=== PATIENT | female | born 1945 | race Caucasian/White ===

== ENCOUNTER → 2016-10-15 | Outpatient (CLI) | payer OTHER ==
[~2016-10-15] MED LIST: ACET-749 PO; ACP20 PO; ADVIN25/60 INH; ALBU1AER9 INH; AMB5 PO; BIOF500T PO; CALC500C70 PO; CHOL100010 PO; CHOL1TAB46 PO; CITRUCEL PO; CLR/5 PO; CLR5 PO; CLTP PO; ESTER-C PO; FAMO20TA11 PO; FAMO40TA6 PO; FLNIN NAE; GLUC10007 PO; GLUCOSAMINE PO; IMD/2 PO; LORA-741 PO; MOME100A INH; MULT-506 PO; MULT-663 PO; PINDOLOL PO; RABE20TA5 PO; VERA180C3 PO; VERA180T15 PO; VITA400C15 PO; VITA400C3 PO; VSK5 PO; [UNRECOGNIZED DRUG - CODE] PO; acidophilus PO
[2016-10-15 18:01] LABS: BLOOD UREA NITROGEN 14 mg/dl (7-18); BUN/CREATININE RATIO 17.8 (10-20); CALCIUM 8.6 mg/dl (8.5-10.1); CARBON DIOXIDE 28 mmol/L (21-32); CHLORIDE 105 mmol/L (98-107); CREATININE 0.77 mg/dl (0.60-1.20); GLUCOSE 113 mg/dl (70-99); POTASSIUM 4.1 mmol/L (3.5-5.1); SODIUM 141 mmol/L (136-145)
[2016-10-15 18:08] LABS: BASO % 0.6 %; BASO ABS # 0.05 K/uL (0-0.2); COMPLETE YES; EOS % 3.4 %; HEMATOCRIT 43.5 % (37-47); IG% 0.1 %; LYMPH % 31.3 %; MEAN CELL VOLUME 94.8 fL (80-100); MEAN CORPUSCULAR HEMOGLOBIN 32.7 pg (25-34); MEAN CORPUSCULAR HGB CONC 34.5 g/dl (32-36); MEAN PLATELET VOLUME 11.5 fL (7.4-10.4); MONO % 12.1 %; NEUT % 52.5 %; PLATELET COUNT 232 K/uL (130-400); RED BLOOD COUNT 4.59 M/uL (4.2-5.4); WHITE BLOOD COUNT 7.99 K/uL (4.8-10.8)
== END | disposition home or self-care (01) ==
LOC: C.LABMFLN 13:39
PROVIDERS: ATTEND Physical Medicine & Rehabilitation Sports Medicine
DX: M75.121 Complete rotator cuff tear or rupture of right shoulder, not specified as traumatic (principal)

== ENCOUNTER → 2016-10-23 | Outpatient (CLI) | payer OTHER | END | disposition home or self-care (01) | LOC: C.PAPS 08:06 | PROVIDERS: ATTEND Obstetrics & Gynecology | DX: Z91.89 Other specified personal risk factors, not elsewhere classified (principal) ==

== ENCOUNTER → 2016-10-29 | Day surgery (SDC) | payer OTHER ==
[2016-10-23 10:31] VITALS: Ht 158.1 cm; Wt 95.9 kg
[~2016-10-29] VITALS: Ht 158.1 cm; Wt 95.9 kg
[~2016-10-29] MED LIST changes: -ACET-749 PO; -ACP20 PO; +ATROPINE SULFATE 0.1 MG/ML 5ML SYR IV PRN; +BUPIVACAINE 0.25% 2.5MG/ML PF 10 ML VIAL ONE; +CEFAZOLIN 2000 MG/60 ML D5W IV SCH; -CHOL100010 PO; -CITRUCEL PO; -CLR5 PO; -CLTP PO; +DEXAMETHASONE SOD INJ 4 MG/ML VIAL ONE; -ESTER-C PO; +EpHEDrine SULFATE 50MG/5ML SYR ONE; +EpHEDrine SULFATE INJ 50 MG/ML AMP IV PRN; +EpHEDrine SULFATE INJ 50 MG/ML AMP ONE; +EpINEphrine INJ 1MG/ML AMP 1 MG/ML AMP ONE; -FAMO20TA11 PO; +FENTANYL CITRATE INJ 50 MCG/1 ML 2 ML VIAL IV PRN; +FENTANYL CITRATE INJ 50 MCG/1 ML 2 ML VIAL ONE; -GLUCOSAMINE PO; +GLYCOPYRROLATE INJ 0.2 MG/ML VIAL ONE; +HYDROmorphone INJ 1 MG/ML SYR IV PRN; +LACTATED RINGER'S 1000ML 1,000 ML IV SCH; +LIDOCAINE HCL 2% 2 ML VIAL (20MG/ML) ONE; +METOCLOPRAMIDE HCL INJ 5 MG/ML 2 ML VIAL IV PRN; +MIDAZOLAM HCL 1 MG/ML 2ML VIAL ONE; -MOME100A INH; -MULT-506 PO; +NEOSTIGMINE METHYLSULFATE 5 MG/5 ML SYR ONE; +ONDANSETRON INJ 2 MG/ML 2 ML VIAL IV PRN; +ONDANSETRON INJ 2 MG/ML 2 ML VIAL ONE; +PHENYLEPHRINE HCL INJ 10 MG/ML VIAL ONE; -PINDOLOL PO; +PROPOFOL IV EMULSION 10 MG/ML 20 ML VIAL IV ONE; +ROCURONIUM BROMIDE 10 MG/ML 5 ML VIAL ONE; +ROPIVACAINE 0.5% 5 MG/ML 30 ML VIAL ONE; +SODIUM CHLORIDE 0.9% 1000ML 1,000 ML IV SCH; +SUCCINYLCHOLINE 100MG/5ML SYR IV ONE; +SUCCINYLCHOLINE CHLORIDE 20 MG/ML 10 ML VIAL IV ONE; -VERA180T15 PO; -VITA400C15 PO; -acidophilus PO
--- NOTE | 2016-10-29 08:29 | History & Physical Bridge Note ---
H&P Re-Evaluation Bridge Note: I have examined the patient, reviewed the History & Physical and in the interval since the performance of the History & Physical I have noted the following changes of clinical significance: No changes noted
--- NOTE | 2016-10-29 08:31 | Discharge Instructions ---
Discharge Instructions Visit Reason for Visit: Right Shoulder Large Rotator Cuff Tear Discharge Discharge Diagnosis / Problem: same Discharge Goals Goal(s): Decrease discomfort, Improve function, Increase independence Medications Stopped Medications Name(s): na Restart Stopped Medication(s): use scripts as directed Activity Recommendations Activity Limitations: as noted below Lifting Limitations: until after follow-up appointment Exercise/Sports Limitations: until after follow-up appointment May Resume Sexual Activity: when tolerated Shower/Bathe: keep incision dry Driving or Machine Use: Anesthesia . Post Anesthesia Instructions: If you have had General Anesthesia or IV Sedation: * Do not drive today. * Resume driving when surgeon permits. * Do not make important decisions or sign legal documents today. * Call surgeon for: 1. Temperature elevations greater than 101 degrees F. 2. Uncontrollable pain. 3. Excessive bleeding. 4. Persistent nausea and vomiting. 5. Medication intolerance (nausea, vomiting or rash). * For nausea and vomiting use only clear liquids such as: tea, soda, bouillon until nausea subsides, then gradually increase diet as tolerated. * If you have any concerns or questions, call your surgeon's office. If physician is unavailable and it is an emergency, call 911 or go to the nearest emergency room. . Instructions / Follow-Up Instructions / Follow-Up The following are instructions to follow after "Shoulder Surgery" including, Acromioplasty, Rotator Cuff Repair and Instability Surgery ACTIVITY RECOMMENDATIONS: * Minimize activity after surgery. * No excessive walking, jogging, sports or laboring. * Return to activity is individualized depending on the patient and type of surgery. * Driving is not permitted until at least your first post operative visit. Please ask your doctor when it is safe to resume driving. * Expect increased discomfort with increased activity. Continue to ice the shoulder as needed. SCHOOL/WORK RECOMMENDATIONS: * You may return to sedentary work or school when you are feeling more comfortable. This is usually 3-7 days after surgery. MEDICATIONS: * You will have a prescription for pain medication and an anti-inflammatory medication after surgery. * Use the pain medication for severe pain and the anti-inflammatory for less severe pain. Once the pain medication has run out, try to use the anti-inflammatory medication. If this is not effective, contact the office for assistance. * The pain medication may cause nausea, constipation and drowsiness. You should see how they affect you before driving or similar activity. * The anti-inflammatory medication may cause stomach upset and bleeding. If this occurs let your doctor know immediately . * Take a stool softener like Colace or a laxative like Senokot to prevent constipation. DIET: * Resume previous diet. SPECIAL CARE: ICE: You have the option of an ice cooler, gel packs or ice bags. * If you have an ice cooler, refer to the instructions for that device. The ice cooler may be used continuously. * If you do not have an ice cooler, you will need to use ice bags or gel packs. Do not apply ice directly to the skin. Use a thin dressing or jam shirt between the skin and ice bag. Apply ice for 20-30 minutes and repeat every 2-4 hours. This is especially important for the first 7-10 days after surgery. Once the pain improves, use ice as needed. ELEVATION: * You may be more comfortable sleeping in an upright position. Use the sling to elevate your arm. DRESSING: * Your dressing will be changed at your first therapy appointment approximately 4-5 days after surgery. Band-aids, tape strips or gauze may be applied. You may then change your dressing daily. * Reapply dressing followed by the EBIce cooling pad (if chosen) and then the sling. * Always wash your hands prior to touching the incision area. * Once the stitches are removed, you may leave the wound open to air or cover with gauze. * Expect some bloody drainage for the first few days after surgery. * Leave the tape strips, if present, in place for 5-7 days. * Band-aids and gauze may be changed daily. * There may be a gauze pad in your armpit area. This can be changed daily or replaced by a dry washcloth. SLING/BRACE: * You will need to use a sling or brace after surgery. The length of time the sling is used is dependent upon the type of surgery performed. * Arthroscopic Acromioplasty requires use of the sling for 2-4 weeks for comfort. * Labral procedures and Rotator Cuff Repairs require use of the sling for a longer period of time. Please check with your doctor prior to discontinuing the sling. BATHING: * You may shower or sponge-bathe immediately after surgery. The post operative shoulder dressing is mostly water-tight. You may shower right over this dressing, but be reasonably careful not to get the gauze or incision wet. * Once the dressing has been changed on the fourth or fifth day after surgery, you may shower and get the incision wet. * Wash with regular soap and water. * Do not bathe (submerge the incision), soak, swim or use a hot tub until the incision is completely healed over with normal skin and the doctor has given the OK to proceed. * There is no need to apply any ointments, powders or salves to your incision. * Do not apply alcohol or hydrogen peroxide directly to the incision. * Diluted peroxide (50:50 mixture with sterile saline) may be used to clean dried blood from around the incision area. THERAPY: * You will begin therapy four or five days after surgery. * Organized therapy with the therapist is important for the first 2-4 months after surgery depending on the type of procedure. During that time you will attend therapy 1-3 times per week. * You will also need to do daily exercises for range of motion and strength as instructed. * Patients who have a Capsular Shift Procedure will need to abide by temporary range of motion limitations. * Patients having Rotator Cuff Surgery are not allowed to actively lift their arms until 4-6 weeks after surgery. * Please check with your doctor regarding appropriate motion restrictions. FOLLOW UP VISIT: * If not already scheduled, please call the office at to schedule a follow-up appointment for 10 days after surgery and monthly thereafter. Diet Recommendations Recommended Home Diet: resume previous diet Procedures Procedures Performed: see op note Pending Studies Studies pending at discharge: no Medical Emergencies . Who to Call and When: Medical Emergencies: If at any time you feel your situation is an emergency, please call 911 immediately. . Non-Emergent Contact Non-Emergency issues call your: Specialist Call Non-Emergent contact if: temperature is above 101.5, wound has increased drainage, wound has increased redness . . "Provider Documentation" section prepared by Simba Ramos.
--- NOTE | 2016-10-29 11:32 | [facility] Post Operative Brief Note ---
Immediate Operative Summary Operative Date Oct 29, 2016. 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
--- NOTE | 2016-10-29 12:03 | OPERATIVE REPORT ---
DATE OF OPERATION: 10/29/2016 PREOPERATIVE DIAGNOSIS: Right shoulder large rotator cuff tear. POSTOPERATIVE DIAGNOSIS: Right shoulder same. PROCEDURE: Right shoulder arthroscopy with repair of large rotator cuff tear. SURGEON: Dr. Ramos. FABRIC INSPECTOR: Dr. Santamaria. SECOND DRAWING SUPERVISOR: Tarun Brand PA-C. HISTORY OF PRESENT ILLNESS: This 71-year-old white female presented to the office with complaints of right shoulder pain, weakness, and loss of motion. She had tried conservative care measures without success. X-ray and MRI were obtained. She elected to proceed with surgical intervention after being educated about potential risks and outcomes. DESCRIPTION OF PROCEDURE: The patient was administered a regional block and then taken to the operating room where she was given sedation. She was prepped and draped in the usual sterile fashion. Please see Dr. Ramos's operative report for specifics of the procedure. I was present for the entire case from initial patient positioning through final wound closure. Assistance was provided in patient positioning, arthroscopy, hardware placement, and final wound closure. The patient was taken to the recovery room in satisfactory condition. I attest to the content of the Intraoperative Record and any orders documented therein. Any exceptio ns are noted below.
[2016-10-29 12:36] VITALS: TEMP 36.3
--- NOTE | 2016-10-29 12:55 | Anesthesia Progress Nt - [facility] ---
Anesthesia Post Op Note Date & Time Oct 29, 2016 at 12:53 Vital Signs Pain Intensity: 3 Vital Signs Past 12 Hours Date Time Temp Pulse Resp B/P Pulse Ox O2 Delivery O2 Flow Rate FiO2 10/29/16 12:27 73 16 96 10/29/16 12:27 73 16 137/80 96 10/29/16 12:24 36.4 10/29/16 12:24 137/76 10/29/16 12:22 72 18 95 10/29/16 12:22 73 18 10/29/16 12:19 125/76 10/29/16 12:17 71 22 10/29/16 12:17 70 22 94 10/29/16 12:14 139/68 10/29/16 12:12 74 17 10/29/16 12:12 74 17 94 10/29/16 12:09 113/66 10/29/16 12:07 74 11 10/29/16 12:07 74 11 95 10/29/16 12:04 130/76 10/29/16 12:02 76 19 10/29/16 12:02 76 19 131/79 96 10/29/16 12:00 /90 10/29/16 11:57 75 21 96 10/29/16 11:57 75 21 10/29/16 11:54 128/101 10/29/16 11:52 75 22 10/29/16 11:52 74 22 100 10/29/16 11:49 117/58 10/29/16 11:47 80 15 98 10/29/16 11:47 80 15 10/29/16 11:46 36.1 77 14 112/81 98 Diffusion Mask 8 10/29/16 10:36 76 10/29/16 10:36 76 25 96 10/29/16 10:33 139/91 10/29/16 10:31 74 10/29/16 10:31 74 24 96 10/29/16 10:28 140/82 10/29/16 10:26 78 10/29/16 10:26 81 24 96 10/29/16 10:24 135/85 10/29/16 10:21 70 15 96 10/29/16 10:21 70 10/29/16 10:18 116/86 10/29/16 10:16 68 10/29/16 10:16 68 14 96 10/29/16 10:13 119/82 10/29/16 10:11 69 15 96 10/29/16 10:11 70 10/29/16 10:08 121/91 10/29/16 10:06 73 10/29/16 10:06 72 16 96 10/29/16 10:03 130/89 10/29/16 10:01 72 14 95 10/29/16 10:01 73 10/29/16 10:00 73 10/29/16 10:00 72 12 97 10/29/16 09:58 130/86 10/29/16 09:55 75 14 97 10/29/16 09:55 75 10/29/16 09:53 138/94 10/29/16 09:50 76 18 97 10/29/16 09:50 77 10/29/16 09:49 140/98 10/29/16 08:34 36.7 75 18 130/88 96 Room Air Notes Mental Status: alert / awake / arousable, participated in evaluation Pt Amnestic to Procedure: Yes Nausea / Vomiting: adequately controlled Pain: adequately controlled Airway Patency, RR, SpO2: stable & adequate BP & HR: stable & adequate Hydration State: stable & adequate Anesthetic Complications: no major complications apparent No s/s of reactions to the local anesthetic from the block. Patient awake, alert and conversant. VSS. No complications other than mild swelling where ETT compressed lip. Teeth undamaged.
[2016-10-29 13:02] VITALS: BP 120/75; PULSE 68; O2SAT 96
--- NOTE | 2016-10-29 13:56 | OPERATIVE REPORT ---
DATE OF OPERATION: 10/29/2016 SURGEON: Simba Ramos MD SHELL PLATER: Conor Greenfield MD SECOND SHELL PLATER: Tarun Brand PA-C. PREOPERATIVE DIAGNOSIS: Large retracted rotator cuff tear, right upper extremity. POSTOPERATIVE DIAGNOSIS: Same. OPERATION PERFORMED: 1. Exam under anesthesia. 2. Diagnostic arthroscopy. 3. Arthroscopic large rotator cuff repair using arthroscopic technique. PERIOPERATIVE SITUATION: Medically cleared female with intractable shoulder pain with physical exam, x-ray and MRI scan consistent with the above diagnosis. Options were discussed with her. She wanted to give it a try for soft tissue repair. She has understood that this may not be completely successful based on tissue quality and mobility. OPERATION IN DETAIL: The patient appropriately identified, site verified, consent verified. Antibiotics confirmed as being given. The upper extremity was examined, revealing no instability. She was then sterilely prepped and draped in usual routine fashion with the patient in the beach chair position. Posterior portal made and the joint entered. An anterior portal made and the joint entered. Immediately encountered was the large retracted rotator cuff tear. There was a superior labral tear that was debrided. The biceps was already ruptured. The articular surfaces were relatively healthy. The ends of the rotator cuff tear were then debrided. The subacromial space was then entered by coming just out slightly and slipping on top of the tear. The area was debrided with the thermal device and the shaver. The humeral head tuberosity was then debrided with a curette and cleaned up. The Tina cannula was then placed and the tissue grasper noted that the tissue mobility was actually reasonable. Four sutures were then placed and the loop sutures in the cuff from anterior to posterior and then using shuttling technique, the 2 posterior sutures were then placed underneath the cannula and a 4.75 anchor placed anteriorly. This brought the tear back within 2-3 mm of the anatomic insertion on the footprint. The additional anchor was then placed after replacing the cannula through the cannula, posterior to the first anchor and this brought the tissue in the same position. There was no undue tension on the tissue. The arm could be moved with no retraction. There was good tension on the sutures. There was no slack in the system. It should be mentioned that the repair was accomplished with the arm at the side. The procedure was then terminated. All instruments and fluid removed. The portals closed with 4-0 nylon, dressed appropriately with Xeroform, ABD pads and Ioban dressing. The arm was then placed in a sling with a belly band. Estimated blood loss was trace. CRYSTALLOID: 1100 mL. Overall prognosis for the shoulder remains guarded based on the potential retear probability or failure to heal based on tear size and tissue chronicity. I attest to the content of the Intraoperative Record and any orders documented therein. Any exceptions are noted below. MTDD
== END | disposition home or self-care (01) ==
LOC: X.SURG 08:19
PROVIDERS: ATTEND Physical Medicine & Rehabilitation Sports Medicine
DX: M75.121 Complete rotator cuff tear or rupture of right shoulder, not specified as traumatic (principal); M66.88 Spontaneous rupture of other tendons, other sites; I10 Essential (primary) hypertension; E03.9 Hypothyroidism, unspecified; E78.5 Hyperlipidemia, unspecified; E55.9 Vitamin D deficiency, unspecified; Z87.891 Personal history of nicotine dependence; M66.821 Spontaneous rupture of other tendons, right upper arm

== ENCOUNTER → 2016-12-09 | Outpatient (CLI) | payer OTHER ==
[~2016-12-09] MED LIST changes: -ATROPINE SULFATE 0.1 MG/ML 5ML SYR IV PRN; -BUPIVACAINE 0.25% 2.5MG/ML PF 10 ML VIAL ONE; -CEFAZOLIN 2000 MG/60 ML D5W IV SCH; -DEXAMETHASONE SOD INJ 4 MG/ML VIAL ONE; -EpHEDrine SULFATE 50MG/5ML SYR ONE; -EpHEDrine SULFATE INJ 50 MG/ML AMP IV PRN; -EpHEDrine SULFATE INJ 50 MG/ML AMP ONE; -EpINEphrine INJ 1MG/ML AMP 1 MG/ML AMP ONE; -FENTANYL CITRATE INJ 50 MCG/1 ML 2 ML VIAL IV PRN; -FENTANYL CITRATE INJ 50 MCG/1 ML 2 ML VIAL ONE; -GLYCOPYRROLATE INJ 0.2 MG/ML VIAL ONE; -HYDROmorphone INJ 1 MG/ML SYR IV PRN; -LACTATED RINGER'S 1000ML 1,000 ML IV SCH; -LIDOCAINE HCL 2% 2 ML VIAL (20MG/ML) ONE; -METOCLOPRAMIDE HCL INJ 5 MG/ML 2 ML VIAL IV PRN; -MIDAZOLAM HCL 1 MG/ML 2ML VIAL ONE; -NEOSTIGMINE METHYLSULFATE 5 MG/5 ML SYR ONE; -ONDANSETRON INJ 2 MG/ML 2 ML VIAL IV PRN; -ONDANSETRON INJ 2 MG/ML 2 ML VIAL ONE; -PHENYLEPHRINE HCL INJ 10 MG/ML VIAL ONE; -PROPOFOL IV EMULSION 10 MG/ML 20 ML VIAL IV ONE; -ROCURONIUM BROMIDE 10 MG/ML 5 ML VIAL ONE; -ROPIVACAINE 0.5% 5 MG/ML 30 ML VIAL ONE; -SODIUM CHLORIDE 0.9% 1000ML 1,000 ML IV SCH; -SUCCINYLCHOLINE 100MG/5ML SYR IV ONE; -SUCCINYLCHOLINE CHLORIDE 20 MG/ML 10 ML VIAL IV ONE
== END | disposition home or self-care (01) ==
LOC: C.RDSM 10:15
PROVIDERS: ATTEND Physical Medicine & Rehabilitation Sports Medicine
DX: M75.121 Complete rotator cuff tear or rupture of right shoulder, not specified as traumatic (principal)

== ENCOUNTER → 2016-12-16 | Outpatient (CLI) | payer OTHER ==
--- NOTE | 2016-12-16 10:53 | DIAGNOSTIC IMAGING REPORT ---
THYROID ULTRASOUND HISTORY: Lump in neck. COMPARISON: None. FINDINGS: Within the right lateral neck at the patient's abnormality there is a 10 x 8 x 5 mm slightly hyperechoic area within the subcutaneous fat. This is nearly identical to the adjacent subcutaneous fat. Therefore, this favors a small lipoma. No fluid collections identified. IMPRESSION: A 10 x 8 x 5 mm slightly hyperechoic lesion within the subcutaneous fat of the right lateral neck. This favors a lipoma. Electronically signed by: Cholo Urena M.D. 12/16/2016 10:51 AM Dictated Date/Time: 12/16/2016 10:48 AM
== END | disposition home or self-care (01) ==
LOC: C.ULTR 10:07
PROVIDERS: ATTEND Internal Medicine
DX: R22.1 Localized swelling, mass and lump, neck (principal)

== ENCOUNTER → 2017-01-20 | Outpatient (CLI) | payer OTHER ==
--- NOTE | 2017-01-20 10:03 | DIAGNOSTIC IMAGING REPORT ---
LEFT FIFTH FINGER 3 VIEWS HISTORY: LEFT ANKLE AND 5TH FINGER PAIN COMPARISON: None. FINDINGS: There is no fracture or dislocation. Soft tissues are unremarkable. No radiopaque foreign bodies. Bone mineralization is intact. Mild cartilage space narrowing at the MCP, PIP, and DIP joint of the fifth finger. No erosions identified. 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 No fractures. Electronically signed by: Cholo Urena M.D. 01/20/2017 10:01 AM Dictated Date/Time: 01/20/2017 10:00 AM
--- NOTE | 2017-01-20 10:04 | DIAGNOSTIC IMAGING REPORT ---
LEFT ANKLE 3 VIEWS HISTORY: LEFT ANKLE AND 5TH FINGER PAIN COMPARISON: None. FINDINGS: There is no fracture or dislocation. Small plantar heel spur. No significant soft tissue swelling. Cartilage spaces are maintained for age. No radiopaque foreign bodies. IMPRESSION: 1. No fracture or dislocation within the left ankle. 2. Small plantar heel spur. Electronically signed by: Cholo Urena M.D. 01/20/2017 10:03 AM Dictated Date/Time: 01/20/2017 10:02 AM
== END | disposition home or self-care (01) ==
LOC: C.RDSM 12:12
PROVIDERS: ATTEND Physician Assistant
DX: M25.572 Pain in left ankle and joints of left foot (principal); M79.645 Pain in left finger(s)

== ENCOUNTER → 2017-02-06 | Outpatient (CLI) | payer OTHER ==
[2017-02-06 14:35] LABS: ALT/SGPT 28 U/L (12-78); AST/SGOT 12 U/L (15-37); BLOOD UREA NITROGEN 14 mg/dl (7-18); BUN/CREATININE RATIO 16.3 (10-20); CALCIUM 8.9 mg/dl (8.5-10.1); CARBON DIOXIDE 29 mmol/L (21-32); CHLORIDE 107 mmol/L (98-107); CREATININE 0.85 mg/dl (0.60-1.20); GLUCOSE 107 mg/dl (70-99); POTASSIUM 4.2 mmol/L (3.5-5.1); SODIUM 141 mmol/L (136-145)
[2017-02-06 14:46] LABS: CHOLESTEROL 207 mg/dl (0-200); CHOLESTEROL/HDL RATIO 4.7; HDL CHOLESTEROL 44 mg/dl; LDL CHOLESTEROL CALCULATED 130 mg/dl; TRIGLYCERIDES 167 mg/dl (0-150); VERY LOW DENSITY LIPOPROT CALC 33 mg/dl
== END | disposition home or self-care (01) ==
LOC: C.LABMFLN 07:55
PROVIDERS: ATTEND Internal Medicine
DX: E55.9 Vitamin D deficiency, unspecified (principal); E78.5 Hyperlipidemia, unspecified; E03.9 Hypothyroidism, unspecified; M85.80 Other specified disorders of bone density and structure, unspecified site

== ENCOUNTER → 2017-05-26 | Outpatient (CLI) | payer OTHER ==
--- NOTE | 2017-05-27 14:36 | MAMMOGRAPHY REPORT ---
BILATERAL DIGITAL SCREENING MAMMOGRAM TOMOSYNTHESIS WITH CAD: 05/26/2017 CLINICAL HISTORY: Routine screening. TECHNIQUE: Breast tomosynthesis in addition to standard 2D mammography was performed. Current study was also evaluated with a Computer Aided Detection (CAD) system. COMPARISON: Comparison is made to exams dated: 07/01/2016 mammogram, 05/22/2016 mammogram, 11/01/2015 m ammogram, 05/19/2015 mammogram, 05/18/2014 mammogram, and 05/17/2013 mammogram - [facility] er. BREAST COMPOSITION: The tissue of both breasts is heterogeneously dense, which may obscure small mas ses. FINDINGS: There are multiple bilateral circumscribed masses scattered in both breasts. Scattered morris ign-appearing coarse calcifications. Stable metallic biopsy markers in each breast. No suspicious s piculated or irregular mass, architectural distortion or cluster of suspicious microcalcifications is seen. IMPRESSION: ACR BI-RADS CATEGORY 1: NEGATIVE There is no mammographic evidence of malignancy. A 1 year screening mammogram is recommended. The pa tient will receive written notification of the results. Approximately 10% of breast cancers are not detected with mammography. A negative mammographic report should not delay biopsy if a clinically suggestive mass is present. Jolanta Baer M.D. ay/:05/26/2017 15:39:16 Concert Singer: Ry ROCKWELL(Steffanie)(M), [facility] letter sent: Normal 1/2 BI-RADS Code: ACR BI-RADS Category 1: Negative
== END | disposition home or self-care (01) ==
LOC: C.MAMM 10:18
PROVIDERS: ATTEND Obstetrics & Gynecology
DX: Z12.31 Encounter for screening mammogram for malignant neoplasm of breast (principal)

== ENCOUNTER → 2017-06-09 | Outpatient (CLI) | payer OTHER | END | disposition home or self-care (01) | LOC: C.RDSM 13:58 | PROVIDERS: ATTEND Physical Medicine & Rehabilitation Sports Medicine | DX: M17.0 Bilateral primary osteoarthritis of knee (principal) ==

== ENCOUNTER → 2017-06-12 | Outpatient (CLI) | payer OTHER ==
[2017-06-12 13:18] LABS: BASO % 0.8 %; BASO ABS # 0.06 K/uL (0-0.2); COMPLETE YES; EOS % 3.9 %; HEMATOCRIT 44.7 % (37-47); IG% 0.3 %; LYMPH % 34.7 %; LYMPH ABS # 2.52 K/uL (1.2-3.4); MEAN CELL VOLUME 96.5 fL (80-100); MEAN CORPUSCULAR HEMOGLOBIN 33.5 pg (25-34); MEAN CORPUSCULAR HGB CONC 34.7 g/dl (32-36); MEAN PLATELET VOLUME 11.1 fL (7.4-10.4); MONO % 15.7 %; NEUT % 44.6 %; PLATELET COUNT 243 K/uL (130-400); RED BLOOD COUNT 4.63 M/uL (4.2-5.4); WHITE BLOOD COUNT 7.26 K/uL (4.8-10.8)
[2017-06-12 14:00] LABS: ALT/SGPT 27 U/L (12-78); AST/SGOT 16 U/L (15-37); BLOOD UREA NITROGEN 14 mg/dl (7-18); BUN/CREATININE RATIO 17.7 (10-20); CALCIUM 8.6 mg/dl (8.5-10.1); CARBON DIOXIDE 26 mmol/L (21-32); CHLORIDE 107 mmol/L (98-107); CHOLESTEROL 207 mg/dl (0-200); CREATININE 0.81 mg/dl (0.60-1.20); GLUCOSE 106 mg/dl (70-99); POTASSIUM 4.1 mmol/L (3.5-5.1); SODIUM 140 mmol/L (136-145)
[2017-06-12 14:10] LABS: ALB/GLOB RATIO 1.1 (0.9-2); ALKALINE PHOSPHATASE 55 U/L (45-117); HDL CHOLESTEROL 41 mg/dl; LDL CHOLESTEROL CALCULATED 134 mg/dl; TRIGLYCERIDES 158 mg/dl (0-150); VERY LOW DENSITY LIPOPROT CALC 32 mg/dl
== END | disposition home or self-care (01) ==
LOC: C.LABMFLN 07:52
PROVIDERS: ATTEND Internal Medicine
DX: K21.9 Gastro-esophageal reflux disease without esophagitis (principal); E78.5 Hyperlipidemia, unspecified; E03.9 Hypothyroidism, unspecified; E55.9 Vitamin D deficiency, unspecified; K76.0 Fatty (change of) liver, not elsewhere classified

== ENCOUNTER → 2017-10-16 | Outpatient (CLI) | payer OTHER ==
[2017-10-16 13:02] LABS: HEMATOCRIT 46.7 % (37-47); HEMOGLOBIN 15.6 g/dL (12.0-16.0); MEAN CELL VOLUME 98.5 fL (80-100); MEAN CORPUSCULAR HEMOGLOBIN 32.9 pg (25-34); MEAN CORPUSCULAR HGB CONC 33.4 g/dl (32-36); MEAN PLATELET VOLUME 11.1 fL (7.4-10.4); PLATELET COUNT 232 K/uL (130-400); RED CELL DISTRIBUTION WIDTH CV 13.5 % (11.5-14.5); RED CELL DISTRIBUTION WIDTH SD 48.4 fL (36.4-46.3); WHITE BLOOD COUNT 8.26 K/uL (4.8-10.8)
[2017-10-16 13:47] LABS: BLOOD UREA NITROGEN 13 mg/dl (7-18); CALCIUM 8.5 mg/dl (8.5-10.1); CARBON DIOXIDE 29 mmol/L (21-32); CREATININE 0.81 mg/dl (0.60-1.20); GLUCOSE 116 mg/dl (70-99); SODIUM 138 mmol/L (136-145)
[2017-10-16 13:58] LABS: CHOLESTEROL 203 mg/dl (0-200); LDL CHOLESTEROL CALCULATED 123 mg/dl
== END | disposition home or self-care (01) ==
LOC: C.LABMFLN 08:25
PROVIDERS: ATTEND Internal Medicine
DX: J45.909 Unspecified asthma, uncomplicated (principal); E78.5 Hyperlipidemia, unspecified; E03.9 Hypothyroidism, unspecified

== ENCOUNTER 2017-12-18 17:34 | Emergency (ER) | payer OTHER ==
[~2017-12-18] VITALS: Ht 157.5 cm; Wt 97.3 kg
[2017-12-18 17:40] VITALS: TEMP 36.8; Ht 157.5 cm; Wt 97.3 kg
[2017-12-18 18:33] LABS: BASO % 0.5 %; BASO ABS # 0.04 K/uL (0-0.2); EOS % 4.5 %; EOS ABS # 0.39 K/uL (0-0.5); HEMOGLOBIN 15.7 g/dL (12.0-16.0); IG# 0.02 K/uL (0.00-0.02); LYMPH % 39.5 %; LYMPH ABS # 3.42 K/uL (1.2-3.4); MEAN CELL VOLUME 94.9 fL (80-100); MEAN CORPUSCULAR HEMOGLOBIN 33.1 pg (25-34); MEAN CORPUSCULAR HGB CONC 34.9 g/dl (32-36); MEAN PLATELET VOLUME 10.3 fL (7.4-10.4); MONO % 14.3 %; MONO ABS # 1.24 K/uL (0.11-0.59); NEUT ABS # 3.54 K/uL (1.4-6.5); PLATELET COUNT 237 K/uL (130-400); RED CELL DISTRIBUTION WIDTH CV 13.4 % (11.5-14.5); RED CELL DISTRIBUTION WIDTH SD 46.6 fL (36.4-46.3); WHITE BLOOD COUNT 8.65 K/uL (4.8-10.8)
[2017-12-18 18:50] LABS: ALBUMIN 3.8 gm/dl (3.4-5.0); ALT/SGPT 32 U/L (12-78); AST/SGOT 17 U/L (15-37); BLOOD UREA NITROGEN 11 mg/dl (7-18); CALCIUM 8.7 mg/dl (8.5-10.1); CARBON DIOXIDE 26 mmol/L (21-32); CREATININE 0.78 mg/dl (0.60-1.20); GLUCOSE 97 mg/dl (70-99); LIPASE 83 U/L (73-393); POTASSIUM 3.5 mmol/L (3.5-5.1); SODIUM 137 mmol/L (136-145)
[2017-12-18 18:55] LABS: ALKALINE PHOSPHATASE 53 U/L (45-117); TOTAL PROTEIN 7.4 gm/dl (6.4-8.2)
--- NOTE | 2017-12-18 18:55 | DIAGNOSTIC IMAGING REPORT ---
ABDOMEN AND PELVIS CT WITHOUT CONTRAST CT DOSE: 1176.68 mGy.cm HISTORY: Acute left lower quadrant abdominal pain llq pain, r/o diverticulitis/ perforation TECHNIQUE: Multiaxial CT images of the abdomen and pelvis were performed without contrast. A dose lowering technique was utilized adhering to the principles of ALARA. COMPARISON STUDY: CT abdomen and pelvis 08/13/2016. FINDINGS: The lung bases are generally clear. Mild bibasilar subsegmental atelectasis. There is no pneumatosis or pneumoperitoneum identified. Coronary arterial disease. No pericardial effusion. Hepatic steatosis. Lobulated low attenuating 4.0 cm lesion of the right hepatic lobe redemonstrated compatible with cyst. No intrahepatic biliary ductal dilation identified. Prior cholecystectomy with likely physiologic mild dilation of the common bile duct. The spleen, pancreas and right adrenal gland are unremarkable. Punctate calcification of the medial limb left adrenal gland suggests focus of remote hemorrhage or infection. Kidneys, and ureters are unremarkable. The urinary bladder is decompressed. Pessary device is noted within the vagina. Prior hysterectomy. No adnexal mass lesions identified. No aortic aneurysm or bulky adenopathy. Small duodenal diverticulum. There is no bowel obstruction or focal bowel wall thickening. No ascites or inflammatory changes seen within the abdomen or pelvis. Extensive sigmoid diverticulosis without CT evidence of acute diverticulitis. Surgically absent appendix. Tiny fat filled periumbilical hernia. Heterogeneous breast parenchyma scattered breast calcifications. Soft tissues are otherwise unremarkable. Bones appear intact without suspicious lytic or blastic bony lesions. Multilevel facet arthrosis of the lower lumbar spine. IMPRESSION: 1. No acute intra-abdominal or intrapelvic abnormality identified. No bowel obstruction or focal bowel wall thickening. 2. Extensive sigmoid diverticulosis without CT evidence of acute diverticulitis. 3. Prior cholecystectomy, hysterectomy and appendectomy. 4. Hepatic steatosis. Electronically signed by: Rashad Muir M.D. 12/18/2017 6:54 PM Dictated Date/Time: 12/18/2017 6:46 PM
[2017-12-18 19:40] VITALS: BP 137/78; PULSE 70; O2SAT 96
--- NOTE | 2017-12-18 19:53 | EMERGENCY ROOM VISIT NOTE ---
History Report prepared by Job: Linda Lowery Under the Supervision of: Dr. Caesar Ventura D.O. First contact with patient: 17:48 Chief Complaint: DIARRHEA Stated Complaint: FREQUENT STOOLING, CRAMPING PAIN Nursing Triage Summary: pt has hx of divertic. has had abd discomfort and loose stools since friday. saw pcp today and was sent here. History of Present Illness The patient is a 72 year old female who presents to the Emergency Room with complaints of persistent LLQ abdominal pain starting 5-6 days ago. The patient was sent to the ED by her PCP over concerns of a perforation. The patient has a history of diverticulosis. She currently rates her discomfort as a 5/10 in severity. She reports diarrhea. She has been having 8-10 bowel movements a day. She denies any fever or nausea. She denies any recent antibiotic use. Source of History: patient Onset: 5-6 days ago Position: abdomen (LLQ) Symptom Intensity: 5/10 Quality: other (pain) Timing: other (persistent) Associated Symptoms: + diarrhea, No fevers, No nausea Review of Systems See HPI for pertinent positives & negatives. A total of 10 systems reviewed and were otherwise negative. Past Medical & Surgical Medical Problems: (1) Diverticulosis Surgical Problems: (1) S/P cholecystectomy (2) S/P hysterectomy Family History Cancer Diabetes mellitus Gallbladder disease Heart disease Hypertension Social History Smoking Status: Former Smoker Marital Status: Occupation Status: retired Current/Historical Medications Scheduled Bioflavonoid Products (Lo-C), 500 MG PO DAILY AT LUNCH Calcium/Vitamin D ([place] 500 Plus D), 1 TAB PO BID Cholecalciferol (Vitamin D3), 1 TAB PO QPM Desloratadine (Clarinex), 5 MG PO QAM Famotidine (Pepcid), 40 MG PO HS Fluticasone Propionate (Flonase Nasal [place] *), 1 SPRAY MITCH QAM Glucosamine Sulfate (Glucosamine), 1,000 MG PO QPM Loperamide Hcl (Imodium), 2 MG PO HS Multiple Minerals W/ Vitamins (Citracal Plus), 2 TAB PO HS Pindolol (Visken), 5 MG PO BID Rabeprazole Sodium (Aciphex), 20 MG PO QAM Verapamil Hcl (Verapamil Hcl Sr), 1 CAP PO HS Vitamin E (Vitamin E 400 Iu), 400 INTER.UNIT PO BID Zolpidem Tartrate (Ambien *), 5 MG PO HS PRN [Femring], 0.1 MG PO DAILY Scheduled PRN Albuterol (Proair Hfa), 1-2 PUFF INH PRN PRN for Shortness of Breath Fluticasone Prop/Salmeterol (Advair Diskus 250/50 60 Dose), 1 PUFF INH BID PRN for Shortness of Breath Lorazepam (Ativan), 0.5 MG PO BID PRN for Anxiety Allergies Coded Allergies: Ampicillin (Unverified Allergy, Intermediate, RASH, 12/18/17) Diclofenac (Verified Allergy, Intermediate, Burning up, 12/18/17) Heparin (Verified Allergy, Intermediate, RASH, 12/18/17) Isopropyl Alcohol (Verified Allergy, Intermediate, Burning up, 12/18/17) Levofloxacin (Unverified Allergy, Intermediate, MUSCLE PAIN, 12/18/17) Macrolides (Verified Allergy, Intermediate, SWELLING, 12/18/17) Moxifloxacin (Unverified Allergy, Intermediate, MUSCLE PAIN, 12/18/17) Pork (Verified Allergy, Intermediate, RASH, 12/18/17) Propylene Glycol (Verified Allergy, Intermediate, Burning up, 12/18/17) Adhesives (Verified Allergy, Mild, WELTS, 12/18/17) Cephalosporins (Verified Allergy, Mild, RASH DIGESTIVE SYSTEM , 12/18/17) Penicillins (Verified Allergy, Mild, RASH, 12/18/17) Sulfa Drugs (Verified Allergy, Mild, RASH, 12/18/17) Celecoxib (Verified Allergy, Unknown, 12/18/17) Erythromycin (Verified Allergy, Unknown, UNKNOWN, 12/18/17) Tramadol (Verified Allergy, Unknown, "wheezing, shortness of breath", ) Procaine (Verified Adverse Reaction, Intermediate, RACING HEART BEAT, ) Rofecoxib (Verified Adverse Reaction, Intermediate, INCREASED BP SWELLING , 12/18/17) Cortisone (Verified Adverse Reaction, Mild, HEADCAHE, 12/18/17) Lidocaine (Unverified Adverse Reaction, Unknown, RASH, 12/18/17) CARBOCAINE IS OKAY TO USE- PER PATIENT 07/15/16 Physical Exam Vital Signs Date Time Temp Pulse Resp B/P (MAP) Pulse Ox O2 Delivery O2 Flow Rate FiO2 12/18/17 19:40 70 18 137/78 96 Room Air 12/18/17 17:40 36.8 72 20 144/81 97 Room Air Physical Exam CONSTITUTIONAL/VITAL SIGNS: Reviewed / noted above. GENERAL: Non-toxic in appearance. INTEGUMENTARY: Warm, dry, and [place]. HEAD: Normocephalic. EYES: without scleral icterus or trauma. ENT/OROPHARYNX: clear and moist. LYMPHADENOPATHY/NECK: Is supple without lymphadenopathy or meningismus. RESPIRATORY: Lungs clear and equal. CARDIOVASCULAR: Regular rate and rhythm. GI/ABDOMEN: Soft and nontender. No organomegaly or pulsatile mass. No rebound or guarding. Normal bowel sounds. EXTREMITIES: Warm and well perfused. BACK: No CVA tenderness. NEUROLOGICAL: Intact without focal deficits. PSYCHIATRIC: normal affect. MUSCULOSKELETAL: Normally developed with good muscle tone. Medical Decision & Procedures ER Provider Diagnostic Interpretation: Radiology results as stated below per my review and radiologist interpretation: ABDOMEN AND PELVIS CT WITHOUT CONTRAST CT DOSE: 1176.68 mGy.cm HISTORY: Acute left lower quadrant abdominal pain llq pain, r/o diverticulitis/ perforation TECHNIQUE: Multiaxial CT images of the abdomen and pelvis were performed without contrast. A dose lowering technique was utilized adhering to the principles of ALARA. COMPARISON STUDY: CT abdomen and pelvis 08/13/2016. FINDINGS: The lung bases are generally clear. Mild bibasilar subsegmental atelectasis. There is no pneumatosis or pneumoperitoneum identified. Coronary arterial disease. No pericardial effusion. Hepatic steatosis. Lobulated low attenuating 4.0 cm lesion of the right hepatic lobe redemonstrated compatible with cyst. No intrahepatic biliary ductal dilation identified. Prior cholecystectomy with likely physiologic mild dilation of the common bile duct. The spleen, pancreas and right adrenal gland are unremarkable. Punctate calcification of the medial limb left adrenal gland suggests focus of remote hemorrhage or infection. Kidneys, and ureters are unremarkable. The urinary bladder is decompressed. Pessary device is noted within the vagina. Prior hysterectomy. No adnexal mass lesions identified. No aortic aneurysm or bulky adenopathy. Small duodenal diverticulum. There is no bowel obstruction or focal bowel wall thickening. No ascites or inflammatory changes seen within the abdomen or pelvis. Extensive sigmoid diverticulosis without CT evidence of acute diverticulitis. Surgically absent appendix. Tiny fat filled periumbilical hernia. Heterogeneous breast parenchyma scattered breast calcifications. Soft tissues are otherwise unremarkable. Bones appear intact without suspicious lytic or blastic bony lesions. Multilevel facet arthrosis of the lower lumbar spine. IMPRESSION: 1. No acute intra-abdominal or intrapelvic abnormality identified. No bowel obstruction or focal bowel wall thickening. 2. Extensive sigmoid diverticulosis without CT evidence of acute diverticulitis. 3. Prior cholecystectomy, hysterectomy and appendectomy. 4. Hepatic steatosis. Electronically signed by: Rashad Muir M.D. 12/18/2017 6:54 PM Dictated Date/Time: 12/18/2017 6:46 PM Laboratory Results 12/18/17 18:25 Red Blood Count 4.74, Mean Corpuscular Volume 94.9, Mean Corpuscular Hemoglobin 33.1, Mean Corpuscular Hemoglobin Concent 34.9, Mean Platelet Volume 10.3, Neutrophils (%) (Auto) 41.0, Lymphocytes (%) (Auto) 39.5, Monocytes (%) (Auto) 14.3, Eosinophils (%) (Auto) 4.5, Basophils (%) (Auto) 0.5, Neutrophils # (Auto ) 3.54, Lymphocytes # (Auto) 3.42, Monocytes # (Auto) 1.24, Eosinophils # (Auto ) 0.39, Basophils # (Auto) 0.04 12/18/17 18:25 Test 12/18/17 18:20 12/18/17 18:25 Urine Color DK YELLOW Urine Appearance CLEAR (CLEAR) Urine pH 5.0 (4.5-7.5) Urine Specific [place] 1.022 (1.000-1.030) Urine Protein NEG (NEG) Urine Glucose (UA) NEG (NEG) Urine Ketones NEG (NEG) Urine Occult Blood NEG (NEG) Urine Nitrite POS (NEG) Urine Bilirubin NEG (NEG) Urine Urobilinogen NEG (NEG) Urine Leukocyte Esterase NEG (NEG) Urine WBC (Auto) 1-5 /hpf (0-5) Urine RBC (Auto) 5-10 /hpf (0-4) Urine Hyaline Casts (Auto) 1-5 /lpf (0-5) Urine Epithelial Cells (Auto) 10-20 /lpf (0-5) Urine Bacteria (Auto) 4+ (NEG) White Blood Count 8.65 K/uL (4.8-10.8) Red Blood Count 4.74 M/uL (4.2-5.4) Hemoglobin 15.7 g/dL (12.0-16.0) Hematocrit 45.0 % (37-47) Mean Corpuscular Volume 94.9 fL (80-100) Mean Corpuscular Hemoglobin 33.1 pg (25-34) Mean Corpuscular Hemoglobin Concent 34.9 g/dl (32-36) Platelet Count 237 K/uL (130-400) Mean Platelet Volume 10.3 fL (7.4-10.4) Neutrophils (%) (Auto) 41.0 % Lymphocytes (%) (Auto) 39.5 % Monocytes (%) (Auto) 14.3 % Eosinophils (%) (Auto) 4.5 % Basophils (%) (Auto) 0.5 % Neutrophils # (Auto) 3.54 K/uL (1.4-6.5) Lymphocytes # (Auto) 3.42 K/uL (1.2-3.4) Monocytes # (Auto) 1.24 K/uL (0.11-0.59) Eosinophils # (Auto) 0.39 K/uL (0-0.5) Basophils # (Auto) 0.04 K/uL (0-0.2) RDW Standard Deviation 46.6 fL (36.4-46.3) RDW Coefficient of Variation 13.4 % (11.5-14.5) Immature Granulocyte % (Auto) 0.2 % Immature Granulocyte # (Auto) 0.02 K/uL (0.00-0.02) Anion Gap 7.0 mmol/L (3-11) Est Creatinine Clear Calc Drug Dose 73.1 ml/min Estimated GFR () 89.3 Estimated GFR (Non- 77.0 BUN/Creatinine Ratio 14.5 (10-20) Calcium Level 8.7 mg/dl (8.5-10.1) Total Bilirubin 0.7 mg/dl (0.2-1) Aspartate Amino Transf (AST/SGOT) 17 U/L (15-37) Alanine Aminotransferase (ALT/SGPT) 32 U/L (12-78) Alkaline Phosphatase 53 U/L (45-117) Troponin I < 0.015 ng/ml (0-0.045) Total Protein 7.4 gm/dl (6.4-8.2) Albumin 3.8 gm/dl (3.4-5.0) Globulin 3.6 gm/dl (2.5-4.0) Albumin/Globulin Ratio 1.1 (0.9-2) Lipase 83 U/L (73-393) Laboratory results as stated above per my review. ECG Per My Interpretation Indication: abdominal pain Rate (beats per minute): 76 Rhythm: normal sinus Findings: no ectopy, other (no ST elevation) ED Course 1938: Previous medical records were reviewed. The patient was evaluated in room B3B. A complete history and physical examination was performed. 1944: The patient was discharged home. Medical Decision Differential considered: pancreatitis, hepatitis, or acute cholecystitis, AAA, UTI, pyelonephritis, kidney stones, appendicitis, diverticulitis, shingles, bowel obstruction mesenteric ischemia, intussusception,hernia, testicular torsion. This is a 72-year-old female who presents to the ED with a chief complaint of frequent stools as well as some left lower quadrant abdominal pain. The patient was seen by the PCP and was sent here for evaluation of her symptoms. They was concerned about perforation, per the patient. The patient reports recurrent episodes of cramping abdominal pain as well as frequent soft stools. This is been occurring today. The patient denies any diarrhea, fevers, back pains, chest pains or shortness of breath. Her physical exam did not reveal any tenderness, when I saw her just prior to disposition. The patient was seen in conjunction with the resident. An EKG shows a normal sinus rhythm. CT scan of the abdomen pelvis did not show acute process. CBC and complete metabolic panel were normal and a troponin was negative. Urine was positive for nitrite and is suggestive of UTI. The patient states that she does not have any urinary tract infection symptoms and will await a culture. She did not want treatment now. The patient was advised to follow-up with her PCP for recheck and possibly see a GI specialist if symptoms persist. She will return for worsening. Medication Reconcilliation Current Medication List: was personally reviewed by me Blood Pressure Screening Patient's blood pressure: Elevated blood pressure Blood pressure disposition: Elevated BP felt to be situational Impression Primary Impression: LLQ abdominal pain Additional Impression: UTI (urinary tract infection) Scribe Attestation The scribe's documentation has been prepared under my direction and personally reviewed by me in its entirety. I confirm that the note above accurately reflects all work, treatment, procedures, and medical decision making performed by me. Departure Information Dispostion Home / Self-Care Referrals Lester Baldwin M.D. (PCP) Forms HOME CARE DOCUMENTATION FORM, IMPORTANT VISIT INFORMATION, WORK / SCHOOL INSTRUCTIONS Patient Instructions My [facility] Additional Instructions You were seen in the ED due to abdominal pain. You CT scan was normal. You do have evidence of a UTI. However, at this time you would prefer not to take an antibiotic. We have discussed waiting for the culture before treating. Please follow up with your PCP in 3-5 days. If your symptoms worsen or you have other concerns, please come back to the ED> Problem Qualifiers
--- NOTE | 2017-12-18 21:02 | EMERGENCY ROOM VISIT NOTE ---
History First contact with patient: 17:48 Chief Complaint: DIARRHEA Stated Complaint: FREQUENT STOOLING, CRAMPING PAIN Nursing Triage Summary: pt has hx of divertic. has had abd discomfort and loose stools since friday. saw pcp today and was sent here. History of Present Illness The patient is a 72 year old female who presents to the Emergency Room with complaints of LLQ pain that began 6 days ago. She was seen by her PCP and send here due to concerns of perforation from Diverticulitis. She does have diarrhea. She reports 8-10 Bowel movements. Denies melena, hematochezia. She denies recent antibiotics. Denies urinary symptoms. Denies h/o of kidney stones. Denies fevers, chills, nausea, vomiting. Review of Systems See above for pertinent positives & negatives. A total of 10 systems reviewed and were otherwise negative. Past Medical/Surgical History Medical Problems: (1) Diverticulosis Surgical Problems: (1) S/P cholecystectomy (2) S/P hysterectomy Family History Cancer Diabetes mellitus Gallbladder disease Heart disease Hypertension Social History Smoking Status: Former Smoker Marital Status: Occupation Status: retired Current/Historical Medications Scheduled Bioflavonoid Products (Lo-C), 500 MG PO DAILY AT LUNCH Calcium/Vitamin D ([place] 500 Plus D), 1 TAB PO BID Cholecalciferol (Vitamin D3), 1 TAB PO QPM Desloratadine (Clarinex), 5 MG PO QAM Famotidine (Pepcid), 40 MG PO HS Fluticasone Propionate (Flonase Nasal [place] *), 1 SPRAY MITCH QAM Glucosamine Sulfate (Glucosamine), 1,000 MG PO QPM Loperamide Hcl (Imodium), 2 MG PO HS Multiple Minerals W/ Vitamins (Citracal Plus), 2 TAB PO HS Pindolol (Visken), 5 MG PO BID Rabeprazole Sodium (Aciphex), 20 MG PO QAM Verapamil Hcl (Verapamil Hcl Sr), 1 CAP PO HS Vitamin E (Vitamin E 400 Iu), 400 INTER.UNIT PO BID Zolpidem Tartrate (Ambien *), 5 MG PO HS PRN [Femring], 0.1 MG PO DAILY Scheduled PRN Albuterol (Proair Hfa), 1-2 PUFF INH PRN PRN for Shortness of Breath Fluticasone Prop/Salmeterol (Advair Diskus 250/50 60 Dose), 1 PUFF INH BID PRN for Shortness of Breath Lorazepam (Ativan), 0.5 MG PO BID PRN for Anxiety Physical Exam Vital Signs Date Time Temp Pulse Resp B/P (MAP) Pulse Ox O2 Delivery O2 Flow Rate FiO2 12/18/17 19:40 70 18 137/78 96 Room Air 12/18/17 17:40 36.8 72 20 144/81 97 Room Air Physical Exam GENERAL: Patient is awake alert in no acute distress EYES: The conjunctivae are clear. The pupils are round and reactive. EARS, NOSE, MOUTH AND THROAT: Mucous membranes are moist NECK: The neck is nontender and supple. RESPIRATORY: Normal respiratory effort, no wheezing, rales/ronchi CARDIOVASCULAR: Regular rate and rhythm, no murmurs, normal s1s2 GASTROINTESTINAL: The abdomen is soft. Bowel sounds are present in all quadrants. LLQ tenderness, No rebound/guarding or rigidity PELVIS: The Pelvis is stable. No tenderness to palpation is noted. BACK: No CVA tenderness MUSCULOSKELETAL/EXTREMITIES: There is no evidence of gross deformity full range of motion is noted in the hips and shoulders SKIN: There is no obvious evidence of any rash. NEUROLOGIC: Patient is awake alert and oriented x3 Medical Decision & Procedures Laboratory Results 12/18/17 18:25 Red Blood Count 4.74, Mean Corpuscular Volume 94.9, Mean Corpuscular Hemoglobin 33.1, Mean Corpuscular Hemoglobin Concent 34.9, Mean Platelet Volume 10.3, Neutrophils (%) (Auto) 41.0, Lymphocytes (%) (Auto) 39.5, Monocytes (%) (Auto) 14.3, Eosinophils (%) (Auto) 4.5, Basophils (%) (Auto) 0.5, Neutrophils # (Auto ) 3.54, Lymphocytes # (Auto) 3.42, Monocytes # (Auto) 1.24, Eosinophils # (Auto ) 0.39, Basophils # (Auto) 0.04 12/18/17 18:25 Test 12/18/17 17:35 12/18/17 18:20 12/18/17 18:25 Lab Scanned Report Laboratory Report/Additional Urine Color DK YELLOW Urine Appearance CLEAR (CLEAR) Urine pH 5.0 (4.5-7.5) Urine Specific [place] 1.022 (1.000-1.030) Urine Protein NEG (NEG) Urine Glucose (UA) NEG (NEG) Urine Ketones NEG (NEG) Urine Occult Blood NEG (NEG) Urine Nitrite POS (NEG) Urine Bilirubin NEG (NEG) Urine Urobilinogen NEG (NEG) Urine Leukocyte Esterase NEG (NEG) Urine WBC (Auto) 1-5 /hpf (0-5) Urine RBC (Auto) 5-10 /hpf (0-4) Urine Hyaline Casts (Auto) 1-5 /lpf (0-5) Urine Epithelial Cells (Auto) 10-20 /lpf (0-5) Urine Bacteria (Auto) 4+ (NEG) White Blood Count 8.65 K/uL (4.8-10.8) Red Blood Count 4.74 M/uL (4.2-5.4) Hemoglobin 15.7 g/dL (12.0-16.0) Hematocrit 45.0 % (37-47) Mean Corpuscular Volume 94.9 fL (80-100) Mean Corpuscular Hemoglobin 33.1 pg (25-34) Mean Corpuscular Hemoglobin Concent 34.9 g/dl (32-36) Platelet Count 237 K/uL (130-400) Mean Platelet Volume 10.3 fL (7.4-10.4) Neutrophils (%) (Auto) 41.0 % Lymphocytes (%) (Auto) 39.5 % Monocytes (%) (Auto) 14.3 % Eosinophils (%) (Auto) 4.5 % Basophils (%) (Auto) 0.5 % Neutrophils # (Auto) 3.54 K/uL (1.4-6.5) Lymphocytes # (Auto) 3.42 K/uL (1.2-3.4) Monocytes # (Auto) 1.24 K/uL (0.11-0.59) Eosinophils # (Auto) 0.39 K/uL (0-0.5) Basophils # (Auto) 0.04 K/uL (0-0.2) RDW Standard Deviation 46.6 fL (36.4-46.3) RDW Coefficient of Variation 13.4 % (11.5-14.5) Immature Granulocyte % (Auto) 0.2 % Immature Granulocyte # (Auto) 0.02 K/uL (0.00-0.02) Anion Gap 7.0 mmol/L (3-11) Est Creatinine Clear Calc Drug Dose 73.1 ml/min Estimated GFR () 89.3 Estimated GFR (Non- 77.0 BUN/Creatinine Ratio 14.5 (10-20) Calcium Level 8.7 mg/dl (8.5-10.1) Total Bilirubin 0.7 mg/dl (0.2-1) Aspartate Amino Transf (AST/SGOT) 17 U/L (15-37) Alanine Aminotransferase (ALT/SGPT) 32 U/L (12-78) Alkaline Phosphatase 53 U/L (45-117) Troponin I < 0.015 ng/ml (0-0.045) Total Protein 7.4 gm/dl (6.4-8.2) Albumin 3.8 gm/dl (3.4-5.0) Globulin 3.6 gm/dl (2.5-4.0) Albumin/Globulin Ratio 1.1 (0.9-2) Lipase 83 U/L (73-393) Date/Time Source Procedure Growth Status 12/18/17 18:20 Urine , Clean Catch Urine Culture - Final Escherichia Coli Complete Medical Decision This is a 72-year-old female who presents to the ED with LLQ pain. DDx: UTI, Diverticulitis, Kidney stones, Appendicitis, SBO, cholecystitis etc. Per patient , there was concern by PCP about perforation. The patient has frequent stools since the pain started. CBC and CMP were normal. Troponin was negative. U/A shows signs of a UTI. Urine culture is pending. CT abd/pelvis did not show any acute pathologies. The patient declines treatment due to h/o of multiple allergies. She wants to wait for the culture results. She denies any symptoms. Risks of not treating were discussed. She will follow up with her PCP for a recheck or return if there are worsening of symptoms. Impression Primary Impression: LLQ abdominal pain Additional Impression: UTI (urinary tract infection) Departure Information Dispostion Home / Self-Care Referrals Lester Baldwin M.D. (PCP) Forms WORK / SCHOOL INSTRUCTIONS, HOME CARE DOCUMENTATION FORM, IMPORTANT VISIT INFORMATION Patient Instructions My [facility] Additional Instructions You were seen in the ED due to abdominal pain. You CT scan was normal. You do have evidence of a UTI. However, at this time you would prefer not to take an antibiotic. We have discussed waiting for the culture before treating. Please follow up with your PCP in 3-5 days. If your symptoms worsen or you have other concerns, please come back to the ED> Problem Qualifiers
== END 2017-12-18 20:06 | disposition home or self-care (01) ==
LOC: C.EDB 17:35
DX: N39.0 Urinary tract infection, site not specified (principal); Z90.49 Acquired absence of other specified parts of digestive tract; Z90.710 Acquired absence of both cervix and uterus; Z80.9 Family history of malignant neoplasm, unspecified; Z83.3 Family history of diabetes mellitus; Z82.49 Family history of ischemic heart disease and other diseases of the circulatory system; Z87.891 Personal history of nicotine dependence; Z79.899 Other long term (current) drug therapy; Z88.1 Allergy status to other antibiotic agents; Z88.8 Allergy status to other drugs, medicaments and biological substances; Z88.0 Allergy status to penicillin; Z88.2 Allergy status to sulfonamides; Z91.018 Allergy to other foods

== ENCOUNTER → 2018-02-05 | Outpatient (CLI) | payer OTHER | END | disposition home or self-care (01) | LOC: C.LABMFLN 14:05 | PROVIDERS: ATTEND Internal Medicine | DX: M10.9 Gout, unspecified (principal) ==

== ENCOUNTER → 2018-02-18 | Outpatient (CLI) | payer OTHER ==
[2018-02-18 13:18] LABS: ALT/SGPT 28 U/L (12-78); AST/SGOT 19 U/L (15-37); BLOOD UREA NITROGEN 14 mg/dl (7-18); CALCIUM 8.2 mg/dl (8.5-10.1); CARBON DIOXIDE 26 mmol/L (21-32); CREATININE 0.77 mg/dl (0.60-1.20); GLUCOSE 109 mg/dl (70-99); SODIUM 141 mmol/L (136-145)
[2018-02-18 13:29] LABS: CHOLESTEROL 202 mg/dl (0-200); LDL CHOLESTEROL CALCULATED 133 mg/dl
== END | disposition home or self-care (01) ==
LOC: C.LABMFLN 07:46
PROVIDERS: ATTEND Internal Medicine
DX: E78.5 Hyperlipidemia, unspecified (principal); I10 Essential (primary) hypertension; E03.9 Hypothyroidism, unspecified; E55.9 Vitamin D deficiency, unspecified

== ENCOUNTER → 2018-05-28 | Outpatient (CLI) | payer OTHER ==
--- NOTE | 2018-05-28 15:41 | MAMMOGRAPHY REPORT ---
BILATERAL DIGITAL SCREENING MAMMOGRAM TOMOSYNTHESIS WITH CAD: 05/28/2018 CLINICAL HISTORY: Routine screening. Patient has no complaints. TECHNIQUE: The study was acquired using full field digital technology and interpreted from soft copy. Breast tomosynthesis in addition to standard 2D mammography was performed. Current study was also ev aluated with a Computer Aided Detection (CAD) system. COMPARISON: Comparison is made to exams dated: 07/01/2016 mammogram, 05/22/2016 mammogram, 11/01/2015 m ammogram, 05/19/2015 mammogram, 07/01/2016 ultrasound, and 05/26/2017 mammogram - [facility] enter. BREAST COMPOSITION: The tissue of both breasts is heterogeneously dense, which may obscure small mass es. FINDINGS: No suspicious masses, calcifications, or areas of architectural distortion are noted in either breast . There has been no significant interval change compared to prior exams. Multiple small circumscribe d benign-appearing masses are again noted bilaterally. Scattered bilateral benign-appearing calcific ations are not significantly changed. Biopsy clips are again noted bilaterally. A linear scar marke r overlies the left lateral breast. IMPRESSION: ACR BI-RADS CATEGORY 2: BENIGN There is no mammographic evidence of malignancy. A 1 year screening mammogram is recommended.( 019) The patient will receive written notification of the results. Some breast cancers are not detected with mammography. A negative mammographic report should not mahamed y biopsy if a clinically suggestive mass is present. Becky Pitts M.D. /:05/28/2018 14:42:42 Contract Mail Carrier: RT Maddie(Steffanie)(Britt), [facility] letter sent: Normal 1/2 BI-RADS Code: ACR BI-RADS Category 2: Benign
== END | disposition home or self-care (01) ==
LOC: C.MAMM 09:48
PROVIDERS: ATTEND Obstetrics & Gynecology
DX: Z12.31 Encounter for screening mammogram for malignant neoplasm of breast (principal)

== ENCOUNTER → 2018-06-08 | Outpatient (CLI) | payer OTHER | END | disposition home or self-care (01) | LOC: C.RDSM 11:49 | PROVIDERS: ATTEND Physical Medicine & Rehabilitation Sports Medicine | DX: Z96.651 Presence of right artificial knee joint (principal); Z88.1 Allergy status to other antibiotic agents; Z88.2 Allergy status to sulfonamides; Z88.4 Allergy status to anesthetic agent; Z88.5 Allergy status to narcotic agent; Z88.6 Allergy status to analgesic agent; Z88.8 Allergy status to other drugs, medicaments and biological substances; Z91.018 Allergy to other foods ==

== ENCOUNTER 2022-10-11 10:35 | Inpatient (IN) ==
[2022-10-11] MEDS ORDERED: SODIUM CHLORIDE 0.9% 1000ML 1,000 ML IV STA ×2 (10:53)
[2022-10-11] MEDS ORDERED: cefTRIAXone SODIUM 2,000 MG/70 ML BAG IV ONE (11:45)
[2022-10-11 13:03] LABS: Basophils # (auto) 0.04 K/uL (0-0.2); Basophils % (auto) 0.4 %; Eosinophils # (auto) 0.08 K/uL (0-0.50); Eosinophils % (auto) 0.8 %; Hematocrit (blood only) 42.8 % (34.1-44.9); Hemoglobin 14.7 g/dl (12.0-16.0); Immature Granulocytes # (auto) 0.03 K/uL (0.00-0.02); Immature Granulocytes % (auto) 0.3 %; Lymphocytes # (auto) 2.08 K/uL (1.2-3.4); Lymphocytes % (auto) 20.7 %; Mean Corpuscular Hemoglobin 32.7 pg (25.0-34.0); Mean Corpuscular Hgb Conc 34.3 g/dL (32.0-36.0); Mean Corpuscular Volume 95.3 fL (80.0-100.0); Mean Platelet Volume 10.9 fL (9.4-12.3); Monocytes % (auto) 16.9 %; Neutrophils # (auto) 6.14 K/uL (1.4-6.5); Neutrophils % (auto) 60.9 %; Platelet Count 207 K/uL (130-400); RDW Standard Deviation 45.6 fL (36.4-46.3); Red Blood Count 4.49 M/uL (3.93-5.22); White Blood Count 10.07 K/ul (4.8-10.8)
[2022-10-11 13:14] LABS: Alanine Aminotransferase 18 U/L (7-52); Albumin Level 3.5 gm/dl (3.4-5.0); Alkaline Phosphatase 70 U/L (34-104); Anion Gap 9 (3-11); Aspartate Aminotransferase 16 U/L (13-39); BUN Creatinine Ratio 18.2 (10-20); Bilirubin,Total 0.5 mg/dl (0.2-1.0); Blood Urea Nitrogen 16 mg/dl (6-23); C Reactive Protein 28.04 mg/dl (0-0.5); Calcium 8.9 mg/dl (8.5-10.1); Carbon Dioxide 24 mmol/L (21-32); Chloride 102 mmol/L (98-107); Est GFR (African American) 74.5 ml/min; Est GFR (Non-African American) 64.3 ml/min; Globulin 3.5 gm/dl (2.5-4.0); Glucose 148 mg/dl (70-99(Fasting)); Potassium 3.4 mmol/L (3.5-5.1); Sodium 135 mmol/L (136-145)
--- NOTE | 2022-10-11 13:18 | History & Physical Report ---
Date of Service October 11, 2022 Assessment & Plan (1) Bacteremia: Plan: 77yo female presenting with 5 days of fever, chills, rigors and body aches. Found to have UTI as well as gram negative bacteremia. Urine culture from 10/10/22 with >100,000 CFU of gram negative bacilli. Blood cultures 1/2 from 10/10/22 with Gram negative bacilli. Biofire POSITIVE for enterobacterales as well as E.coli. Repeat cultures have been sent from the ER. Patient is presently afebrile, HD stable, non-toxic in appearance. Of note, she does have joint prosthesis in right knee and right shoulder. No pain or swelling of these areas. -Admit to medical -Follow repeat cultures sent from ER -Continue Ceftriaxone 2gm IV daily - treatment 7-14 days pending clinical response -Gentle IVF - LR at 80mL/hr x 2 liters (2) Acute UTI: Plan: Patient with some left flank pain. CT of the abdomen performed 10/10/22 without stone or evidence of pyelonephritis -Ceftriaxone as above -Tylenol and Ibuprofen as needed for pain or fever -Zofran as needed for nausea (3) Hypertension: Plan: Blood pressure well controlled. -Continue Verapamil 180mg po daily -Continue Pindolol 5mg po BID. Patient is to bring this medication from home -Monitor (4) Asthma: Plan: Patient denies cough. She did have some mild SOB -Continue Albuterol as needed -Continue Advair and Flonase (5) Esophageal reflux: Plan: Chronic. Well controlled with medication -Continue Famotidine 40mg po qHS (6) Hyperlipidemia: Plan: Diet controlled Routine followup with PCP F/E/N - Gentle IVF with LR at 80mL/hr x 2 liters, K=3.4, repletion with 40mEq PO, Heart healthy diet as tolerated Ppx - Low risk for DVT Code -Full Dispo - Admit to medical History of Present Illness Chief Complaint: body pain, fever, bacteremia Primary Care Provider: Lester Baldwin MD Graciela Jenkins is a pleasant 77yo female with history of HTN, HLP, GERD, fibromyalgia. Patient began having fevers on 10/06/22 as high as 102.9. Also with rigors, body aches, headache and eye pain. She has been taking Tylenol 650mg q 6 hours with some improvement in symptoms. She was seen in the ER yesterday and was given Ceftriaxone and ultimately sent home with Cefdinir. Her urine and blood cultures from yesterday are POSITIVE for gram negative rods, E. coli. Patient continues to feel poorly. She has ongoing body aches and fever today. She denies chest pain, palpitations, syncope. No complaint of dysuria or increased urinary frequency or urgency. She did develop some left sided flank pain today prior to arrival. She has had pyelonephritis in the past associated with severe back pain and hematuria - feels similar to this pain, although not as intense as prior episodes. In the ER she is afebrile, HD stable, NAD. Resting comfortably. ER Course: Ceftriaxone 2gm at 12:48 NSS x 1L Allergies Allergy/AdvReac Type Severity Reaction Status Date / Time capsaicin Allergy Intermediate Burning up Verified 09/23/22 10:45 diclofenac Allergy Intermediate Burning up Verified 09/23/22 10:45 Diclopak Allergy Intermediate Burning up Verified 12/18/17 17:41 heparin Allergy Intermediate RASH Verified 09/23/22 10:45 isopropyl alcohol Allergy Intermediate Burning up Verified 09/23/22 10:45 levofloxacin Allergy Intermediate MUSCLE PAIN Verified 09/23/22 10:45 Macrolide Antibiotics Allergy Intermediate SWELLING Verified 09/23/22 10:45 moxifloxacin Allergy Intermediate MUSCLE PAIN Verified 09/23/22 10:45 propylene glycol Allergy Intermediate Burning up Verified 09/23/22 10:45 adhesive Allergy Mild WELTS Verified 09/23/22 10:45 Cephalosporins Allergy Mild RASH Verified 09/23/22 10:45 DIGESTIVE SYSTEM metoprolol Allergy Mild Verified 09/23/22 10:45 Sulfa (Sulfonamide Allergy Mild RASH Verified 09/23/22 10:45 Antibiotics) celecoxib Allergy Unknown Verified 09/23/22 10:45 erythromycin base Allergy Unknown UNKNOWN Verified 09/23/22 10:45 tramadol Allergy Unknown "wheezing, Verified 09/23/22 10:45 shortness of breath" procaine AdvReac Intermediate RACING Verified 09/23/22 10:45 HEART BEAT rofecoxib AdvReac Intermediate INCREASED Verified 09/23/22 10:45 BP SWELLING cortisone AdvReac Mild HEADCAHE Verified 09/23/22 10:45 lidocaine AdvReac Unknown RASH Verified 09/23/22 10:45 Pork Allergy Intermediate RASH Uncoded 09/23/22 10:45 Home Medications Medication Instructions Recorded Confirmed Type cholecalciferol (vitamin D3) 125 5,000 unit PO DAILY 02/25/19 09/23/22 History mcg (5,000 unit) capsule loperamide 2 mg tablet 2 mg PO HS #90 tabs 02/25/19 09/23/22 History glucosamine sulfate 2KCl 1,000 mg 1,000 mg PO BID 04/01/19 09/23/22 History tablet (Glucosamine Relief) multivitamin (Daily Multi-Vitamin 1 tab PO DAILY 04/01/19 09/23/22 History tablet) vitamin E 200 unit capsule 400 units PO BID 04/01/19 09/23/22 History calcium carbonate 600 mg calcium 1,200 mg PO DAILY 05/04/19 09/23/22 History (1,500 mg) tablet (Calcium) ascorbate calcium-bioflavonoid 1 tab PO DAILY 08/10/19 09/23/22 History 1,000 mg-200 mg tablet (Lo-C with Bioflavonoids) fluticasone propionate 50 2 sprays intranasal QAM #48 grams 12/02/19 09/23/22 Rx mcg/actuation nasal spray,suspension melatonin 5 mg capsule 10 mg PO QPM 04/26/21 09/23/22 History verapamil 180 mg 24 hr 180 mg PO QPM #90 caps 09/11/21 09/23/22 Rx capsule,extended release fluticasone 250 mcg-salmeterol 50 1 inh inhalation BID #3 Inhalers 09/12/21 09/23/22 Rx mcg/dose blistr powdr for inhalation (Advair Diskus) rabeprazole 20 mg tablet,delayed 20 mg PO QAM #90 tabs 12/12/21 09/23/22 Rx release famotidine 40 mg tablet 40 mg PO HS #90 tabs 01/09/22 09/23/22 Rx pindolol 5 mg tablet 5 mg PO BID 2 weeks #28 tabs 07/02/22 09/23/22 Rx desloratadine 5 mg tablet 5 mg PO DAILY 90 days #90 tabs 07/09/22 09/23/22 Rx (Clarinex) estradiol acetate 0.1 mg/24 hr 1 vag ring vaginal Q3MO #1 ea 08/28/22 09/23/22 Rx vaginal ring clindamycin HCl 300 mg capsule 600 mg PO UD PRN dental procedures 09/03/22 09/23/22 Rx #30 caps albuterol sulfate 90 mcg/actuation 2 puff inhalation Q6H PRN sob 09/19/22 09/23/22 Rx aerosol inhaler #25.5 grams amoxicillin 875 mg-potassium 1 tab PO BID #14 tabs 09/23/22 09/23/22 Rx clavulanate 125 mg tablet ciprofloxacin HCl 0.3 % eye See Rx Instructions ophthalmic 09/23/22 History ointment (eye) .COMPLEX PRN prednisone 20 mg tablet 40 mg PO DAILY #10 tabs 09/23/22 09/23/22 Rx cefdinir 300 mg capsule 300 mg PO BID 10 days #20 caps 10/10/22 Rx Past Med/Surg History Medical History Asthma Diverticular disease Encounter for removal of sutures Esophageal reflux Fatty liver Fibromyalgia Hepatic cyst Hiatal hernia History of diverticulitis of colon History of Helicobacter pylori infection History of migraine History of stomach ulcers Hyperlipidemia Hypertension Idiopathic polyneuropathy Irritable bowel syndrome Osteoarthritis Osteopenia Tachycardia Vitamin D deficiency Surgical History History of appendectomy History of cardiac cath History of cholecystectomy History of colonoscopy History of cystoscopy History of D&C History of esophagogastroduodenoscopy (EGD) History of lumpectomy History of right knee joint replacement History of tonsillectomy and adenoidectomy History of tooth extraction HX: benign breast biopsy Status post complete hysterectomy Family History Father Pancreatic cancer Colorectal cancer Diabetes Gastric ulcer Grandmother (Maternal) Family history of diabetes mellitus Aunt Leukemia Mother Hypertension Osteoarthritis Stroke Mitral valve disorder History of nephrolithiasis Daughter Asthma Emphysema of lung Polycystic ovarian syndrome Son Myocardial infarction Hypertension Diabetes Arthritis Obesity Sister Arthritis Dyslipidemia Hypertension Brother Gastric ulcer Dyslipidemia Hypertension Denies family history of Ovarian cancer Prostate cancer Breast cancer Social History Smoking Status: Never smoker Second Hand Exposure: No; Hx Alcohol Use: Yes Hx Substance Use: No Preferred Language: Croatian Communication Ability: Effective Visual Impairment: No Limitations Hearing Ability: Normal 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 Beliefs That Will Affect Care: None marital status: Current Living Situation: Spouse current occupational status: retired Feels Safe at Home: Yes Physical Activity Frequency: 3-4 Times per Week Seatbelt Use: always Assistive Devices: Glasses Review of Systems Review of Systems: All systems reviewed & are unremarkable except as noted in HPI & below Physical Exam Physical Exam: General: patient resting comfortably, NAD, non-toxic in appearance, AA&O x 4 Skin: warm, dry, intact, no rashes or lesions HEENT: NC/AT, PERRL, EOMI, anicteric sclera, conjunctiva without injection, external ear normal to inspection and nontender, nares patent, moist mucus membranes, dentition intact, no oropharyngeal lesions, neck supple, trachea midline, no LAD, no thyromegaly, no JVD Heart: +S1/S2, regular, no m/r/g Lungs: equal air entry bilaterally, no rales/rhonchi/wheezes Abd: +BS, soft, NT/ND, no masses/organomegaly/ascites, left flank pain Ext: warm, 2+ pulses in UE/LE bilaterally, no clubbing/cyanosis or edema Neuro: nonfocal, patient AA&O x 4, speech intact, no facial droop, moving all extremities on command with equal strength 5/5 Results & Data Results & Data ([facility]) Vital Signs (Past 12 Hours) Vital Signs Temp Pulse Resp BP Pulse Ox O2 Del Method 10/11/22 10:45 36.4 C L 82 16 102/61 97 Room Air Laboratory Results Laboratory Results WBC 10.07 K/ul (4.8-10.8) 10/11/22 12:34 RBC 4.49 M/uL (3.93-5.22) 10/11/22 12:34 Hgb 14.7 g/dl (12.0-16.0) 10/11/22 12:34 Hct 42.8 % (34.1-44.9) 10/11/22 12:34 MCV 95.3 fL (80.0-100.0) 10/11/22 12:34 MCH 32.7 pg (25.0-34.0) 10/11/22 12:34 MCHC 34.3 g/dL (32.0-36.0) 10/11/22 12:34 RDW Std Deviation 45.6 fL (36.4-46.3) 10/11/22 12:34 RDW Coeff of Mendez 13.0 % (11.5-14.5) 10/11/22 12:34 Plt Count 207 K/uL (130-400) 10/11/22 12:34 MPV 10.9 fL (9.4-12.3) 10/11/22 12:34 Immature Gran % (Auto) 0.3 % 10/11/22 12:34 Neut % (Auto) 60.9 % 10/11/22 12:34 Lymph % (Auto) 20.7 % 10/11/22 12:34 [place] % (Auto) 16.9 % 10/11/22 12:34 Eos % (Auto) 0.8 % 10/11/22 12:34 Baso % (Auto) 0.4 % 10/11/22 12:34 Neut # (Auto) 6.14 K/uL (1.4-6.5) 10/11/22 12:34 Lymph # (Auto) 2.08 K/uL (1.2-3.4) 10/11/22 12:34 [place] # (Auto) 1.70 K/uL (0.24-0.82) H 10/11/22 12:34 Eos # (Auto) 0.08 K/uL (0-0.50) 10/11/22 12:34 Baso # (Auto) 0.04 K/uL (0-0.2) 10/11/22 12:34 Immature Gran # (Auto) 0.03 K/uL (0.00-0.02) H 10/11/22 12:34 PG Care Time/CCT Total # of Minutes Spent Total Time Spent with Patient: Total time spent is greater than 50% in coordination of care (as documented) at patient's floor/unit and/or counseling patient: Coding Level of Care Code 24291 Initial Inpt Care Lvl 2 Diagnoses Bacteremia R78.81 Acute UTI N39.0 Hypertension I10 Asthma J45.909 Esophageal reflux K21.9 Hyperlipidemia E78.5
[2022-10-11 13:24] LABS: Troponin I High Sensitivity 9.9 pg/ml (0-14)
--- NOTE | 2022-10-11 13:44 | Emergency Department Note ---
Impression & Plan Gram-negative bacteremia, Acute UTI (urinary tract infection) ED Provider Note INFORMANT: Patient and ED PROVIDER(S): Alvin Mukherjee MD CHIEF COMPLAINT: Infection PLAN: Disposition: Admitted Condition: Good Outpatient prescription management: none Referral: None MEDICAL DECISION MAKING: Patient presented because of positive blood cultures. She was treated for UTI yesterday with Rocephin and cefdinir. Discussed with ED pharmacist. Recommended additional IV Rocephin given the PCR results on the blood culture. This was ordered. Patient had taken Tylenol prior to arrival. IV fluids were ordered. Imaging was reviewed from yesterday. No obstruction or obvious abnorm ality noted in the left kidney. [facility] Patient was evaluated in the ER admitted for further management. Triage Nursing notes reviewed and agree them. Vital Signs: reviewed and remarkable for no significant abnormalities Differential diagnosis: Bacteremia, viral syndrome, pneumonia, influenza, meningitis, urinary tract infection, sepsis, as well as other pathologies. Diagnostics interpreted by me: ECG: none Cardiac Monitoring: Cardiac monitoring ordered by me: The patient was placed on continuous cardiac monitoring and observed. It revealed a normal sinus rhythm at 81 beats per minute without ectopy or evidence of dysrhythmia. Imaging studies: Deferred HPI: The patient is a 77year old female who presents to the Emergency Room due to positive blood cultures. Patient was in the ER yesterday. She was worked up for acute UTI and treated with Rocephin. Her blood cultures returned positive today and she was called back. PCR testing on the blood cultures revealed the presence of an E. coli. Patient noted she did feel somewhat better yesterday but then fevers and chills returned. She did take Tylenol today. The patient also notes the following associated symptoms, pain in the right shoulder, neck, and back. Mostly left flank back pain. Occasional frontal headaches as well. Current pain is rated as 8/10. Pt denies LOC, diaphoresis, visual changes, chest pain, breathing difficulties, nausea, vomiting, abdominal pain, melena, hematochezia, numbness, weakness, lymphadenopathy, rash, or other complaints. ROS: See above HPI for pertinent positives & negatives. A total of 10 systems reviewed and were otherwise negative. PAST MEDICAL HISTORY:See Below , UTI PAST SURGICAL HISTORY:See Below, right total knee replacement FAMILY HISTORY:See Below SOCIAL HISTORY:See Below, HOME MEDICATIONS:See Below ALLERGIES:See Below VITALS:See Below PHYSICAL EXAMINATION: GENERAL: Awake, alert, nontoxic-appearing, in no distress HENT: Normocephalic, atraumatic. Oropharynx unremarkable. EYES: Normal conjunctiva. Sclera non-icteric. NECK: Inspection normal. Non-tender. Supple. No nuchal rigidity. FROM. No masses. RESPIRATORY: Clear to auscultation. No wheezes. No rales. Normal respiratory effort. CARDIAC: Normal rate. Normal rhythm. No murmurs. No rubs. Extremities warm and well perfused. Pulses equal. No JVD. GI: Soft, non-distended. No tenderness to palpation. No rebound or guarding. No masses. RECTAL: Deferred. MUSCULOSKELETAL: Atraumatic. Chest examination reveals no tenderness. The back is symmetrical on inspection without obvious abnormality. There is left CVA tenderness to palpation. No joint edema. LOWER EXTREMITIES: Calves are equal size bilaterally and non-tender. No edema. No discoloration. NEURO: Normal sensorium. No sensory or motor deficits noted. SKIN: No rash or jaundice noted. Alvin Mukherjee MD Past Med/Surg History Medical History Asthma Diverticular disease Encounter for removal of sutures Esophageal reflux Fatty liver Fibromyalgia Hepatic cyst Hiatal hernia History of diverticulitis of colon History of Helicobacter pylori infection History of migraine History of stomach ulcers Hyperlipidemia Hypertension Idiopathic polyneuropathy Irritable bowel syndrome Osteoarthritis Osteopenia Tachycardia Vitamin D deficiency Surgical History History of appendectomy History of cardiac cath History of cholecystectomy History of colonoscopy History of cystoscopy History of D&C History of esophagogastroduodenoscopy (EGD) History of lumpectomy History of right knee joint replacement History of tonsillectomy and adenoidectomy History of tooth extraction HX: benign breast biopsy Status post complete hysterectomy Family History Father Pancreatic cancer Colorectal cancer Diabetes Gastric ulcer Grandmother (Maternal) Family history of diabetes mellitus Aunt Leukemia Mother Hypertension Osteoarthritis Stroke Mitral valve disorder History of nephrolithiasis Daughter Asthma Emphysema of lung Polycystic ovarian syndrome Son Myocardial infarction Hypertension Diabetes Arthritis Obesity Sister Arthritis Dyslipidemia Hypertension Brother Gastric ulcer Dyslipidemia Hypertension Denies family history of Ovarian cancer Prostate cancer Breast cancer Social History Smoking Status: Never smoker Second Hand Exposure: No; Hx Alcohol Use: Yes Hx Substance Use: No Preferred Language: Qatari Communication Ability: Effective Visual Impairment: No Limitations Hearing Ability: Normal Ice Scraper Required: No Beliefs That Will Affect Care: None marital status: Current Living Situation: Spouse current occupational status: retired Feels Safe at Home: Yes Physical Activity Frequency: 3-4 Times per Week Seatbelt Use: always Assistive Devices: Glasses Allergies Allergies Allergy/AdvReac Type Severity Reaction Status Date / Time capsaicin Allergy Intermediate Burning up Verified 09/23/22 10:45 diclofenac Allergy Intermediate Burning up Verified 09/23/22 10:45 Diclopak Allergy Intermediate Burning up Verified 12/18/17 17:41 heparin Allergy Intermediate RASH Verified 09/23/22 10:45 isopropyl alcohol Allergy Intermediate Burning up Verified 09/23/22 10:45 levofloxacin Allergy Intermediate MUSCLE PAIN Verified 09/23/22 10:45 Macrolide Antibiotics Allergy Intermediate SWELLING Verified 09/23/22 10:45 moxifloxacin Allergy Intermediate MUSCLE PAIN Verified 09/23/22 10:45 propylene glycol Allergy Intermediate Burning up Verified 09/23/22 10:45 adhesive Allergy Mild WELTS Verified 09/23/22 10:45 Cephalosporins Allergy Mild RASH Verified 09/23/22 10:45 DIGESTIVE SYSTEM metoprolol Allergy Mild Verified 09/23/22 10:45 Sulfa (Sulfonamide Allergy Mild RASH Verified 09/23/22 10:45 Antibiotics) celecoxib Allergy Unknown Verified 09/23/22 10:45 erythromycin base Allergy Unknown UNKNOWN Verified 09/23/22 10:45 tramadol Allergy Unknown "wheezing, Verified 09/23/22 10:45 shortness of breath" procaine AdvReac Intermediate RACING Verified 09/23/22 10:45 HEART BEAT rofecoxib AdvReac Intermediate INCREASED Verified 09/23/22 10:45 BP SWELLING cortisone AdvReac Mild HEADCAHE Verified 09/23/22 10:45 lidocaine AdvReac Unknown RASH Verified 09/23/22 10:45 Pork Allergy Intermediate RASH Uncoded 09/23/22 10:45 Home Meds Home Medications Medication Instructions Recorded Confirmed cholecalciferol (vitamin D3) 125 5,000 unit PO DAILY 02/25/19 09/23/22 mcg (5,000 unit) capsule loperamide 2 mg tablet 2 mg PO HS #90 tabs 02/25/19 09/23/22 glucosamine sulfate 2KCl 1,000 mg 1,000 mg PO BID 04/01/19 09/23/22 tablet (Glucosamine Relief) multivitamin (Daily Multi-Vitamin 1 tab PO DAILY 04/01/19 09/23/22 tablet) vitamin E 200 unit capsule 400 units PO BID 04/01/19 09/23/22 calcium carbonate 600 mg calcium 1,200 mg PO DAILY 05/04/19 09/23/22 (1,500 mg) tablet (Calcium) ascorbate calcium-bioflavonoid 1 tab PO DAILY 08/10/19 09/23/22 1,000 mg-200 mg tablet (Lo-C with Bioflavonoids) melatonin 5 mg capsule 10 mg PO QPM 04/26/21 09/23/22 ciprofloxacin HCl 0.3 % eye See Rx Instructions ophthalmic 09/23/22 ointment (eye) .COMPLEX PRN Previous Rx's Medication Instructions Recorded fluticasone propionate 50 2 sprays intranasal QAM #48 grams 12/02/19 mcg/actuation nasal spray,suspension verapamil 180 mg 24 hr 180 mg PO QPM #90 caps 09/11/21 capsule,extended release fluticasone 250 mcg-salmeterol 50 1 inh inhalation BID #3 Inhalers 09/12/21 mcg/dose blistr powdr for inhalation (Advair Diskus) rabeprazole 20 mg tablet,delayed 20 mg PO QAM #90 tabs 12/12/21 release famotidine 40 mg tablet 40 mg PO HS #90 tabs 01/09/22 pindolol 5 mg tablet 5 mg PO BID 2 weeks #28 tabs 07/02/22 desloratadine 5 mg tablet 5 mg PO DAILY 90 days #90 tabs 07/09/22 (Clarinex) estradiol acetate 0.1 mg/24 hr 1 vag ring vaginal Q3MO #1 ea 08/28/22 vaginal ring clindamycin HCl 300 mg capsule 600 mg PO UD PRN dental procedures 09/03/22 #30 caps albuterol sulfate 90 mcg/actuation 2 puff inhalation Q6H PRN sob 09/19/22 aerosol inhaler #25.5 grams amoxicillin 875 mg-potassium 1 tab PO BID #14 tabs 09/23/22 clavulanate 125 mg tablet prednisone 20 mg tablet 40 mg PO DAILY #10 tabs 09/23/22 cefdinir 300 mg capsule 300 mg PO BID 10 days #20 caps 10/10/22 Results & Data (ED) Vital Signs Vital Signs - 24 hr 10/11/22 10:45 10/11/22 11:35 10/11/22 12:23 Temperature 36.4 C L Temperature Source Temporal Artery Scan Pulse Rate 82 80 Pulse Rate [Apical] 80 Pulse Rate from SpO2 Sensor Pulse Rhythm [Apical] Regular Pulse Strength [Apical] Normal Respiratory Rate 16 20 19 Respiratory Effort / Characteristics Non-Labored Respiratory Depth Normal Respiratory Pattern Regular Blood Pressure 102/61 Blood Pressure [Right Arm] 109/63 Blood Pressure Mean 74 Blood Pressure Mean [Right Arm] 78 Blood Pressure Position Sitting Pulse Oximetry 97 98 Oxygen Delivery Method Room Air Room Air Sepsis Recent Fever Within 48 Hours Yes Sepsis New/Unexplained Change in Mental Status No Sepsis Action Taken by Nursing No Action Required 10/11/22 12:30 10/11/22 12:57 10/11/22 12:57 Temperature Temperature Source Pulse Rate 81 81 Pulse Rate [Apical] Pulse Rate from SpO2 Sensor 84 Pulse Rhythm [Apical] Pulse Strength [Apical] Respiratory Rate 20 15 Respiratory Effort / Characteristics Respiratory Depth Respiratory Pattern Blood Pressure 100/63 Blood Pressure [Right Arm] Blood Pressure Mean 75 Blood Pressure Mean [Right Arm] Blood Pressure Position Pulse Oximetry 96 Oxygen Delivery Method Sepsis Recent Fever Within 48 Hours Sepsis New/Unexplained Change in Mental Status Sepsis Action Taken by Nursing 10/11/22 13:00 10/11/22 13:01 10/11/22 13:01 Temperature Temperature Source Pulse Rate 80 81 Pulse Rate [Apical] Pulse Rate from SpO2 Sensor 80 81 Pulse Rhythm [Apical] Pulse Strength [Apical] Respiratory Rate 17 19 Respiratory Effort / Characteristics Respiratory Depth Respiratory Pattern Blood Pressure 109/63 Blood Pressure [Right Arm] Blood Pressure Mean 78 Blood Pressure Mean [Right Arm] Blood Pressure Position Pulse Oximetry 98 98 Oxygen Delivery Method Sepsis Recent Fever Within 48 Hours Sepsis New/Unexplained Change in Mental Status Sepsis Action Taken by Nursing Laboratory Data Result diagrams: 10/11/22 12:34 10/11/22 12:34 Lab Results 10/11/22 10/11/2222 Range/Units 12:34 12:34 12:34 WBC 10.07 (4.8-10.8) K/ul RBC 4.49 (3.93-5.22) M/uL Hgb 14.7 (12.0-16.0) g/dl Hct 42.8 (34.1-44.9) % MCV 95.3 (80.0-100.0) fL MCH 32.7 (25.0-34.0) pg MCHC 34.3 (32.0-36.0) g/dL RDW Std Deviation 45.6 (36.4-46.3) fL RDW Coeff of Mendez 13.0 (11.5-14.5) % Plt Count 207 (130-400) K/uL MPV 10.9 (9.4-12.3) fL Immature Gran % (Auto) 0.3 % Neut % (Auto) 60.9 % Lymph % (Auto) 20.7 % [place] % (Auto) 16.9 % Eos % (Auto) 0.8 % Baso % (Auto) 0.4 % Neut # (Auto) 6.14 (1.4-6.5) K/uL Lymph # (Auto) 2.08 (1.2-3.4) K/uL [place] # (Auto) 1.70 H (0.24-0.82) K/uL Eos # (Auto) 0.08 (0-0.50) K/uL Baso # (Auto) 0.04 (0-0.2) K/uL Immature Gran # (Auto) 0.03 H (0.00-0.02) K/uL Sodium 135 L (136-145) mmol/L Potassium 3.4 L (3.5-5.1) mmol/L Chloride 102 (98-107) mmol/L Carbon Dioxide 24 (21-32) mmol/L Anion Gap 9 (3-11) BUN 16 (6-23) mg/dl Creatinine 0.88 (0.6-1.2) mg/dl Est Cr Clr Drug Dosing Not Reportable Est GFR ( Amer) 74.5 ml/min Est GFR (Non-Af Amer) 64.3 ml/min BUN/Creatinine Ratio 18.2 (10-20) Glucose 148 H (70-99(Fasting)) mg/dl Lactate 1.1 (0.4-2.0) mmol/L Calcium 8.9 (8.5-10.1) mg/dl Total Bilirubin 0.5 D (0.2-1.0) mg/dl AST 16 (13-39) U/L ALT 18 (7-52) U/L Alkaline Phosphatase 70 (34-104) U/L Troponin I High Sens 9.9 (0-14) pg/ml C-Reactive Protein 28.04 H (0-0.5) mg/dl Total Protein 7.0 (6.0-8.3) gm/dl Albumin 3.5 (3.4-5.0) gm/dl Globulin 3.5 (2.5-4.0) gm/dl Albumin/Globulin Ratio 1.0 (0.9-2) SARS-CoV-2, RNA, NAAT (NEGATIVE) 10/11/22 Range/Units 12:56 WBC (4.8-10.8) K/ul RBC (3.93-5.22) M/uL Hgb (12.0-16.0) g/dl Hct (34.1-44.9) % MCV (80.0-100.0) fL MCH (25.0-34.0) pg MCHC (32.0-36.0) g/dL RDW Std Deviation (36.4-46.3) fL RDW Coeff of Mendez (11.5-14.5) % Plt Count (130-400) K/uL MPV (9.4-12.3) fL Immature Gran % (Auto) % Neut % (Auto) % Lymph % (Auto) % [place] % (Auto) % Eos % (Auto) % Baso % (Auto) % Neut # (Auto) (1.4-6.5) K/uL Lymph # (Auto) (1.2-3.4) K/uL [place] # (Auto) (0.24-0.82) K/uL Eos # (Auto) (0-0.50) K/uL Baso # (Auto) (0-0.2) K/uL Immature Gran # (Auto) (0.00-0.02) K/uL Sodium (136-145) mmol/L Potassium (3.5-5.1) mmol/L Chloride (98-107) mmol/L Carbon Dioxide (21-32) mmol/L Anion Gap (3-11) BUN (6-23) mg/dl Creatinine (0.6-1.2) mg/dl Est Cr Clr Drug Dosing Est GFR ( Amer) ml/min Est GFR (Non-Af Amer) ml/min BUN/Creatinine Ratio (10-20) Glucose (70-99(Fasting)) mg/dl Lactate (0.4-2.0) mmol/L Calcium (8.5-10.1) mg/dl Total Bilirubin (0.2-1.0) mg/dl AST (13-39) U/L ALT (7-52) U/L Alkaline Phosphatase (34-104) U/L Troponin I High Sens (0-14) pg/ml C-Reactive Protein (0-0.5) mg/dl Total Protein (6.0-8.3) gm/dl Albumin (3.4-5.0) gm/dl Globulin (2.5-4.0) gm/dl Albumin/Globulin Ratio (0.9-2) SARS-CoV-2, RNA, NAAT NEGATIVE (NEGATIVE) Administered Medications Discontinued Medications Sodium Chloride (Nss 1000ml) 1,000 mls @ 999 mls/hr IV .Q1H1M STA Stop: 10/11/22 11:53 Last Admin: 10/11/22 12:49 Dose: 999 mls/hr Documented By: RDD Ceftriaxone Sodium (Rocephin) 2,000 mg in 70 mls @ 140 mls/hr IV NOW ONE Stop: 10/11/22 12:14 Last Admin: 10/11/22 12:48 Dose: 140 mls/hr Documented By: RDD Discharge Plan Visit Data Chief Complaint: Infection Stated Complaint: INFECTION ED Provider: Alvin Mukherjee Discharge Problem: Gram-negative bacteremia, Acute UTI (urinary tract infection) Forms Stand Alone Forms: [facility] [employer] [id number] Prescriptions Prescriptions: No Action verapamil 180 mg capsule,ext rel. pellets 24 hr 180 mg PO QPM Qty: 90 3RF fluticasone propion-salmeterol [Advair Diskus] 250-50 mcg/dose blister with device 1 inh inhalation BID Qty: 3 2RF rabeprazole 20 mg tablet,delayed release (DR/EC) 20 mg PO QAM Qty: 90 3RF famotidine 40 mg tablet 40 mg PO HS Qty: 90 3RF pindolol 5 mg tablet 5 mg PO BID 14 Days Qty: 28 0RF desloratadine [Clarinex] 5 mg tablet 5 mg PO DAILY 90 Days Qty: 90 1RF clindamycin HCl 300 mg capsule 600 mg PO UD PRN (Reason: dental procedures) Qty: 30 6RF albuterol sulfate 90 mcg/actuation HFA aerosol inhaler 2 puff inhalation Q6H PRN (Reason: sob) Qty: 25.5 3RF estradiol acetate 0.1 mg/24 hr ring 1 vag ring vaginal Q3MO Qty: 1 3RF cholecalciferol (vitamin D3) 5,000 unit capsule 5,000 unit PO DAILY loperamide 2 mg tablet 2 mg PO HS Qty: 90 glucosamine sulfate 2KCl [Glucosamine Relief] 1,000 mg tablet 1,000 mg PO BID vitamin E 200 unit capsule 400 units PO BID multivitamin [Daily Multi-Vitamin] tablet 1 tab PO DAILY Lo-C with Bioflavonoids 1,000-200 mg tablet 1 tab PO DAILY fluticasone propionate 50 mcg/actuation spray,suspension 2 sprays intranasal QAM Qty: 48 3RF melatonin 5 mg capsule 10 mg PO QPM ciprofloxacin HCl 0.3 % ointment See Rx Instructions ophthalmic (eye) .COMPLEX PRN Rx Instructions: into the eye(s) apply 1/2 inch ribbon into affected eye(s) 2 times daily for 5 days PRN; prednisone 20 mg tablet 40 mg PO DAILY Qty: 10 0RF amoxicillin-pot clavulanate 875-125 mg tablet 1 tab PO BID Qty: 14 0RF calcium carbonate [Calcium 600] 600 mg calcium (1,500 mg) Tablet 1,200 mg PO DAILY cefdinir 300 mg capsule 300 mg PO BID 10 Days Qty: 20 0RF Referrals Referrals: Lester Baldwin MD [Primary Care Provider] -
[2022-10-11] MEDS ORDERED: ONDANSETRON INJ 2 MG/ML 2 ML VIAL IV PRN (17:01)
[2022-10-11] MEDS ORDERED: MELATONIN 3 MG TAB PO PRN (17:01)
[2022-10-11] MEDS ORDERED: POTASSIUM CHLORIDE CRTAB 20 MEQ TABCR PO STA (17:01)
[2022-10-11] MEDS ORDERED: ALBUTEROL HFA 8 GM INHALER INH PRN (17:01)
[2022-10-11] MEDS ORDERED: IBUPROFEN 600 MG TAB PO PRN (17:01)
[2022-10-11] MEDS: LACTATED RINGER'S 1,000 ML IV SCH (17:34)
[2022-10-11] MEDS: LOPERAMIDE HCL 2 MG CAP PO SCH (20:06)
[2022-10-11] MEDS: FAMOTIDINE 40 MG TABLET PO SCH (20:06)
[2022-10-11] MEDS: VERAPAMIL HCL 180 MG TABCR PO SCH (20:06)
[2022-10-11] MEDS: MELATONIN 3 MG TAB PO PRN (22:44)
[2022-10-11] MEDS: ACETAMINOPHEN 325 MG TAB PO PRN (22:46)
[2022-10-12] MEDS: LACTATED RINGER'S 1,000 ML IV SCH (05:06)
[2022-10-12 07:17] LABS: Hematocrit (blood only) 38.5 % (34.1-44.9); Hemoglobin 13.2 g/dl (12.0-16.0); Mean Corpuscular Hemoglobin 32.7 pg (25.0-34.0); Mean Corpuscular Hgb Conc 34.3 g/dL (32.0-36.0); Mean Corpuscular Volume 95.3 fL (80.0-100.0); Mean Platelet Volume 10.6 fL (9.4-12.3); Platelet Count 192 K/uL (130-400); RDW Coefficient of Variation 13.2 % (11.5-14.5); RDW Standard Deviation 46.7 fL (36.4-46.3); Red Blood Count 4.04 M/uL (3.93-5.22); White Blood Count 7.54 K/ul (4.8-10.8)
[2022-10-12 07:44] LABS: BUN Creatinine Ratio 16.2 (10-20); Calcium 8.1 mg/dl (8.5-10.1); Creatinine Clr Calc Pharmacy 78.9 ml/min; Est GFR (African American) 99.2 ml/min; Est GFR (Non-African American) 85.6 ml/min; Potassium 3.7 mmol/L (3.5-5.1)
[2022-10-12] MEDS: ACETAMINOPHEN 325 MG TAB PO PRN (08:02)
[2022-10-12] MEDS: FLUTICASONE/VILANTEROL 200/25MCG 14 PUFFS/INHALER INH SCH (09:11)
[2022-10-12] MEDS: cefTRIAXone SODIUM 2,000 MG in DEXTROSE 5% 50 ML IV SCH (09:13)
[2022-10-12] MEDS: FLUTICASONE PROPIONATE NA SPR 16 GM BTL SCH (09:14)
[2022-10-12] MEDS: DESLORATADINE PO SCH (13:02)
[2022-10-12] MEDS ORDERED: PANTOprazole 40 MG TAB PO ONE (14:09)
--- NOTE | 2022-10-12 15:42 | Hospitalist Progress Note ---
Date of Service October 12, 2022 Assessment & Plan (1) Bacteremia: Plan: Gram-negative rods isolated on 1229. Follow-up blood cultures obtained on 1230 are negative to date. Continue intravenous Rocephin, day 2. E. coli isolated from urine cultures. (2) Acute UTI: Plan: E. coli isolated. Currently on intravenous Rocephin, day 2. CT of the abdomen performed 10/10/22 without stone or evidence of pyelonephritis (3) Hypertension: Plan: Blood pressure well controlled. Continue verapamil and pindolol -Monitor (4) Asthma: Plan: Patient denies cough. Currently stable. Continue Albuterol as needed. Continue Advair and Flonase (5) Esophageal reflux: Plan: Chronic. Well controlled with medication. Continue Famotidine 40mg po qHS (6) Hyperlipidemia: Plan: Diet controlled. Plan Anticipate discharge to home tomorrow, October 13, on an oral antibiotic Admission and Anticipated Discharge Date Admission Date: October 11, 2022 Subjective Alert and oriented. No acute distress. Oral intake is adequate. IV fluids discontinued. She does complain of a headache and Toradol intravenously has been ordered. She remains on intravenous Rocephin, day 2. Mild hypokalemia has been corrected. E. coli isolated from the urine. Blood cultures positive on 1229 and repeated on 1230 and are negative to date. Hopefully home tomorrow on an oral antibiotic Review of Systems Review of Systems: Constitutional-no fever or chills ENT-no blurred vision, no double vision, no epistaxis, no sore throat Respiratory-no cough, no wheezing, no shortness of breath Cardiac-no palpitations, no chest pain, no syncope GI-no nausea, vomiting, diarrhea, melena, hematochezia -no urinary retention, no urinary incontinence, no dysuria, no hematuria Musculoskeletal-no joint pain, no muscle tenderness Skin-no bruising, no rashes, no pruritus Neuro-no isolated weakness, no paresthesia, no weakness Psych-no depression, no anxiety Physical Exam Physical Exam: General-alert and oriented x3, no fevers, no chills HEENT-head atraumatic and normocephalic, pupils equal and reactive to light, extraocular muscles intact Neck-no lymphadenopathy or thyromegaly, trachea midline Chest-clear to auscultation percussion. No rales wheezing or rhonchi Cardiac-regular rate and rhythm, normal S1 and S2 Abdomen-normal bowel sounds, nontender, no hepatosplenomegaly Extremities-no cyanosis, clubbing, or edema Neuro-cranial nerves II through XII intact, motor and sensory function within normal limits, strength symmetrical, no focal deficits Psych-normal affect, normal mood Results & Data Results & Data ([facility]) Vital Signs (Past 12 Hours) Vital Signs Temp Pulse Resp BP Pulse Ox O2 Del Method 10/12/22 14:55 36.7 C 83 18 129/83 96 Room Air 10/12/22 07:50 Room Air 10/12/22 07:17 36.7 C 85 18 143/79 H 97 Room Air Laboratory Results 10/12/22 06:57 10/12/22 06:57 PG Care Time/CCT Total # of Minutes Spent Total Time Spent with Patient: Total time spent is greater than 50% in coordination of care (as documented) at patient's floor/unit and/or counseling patient: Coding Level of Care Code 21024 Subseq Hosp Care Lvl 3 Diagnoses Bacteremia R78.81 Acute UTI N39.0 Hypertension I10 Asthma J45.909 Esophageal reflux K21.9 Hyperlipidemia E78.5
[2022-10-12] MEDS: KETOROLAC TROMETHAMINE 15 MG/ML VIAL IV PRN (17:05)
[2022-10-12] MEDS: FAMOTIDINE 40 MG TABLET PO SCH (19:49)
[2022-10-12] MEDS: VERAPAMIL HCL 180 MG TABCR PO SCH (19:49)
[2022-10-12] MEDS: LOPERAMIDE HCL 2 MG CAP PO SCH (19:49)
[2022-10-12] MEDS ORDERED: PANTOprazole 40 MG TAB PO SCH (21:00)
[2022-10-12] MEDS: MELATONIN 3 MG TAB PO PRN (22:30)
[2022-10-13] MEDS: KETOROLAC TROMETHAMINE 15 MG/ML VIAL IV PRN (02:27)
[2022-10-13 07:04] LABS: Hematocrit (blood only) 38.7 % (34.1-44.9); Hemoglobin 13.6 g/dl (12.0-16.0); Mean Corpuscular Hgb Conc 35.1 g/dL (32.0-36.0); Mean Corpuscular Volume 93.9 fL (80.0-100.0); Mean Platelet Volume 10.6 fL (9.4-12.3); Platelet Count 222 K/uL (130-400); RDW Coefficient of Variation 13.1 % (11.5-14.5); RDW Standard Deviation 45.1 fL (36.4-46.3); Red Blood Count 4.12 M/uL (3.93-5.22); White Blood Count 6.13 K/ul (4.8-10.8)
[2022-10-13 07:35] LABS: BUN Creatinine Ratio 18.5 (10-20); Calcium 8.2 mg/dl (8.5-10.1); Creatinine Clr Calc Pharmacy 66.3 ml/min; Est GFR (African American) 82.3 ml/min; Potassium 4.1 mmol/L (3.5-5.1)
[2022-10-13 07:49] LABS: ALC (manual) 2.27 K/uL (1.2-3.4); ANC (manual) 2.94 K/uL (1.4-6.5); Basophils # (manual) 0.06 K/uL (0-0.2); Basophils % (manual) 1 %; Eosinophils # (manual) 0.18 K/uL (0-0.50); Eosinophils % (manual) 3 %; Lymphocytes # (manual) 2.08 K/uL (1.2-3.4); Lymphocytes % (manual) 34 %; Monocytes # (manual) 0.74 K/uL (0.24-0.82); Monocytes % (manual) 12 %; Neutrophils # (manual) 2.94 K/uL (1.4-6.5); Neutrophils % (manual) 48 %; Plasma Cells # (manual) 0.18 K/uL (0-0); Plasma Cells % (manual) 3 %
[2022-10-13] MEDS: FLUTICASONE/VILANTEROL 200/25MCG 14 PUFFS/INHALER INH SCH (08:54)
[2022-10-13] MEDS: FLUTICASONE PROPIONATE NA SPR 16 GM BTL SCH (08:56)
[2022-10-13] MEDS: DESLORATADINE PO SCH (08:56)
[2022-10-13] MEDS: cefTRIAXone SODIUM 2,000 MG in DEXTROSE 5% 50 ML IV SCH (09:00)
[2022-10-13] MEDS ORDERED: PANTOprazole 40 MG TAB PO SCH (09:00)
--- NOTE | 2022-10-13 10:53 | Discharge Summary ---
Date of Service October 13, 2022 Admission HPI Per Admitting Provider Graciela Jenkins is a pleasant 77yo female with history of HTN, HLP, GERD, fibromyalgia. Patient began having fevers on 10/06/22 as high as 102.9. Also with rigors, body aches, headache and eye pain. She has been taking Tylenol 650mg q 6 hours with some improvement in symptoms. She was seen in the ER yesterday and was given Ceftriaxone and ultimately sent home with Cefdinir. Her urine and blood cultures from yesterday are POSITIVE for gram negative rods, E. coli. Patient continues to feel poorly. She has ongoing body aches and fever today. She denies chest pain, palpitations, syncope. No complaint of dysuria or increased urinary frequency or urgency. She did develop some left sided flank pain today prior to arrival. She has had pyelonephritis in the past associated with severe back pain and hematuria - feels similar to this pain, although not as intense as prior episodes. In the ER she is afebrile, HD stable, NAD. Resting comfortably. ER Course: Ceftriaxone 2gm at 12:48 NSS x 1L Principal Diagnosis E. coli UTI, E. coli bacteremia, hypokalemia Discharge Exam General-alert and oriented x3, no fevers, no chills HEENT-head atraumatic and normocephalic, pupils equal and reactive to light, extraocular muscles intact Neck-no lymphadenopathy or thyromegaly, trachea midline Chest-clear to auscultation percussion. No rales wheezing or rhonchi Cardiac-regular rate and rhythm, normal S1 and S2 Abdomen-normal bowel sounds, nontender, no hepatosplenomegaly Extremities-no cyanosis, clubbing, or edema Neuro-cranial nerves II through XII intact, motor and sensory function within normal limits, strength symmetrical, no focal deficits Psych-normal affect, normal mood Discharge Data Allergies Allergy/AdvReac Type Severity Reaction Status Date / Time capsaicin Allergy Intermediate Burning up Verified 09/23/22 10:45 diclofenac Allergy Intermediate Burning up Verified 10/12/22 00:27 Diclopak Allergy Intermediate Burning up Verified 12/18/17 17:41 heparin Allergy Intermediate RASH Verified 09/23/22 10:45 isopropyl alcohol Allergy Intermediate Burning up Verified 09/23/22 10:45 levofloxacin Allergy Intermediate MUSCLE PAIN Verified 09/23/22 10:45 Macrolide Antibiotics Allergy Intermediate SWELLING Verified 09/23/22 10:45 moxifloxacin Allergy Intermediate MUSCLE PAIN Verified 09/23/22 10:45 propylene glycol Allergy Intermediate Burning up Verified 09/23/22 10:45 adhesive Allergy Mild WELTS Verified 09/23/22 10:45 Cephalosporins Allergy Mild RASH Verified 09/23/22 10:45 DIGESTIVE SYSTEM metoprolol Allergy Mild Unknown Verified 10/12/22 00:27 Sulfa (Sulfonamide Allergy Mild RASH Verified 09/23/22 10:45 Antibiotics) celecoxib Allergy Unknown Unknown Verified 10/12/22 00:27 erythromycin base Allergy Unknown UNKNOWN Verified 09/23/22 10:45 pork derived (porcine) Allergy Unknown Rash Verified 10/12/22 00:27 tramadol Allergy Unknown "wheezing, Verified 09/23/22 10:45 shortness of breath" procaine AdvReac Intermediate RACING Verified 09/23/22 10:45 HEART BEAT rofecoxib AdvReac Intermediate INCREASED Verified 09/23/22 10:45 BP SWELLING cortisone AdvReac Mild HEADCAHE Verified 09/23/22 10:45 lidocaine AdvReac Unknown RASH Verified 09/23/22 10:45 Consultations 10/11/22 12:20 ED Decision to Admit Stat Hospital Course (1) Bacteremia: Gram-negative rods isolated on 10/10. Follow-up blood cultures obtained on 1229 are negative . Treated while hospitalized with intravenous Rocephin, day 3. E. coli isolated from urine cultures. Will discharge on oral cefdinir for 10 more days (2) Acute UTI: E. coli isolated. Treated with intravenous Rocephin, day 3. Home on oral cefdinir. CT of the abdomen performed 10/10/22 without stone or evidence of pyelonephritis (3) Hypertension: Blood pressure well controlled. Continue verapamil and pindolol. (4) Asthma: Patient denies cough. Currently stable. Continue Albuterol as needed. Continue Advair and Flonase (5) Esophageal reflux: Chronic. Well controlled with medication. Continue Famotidine 40mg po qHS (6) Hyperlipidemia: Diet controlled. Plan discharge to home today, October 13, on an cefdinir Total Time Total Time Spent Total Time Spent (In Minutes): 35 minutes Discharge Plan Discharge Items Patient Disposition: Home - Self-Care Reason For Visit: BACTEREMIA Discharge Diagnosis: E. coli UTI, E. coli bacteremia, hypokalemia Activity: Resume your previous activity Non-emergency contact: Primary Care Provider Call non-emergency contact if: you have any medication questions Follow-up/Referrals: Lester Baldwin MD [Primary Care Provider] - Diet: Heart Healthy Addtl Attending Provider Instructions: Take cefdinir as directed until gone Pending Studies at Discharge: No Stand-Alone Forms: My [facility] [employer], Smoking Cessation Medications and DC Order Prescriptions: Continued verapamil 180 mg capsule,ext rel. pellets 24 hr 180 mg PO QPM Qty: 90 3RF fluticasone propion-salmeterol [Advair Diskus] 250-50 mcg/dose blister with device 1 inh inhalation BID Qty: 3 2RF rabeprazole 20 mg tablet,delayed release (DR/EC) 20 mg PO QAM Qty: 90 3RF famotidine 40 mg tablet 40 mg PO HS Qty: 90 3RF pindolol 5 mg tablet 5 mg PO BID 14 Days Qty: 28 0RF desloratadine [Clarinex] 5 mg tablet 5 mg PO DAILY 90 Days Qty: 90 1RF clindamycin HCl 300 mg capsule 600 mg PO UD PRN (Reason: dental procedures) Qty: 30 6RF albuterol sulfate 90 mcg/actuation HFA aerosol inhaler 2 puff inhalation Q6H PRN (Reason: sob) Qty: 25.5 3RF estradiol acetate 0.1 mg/24 hr ring 1 vag ring vaginal Q3MO Qty: 1 3RF cholecalciferol (vitamin D3) 5,000 unit capsule 5,000 unit PO DAILY loperamide 2 mg tablet 2 mg PO HS Qty: 90 glucosamine sulfate 2KCl [Glucosamine Relief] 1,000 mg tablet 1,000 mg PO BID vitamin E 200 unit capsule 400 units PO BID multivitamin [Daily Multi-Vitamin] tablet 1 tab PO DAILY Lo-C with Bioflavonoids 1,000-200 mg tablet 1 tab PO DAILY fluticasone propionate 50 mcg/actuation spray,suspension 2 sprays intranasal QAM Qty: 48 3RF melatonin 5 mg capsule 10 mg PO QPM ciprofloxacin HCl 0.3 % ointment See Rx Instructions ophthalmic (eye) .COMPLEX PRN (Reason: as directed) Rx Instructions: into the eye(s) apply 1/2 inch ribbon into affected eye(s) 2 times daily for 5 days PRN; prednisone 20 mg tablet 40 mg PO DAILY Qty: 10 0RF calcium carbonate [Calcium 600] 600 mg calcium (1,500 mg) Tablet 1,200 mg PO DAILY cefdinir 300 mg capsule 300 mg PO BID 10 Days Qty: 20 0RF Discharge Orders: Discharge Order (Routine); Ordered 10/13/22 Ordered By: Raad Vallecillo Admission Data Admit Date/Time: 10/11/22 12:25 Attending Provider: Raad Vallecillo Admit Provider: Corrina Anthony Primary Care Provider: Lester Baldwin Other Providers: Corrina Anthony Coding Level of Care Code D/C DAY MANAGEMENT >30 MINS Diagnoses Bacteremia R78.81 Acute UTI N39.0 Hypertension I10 Asthma J45.909 Esophageal reflux K21.9 Hyperlipidemia E78.5
== END 2022-10-13 13:47 | disposition home or self-care (01) | DRG 690 ==
LOC: ED 10:35 → 3W 12:25 → SUATTDRO 12:25 → 3W 16:30

== ENCOUNTER 2022-12-12 11:18 | Inpatient (IN) ==
[2022-12-12] MEDS ORDERED: ONDANSETRON INJ 2 MG/ML 2 ML VIAL IV STA (11:41)
[2022-12-12] MEDS ORDERED: dexAMETHasone**PF** 10 MG/ML VIAL IV ONE (11:41)
[2022-12-12] MEDS ORDERED: ACETAMINOPHEN 1,000 MG/100 ML VIAL IV STA (11:41)
[2022-12-12] MEDS ORDERED: MoRPHine SULFATE 10 MG/ML CARP/VIAL IV STA (11:41)
--- NOTE | 2022-12-12 11:46 | Emergency Department Note ---
Impression & Plan Lower back pain, Sciatica, Pain of right leg, Failure of outpatient treatment ED Provider Note NAME: JACY JOSEPH AGE: 77 SEX: F : 1945 ARRIVES VIA: Ambulance INFORMANT: [Patient][] ED PROVIDER(S): [Trevor Lopez MD] CHIEF COMPLAINT: Back pain HISTORY OF PRESENT ILLNESS: The patient is a 77-year-old female presents with right lower back pain radiating down her right leg. She was in the ED just about 2 weeks ago for the same pain. The patient did follow-up with her doctors office after the ED visit. She was placed on a prednisone taper and Flexeril. She just finished the prednisone a few days ago and ever since, the pain has escalated. The pain has been worse every day. Today, she could not get out of bed, she could not walk. She was brought by ambulance. Her states that he cannot handle her in this condition. She describes the pain as a 10/10 worse with any movement of the right leg or really any movement of her back or torso. There has been no recent fall. She has a history of urinary incontinence but this has not changed. No groin numbness appreciated. She had no fever, chills, cough or congestion. Of note, the patient had an MRI of her back just over a month ago, this did not show any acute surgical process or significant disc herniation. PMHx/PSHx: See Below SOCIAL HISTORY: See Below. PHYSICAL EXAM: GENERAL: Patient is in no acute distress. HEENT: No acute trauma, normocephalic atraumatic, mucous membranes moist, no nasal congestion. NECK: No stridor, no adenopathy, no meningismus, trachea is midline. LUNGS: Clear to auscultation bilaterally, no wheeze, no rhonchi, breath sounds equal. HEART: Without murmurs gallops or rubs, regular rate and rhythm. ABDOMEN: Soft, nontender, bowel sounds positive, no peritonitis. EXTREMITIES: No cyanosis or edema, full range of motion of all the joints without pain or difficulty, no signs for acute trauma. NEUROLOGIC: Oriented x 3. The patient has equal great toe strength bilaterally. Plantar strength seems intact bilaterally. She has a 1/4 Achilles reflex bilaterally. There is a 2/4 right patellar reflex. SKIN: No rash, no jaundice, no diaphoresis. DIFFERENTIAL DIAGNOSIS: Lumbar disc herniation, sciatica, lumbar strain, muscle spasm, nerve impingement, hematoma, failed outpatient management, among others. EMERGENCY DEPARTMENT COURSE/PROCEDURES: Prior/Outside records reviewed: Recent ED visit, outpatient provider note, EMS records. MEDICAL DECISION MAKING: There is no leukocytosis or concerning anemia. There is a normal platelet count. Sed rate is not elevated making ongoing infection less likely. There was no renal failure or significant electrolyte abnormality. C-reactive protein was very mildly elevated at 0.06. Urinalysis showed contamination, 4+ bacteria was seen. COVID test returned negative. On exam, the patient had significant pain in lower back and in her right leg with any movement. Strength with great toe dorsiflexion and with plantarflexion seemed intact bilaterally. There were reflexes intact in the right lower extremity. The patient has not fallen or suffered trauma. There was no fever. Patient received IV Tylenol, IV Decadron, IV morphine and IV Zofran. She is more comfortable as long as she is still. The patient's pain is too severe for discharge. She cannot function at home. Her was not able to care for her today. I did speak with the case management team, the on-call hospitalist has been consulted. At this point, the patient has failed outpatient treatment. She may benefit from a pain management consult while here in the hospital. She did have an MRI recently that did not show anything acutely surgical, repeat MRI imaging may be required during her hospital stay. DISPOSITION: The patient's presentation and findings warrant a hospital stay. Past Med/Surg History Medical History Asthma uses prn INH 2-3 x monthly on avg Diverticular disease Encounter for removal of sutures Esophageal reflux Fatty liver Fibromyalgia Hepatic cyst being monitored Hiatal hernia History of diverticulitis of colon History of Helicobacter pylori infection History of migraine History of stomach ulcers Hyperlipidemia Hypertension Idiopathic polyneuropathy Irritable bowel syndrome Osteoarthritis Osteopenia Tachycardia Vitamin D deficiency Surgical History History of appendectomy History of cardiac cath 2003 - [facility] - abn stress test - no stents/angioplasty - follows w/ Dr. Mcneill History of cholecystectomy History of colonoscopy History of cystoscopy History of D&C History of esophagogastroduodenoscopy (EGD) History of lumpectomy History of right knee joint replacement History of tonsillectomy and adenoidectomy History of tooth extraction HX: benign breast biopsy 2012, right fibroadenoma Status post complete hysterectomy Family History Father Pancreatic cancer Colorectal cancer Diabetes Gastric ulcer Grandmother (Maternal) Family history of diabetes mellitus Aunt Leukemia Mother Hypertension Osteoarthritis Stroke Mitral valve disorder History of nephrolithiasis Daughter Asthma Emphysema of lung Polycystic ovarian syndrome Son Myocardial infarction Hypertension Diabetes Arthritis Obesity Sister Arthritis Dyslipidemia Hypertension Brother Gastric ulcer Dyslipidemia Hypertension Denies family history of Ovarian cancer Prostate cancer Breast cancer Social History Smoking Status: Former smoker Tobacco Type: Cigarettes Second Hand Exposure: No; Do You Dip or Chew Tobacco: No; Tobacco Cessation Education Requested by Patient: No Hx Alcohol Use: No Hx Substance Use: No Preferred Language: Venezuelan Communication Ability: Effective Visual Impairment: No Limitations Hearing Ability: Normal Community Program Assistant Required: No Beliefs That Will Affect Care: None marital status: Current Living Situation: Spouse current occupational status: retired Other Information That Helps Us Care for You: No Feels Safe at Home: Yes Safety Concerns: Feels Safe At This Time Physical Activity Frequency: 3-4 Times per Week Seatbelt Use: always Assistive Devices: Cane and Walker Allergies Allergies Allergy/AdvReac Type Severity Reaction Status Date / Time capsaicin Allergy Intermediate Burning up Verified 11/27/22 14:15 diclofenac Allergy Intermediate Burning up Verified 11/27/22 14:15 Diclopak Allergy Intermediate Burning up Verified 12/18/17 17:41 heparin Allergy Intermediate RASH Verified 11/27/22 14:15 isopropyl alcohol Allergy Intermediate Burning up Verified 11/27/22 14:15 levofloxacin Allergy Intermediate MUSCLE PAIN Verified 11/27/22 14:15 Macrolide Antibiotics Allergy Intermediate SWELLING Verified 11/27/22 14:15 moxifloxacin Allergy Intermediate MUSCLE PAIN Verified 11/27/22 14:15 propylene glycol Allergy Intermediate Burning up Verified 11/27/22 14:15 adhesive Allergy Mild WELTS Verified 11/27/22 14:15 Cephalosporins Allergy Mild RASH Verified 11/27/22 14:15 DIGESTIVE SYSTEM metoprolol Allergy Mild Unknown Verified 11/27/22 14:15 Sulfa (Sulfonamide Allergy Mild RASH Verified 11/27/22 14:15 Antibiotics) celecoxib Allergy Unknown Unknown Verified 11/27/22 14:15 erythromycin base Allergy Unknown UNKNOWN Verified 11/27/22 14:15 pork derived (porcine) Allergy Unknown Rash Verified 11/27/22 14:15 tramadol Allergy Unknown "wheezing, Verified 11/27/22 14:15 shortness of breath" procaine AdvReac Intermediate RACING Verified 11/27/22 14:15 HEART BEAT rofecoxib AdvReac Intermediate INCREASED Verified 11/27/22 14:15 BP SWELLING cortisone AdvReac Mild HEADCAHE Verified 11/27/22 14:15 lidocaine AdvReac Unknown RASH Verified 11/27/22 14:15 Home Meds Home Medications Medication Instructions Recorded Confirmed cholecalciferol (vitamin D3) 125 5,000 unit PO DAILY 02/25/19 12/12/22 mcg (5,000 unit) capsule loperamide 2 mg tablet 2 mg PO HS #90 tabs 02/25/19 12/12/22 glucosamine sulfate 2KCl 1,000 mg 1,000 mg PO BID 04/01/19 12/12/22 tablet (Glucosamine Relief) multivitamin (Daily Multi-Vitamin 1 tab PO DAILY 04/01/19 12/12/22 tablet) vitamin E 200 unit capsule 400 units PO BID 04/01/19 12/12/22 calcium carbonate 600 mg calcium 1,200 mg PO DAILY 05/04/19 12/12/22 (1,500 mg) tablet (Calcium) ascorbate calcium-bioflavonoid 1 tab PO DAILY 08/10/19 12/12/22 1,000 mg-200 mg tablet (Lo-C with Bioflavonoids) melatonin 5 mg capsule 10 mg PO QPM 04/26/21 12/12/22 rabeprazole 20 mg tablet,delayed 20 mg PO QAM 10/22/22 12/12/22 release methylcellulose (laxative) 500 mg 500 mg PO DAILY 12/12/22 12/12/22 tablet (Citrucel) vibegron 75 mg tablet (Gemtesa) 75 mg PO DAILY 12/12/22 12/12/22 Previous Rx's Medication Instructions Recorded fluticasone propionate 50 2 sprays intranasal QAM #48 grams 12/02/19 mcg/actuation nasal spray,suspension fluticasone 250 mcg-salmeterol 50 1 inh inhalation BID #3 Inhalers 09/12/21 mcg/dose blistr powdr for inhalation (Advair Diskus) famotidine 40 mg tablet 40 mg PO HS #90 tabs 01/09/22 desloratadine 5 mg tablet 5 mg PO DAILY 90 days #90 tabs 07/09/22 (Clarinex) estradiol acetate 0.1 mg/24 hr 1 vag ring vaginal Q3MO #1 ea 08/28/22 vaginal ring clindamycin HCl 300 mg capsule 600 mg PO UD PRN dental procedures 09/03/22 #30 caps albuterol sulfate 90 mcg/actuation 2 puff inhalation Q6H PRN sob 09/19/22 aerosol inhaler #25.5 grams verapamil 180 mg 24 hr 180 mg PO QPM #90 caps 10/15/22 capsule,extended release cyclobenzaprine 10 mg tablet 10 mg PO TID PRN muscle spasm #30 11/27/22 tabs pindolol 5 mg tablet 5 mg PO BID #180 tabs 12/11/22 Results & Data (ED) Vital Signs Vital Signs - 24 hr 12/12/22 11:42 12/12/22 11:42 Temperature 37.1 C 37.1 C Temperature Source Oral Oral Pulse Rate 76 Pulse Rate [Finger] 76 Respiratory Rate 18 18 Blood Pressure 128/68 Blood Pressure [Right Arm] 128/68 Blood Pressure Mean 88 Blood Pressure Mean [Right Arm] 88 Pulse Oximetry 98 98 Sepsis Recent Fever Within 48 Hours No Sepsis New/Unexplained Change in Mental Status No Sepsis Action Taken by Nursing No Action Required Home Medications Current Medication List: was personally reviewed by me Laboratory Data Attestation: I reviewed the patient's lab results. 12/12/22 12:19 12/12/22 12:19 Lab Results 12/12/22 12/12/22 12/12/22 Range/Units 12:19 12:19 12:19 WBC 10.45 (4.8-10.8) K/ul RBC 4.50 (4.20-5.40) M/uL Hgb 14.9 (12.0-16.0) g/dl Hct 44.0 (37.0-47.0) % MCV 97.8 (80.0-100.0) fL MCH 33.1 (25.0-34.0) pg MCHC 33.9 (32.0-36.0) g/dL RDW Std Deviation 50.7 H (36.4-46.3) fL RDW Coeff of Mendez 14.0 (11.5-14.5) % Plt Count 219 (130-400) K/uL MPV 10.6 (9.4-12.4) fL ESR 20 (0-30) mm/hr Sodium 135 L (136-145) mmol/L Potassium 3.9 (3.5-5.1) mmol/L Chloride 100 (98-107) mmol/L Carbon Dioxide 30 (21-32) mmol/L Anion Gap 5 (3-11) BUN 19 (6-23) mg/dl Creatinine 0.68 (0.6-1.2) mg/dl Est Cr Clr Drug Dosing 75.4 ml/min Est GFR ( Amer) 99.2 ml/min Est GFR (Non-Af Amer) 85.6 ml/min BUN/Creatinine Ratio 27.9 H (10-20) Glucose 142 H (70-99(Fasting)) mg/dl Calcium 9.0 (8.5-10.1) mg/dl C-Reactive Protein 0.60 H (0-0.5) mg/dl SARS-CoV-2, RNA, NAAT (NEGATIVE) 12/12/22 Range/Units 12:19 WBC (4.8-10.8) K/ul RBC (4.20-5.40) M/uL Hgb (12.0-16.0) g/dl Hct (37.0-47.0) % MCV (80.0-100.0) fL MCH (25.0-34.0) pg MCHC (32.0-36.0) g/dL RDW Std Deviation (36.4-46.3) fL RDW Coeff of Mendez (11.5-14.5) % Plt Count (130-400) K/uL MPV (9.4-12.4) fL ESR (0-30) mm/hr Sodium (136-145) mmol/L Potassium (3.5-5.1) mmol/L Chloride (98-107) mmol/L Carbon Dioxide (21-32) mmol/L Anion Gap (3-11) BUN (6-23) mg/dl Creatinine (0.6-1.2) mg/dl Est Cr Clr Drug Dosing ml/min Est GFR ( Amer) ml/min Est GFR (Non-Af Amer) ml/min BUN/Creatinine Ratio (10-20) Glucose (70-99(Fasting)) mg/dl Calcium (8.5-10.1) mg/dl C-Reactive Protein (0-0.5) mg/dl SARS-CoV-2, RNA, NAAT NEGATIVE (NEGATIVE) Administered Medications Morphine Sulfate (Morphine Sulfate 4 Mg/Ml 1 Ml Carp\\Vial) 4 mg IV Q4H PRN PRN Reason: Severe Pain (7,8,9,10) on NRS Stop: 12/26/22 16:27 Last Admin: 12/12/22 18:00 Dose: 4 mg Documented By: PAULM Discontinued Medications Dexamethasone Sodium Phosphate (DexamethasonePf 10 Mg/Ml Vial) 10 mg IV NOW ONE Stop: 12/12/22 11:42 Last Admin: 12/12/22 12:08 Dose: 10 mg Documented By: ENRIKE Acetaminophen (Ofirmev) 1,000 mg in 100 mls @ 400 mls/hr IV NOW STA Stop: 12/12/22 11:55 Last Infusion: 12/12/22 12:49 Dose: 0 mls/hr Documented By: Admin: 12/12/22 12:07 Dose: 400 mls/hr Documented By: ENRIKE Morphine Sulfate (Morphine Sulfate 10 Mg/Ml Carp/Vial) 6 mg IV NOW STA Stop: 12/12/22 11:42 Last Admin: 12/12/22 12:08 Dose: Not Given Documented By: ENRIKE Morphine Sulfate (Morphine Sulfate 4 Mg/Ml 1 Ml Carp\\Vial) Confirm Administered Dose 4 mg .ROUTE .STK-MED ONE Stop: 12/12/22 11:53 Last Admin: 12/12/22 12:07 Dose: 4 mg Documented By: ENRIKE Morphine Sulfate (Morphine Sulfate 2 Mg/Ml Carp) Confirm Administered Dose 2 mg .ROUTE .STK-MED ONE Stop: 12/12/22 11:53 Last Admin: 12/12/22 12:08 Dose: 2 mg Documented By: NERIKE Ondansetron HCl (Ondansetron Inj 2 Mg/Ml 2 Ml Vial) 4 mg IV NOW STA Stop: 12/12/22 11:42 Last Admin: 03/02/23 12:07 Dose: 4 mg Documented By: KT Imaging Data Radiologist's Impression: Lumbar Spine MRI 12/12/22 13:32 MR LUMBAR SPINE WO CON CLINICAL HISTORY: 77 years-old Female with radicular low back pain, worsened ambulation/weakness. Chronic low back pain with radicular symptoms. COMPARISON: MR lumbar spine 11/08/2022, CT abdomen and pelvis 10/10/2022. TECHNIQUE: Multiplanar, multisequence MRI of the lumbar spine was performed without intravenous contrast. FINDINGS: Conus medullaris terminates at the L1-L2 level. 5 cm water attenuating focus within the right hepatic lobe redemonstrated suggestive of a probable cyst. Cholecystectomy. Moderately distended urinary bladder. No acute fracture, subluxation or endplate erosion identified. Study is mildly motion degraded. 4 mm anterolisthesis L5 on S1 is unchanged. T12-L1: Mild spondylitic spurring with ligamentum flavum thickening and mild facet arthrosis. No central canal or neural foraminal narrowing. Unchanged. L1-L2: Mild intervertebral disc space narrowing and spondylitic spurring with small circumferential annular disc bulge. Ligamentum flavum thickening with mild facet arthrosis. No central canal or neural foraminal narrowing. Unchanged. L2-L3: Ligamentum flavum thickening with mild to moderate facet arthrosis. No central canal or neural foraminal narrowing. Unchanged. L3-L4: Mild intervertebral disc space narrowing with spondylitic spurring. Small posterior annular disc bulge, eccentric to the left. Ligamentum flavum thickening with moderate facet arthrosis and bilateral facet effusions. Mild central canal stenosis, AP dimension of the thecal sac measuring 9 mm. Mild narrowing of the left greater than right lateral recesses. Mild narrowing of the inferior left neural foramen. Findings are unchanged from the prior study. L4-L5: 3 mm anterolisthesis is unchanged. Mild intervertebral disc space narrowing with spondylitic spurring, small circumferential annular disc bulge, eccentric to the left. Ligamentum flavum thickening with moderate facet arthrosis and bilateral facet effusions. Mild central canal stenosis with AP dimension of the thecal sac measuring 9 mm, unchanged. Mild narrowing of the left greater than right lateral recesses. Unchanged mild bilateral foraminal stenosis. L5-S1: Mild to moderate intervertebral disc space narrowing. Unchanged grade 1 anterolisthesis. Spondylitic spurring with small circumferential annular disc bulge with posterior disc space uncovering. Posterior annular fissure with a new large central/right paracentral disc extrusion measuring approximately 1.7 x 0.7 x 2.0 cm extending superiorly (image 25 series 7 and image 5 series 3). This abuts and displaces the adjacent L5 nerve root. Posterior annular disc bulge abuts the left greater than right S1 nerve roots. Severe narrowing of the right lateral recess. Mild central canal stenosis with AP dimension of the thecal sac measuring 9 mm. Mild to moderate left with mild right neural foraminal narrowing. IMPRESSION: 1. Interval development of a large L5-S1 disc extrusion abutting the adjacent right L5 nerve root. This results in mild central canal and severe right lateral recess narrowing. 2. Additional degenerative changes as above are stable from the 11/08/2022 exam. 3. No acute fracture. ACT 112: Negative or not required by law. The above report was generated using voice recognition software. It may contain grammatical, syntax or spelling errors. Dictated: 12/12/2022 3:35 PM Transcribed: 12/12/2022 3:54 PM Susanna [id number] [facility] Electronically signed by: Bob Miur M.D. 12/12/2022 4:01 PM Discharge Plan Visit Data Chief Complaint: Back Injury/Pain ED Provider: Trevor Lopez Discharge Problem: Lower back pain, Sciatica, Pain of right leg, Failure of outpatient treatment Patient Disposition: Admitted As Inpatient Condition: Fair Discharge Instructions Interventions: ED Discharge Assessment Last Done: 12/12/22 16:16
[2022-12-12] MEDS ORDERED: MoRPHine SULFATE 2 MG/ML CARP ONE (11:52)
[2022-12-12] MEDS ORDERED: MoRPHine SULFATE 4 MG/ML 1 ML CARP\\VIAL ONE (11:52)
[2022-12-12 12:34] LABS: Hemoglobin 14.9 g/dl (12.0-16.0); Mean Corpuscular Hemoglobin 33.1 pg (25.0-34.0); Mean Corpuscular Hgb Conc 33.9 g/dL (32.0-36.0); Mean Corpuscular Volume 97.8 fL (80.0-100.0); Mean Platelet Volume 10.6 fL (9.4-12.4); Platelet Count 219 K/uL (130-400); RDW Standard Deviation 50.7 fL (36.4-46.3); White Blood Count 10.45 K/ul (4.8-10.8)
[2022-12-12 12:57] LABS: BUN Creatinine Ratio 27.9 (10-20); C Reactive Protein 0.6 mg/dl (0-0.5); Creatinine Clr Calc Pharmacy 75.4 ml/min; Est GFR (African American) 99.2 ml/min; Est GFR (Non-African American) 85.6 ml/min; Potassium 3.9 mmol/L (3.5-5.1)
--- NOTE | 2022-12-12 13:36 | History & Physical Report ---
Date of Service December 12, 2022 Assessment & Plan (1) Lumbar back pain with radiculopathy affecting right lower extremity: Plan: Back pain, radiculopathy Worsened after pred stopped, of note pt getting out of recliner and had a pop and suddenly worsened pain and inability to ambulate - Distral strength limited by pain. Ankle dorsi/plantar flexion intact bilat 5/5. Hip flexion unable to assess. Some tingling/numbness in R toes compared to L but sensation to soft touch is grossly intact Given increase in severity of pain, popping onset, and suboptimal exam repeat lumbar MRI pending If MRI is normal, continue multimodal pain control with lidocaine, steroids, lidocaine patch, Valium, scaled morphine Pain management consulted for epidural injection evaluation If MRI with acute change/concerns, will consult Dr. Longo Asthma Well-controlled on Advair, continue No recent exacerbations, no wheezing on admission GERD Can bring it in continue home PPI. Patient with multiple antibiotic allergies and sensitivity Diet: Regular, n.p.o. at midnight pending pain management eval Disposition: Medical surgical DVT prophylaxis: SCDs, pharmacal prophylaxis deferred pending epidural injection evaluate Code: Full code (2) Weakness: (3) Hypothyroidism: (4) Fibromyalgia: (5) Asthma: History of Present Illness Primary Care Provider: Lester Baldwin MD Graciela is a 77-year-old female with a past medical history of radicular low back pain, cervical radiculopathy, IBS, hypothyroidism, hepatic cyst, fatty liver disease, GERD, hypertension who presents with worsened radicular back and leg pain and inability to ambulate after finishing a prednisone course from her PCP. Did have an MRI without significant stenosis in October Patient was seen for low back pain with radicular symptoms and radiating pain down her leg, had been treated with a prednisone burst which was completed. She gradually had worsening pain and which built up to day of admission when she could no longer ambulate or move from bed. Strength testing is limited by severe pain. Given significantly worsened pain, inability to ambulate, and suboptimal exam due to pain repeat MRI is pending. If no indication for surgical intervention, can have follow-up with pain management? Injection Back pain shooting down R leg Followed up with PCP ~10 days ago, tracie melendrez prednisone taper she finished 3 days ago. That day she was gettign out of a recliner and felt a pop and had suddenly worsened pain and inability to ambulate Pain immediately returned today and is significantly worse now than it was previosly. Feels 'sore' laying still, but 'as soon as I make any movement' pain shoots down her R buttock, thigh, past the knee, and into the ankle. Thinks she feels weak and unsturdy, is hard for her to tell with the severe pain. Hx R knee replacement in the past. L knee gets euflexxa injection. Doing OK, no increase in that pain R toes are tingling and feel numb. No saddle anesthesia. She reports she just started a new medication, gemtasa, for urinary urgency. That has helped her urgency to void, has some incontinence with depends at night. She has not had any difficulty initiation voids. Denies diarrhea/constipation HTN. Has intermittent palpitations resolved with pindolol, denies afib/flutter Hx asthma. Has not needed proair in several weeks. No wheezing on admit Medical History: Reviewed Medications: Reviewed Surgical History: Reviewed Allergies: Reviewed Social History: No tobacco/etoh Code Status: Full Code Allergies Allergy/AdvReac Type Severity Reaction Status Date / Time capsaicin Allergy Intermediate Burning up Verified 11/27/22 14:15 diclofenac Allergy Intermediate Burning up Verified 11/27/22 14:15 Diclopak Allergy Intermediate Burning up Verified 12/18/17 17:41 heparin Allergy Intermediate RASH Verified 11/27/22 14:15 isopropyl alcohol Allergy Intermediate Burning up Verified 11/27/22 14:15 levofloxacin Allergy Intermediate MUSCLE PAIN Verified 11/27/22 14:15 Macrolide Antibiotics Allergy Intermediate SWELLING Verified 11/27/22 14:15 moxifloxacin Allergy Intermediate MUSCLE PAIN Verified 11/27/22 14:15 propylene glycol Allergy Intermediate Burning up Verified 11/27/22 14:15 adhesive Allergy Mild WELTS Verified 11/27/22 14:15 Cephalosporins Allergy Mild RASH Verified 11/27/22 14:15 DIGESTIVE SYSTEM metoprolol Allergy Mild Unknown Verified 11/27/22 14:15 Sulfa (Sulfonamide Allergy Mild RASH Verified 11/27/22 14:15 Antibiotics) celecoxib Allergy Unknown Unknown Verified 11/27/22 14:15 erythromycin base Allergy Unknown UNKNOWN Verified 11/27/22 14:15 pork derived (porcine) Allergy Unknown Rash Verified 11/27/22 14:15 tramadol Allergy Unknown "wheezing, Verified 11/27/22 14:15 shortness of breath" procaine AdvReac Intermediate RACING Verified 11/27/22 14:15 HEART BEAT rofecoxib AdvReac Intermediate INCREASED Verified 11/27/22 14:15 BP SWELLING cortisone AdvReac Mild HEADCAHE Verified 11/27/22 14:15 lidocaine AdvReac Unknown RASH Verified 11/27/22 14:15 Home Medications Medication Instructions Recorded Confirmed Type cholecalciferol (vitamin D3) 125 5,000 unit PO DAILY 02/25/19 12/12/22 History mcg (5,000 unit) capsule loperamide 2 mg tablet 2 mg PO HS #90 tabs 02/25/19 12/12/22 History glucosamine sulfate 2KCl 1,000 mg 1,000 mg PO BID 04/01/19 12/12/22 History tablet (Glucosamine Relief) multivitamin (Daily Multi-Vitamin 1 tab PO DAILY 04/01/19 12/12/22 History tablet) vitamin E 200 unit capsule 400 units PO BID 04/01/19 12/12/22 History calcium carbonate 600 mg calcium 1,200 mg PO DAILY 05/04/19 12/12/22 History (1,500 mg) tablet (Calcium) ascorbate calcium-bioflavonoid 1 tab PO DAILY 08/10/19 12/12/22 History 1,000 mg-200 mg tablet (Lo-C with Bioflavonoids) fluticasone propionate 50 2 sprays intranasal QAM #48 grams 12/02/19 12/12/22 Rx mcg/actuation nasal spray,suspension melatonin 5 mg capsule 10 mg PO QPM 04/26/21 12/12/22 History fluticasone 250 mcg-salmeterol 50 1 inh inhalation BID #3 Inhalers 09/12/21 12/12/22 Rx mcg/dose blistr powdr for inhalation (Advair Diskus) famotidine 40 mg tablet 40 mg PO HS #90 tabs 01/09/22 12/12/22 Rx desloratadine 5 mg tablet 5 mg PO DAILY 90 days #90 tabs 07/09/22 12/12/22 Rx (Clarinex) estradiol acetate 0.1 mg/24 hr 1 vag ring vaginal Q3MO #1 ea 08/28/22 12/12/22 Rx vaginal ring clindamycin HCl 300 mg capsule 600 mg PO UD PRN dental procedures 09/03/22 12/12/22 Rx #30 caps albuterol sulfate 90 mcg/actuation 2 puff inhalation Q6H PRN sob 09/19/22 12/12/22 Rx aerosol inhaler #25.5 grams verapamil 180 mg 24 hr 180 mg PO QPM #90 caps 10/15/22 12/12/22 Rx capsule,extended release rabeprazole 20 mg tablet,delayed 20 mg PO QAM 10/22/22 12/12/22 History release diazepam 2 mg tablet (Valium) 2 mg PO BID PRN muscle spasm #7 11/25/22 12/12/22 Rx tabs cyclobenzaprine 10 mg tablet 10 mg PO TID PRN muscle spasm #30 11/27/22 12/12/22 Rx tabs prednisone 20 mg tablet 20 mg PO DAILY #30 tabs 11/27/22 12/12/22 Rx pindolol 5 mg tablet 5 mg PO BID #180 tabs 12/11/22 12/12/22 Rx Past Med/Surg History Medical History (Updated 12/12/22 @ 13:56 by Maldonado Izaguirre MD) Asthma uses prn INH 2-3 x monthly on avg Diverticular disease Encounter for removal of sutures Esophageal reflux Fatty liver Fibromyalgia Hepatic cyst being monitored Hiatal hernia History of diverticulitis of colon History of Helicobacter pylori infection History of migraine History of stomach ulcers Hyperlipidemia Hypertension Idiopathic polyneuropathy Irritable bowel syndrome Osteoarthritis Osteopenia Tachycardia Vitamin D deficiency Surgical History History of appendectomy History of cardiac cath 2003 - [facility] - abn stress test - no stents/angioplasty - follows w/ Dr. Mcneill History of cholecystectomy History of colonoscopy History of cystoscopy History of D&C History of esophagogastroduodenoscopy (EGD) History of lumpectomy History of right knee joint replacement History of tonsillectomy and adenoidectomy History of tooth extraction HX: benign breast biopsy 2012, right fibroadenoma Status post complete hysterectomy Family History Father Pancreatic cancer Colorectal cancer Diabetes Gastric ulcer Grandmother (Maternal) Family history of diabetes mellitus Aunt Leukemia Mother Hypertension Osteoarthritis Stroke Mitral valve disorder History of nephrolithiasis Daughter Asthma Emphysema of lung Polycystic ovarian syndrome Son Myocardial infarction Hypertension Diabetes Arthritis Obesity Sister Arthritis Dyslipidemia Hypertension Brother Gastric ulcer Dyslipidemia Hypertension Denies family history of Ovarian cancer Prostate cancer Breast cancer Social History Smoking Status: Never smoker Tobacco Type: Cigarettes Second Hand Exposure: No; Hx Alcohol Use: Yes Alcohol type: wine Hx Substance Use: No Preferred Language: Ivorian Communication Ability: Effective Visual Impairment: No Limitations Hearing Ability: Normal 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 NAD. Cooperative. HEENT: Atraumatic, normocephalic. Vision/hearing intact Pulm: CTAB A&P. -wheezes, -rales, -rhonchi. Symmetrical chest rise. No increased work of breathing. No respiratory distress. Cardiac: RRR, -mrg. Radial pulses intact and symmetrical. Abdominal: Nontender, nondistended, soft. BS present. Extremities: Right lower extremity with qualitative numbness/tingling in all toes, ankle dorsiflexion/plantarflexion 5/5 bilaterally. Right hip flexion and knee flexion/extension unable to be assessed due to pain. Patient reports she does feel weaker and unsteady in addition to having pain. No lower extremity pitting edema. No saddle anesthesia Results & Data Results & Data ([facility]) Vital Signs (Past 12 Hours) Vital Signs Temp Pulse Pulse Resp BP BP Pulse Ox 12/12/22 11:42 37.1 C 76 18 128/68 98 12/12/22 11:42 37.1 C 76 18 128/68 98 PG Care Time/CCT Total # of Minutes Spent Total Time Spent with Patient: Total time spent is greater than 50% in coordination of care (as documented) at patient's floor/unit and/or counseling patient: Coding Level of Care Code 23565 INT INP/OBS CARE 2/55MIN Diagnoses Lumbar back pain with radiculopathy affecting right lower extremity M54.16 Weakness R53.1 Hypothyroidism E03.9 Fibromyalgia M79.7 Asthma J45.909
[2022-12-12 14:54] LABS: Appearance Urine Cloudy (Clear); Bacteria Urine Automated 4+ (Negative); Bilirubin Urine Negative (Negative); Blood Urine Negative (Negative); Cast Urine Automated 0 /lpf (0-5); Color Urine Yellow; Epithelial Cell Urine Auto >30 /lpf (0-5); Glucose Urine UA Negative (Negative); Ketones Urine Negative (Negative); Leukocyte Esterase Urine Trace (Negative); Nitrite Urine Positive (Negative); Protein Urine Negative (Negative); Specific Gravity Urine 1.011 (1.000-1.030); Urobilinogen Urine Negative (Negative); pH Urine 6.5 (4.5-7.5)
--- NOTE | 2022-12-12 16:04 | Magnetic Resonance Report ---
MR LUMBAR SPINE WO CON CLINICAL HISTORY: 77 years-old Female with radicular low back pain, worsened ambulation/weakness. Ch ronic low back pain with radicular symptoms. COMPARISON: MR lumbar spine 11/08/2022, CT abdomen and pelvis 10/10/2022. TECHNIQUE: Multiplanar, multisequence MRI of the lumbar spine was performed without intravenous contr ast. FINDINGS: Conus medullaris terminates at the L1-L2 level. 5 cm water attenuating focus within the right hepatic lobe redemonstrated suggestive of a probable cyst. Cholecystectomy. Moderately distended urinary zion dder. No acute fracture, subluxation or endplate erosion identified. Study is mildly motion degraded. 4 mm anterolisthesis L5 on S1 is unchanged. T12-L1: Mild spondylitic spurring with ligamentum flavum thickening and mild facet arthrosis. No dominick tral canal or neural foraminal narrowing. Unchanged. L1-L2: Mild intervertebral disc space narrowing and spondylitic spurring with small circumferential annular disc bulge. Ligamentum flavum thickening with mild facet arthrosis. No central canal or neura l foraminal narrowing. Unchanged. L2-L3: Ligamentum flavum thickening with mild to moderate facet arthrosis. No central canal or neura l foraminal narrowing. Unchanged. L3-L4: Mild intervertebral disc space narrowing with spondylitic spurring. Small posterior annular d isc bulge, eccentric to the left. Ligamentum flavum thickening with moderate facet arthrosis and bila teral facet effusions. Mild central canal stenosis, AP dimension of the thecal sac measuring 9 mm. Mi ld narrowing of the left greater than right lateral recesses. Mild narrowing of the inferior left gladys ral foramen. Findings are unchanged from the prior study. L4-L5: 3 mm anterolisthesis is unchanged. Mild intervertebral disc space narrowing with spondylitic spurring, small circumferential annular disc bulge, eccentric to the left. Ligamentum flavum thickeni ng with moderate facet arthrosis and bilateral facet effusions. Mild central canal stenosis with AP d imension of the thecal sac measuring 9 mm, unchanged. Mild narrowing of the left greater than right l ateral recesses. Unchanged mild bilateral foraminal stenosis. L5-S1: Mild to moderate intervertebral disc space narrowing. Unchanged grade 1 anterolisthesis. Spon dylitic spurring with small circumferential annular disc bulge with posterior disc space uncovering. Posterior annular fissure with a new large central/right paracentral disc extrusion measuring approxi mately 1.7 x 0.7 x 2.0 cm extending superiorly (image 25 series 7 and image 5 series 3). This abuts a nd displaces the adjacent L5 nerve root. Posterior annular disc bulge abuts the left greater than rig ht S1 nerve roots. Severe narrowing of the right lateral recess. Mild central canal stenosis with AP dimension of the thecal sac measuring 9 mm. Mild to moderate left with mild right neural foraminal na rrowing. IMPRESSION: 1. Interval development of a large L5-S1 disc extrusion abutting the adjacent right L5 nerve root. Th is results in mild central canal and severe right lateral recess narrowing. 2. Additional degenerative changes as above are stable from the 11/08/2022 exam. 3. No acute fracture. ACT 112: Negative or not required by law. The above report was generated using voice recognition software. It may contain grammatical, syntax o r spelling errors. Dictated: 12/12/2022 3:35 PM Transcribed: 12/12/2022 3:54 PM Susanna [id number] [facility] Electronically signed by: Bob Muir M.D. 12/12/2022 4:01 PM
[2022-12-12] MEDS ORDERED: ALBUTEROL HFA 8 GM INHALER INH PRN (16:28)
[2022-12-12] MEDS ORDERED: ACETAMINOPHEN 325 MG TAB PO PRN (16:28)
[2022-12-12] MEDS ORDERED: MoRPHine SULFATE 2 MG/ML CARP IV PRN (16:28)
[2022-12-12] MEDS ORDERED: diazePAM 2 MG TABLET PO PRN (16:28)
[2022-12-12] MEDS: MoRPHine SULFATE 4 MG/ML 1 ML CARP\\VIAL IV PRN (18:00)
[2022-12-12] MEDS ORDERED: HYDROmorphone INJ 0.5 MG/0.5 ML SYR IV PRN (20:29)
[2022-12-12] MEDS ORDERED: HYDROmorphone INJ 0.5 MG/0.5 ML SYR ONE (20:59)
[2022-12-12] MEDS: VERAPAMIL HCL 180 MG TABCR PO SCH (21:00)
[2022-12-12] MEDS: FAMOTIDINE 40 MG TABLET PO SCH (21:01)
[2022-12-12] MEDS: PINDOLOL PO SCH (22:20)
[2022-12-12] MEDS: MELATONIN 3 MG TAB PO SCH (22:20)
[2022-12-12] MEDS: ACETAMINOPHEN 1,000 MG/100 ML VIAL IV PRN (22:22)
[2022-12-13] MEDS: PANTOprazole 40 MG TAB PO SCH (08:41)
[2022-12-13] MEDS: PINDOLOL PO SCH ×2 (08:42→20:43)
[2022-12-13] MEDS: FLUTICASONE/VILANTEROL 200/25MCG 14 PUFFS/INHALER INH SCH (08:42)
--- NOTE | 2022-12-13 11:23 | Orthopedic Consultation ---
Date of Consultation December 13, 2022 Assessment & Plan (1) Lumbar disc herniation with radiculopathy: At this time a lengthy discussion today with the patient regarding her updated MRI clinical presentation and possible treatment plan. She does have evidence of moderate facet hypertrophy at L3-L4 evidence of marked facet operatively with underlying instability and spondylolisthesis L4-L5. L5-S1 demonstrates evidence of a massive disc herniation on the right with cephalad migration. There is significant encroachment of the traversing nerve roots. She has left-sided neuroforaminal disease at the L5-S1 level. I have reviewed in detail with the patient her MRI and possible treatment plan. In light of her severe radiculopathy and progressive motor deficit at minimum a lumbar laminotomy partial discectomy L5-S1 would be reasonable. A more definitive surgery would require a complete decompression and fusion at L4-L5 L5-S1. At this time we will reassess her throughout the weekend to see how she progresses we will make further determination regarding treatment plan soon. History of Present Illness Reason for Consultation: Back and right leg pain Attending Physician: Reagan Mar MD History of Present Illness This a very pleasant 77-year-old female who presents with marked decline in status over the past few days. She is struggling with severe right leg pain rating into the buttock posterior lateral thigh to the foot. She is noticing progressive foot drop on the right. Prior to this she did have issues with back pain and has been managing this with injections and steroids. Her current symptoms are markedly worse. She does not note any radicular complaints down the left lower extremity. She does have a history of a pelvic fracture years ago with some nerve damage affecting the left lower extremity. Allergies Allergy/AdvReac Type Severity Reaction Status Date / Time capsaicin Allergy Intermediate Burning up Verified 11/27/22 14:15 diclofenac Allergy Intermediate Burning up Verified 11/27/22 14:15 Diclopak Allergy Intermediate Burning up Verified 12/18/17 17:41 heparin Allergy Intermediate RASH Verified 11/27/22 14:15 isopropyl alcohol Allergy Intermediate Burning up Verified 11/27/22 14:15 levofloxacin Allergy Intermediate MUSCLE PAIN Verified 11/27/22 14:15 Macrolide Antibiotics Allergy Intermediate SWELLING Verified 11/27/22 14:15 moxifloxacin Allergy Intermediate MUSCLE PAIN Verified 11/27/22 14:15 propylene glycol Allergy Intermediate Burning up Verified 11/27/22 14:15 adhesive Allergy Mild WELTS Verified 11/27/22 14:15 Cephalosporins Allergy Mild RASH Verified 11/27/22 14:15 DIGESTIVE SYSTEM metoprolol Allergy Mild Unknown Verified 11/27/22 14:15 Sulfa (Sulfonamide Allergy Mild RASH Verified 11/27/22 14:15 Antibiotics) celecoxib Allergy Unknown Unknown Verified 11/27/22 14:15 erythromycin base Allergy Unknown UNKNOWN Verified 11/27/22 14:15 pork derived (porcine) Allergy Unknown Rash Verified 11/27/22 14:15 tramadol Allergy Unknown "wheezing, Verified 11/27/22 14:15 shortness of breath" procaine AdvReac Intermediate RACING Verified 11/27/22 14:15 HEART BEAT rofecoxib AdvReac Intermediate INCREASED Verified 11/27/22 14:15 BP SWELLING cortisone AdvReac Mild HEADCAHE Verified 11/27/22 14:15 lidocaine AdvReac Unknown RASH Verified 11/27/22 14:15 Home Medications Medication Instructions Recorded Confirmed Type cholecalciferol (vitamin D3) 125 5,000 unit PO DAILY 02/25/19 12/12/22 History mcg (5,000 unit) capsule loperamide 2 mg tablet 2 mg PO HS #90 tabs 02/25/19 12/12/22 History glucosamine sulfate 2KCl 1,000 mg 1,000 mg PO BID 04/01/19 12/12/22 History tablet (Glucosamine Relief) multivitamin (Daily Multi-Vitamin 1 tab PO DAILY 04/01/19 12/12/22 History tablet) vitamin E 200 unit capsule 400 units PO BID 04/01/19 12/12/22 History calcium carbonate 600 mg calcium 1,200 mg PO DAILY 05/04/19 12/12/22 History (1,500 mg) tablet (Calcium) ascorbate calcium-bioflavonoid 1 tab PO DAILY 08/10/19 12/12/22 History 1,000 mg-200 mg tablet (Lo-C with Bioflavonoids) fluticasone propionate 50 2 sprays intranasal QAM #48 grams 12/02/19 12/12/22 Rx mcg/actuation nasal spray,suspension melatonin 5 mg capsule 10 mg PO QPM 04/26/21 12/12/22 History fluticasone 250 mcg-salmeterol 50 1 inh inhalation BID #3 Inhalers 09/12/21 12/12/22 Rx mcg/dose blistr powdr for inhalation (Advair Diskus) famotidine 40 mg tablet 40 mg PO HS #90 tabs 01/09/22 12/12/22 Rx desloratadine 5 mg tablet 5 mg PO DAILY 90 days #90 tabs 07/09/22 12/12/22 Rx (Clarinex) estradiol acetate 0.1 mg/24 hr 1 vag ring vaginal Q3MO #1 ea 08/28/22 12/12/22 Rx vaginal ring clindamycin HCl 300 mg capsule 600 mg PO UD PRN dental procedures 09/03/22 12/12/22 Rx #30 caps albuterol sulfate 90 mcg/actuation 2 puff inhalation Q6H PRN sob 09/19/22 12/12/22 Rx aerosol inhaler #25.5 grams verapamil 180 mg 24 hr 180 mg PO QPM #90 caps 10/15/22 12/12/22 Rx capsule,extended release rabeprazole 20 mg tablet,delayed 20 mg PO QAM 10/22/22 12/12/22 History release cyclobenzaprine 10 mg tablet 10 mg PO TID PRN muscle spasm #30 11/27/22 12/12/22 Rx tabs pindolol 5 mg tablet 5 mg PO BID #180 tabs 12/11/22 12/12/22 Rx methylcellulose (laxative) 500 mg 500 mg PO DAILY 12/12/22 12/12/22 History tablet (Citrucel) vibegron 75 mg tablet (Gemtesa) 75 mg PO DAILY 12/12/22 12/12/22 History Patient History Medical History Asthma uses prn INH 2-3 x monthly on avg Diverticular disease Encounter for removal of sutures Esophageal reflux Fatty liver Fibromyalgia Hepatic cyst being monitored Hiatal hernia History of diverticulitis of colon History of Helicobacter pylori infection History of migraine History of stomach ulcers Hyperlipidemia Hypertension Idiopathic polyneuropathy Irritable bowel syndrome Osteoarthritis Osteopenia Tachycardia Vitamin D deficiency Surgical History History of appendectomy History of cardiac cath 2004 - [facility] - abn stress test - no stents/angioplasty - follows w/ Dr. Mcneill History of cholecystectomy History of colonoscopy History of cystoscopy History of D&C History of esophagogastroduodenoscopy (EGD) History of lumpectomy History of right knee joint replacement History of tonsillectomy and adenoidectomy History of tooth extraction HX: benign breast biopsy 2012, right fibroadenoma Status post complete hysterectomy Family History Father Pancreatic cancer Colorectal cancer Diabetes Gastric ulcer Grandmother (Maternal) Family history of diabetes mellitus Aunt Leukemia Mother Hypertension Osteoarthritis Stroke Mitral valve disorder History of nephrolithiasis Daughter Asthma Emphysema of lung Polycystic ovarian syndrome Son Myocardial infarction Hypertension Diabetes Arthritis Obesity Sister Arthritis Dyslipidemia Hypertension Brother Gastric ulcer Dyslipidemia Hypertension Denies family history of Ovarian cancer Prostate cancer Breast cancer Social History Smoking Status: Former smoker Tobacco Type: Cigarettes Second Hand Exposure: No; Do You Dip or Chew Tobacco: No; Tobacco Cessation Education Requested by Patient: No Hx Alcohol Use: No Hx Substance Use: No Preferred Language: Ghanaian Communication Ability: Effective Visual Impairment: No Limitations Hearing Ability: Normal Peace Officer Required: No Beliefs That Will Affect Care: None marital status: Current Living Situation: Spouse current occupational status: retired Other Information That Helps Us Care for You: No Feels Safe at Home: Yes Safety Concerns: Feels Safe At This Time Physical Activity Frequency: 3-4 Times per Week Seatbelt Use: always Assistive Devices: Cane and Walker Physical Exam Physical Exam: Patient is in bed lying supine. This is a comfortable position for her. She has evidence of a 4/5 right dorsiflexion extensor houses longus compared to 5 5 on the left. Plantarflexion appears to be symmetric. Sensation is intact to cold and light touch bilateral extremity. She has markedly positive tension signs with straight leg raising on the right negative on the left. Results & Data ([facility]) Vital Signs (Past 12 Hours) Vital Signs Temp Pulse Resp BP Pulse Ox O2 Del Method 12/13/22 08:38 36.6 C 87 18 126/68 94 Room Air
--- NOTE | 2022-12-13 14:33 | Pain Management Consultation ---
Date of Consultation December 13, 2022 Assessment & Plan (1) Lumbar disc herniation with radiculopathy: Plan 1. We discussed MRI findings at length with the patient. Patient had discussio n with Dr. Longo who is considering surgical intervention. Due to the large size of lumbar disc herniation we discussed the potential pros versus cons of pursuing lumbar SMITA. Will defer lumbar SMITA at this time. 2. We discussed further IV Decadron as she defers any further oral steroids. Will defer to Dr. Longo at this time. 3. We did discuss initiating gabapentin but she defers due to concerns over side effects and the potential for upcoming surgical procedure 4. Will sign off on patient at this time, please contact us for pain service reevaluation as needed History of Present Illness Reason for Consultation: Low back and right lower extremity radicular pain Requesting Physician: Maldonado Izaguirre MD Attending Physician: Reagan Mar MD History of Present Illness Mrs. Jenkins is a 77-year-old white female who was admitted due to intractable low back and right lower extremity radicular pattern pain traveling to the great toe with paresthesia. Patient indicates that she has been experiencing difficulty with axial low back pain over the past 10 months after she reportedly fell off of a chair. She then developed an acute change in the severity of her pain a few weeks ago without known injury. She was treated outpatient by her PCP due to the increased pain with a course of steroids which initially seemed provide some benefit but then the pain increased towards the end of the steroid taper. She was reportedly getting out of recliner and felt a "pop" with sudden worsening of pain and inability to ambulate. Up-to-date lumbar MRI was completed upon this admission which revealed a large disc herniation at L5-S1 level. She described the pain as aching, burning with shooting characteristics and paresthesias probably affecting the great toe. Pain travels in an L5 distribution predominantly. She denies any left lower extremity radicular pat tern pain. She reports her pain is minimal at a 2/10 while lying supine. Her pain can escalate to a 10/10 with any movement and out of bed activities. She reports a sense of weakness with ambulation due to the discomfort. She denies bowel incontinence or change in her history of bladder incontinence. She denies any saddle anesthesia. Patient was evaluated with Dr. Longo who is considering surgical intervention of the lumbar disc herniation. She reports prior history of gabapentin use for left ulnar neuropathy with some side effects. She typically finds oral opiates to cause side effects in the past. She finds IV Tylenol to be most effective at controlling her pain without side effects at this time. Plan of care discussed with Dr. Tafoya. Pain Assessment Full Body Front + Back: 1. Right lower extremity radicular pain to great toe with parasthesia 2. Right low back pain extending into gluteal region/lateral hip Pain scale - at its best (0-10): 2 Pain scale - at its worst (0-10): 8 Allergies Allergy/AdvReac Type Severity Reaction Status Date / Time capsaicin Allergy Intermediate Burning up Verified 11/27/22 14:15 diclofenac Allergy Intermediate Burning up Verified 11/27/22 14:15 Diclopak Allergy Intermediate Burning up Verified 12/18/17 17:41 heparin Allergy Intermediate RASH Verified 11/27/22 14:15 isopropyl alcohol Allergy Intermediate Burning up Verified 11/27/22 14:15 levofloxacin Allergy Intermediate MUSCLE PAIN Verified 11/27/22 14:15 Macrolide Antibiotics Allergy Intermediate SWELLING Verified 11/27/22 14:15 moxifloxacin Allergy Intermediate MUSCLE PAIN Verified 11/27/22 14:15 propylene glycol Allergy Intermediate Burning up Verified 11/27/22 14:15 adhesive Allergy Mild WELTS Verified 11/27/22 14:15 Cephalosporins Allergy Mild RASH Verified 11/27/22 14:15 DIGESTIVE SYSTEM metoprolol Allergy Mild Unknown Verified 11/27/22 14:15 Sulfa (Sulfonamide Allergy Mild RASH Verified 11/27/22 14:15 Antibiotics) celecoxib Allergy Unknown Unknown Verified 11/27/22 14:15 erythromycin base Allergy Unknown UNKNOWN Verified 11/27/22 14:15 pork derived (porcine) Allergy Unknown Rash Verified 11/27/22 14:15 tramadol Allergy Unknown "wheezing, Verified 11/27/22 14:15 shortness of breath" procaine AdvReac Intermediate RACING Verified 11/27/22 14:15 HEART BEAT rofecoxib AdvReac Intermediate INCREASED Verified 11/27/22 14:15 BP SWELLING cortisone AdvReac Mild HEADCAHE Verified 11/27/22 14:15 lidocaine AdvReac Unknown RASH Verified 11/27/22 14:15 Home Medications Medication Instructions Recorded Confirmed Type cholecalciferol (vitamin D3) 125 5,000 unit PO DAILY 02/25/19 12/12/22 History mcg (5,000 unit) capsule loperamide 2 mg tablet 2 mg PO HS #90 tabs 02/25/19 12/12/22 History glucosamine sulfate 2KCl 1,000 mg 1,000 mg PO BID 04/01/19 12/12/22 History tablet (Glucosamine Relief) multivitamin (Daily Multi-Vitamin 1 tab PO DAILY 04/01/19 12/12/22 History tablet) vitamin E 200 unit capsule 400 units PO BID 04/01/19 12/12/22 History calcium carbonate 600 mg calcium 1,200 mg PO DAILY 05/04/19 12/12/22 History (1,500 mg) tablet (Calcium) ascorbate calcium-bioflavonoid 1 tab PO DAILY 08/10/19 12/12/22 History 1,000 mg-200 mg tablet (Lo-C with Bioflavonoids) fluticasone propionate 50 2 sprays intranasal QAM #48 grams 12/02/19 12/12/22 Rx mcg/actuation nasal spray,suspension melatonin 5 mg capsule 10 mg PO QPM 04/26/21 12/12/22 History fluticasone 250 mcg-salmeterol 50 1 inh inhalation BID #3 Inhalers 09/12/21 12/12/22 Rx mcg/dose blistr powdr for inhalation (Advair Diskus) famotidine 40 mg tablet 40 mg PO HS #90 tabs 01/09/22 12/12/22 Rx desloratadine 5 mg tablet 5 mg PO DAILY 90 days #90 tabs 07/09/22 12/12/22 Rx (Clarinex) estradiol acetate 0.1 mg/24 hr 1 vag ring vaginal Q3MO #1 ea 08/28/22 12/12/22 Rx vaginal ring clindamycin HCl 300 mg capsule 600 mg PO UD PRN dental procedures 09/03/22 12/12/22 Rx #30 caps albuterol sulfate 90 mcg/actuation 2 puff inhalation Q6H PRN sob 09/19/22 12/12/22 Rx aerosol inhaler #25.5 grams verapamil 180 mg 24 hr 180 mg PO QPM #90 caps 10/15/22 12/12/22 Rx capsule,extended release rabeprazole 20 mg tablet,delayed 20 mg PO QAM 10/22/22 12/12/22 History release cyclobenzaprine 10 mg tablet 10 mg PO TID PRN muscle spasm #30 11/27/22 12/12/22 Rx tabs pindolol 5 mg tablet 5 mg PO BID #180 tabs 12/11/22 12/12/22 Rx methylcellulose (laxative) 500 mg 500 mg PO DAILY 12/12/22 12/12/22 History tablet (Citrucel) vibegron 75 mg tablet (Gemtesa) 75 mg PO DAILY 12/12/22 12/12/22 History Pain History Pain Intensity Pain scale - at its best (0-10): 2 Pain scale - at its worst (0-10): 8 Patient History Medical History Asthma uses prn INH 2-3 x monthly on avg Diverticular disease Encounter for removal of sutures Esophageal reflux Fatty liver Fibromyalgia Hepatic cyst being monitored Hiatal hernia History of diverticulitis of colon History of Helicobacter pylori infection History of migraine History of stomach ulcers Hyperlipidemia Hypertension Idiopathic polyneuropathy Irritable bowel syndrome Osteoarthritis Osteopenia Tachycardia Vitamin D deficiency Surgical History History of appendectomy History of cardiac cath [facility] - abn stress test - no stents/angioplasty - follows w/ Dr. Mcneill History of cholecystectomy History of colonoscopy History of cystoscopy History of D&C History of esophagogastroduodenoscopy (EGD) History of lumpectomy History of right knee joint replacement History of tonsillectomy and adenoidectomy History of tooth extraction HX: benign breast biopsy 2013, right fibroadenoma Status post complete hysterectomy Family History Father Pancreatic cancer Colorectal cancer Diabetes Gastric ulcer Grandmother (Maternal) Family history of diabetes mellitus Aunt Leukemia Mother Hypertension Osteoarthritis Stroke Mitral valve disorder History of nephrolithiasis Daughter Asthma Emphysema of lung Polycystic ovarian syndrome Son Myocardial infarction Hypertension Diabetes Arthritis Obesity Sister Arthritis Dyslipidemia Hypertension Brother Gastric ulcer Dyslipidemia Hypertension Denies family history of Ovarian cancer Prostate cancer Breast cancer Social History Smoking Status: Former smoker Tobacco Type: Cigarettes Second Hand Exposure: No; Do You Dip or Chew Tobacco: No; Tobacco Cessation Education Requested by Patient: No Hx Alcohol Use: No Hx Substance Use: No Preferred Language: Bhutanese Communication Ability: Effective Visual Impairment: No Limitations Hearing Ability: Normal Stenotypist Required: No Beliefs That Will Affect Care: None marital status: Current Living Situation: Spouse current occupational status: retired Other Information That Helps Us Care for You: No Feels Safe at Home: Yes Safety Concerns: Feels Safe At This Time Physical Activity Frequency: 3-4 Times per Week Seatbelt Use: always Assistive Devices: Cane and Walker Physical Exam Physical Exam: General: Patient sitting quietly in exam room in no acute distress. Speech and thought process appropriate. Mood and affect appropriate. Cognition intact. Patient obese and physically deconditioned. Patient accompanied by her . Head: Normocephalic and atraumatic. ENT: No evidence of nasal or oral mucosal lesions. Mucous membranes are moist. Eyes: Pupils equal round reactive to light. Neck: Supple without adenopathy and full range of motion. Abdomen: Soft and nondistended. No organomegaly. Bowel sounds active. Back/spine: Patient generally tender over the right lumbosacral region extending into the gluteal area. Limited range of motion in all planes. Complete loss of lumbar lordosis. Lower extremities: SLR reproduces some lumbosacral, gluteal and hip region pain. Patient reports increased paresthesia traveling to the great toe. Strength testing 4/5 on the right with EHL, dorsi and plantarflexion. Patient resistant to resisted hip flexion and extension due to increased pain. Sensation was slightly diminished over the right great toe and distal dorsal foot. Sensation intact on left without deficit. Babinski downgoing bilaterally. Neurologic: Cranial nerves grossly intact. Ambulatory function not witnessed. Results ([facility]) Diagnostic Review MRI Findings: [place], [place] [phone] Magnetic Resonance Report Patient:JACY JENKINS Admit Date:12/12/22 MR#:[id number] Address[address] Acct ID:[id number] Address2: Date:1945 [facility] Zip:[place] [address] Age:77 Location:ED Sex:F Room/Bed: Att Phy: Diagnosis:BACK GARCIA Liilya Phy:Lester Baldwin MD Service Date:12/12/22 [facility] Phy: Interpreting Phy:[facility] Ph[facility]: Ordering Phy:Maldonado Izaguirre MD cc: ~ MR LUMBAR SPINE WO CON CLINICAL HISTORY: 77 years-old Female with radicular low back pain, worsened ambulation/weakness. Chronic low back pain with radicular symptoms. COMPARISON: MR lumbar spine 11/08/2022, CT abdomen and pelvis 10/10/2022. TECHNIQUE: Multiplanar, multisequence MRI of the lumbar spine was performed without intravenous contrast. FINDINGS: Conus medullaris terminates at the L1-L2 level. 5 cm water attenuating focus within the right hepatic lobe redemonstrated suggestive of a probable cyst. Cholecystectomy. Moderately distended urinary bladder. No acute fracture, subluxation or endplate erosion identified. Study is mildly motion degraded. 4 mm anterolisthesis L5 on S1 is unchanged. T12-L1: Mild spondylitic spurring with ligamentum flavum thickening and mild facet arthrosis. No central canal or neural foraminal narrowing. Unchanged. L1-L2: Mild intervertebral disc space narrowing and spondylitic spurring with small circumferential annular disc bulge. Ligamentum flavum thickening with mild facet arthrosis. No central canal or neural foraminal narrowing. Unchanged. L2-L3: Ligamentum flavum thickening with mild to moderate facet arthrosis. No central canal or neural foraminal narrowing. Unchanged. L3-L4: Mild intervertebral disc space narrowing with spondylitic spurring. Small posterior annular disc bulge, eccentric to the left. Ligamentum flavum thickening with moderate facet arthrosis and bilateral facet effusions. Mild central canal stenosis, AP dimension of the thecal sac measuring 9 mm. Mild narrowing of the left greater than right lateral recesses. Mild narrowing of the inferior left neural foramen. Findings are unchanged from the prior study. L4-L5: 3 mm anterolisthesis is unchanged. Mild intervertebral disc space narrowing with spondylitic spurring, small circumferential annular disc bulge, eccentric to the left. Ligamentum flavum thickening with moderate facet arthrosis and bilateral facet effusions. Mild central canal stenosis with AP dimension of the thecal sac measuring 9 mm, unchanged. Mild narrowing of the left greater than right lateral recesses. Unchanged mild bilateral foraminal stenosis. L5-S1: Mild to moderate intervertebral disc space narrowing. Unchanged grade 1 anterolisthesis. Spondylitic spurring with small circumferential annular disc bulge with posterior disc space uncovering. Posterior annular fissure with a new large central/right paracentral disc extrusion measuring approximately 1.7 x 0.7 x 2.0 cm extending superiorly (image 25 series 7 and image 5 series 3). This abuts and displaces the adjacent L5 nerve root. Posterior annular disc bulge abuts the left greater than right S1 nerve roots. Severe narrowing of the right lateral recess. Mild central canal stenosis with AP dimension of the thecal sac measuring 9 mm. Mild to moderate left with mild right neural foraminal narrowing. IMPRESSION: 1. Interval development of a large L5-S1 disc extrusion abutting the adjacent right L5 nerve root. This results in mild central canal and severe right lateral recess narrowing. 2. Additional degenerative changes as above are stable from the 11/08/2022 exam. 3. No acute fracture. ACT 112: Negative or not required by law. The above report was generated using voice recognition software. It may contain grammatical, syntax or spelling errors. Dictated: 12/12/2022 3:35 PM Transcribed: 12/12/2022 3:54 PM Susanna [id number] [facility] Electronically signed by: Bob Muir M.D. 12/12/2022 4:01 PM Dictated:12/12/22 1535 Transcribed: 12/12/22 1554 Previous Records Review Previous Records: personally reviewed by me
--- NOTE | 2022-12-13 17:41 | Hospitalist Progress Note ---
Date of Service December 13, 2022 Assessment & Plan (1) Lumbar back pain with radiculopathy affecting right lower extremity: Plan: Back pain, radiculopathy Worsened after pred stopped, of note pt getting out of recliner and had a pop and suddenly worsened pain and inability to ambulate - Distral strength limited by pain. Ankle dorsi/plantar flexion intact bilat 5/5. Hip flexion unable to assess. Some tingling/numbness in R toes compared to L but sensation to soft touch is grossly intact Given increase in severity of pain, popping onset, and suboptimal exam repeat lumbar MRI pending If MRI is normal, continue multimodal pain control with lidocaine, steroids, lidocaine patch, Valium, scaled morphine Pain management consulted for epidural injection evaluation Follow MRI results and consult spine surgery as needed Asthma Well-controlled on Advair, continue No recent exacerbations, no wheezing on admission GERD Can bring it in continue home PPI. Patient with multiple antibiotic allergies and sensitivity Diet: Regular, n.p.o. at midnight pending pain management eval Disposition: Medical surgical DVT prophylaxis: SCDs, pharmacal prophylaxis deferred pending epidural injection evaluate Code: Full code (2) Weakness: (3) Hypothyroidism: (4) Fibromyalgia: (5) Asthma: Admission and Anticipated Discharge Date Admission Date: December 12, 2022 Subjective Patient seen and examined Patient reports that she has intermittent diarrhea which is only slightly improved Back pain has shown slight improvement Physical Exam Physical Exam: Head and ENT no thyroid enlargement trachea midline Cardiovascular S1-S2 are normal no S3 Lungs bilateral air entry fair no wheezing Abdomen soft nondistended positive bowel sounds no rebound tenderness Extremity shows trace edema Neurologically no focal deficits intermittent paresthesias Skin shows no rash no cyanosis Results & Data Results & Data ([facility]) Vital Signs (Past 12 Hours) Vital Signs Temp Pulse Pulse Resp BP Pulse Ox O2 Del Method 12/13/22 14:24 36.6 C 79 16 146/85 H 95 Room Air 12/13/22 08:38 36.6 C 87 18 126/68 94 Room Air PG Care Time/CCT Total # of Minutes Spent Total Time Spent with Patient: Total time spent is greater than 50% in coordination of care (as documented) at patient's floor/unit and/or counseling patient: Coding Level of Care Code 02756 SUB INP/OBS CARE 2/35MIN Diagnoses Lumbar back pain with radiculopathy affecting right lower extremity M54.16 Weakness R53.1 Hypothyroidism E03.9 Fibromyalgia M79.7 Asthma J45.909
[2022-12-13] MEDS: ACETAMINOPHEN 1,000 MG/100 ML VIAL IV PRN (19:43)
[2022-12-13] MEDS: VERAPAMIL HCL 180 MG TABCR PO SCH (20:43)
[2022-12-13] MEDS: FAMOTIDINE 40 MG TABLET PO SCH (20:43)
[2022-12-13] MEDS ORDERED: LOPERAMIDE HCL 2 MG CAP PO PRN (21:00)
[2022-12-13] MEDS: MELATONIN 3 MG TAB PO SCH (23:01)
[2022-12-14 06:37] LABS: Hematocrit (blood only) 42.1 % (37.0-47.0); Hemoglobin 14.1 g/dl (12.0-16.0); Mean Corpuscular Hemoglobin 32.7 pg (25.0-34.0); Mean Corpuscular Hgb Conc 33.5 g/dL (32.0-36.0); Mean Corpuscular Volume 97.7 fL (80.0-100.0); Mean Platelet Volume 10.5 fL (9.4-12.4); Platelet Count 217 K/uL (130-400); RDW Coefficient of Variation 14.1 % (11.5-14.5); RDW Standard Deviation 51.3 fL (36.4-46.3); Red Blood Count 4.31 M/uL (4.20-5.40)
--- NOTE | 2022-12-14 08:16 | Orthopedic Progress Note ---
Date of Service December 14, 2022 Assessment & Plan (1) Lumbar disc herniation with radiculopathy: Plan: At this time we will initiate physical therapy assess her progress. She continues to have severe radiculopathy limiting her ability to ambulate we may consider surgical invention. Admission and Anticipated Discharge Date Admission Date: December 12, 2022 Subjective Patient is relatively comfortable at rest. She struggles with radiculopathy when she stands and ambulates. Physical Exam 2 Physical Exam: Patient is supine in bed. He is comfortable at this time. As result strength testing. Results & Data ([facility]) Vital Signs (Past 12 Hours) Vital Signs Temp Pulse Resp BP Pulse Ox O2 Del Method 12/14/22 07:34 36.4 C L 70 16 159/84 H 96 Room Air 12/13/22 21:36 36.6 C 78 18 122/71 94 Room Air
[2022-12-14] MEDS: PINDOLOL PO SCH ×2 (08:41→20:57)
[2022-12-14] MEDS: PANTOprazole 40 MG TAB PO SCH (08:42)
[2022-12-14] MEDS: FLUTICASONE/VILANTEROL 200/25MCG 14 PUFFS/INHALER INH SCH (08:42)
[2022-12-14 09:52] LABS: BUN Creatinine Ratio 27.8 (10-20); Calcium 8.9 mg/dl (8.5-10.1); Creatinine Clr Calc Pharmacy 74.9 ml/min; Est GFR (African American) 94.9 ml/min; Est GFR (Non-African American) 81.9 ml/min; Potassium 4.5 mmol/L (3.5-5.1)
[2022-12-14] MEDS: LOPERAMIDE HCL 2 MG CAP PO SCH ×2 (10:42→20:57)
[2022-12-14] MEDS: MoRPHine SULFATE 4 MG/ML 1 ML CARP\\VIAL IV PRN (12:07)
[2022-12-14] MEDS: ACETAMINOPHEN 1,000 MG/100 ML VIAL IV PRN (12:08)
[2022-12-14] MEDS: LORATADINE 10 MG TAB PO SCH (16:50)
--- NOTE | 2022-12-14 19:46 | Hospitalist Progress Note ---
Date of Service December 14, 2022 Assessment & Plan (1) Lumbar back pain with radiculopathy affecting right lower extremity: Plan: Back pain, radiculopathy Worsened after pred stopped, of note pt getting out of recliner and had a pop and suddenly worsened pain and inability to ambulate - Distral strength limited by pain. Ankle dorsi/plantar flexion intact bilat 5/5. Hip flexion unable to assess. Some tingling/numbness in R toes compared to L but sensation to soft touch is grossly intact Given increase in severity of pain, popping onset, and suboptimal exam repeat lumbar MRI pending If MRI is normal, continue multimodal pain control with lidocaine, steroids, lidocaine patch, Valium, scaled morphine Pain management consulted for epidural injection evaluation Follow MRI results and consult spine surgery as needed /-Dr. Longo's consult appreciated White count 14 but no obvious source of infection noted Patient continues to have radiculopathy symptoms Denies any dysuria symptoms, UA possible contamination Will discuss with spinal surgery to decide on further course during hospitalization Asthma Well-controlled on Advair, continue No recent exacerbations, no wheezing on admission GERD Can bring it in continue home PPI. Patient with multiple antibiotic allergies and sensitivity Diet: Regular, n.p.o. at midnight pending pain management eval Disposition: Medical surgical DVT prophylaxis: SCDs, pharmacal prophylaxis deferred pending epidural injection evaluate Code: Full code (2) Weakness: (3) Hypothyroidism: (4) Fibromyalgia: (5) Asthma: Admission and Anticipated Discharge Date Admission Date: December 12, 2022 Subjective Patient seen and examined Has intermittent radiculopathy and paresthesias Otherwise no urinary difficulty reported no dysuria reported Physical Exam Physical Exam: Head and ENT no thyroid enlargement trachea midline Cardiovascular S1-S2 are normal no S3 Lungs bilateral air entry fair no wheezing Abdomen soft nondistended positive bowel sounds no rebound tenderness Extremity shows trace edema Neurologically no focal deficits intermittent paresthesias Skin shows no rash no cyanosis Results & Data Results & Data ([facility]) Vital Signs (Past 12 Hours) Vital Signs Temp Pulse Resp BP Pulse Ox O2 Del Method 12/14/22 14:28 36.8 C 81 16 130/71 94 Room Air 12/14/22 08:42 Room Air PG Care Time/CCT Total # of Minutes Spent Total Time Spent with Patient: Total time spent is greater than 50% in coordination of care (as documented) at patient's floor/unit and/or counseling patient: Coding Level of Care Code 51149 SUB INP/OBS CARE 235MIN Diagnoses Lumbar back pain with radiculopathy affecting right lower extremity M54.16 Weakness R53.1 Hypothyroidism E03.9 Fibromyalgia M79.7 Asthma J45.909
[2022-12-14] MEDS: VERAPAMIL HCL 180 MG TABCR PO SCH (20:57)
[2022-12-14] MEDS: MELATONIN 3 MG TAB PO SCH (20:57)
[2022-12-14] MEDS: FAMOTIDINE 40 MG TABLET PO SCH (20:58)
[2022-12-15 06:59] LABS: Hematocrit (blood only) 43.1 % (37.0-47.0); Hemoglobin 14.3 g/dl (12.0-16.0); Mean Corpuscular Hemoglobin 32.6 pg (25.0-34.0); Mean Corpuscular Hgb Conc 33.2 g/dL (32.0-36.0); Mean Corpuscular Volume 98.4 fL (80.0-100.0); Mean Platelet Volume 10.8 fL (9.4-12.4); Platelet Count 197 K/uL (130-400); RDW Coefficient of Variation 14.4 % (11.5-14.5); RDW Standard Deviation 52.4 fL (36.4-46.3); Red Blood Count 4.38 M/uL (4.20-5.40)
[2022-12-15 07:17] LABS: BUN Creatinine Ratio 24.6 (10-20); Creatinine Clr Calc Pharmacy 78.2 ml/min; Est GFR (African American) 98.7 ml/min; Est GFR (Non-African American) 85.2 ml/min; Potassium 4.2 mmol/L (3.5-5.1)
[2022-12-15] MEDS: FLUTICASONE/VILANTEROL 200/25MCG 14 PUFFS/INHALER INH SCH (08:42)
[2022-12-15] MEDS: PANTOprazole 40 MG TAB PO SCH (08:43)
[2022-12-15] MEDS: LORATADINE 10 MG TAB PO SCH (08:43)
[2022-12-15] MEDS: PINDOLOL PO SCH ×2 (08:44→20:18)
--- NOTE | 2022-12-15 10:08 | Orthopedic Progress Note ---
Date of Service December 15, 2022 Assessment & Plan (1) Lumbar disc herniation with radiculopathy: Plan: At this time we have attempted a course of physical therapy she is on continue pain medicine but still markedly limited secondary to pain. We have discussed possible surgical invention. I would recommend a lumbar laminotomy L5-S1 on the right to remove the herniated free fragment. She understands agrees with this plan. Risk benefits pros cons alternatives were in detail. Make her n.p.o. after midnight and plan for surgery tomorrow. Admission and Anticipated Discharge Date Admission Date: December 14, 2022 Subjective Patient continues to have significant right leg pain markedly exacerbated with standing or walking. Physical Exam Physical Exam: On exam she is up with her walker. She has not displaced any weight on the right lower extremity. She leans heavily on the walker to avoid weightbearing. She is in obvious distress. Results & Data ([facility]) Vital Signs (Past 12 Hours) Vital Signs Temp Pulse Resp BP Pulse Ox O2 Del Method 12/15/22 07:19 36.5 C 70 16 142/84 H 96 Room Air
[2022-12-15] MEDS: LOPERAMIDE HCL 2 MG CAP PO SCH ×2 (10:09→20:19)
[2022-12-15] MEDS: MoRPHine SULFATE 4 MG/ML 1 ML CARP\\VIAL IV PRN ×2 (11:14→23:15)
--- NOTE | 2022-12-15 17:49 | Hospitalist Progress Note ---
Date of Service December 15, 2022 Assessment & Plan (1) Lumbar back pain with radiculopathy affecting right lower extremity: Plan: Back pain, radiculopathy Worsened after pred stopped, of note pt getting out of recliner and had a pop and suddenly worsened pain and inability to ambulate - Distral strength limited by pain. Ankle dorsi/plantar flexion intact bilat 5/5. Hip flexion unable to assess. Some tingling/numbness in R toes compared to L but sensation to soft touch is grossly intact Given increase in severity of pain, popping onset, and suboptimal exam repeat lumbar MRI pending If MRI is normal, continue multimodal pain control with lidocaine, steroids, lidocaine patch, Valium, scaled morphine Pain management consulted for epidural injection evaluation Follow MRI results and consult spine surgery as needed 12/14-Dr. Longo's consult appreciated White count 14 but no obvious source of infection noted Patient continues to have radiculopathy symptoms Denies any dysuria symptoms, UA possible contamination Will discuss with spinal surgery to decide on further course during hospitalization 12/15-patient continues to have significant radiculopathy Discussed with spine surgery Dr. Longo and plan to perform laminectomy noted Patient's white count is improved to 10 today No evidence of any acute infection noted Hopefully patient can be DC'd in 24 to 48 hours after laminectomy performed and symptoms controlled Asthma Well-controlled on Advair, continue No recent exacerbations, no wheezing on admission GERD Can bring it in continue home PPI. Patient with multiple antibiotic allergies and sensitivity Diet: Regular, n.p.o. at midnight pending pain management eval Disposition: Medical surgical DVT prophylaxis: SCDs, pharmacal prophylaxis deferred pending epidural injection evaluate Code: Full code (2) Weakness: (3) Hypothyroidism: (4) Fibromyalgia: (5) Asthma: Admission and Anticipated Discharge Date Admission Date: December 14, 2022 Subjective Patient seen and examined Patient reports right leg pain consistent with radiculopathy interfering with movement No dysuria reported no chest pain or shortness of breath Physical Exam Physical Exam: Head and ENT no thyroid enlargement trachea midline Cardiovascular S1-S2 are normal no S3 Lungs bilateral air entry fair no wheezing Abdomen soft nondistended positive bowel sounds no rebound tenderness Extremity shows trace edema Neurologically no focal deficits intermittent paresthesias Skin shows no rash no cyanosis Results & Data Results & Data ([facility]) Vital Signs (Past 12 Hours) Vital Signs Temp Pulse Resp BP BP Pulse Ox O2 Del Method 12/15/22 15:19 36.6 C 77 16 141/85 H 97 Room Air 12/15/22 07:19 36.5 C 70 16 142/84 H 96 Room Air Laboratory Results Short CBC 12/15/22 Range/Units 06:24 WBC 10.70 (4.8-10.8) K/ul Hgb 14.3 (12.0-16.0) g/dl Hct 43.1 (37.0-47.0) % Plt Count 197 (130-400) K/uL BMP 12/15/22 06:24 Sodium 137 Potassium 4.2 Chloride 103 Carbon Dioxide 29 BUN 17 Creatinine 0.69 Glucose 153 H Calcium 9.0 PG Care Time/CCT Total # of Minutes Spent Total Time Spent with Patient: Total time spent is greater than 50% in coordination of care (as documented) at patient's floor/unit and/or counseling patient: Coding Level of Care Code 85229 SUB INP/OBS CARE 2/35MIN Diagnoses Lumbar back pain with radiculopathy affecting right lower extremity M54.16 Weakness R53.1 Hypothyroidism E03.9 Fibromyalgia M79.7 Asthma J45.909
[2022-12-15] MEDS: MELATONIN 3 MG TAB PO SCH (20:19)
[2022-12-15] MEDS: FAMOTIDINE 40 MG TABLET PO SCH (20:19)
[2022-12-15] MEDS: VERAPAMIL HCL 180 MG TABCR PO SCH (20:19)
[2022-12-16 06:53] LABS: Hematocrit (blood only) 42.2 % (37.0-47.0); Hemoglobin 14.2 g/dl (12.0-16.0); Mean Corpuscular Hemoglobin 33.2 pg (25.0-34.0); Mean Corpuscular Hgb Conc 33.6 g/dL (32.0-36.0); Mean Corpuscular Volume 98.6 fL (80.0-100.0); Mean Platelet Volume 10.1 fL (9.4-12.4); Platelet Count 194 K/uL (130-400); RDW Coefficient of Variation 14.1 % (11.5-14.5); RDW Standard Deviation 51.2 fL (36.4-46.3); Red Blood Count 4.28 M/uL (4.20-5.40); White Blood Count 9.95 K/ul (4.8-10.8)
[2022-12-16 07:07] LABS: BUN Creatinine Ratio 27.1 (10-20); Calcium 9.2 mg/dl (8.5-10.1); Creatinine Clr Calc Pharmacy 77.1 ml/min; Est GFR (African American) 98.2 ml/min; Est GFR (Non-African American) 84.8 ml/min; Potassium 3.8 mmol/L (3.5-5.1)
--- NOTE | 2022-12-16 07:47 | History & Physical Bridge Note ---
Date of Service December 16, 2022 History & Physical Bridge Note I have examined the patient, reviewed the History & Physical and in the interval since the performance of the History & Physical I have noted the following changes of clinical significance: no changes noted Continued right leg pain with limitations ambulating. Subsequently for proceeding with L5-S1 laminectomy on the right
[2022-12-16] MEDS: FLUTICASONE/VILANTEROL 200/25MCG 14 PUFFS/INHALER INH SCH (07:56)
[2022-12-16] MEDS: LORATADINE 10 MG TAB PO SCH (07:56)
[2022-12-16] MEDS: PINDOLOL PO SCH ×2 (07:56→21:53)
[2022-12-16] MEDS: PANTOprazole 40 MG TAB PO SCH (07:56)
[2022-12-16] MEDS ORDERED: fentaNYL citrate 100 MCG/2 ML VIAL ONE (08:13)
[2022-12-16] MEDS ORDERED: MIDAZOLAM HCL 1 MG/ML 2ML VIAL ONE (08:13)
--- NOTE | 2022-12-16 08:20 | Anesthesiology Consultation ---
Date of Service December 16, 2022 Assessment & Plan (1) Encounter for pre-operative examination: Chart Review Chart Review: Acceptable Risk for Surgery and Patient NOT seen in Pre Admission Testing Consults Requested none Additional Notes Klebsiella in urine culture on 12/12, surgeon aware, patient denying fevers/chil ls/burning with urination. History Surgery Operation Date: 12/16/22 09:40 Proposed Procedures p Right L5 Laminectomy - Sandeep Longo DO Height/Weight Height: 5 ft 2 in Weight: 100.6 kg Allergies Allergy/AdvReac Type Severity Reaction Status Date / Time capsaicin Allergy Intermediate Burning up Verified 11/27/22 14:15 diclofenac Allergy Intermediate Burning up Verified 11/27/22 14:15 Diclopak Allergy Intermediate Burning up Verified 12/18/17 17:41 heparin Allergy Intermediate RASH Verified 11/27/22 14:15 isopropyl alcohol Allergy Intermediate Burning up Verified 11/27/22 14:15 levofloxacin Allergy Intermediate MUSCLE PAIN Verified 11/27/22 14:15 Macrolide Antibiotics Allergy Intermediate SWELLING Verified 11/27/22 14:15 moxifloxacin Allergy Intermediate MUSCLE PAIN Verified 11/27/22 14:15 propylene glycol Allergy Intermediate Burning up Verified 11/27/22 14:15 adhesive Allergy Mild WELTS Verified 11/27/22 14:15 Cephalosporins Allergy Mild RASH Verified 11/27/22 14:15 DIGESTIVE SYSTEM metoprolol Allergy Mild Unknown Verified 11/27/22 14:15 Sulfa (Sulfonamide Allergy Mild RASH Verified 11/27/22 14:15 Antibiotics) celecoxib Allergy Unknown Unknown Verified 11/27/22 14:15 erythromycin base Allergy Unknown UNKNOWN Verified 11/27/22 14:15 pork derived (porcine) Allergy Unknown Rash Verified 11/27/22 14:15 tramadol Allergy Unknown "wheezing, Verified 11/27/22 14:15 shortness of breath" procaine AdvReac Intermediate RACING Verified 11/27/22 14:15 HEART BEAT rofecoxib AdvReac Intermediate INCREASED Verified 11/27/22 14:15 BP SWELLING cortisone AdvReac Mild HEADCAHE Verified 11/27/22 14:15 lidocaine AdvReac Unknown RASH Verified 11/27/22 14:15 Medications Home Medications Medication Instructions Recorded Confirmed Last Taken cholecalciferol (vitamin D3) 125 5,000 unit PO DAILY 02/25/19 12/12/22 12/11/22 17:30 mcg (5,000 unit) capsule loperamide 2 mg tablet 2 mg PO HS #90 tabs 02/25/19 12/12/22 12/11/22 21:00 glucosamine sulfate 2KCl 1,000 mg 1,000 mg PO BID 04/01/19 12/12/22 12/12/22 07:00 tablet (Glucosamine Relief) multivitamin (Daily Multi-Vitamin 1 tab PO DAILY 04/01/19 12/12/22 12/11/22 17:30 tablet) vitamin E 200 unit capsule 400 units PO BID 04/01/19 12/12/22 12/12/22 07:00 calcium carbonate 600 mg calcium 1,200 mg PO DAILY 05/04/19 12/12/22 12/11/22 17:30 (1,500 mg) tablet (Calcium) ascorbate calcium-bioflavonoid 1 tab PO DAILY 08/10/19 12/12/22 12/11/22 17:30 1,000 mg-200 mg tablet (Lo-C with Bioflavonoids) fluticasone propionate 50 2 sprays intranasal QAM #48 grams 12/02/19 12/12/22 12/12/22 07:00 mcg/actuation nasal spray,suspension melatonin 5 mg capsule 10 mg PO QPM 04/26/21 12/12/22 12/11/22 22:00 fluticasone 250 mcg-salmeterol 50 1 inh inhalation BID #3 Inhalers 09/12/21 12/12/22 Unknown mcg/dose blistr powdr for inhalation (Advair Diskus) famotidine 40 mg tablet 40 mg PO HS #90 tabs 01/09/22 12/12/22 12/11/22 20:00 desloratadine 5 mg tablet 5 mg PO DAILY 90 days #90 tabs 07/09/22 12/12/22 12/12/22 07:00 (Clarinex) estradiol acetate 0.1 mg/24 hr 1 vag ring vaginal Q3MO #1 ea 08/28/22 12/12/22 Unknown vaginal ring clindamycin HCl 300 mg capsule 600 mg PO UD PRN dental procedures 09/03/22 12/12/22 Unknown #30 caps albuterol sulfate 90 mcg/actuation 2 puff inhalation Q6H PRN sob 09/19/22 12/12/22 Unknown aerosol inhaler #25.5 grams verapamil 180 mg 24 hr 180 mg PO QPM #90 caps 10/15/22 12/12/22 12/11/22 21:00 capsule,extended release rabeprazole 20 mg tablet,delayed 20 mg PO QAM 10/22/22 12/12/22 12/12/22 07:00 release cyclobenzaprine 10 mg tablet 10 mg PO TID PRN muscle spasm #30 11/27/22 12/12/22 12/12/22 07:00 tabs pindolol 5 mg tablet 5 mg PO BID #180 tabs 12/11/22 12/12/22 12/12/22 07:00 methylcellulose (laxative) 500 mg 500 mg PO DAILY 12/12/22 12/12/22 12/11/22 20:00 tablet (Citrucel) vibegron 75 mg tablet (Gemtesa) 75 mg PO DAILY 12/12/22 12/12/22 12/12/22 07:00 Active Medications Generic Name Dose Route Start Last Admin Trade Name Freq PRN Reason Stop Dose Admin Famotidine 40 mg 12/12/22 21:00 12/15/22 20:19 Famotidine 40 Mg Tablet PO 01/11/23 20:59 40 mg HS BRIGIDO Administration Fluticasone/Vilanterol 1 puffs 12/13/22 09:00 12/16/22 07:56 Fluticasone/Vilanterol 200/25mcg 14 Puffs/Inhaler INH 01/12/23 08:59 Not Given DAILY BRIGIDO Hydromorphone HCl 0.5 mg 12/12/22 20:29 12/13/22 19:42 Hydromorphone Inj 0.5 Mg/0.5 Ml Syr IV 12/26/22 20:28 0.5 mg Q6H PRN Administration Pain breakthrough Loperamide HCl 2 mg 12/14/22 10:00 12/15/22 10:09 Loperamide Hcl 2 Mg Cap PO 01/13/23 09:59 Not Given Q24H BRIGIDO Loperamide HCl 2 mg 12/14/22 21:00 12/15/22 20:19 Loperamide Hcl 2 Mg Cap PO 01/13/23 20:59 Not Given HS BRIGIDO Loratadine 10 mg 12/14/22 15:00 12/16/22 07:56 Loratadine 10 Mg Tab PO 01/13/23 14:59 Not Given DAILY BRIGIDO Melatonin 9 mg 12/12/22 21:00 12/15/22 20:19 Melatonin 3 Mg Tab PO 01/11/23 20:59 9 mg QPM BRIGIDO Administration Morphine Sulfate 4 mg 12/12/22 16:28 12/15/22 23:15 Morphine Sulfate 4 Mg/Ml 1 Ml Carp\\Vial IV 12/26/22 16:27 4 mg Q4H PRN Administration Severe Pain (7,8,9,10) on NRS Pantoprazole Sodium 40 mg 12/13/22 09:00 12/16/22 07:56 Pantoprazole 40 Mg Tab PO 01/12/23 08:59 Not Given QAM BRIGIDO Pindolol 1 each 12/12/22 22:00 12/16/22 07:56 Pindolol PO 01/11/23 21:59 Not Given BID BRIGIDO Verapamil HCl 180 mg 12/12/22 21:00 12/15/22 20:19 Verapamil Hcl 180 Mg Tabcr PO 01/11/23 20:59 180 mg QPM BRIGIDO Administration NPO Date Last Intake of Fluids: 12/15/22 Time Last Intake of Fluids: 23:00 Last Intake of Fluids Comment: water Date Last Intake of Solids: 12/15/22 Time Last Intake of Solids: 18:30 Last Intake of Solids Comment: dinner tray- refused hs snack Past Medical History Medical History Asthma uses prn INH 2-3 x monthly on avg Diverticular disease Encounter for removal of sutures Esophageal reflux Fatty liver Fibromyalgia Hepatic cyst being monitored Hiatal hernia History of diverticulitis of colon History of Helicobacter pylori infection History of migraine History of stomach ulcers Hyperlipidemia Hypertension Idiopathic polyneuropathy Irritable bowel syndrome Osteoarthritis Osteopenia Tachycardia Vitamin D deficiency Past Family History Family History Father Pancreatic cancer Colorectal cancer Diabetes Gastric ulcer Grandmother (Maternal) Family history of diabetes mellitus Aunt Leukemia Mother Hypertension Osteoarthritis Stroke Mitral valve disorder History of nephrolithiasis Daughter Asthma Emphysema of lung Polycystic ovarian syndrome Son Myocardial infarction Hypertension Diabetes Arthritis Obesity Sister Arthritis Dyslipidemia Hypertension Brother Gastric ulcer Dyslipidemia Hypertension Denies family history of Ovarian cancer Prostate cancer Breast cancer Past Surgical History Surgical History History of appendectomy History of cardiac cath 2004 - [facility] - abn stress test - no stents/angioplasty - follows w/ Dr. Mcneill History of cholecystectomy History of colonoscopy History of cystoscopy History of D&C History of esophagogastroduodenoscopy (EGD) History of lumpectomy History of right knee joint replacement History of tonsillectomy and adenoidectomy History of tooth extraction HX: benign breast biopsy 2012, right fibroadenoma Status post complete hysterectomy Social History Smoking Status: Former smoker Do You Dip or Chew Tobacco: No Hx Alcohol Use: No Alcohol type: wine alcohol intake frequency: holidays/special occasions only Hx Substance Use: No substance use type: does not use Physical Exam Vital Signs Last Vital Signs Temp 98.2 F 12/16/22 07:58 Pulse 76 12/16/22 07:58 Resp 18 12/16/22 07:58 BP 146/82 H 12/16/22 07:58 Pulse Ox 98 12/16/22 07:58 O2 Del Method Room Air 12/16/22 07:58 Testing Laboratory Results 12/16/22 06:32 12/16/22 06:32 Urine Color Yellow 12/12/22 14:09 Urine Appearance Cloudy (Clear) A 12/12/22 14:09 Urine pH 6.5 (4.5-7.5) 12/12/22 14:09 Ur Specific [place] 1.011 (1.000-1.030) 12/12/22 14:09 Urine Protein Negative (Negative) 12/12/22 14:09 Urine Glucose (UA) Negative (Negative) 12/12/22 14:09 Urine Ketones Negative (Negative) 12/12/22 14:09 Urine Nitrite Positive (Negative) A 12/12/22 14:09 Ur Leukocyte Esterase Trace (Negative) H 12/12/22 14:09 Urine WBC (Auto) 1-5 /hpf (0-5) 12/12/22 14:09 Urine RBC (Auto) 10-30 /hpf (0-4) H 12/12/22 14:09 U Hyaline Cast (Auto) 0 /lpf (0-5) 12/12/22 14:09 U Epithel Cells (Auto) >30 /lpf (0-5) H 12/12/22 14:09 Urine Bacteria (Auto) 4+ (Negative) H 12/12/22 14:09 12/12/22 14:09 Urine Culture - Final Urine,Clean Catch Klebsiella pneumoniae Electrocardiogram Date: 02/01/20 Findings: + NSR @
[2022-12-16] MEDS ORDERED: ATROPINE SULFATE 0.1 MG/ML 10ML SYR IV PRN (08:21)
[2022-12-16] MEDS ORDERED: ONDANSETRON INJ 2 MG/ML 2 ML VIAL IV PRN ×2 (08:21→10:35)
[2022-12-16] MEDS ORDERED: ePHEDrine sulfate 50 MG/ML AMP IV PRN (08:21)
[2022-12-16] MEDS ORDERED: CLINDAMYCIN 900 MG/D5W 50 ML BAG IV ONE (08:27)
[2022-12-16] MEDS ORDERED: LIDOCAINE/EPINEPHRINE 1% 20 ML VIAL ONE (08:50)
[2022-12-16] MEDS ORDERED: BUPIVACAINE/EPINEPHRINE 0.25% 1:200,000 30 ML VIAL ONE (08:50)
[2022-12-16] MEDS ORDERED: PHENYLEPHRINE 100MCG/ML 5ML SYR ONE (08:59)
[2022-12-16] MEDS ORDERED: GLYCOPYRROLATE 0.2 MG/ML VIAL ONE (09:00)
[2022-12-16] MEDS ORDERED: ROCURONIUM BROMIDE 10 MG/ML 5 ML VIAL IV ONE (09:00)
[2022-12-16] MEDS ORDERED: ONDANSETRON INJ 2 MG/ML 2 ML VIAL ONE (09:00)
[2022-12-16] MEDS ORDERED: NEOSTIGMINE METHYLSULFATE 1 MG/ML 10ML VIAL ONE (09:00)
[2022-12-16] MEDS ORDERED: PROPOFOL IV EMULSION 10 MG/ML 20 ML VIAL IV ONE (09:00)
[2022-12-16] MEDS: LOPERAMIDE HCL 2 MG CAP PO SCH (09:20)
--- NOTE | 2022-12-16 09:35 | Operative Report ---
Post Operative Report Pre & Post Diagnosis Operation Date: 12/16/22 09:40 Pre-Op Diagnosis: Lumbar disc herniation with radiculopathy Morbid obesity Post-Op Diagnosis: Same I identified the patient and participated in the time-out.: Yes Procedure Operation Date: 12/16/22 09:40 Actual Procedures L5-S1 laminotomy on the right with excision of herniated free fragment Surgeon Sandeep Longo, DO Javascript Web Developer None Estimated Blood Loss 10 Findings See Below The patient is 5 foot 2 weighing over 100 kg with BMI in excess of 40. Patient's body habitus did contribute to significant technical difficulty requi ring her deepest retractors and longer instruments in order to perform her procedure. This had at least 50% increased operative time. Specimens None Indications This is a fit 77-year-old female who presents above-mentioned diagnosis after failing course of nonoperative care she is here for surgical invention. Description of Procedure Patient was met with identified informed consent obtained. Patient was then taken to the operative suite underwent ablation placed in a prone position on the Floyd table atop the Johnny frame. All bony prominences well-padded eyes inspected to ensure no external pressure placed upon the. This point the lumbar spine was prepped and draped in normal sterile fashion. The assistance of fluoroscopy notified L5-S1 disc space and midline incision was created overlying this region. Sharp dissection with the assistance of Bovie cautery was performed down to and exposing the interlaminar space at L5-S1 on the right. Self-retaining retractors placed. Then performed a small laminotomy excising the lateral portion of ligamentum flavum and medial facet to expose a severely compressed traversing S1 nerve root. Is able to mobilize it medially and address several massive fragments of free disc material that is migrated cephalad. After complete decompression and removal of fragments. The area was copiously irrigated closed with subcutaneous Vicryl and 4 Monocryl for final skin closure. Steri-Strip sterile dressings placed. Patient waken taken to PACU in stable condition. I attest to the content of the Intraoperative Record and any orders documented therein. Any exceptions are noted below.
[2022-12-16] MEDS: fentaNYL citrate 100 MCG/2 ML VIAL IV PRN ×2 (09:57→10:05)
[2022-12-16] MEDS ORDERED: PROMETHAZINE HCL 12.5 MG in SODIUM CHLORIDE 0.9% 50 ML IV PRN (10:35)
[2022-12-16] MEDS ORDERED: ACETAMINOPHEN 1,000 MG/100 ML VIAL IV PRN (10:35)
[2022-12-16] MEDS ORDERED: LORazepam 0.5 MG TAB PO PRN (10:35)
[2022-12-16] MEDS ORDERED: bisacodyL 10 MG SUPP PR PRN (10:35)
[2022-12-16] MEDS ORDERED: ONDANSETRON 4 MG OD TAB PO PRN (10:35)
[2022-12-16] MEDS ORDERED: DO NOT ADMINISTER FLU VACCINE PRN (10:35)
[2022-12-16] MEDS ORDERED: MAGNESIUM HYDROXIDE SUSP 30 ML UDC PO PRN (10:35)
[2022-12-16] MEDS ORDERED: SOD PHOSPHATE/SOD BIPHOSPHATE ENEMA 132 ML BTL PR PRN (10:35)
[2022-12-16] MEDS ORDERED: ALUMINUM/MAGNESIUM SUSP 30 ML UDC PO PRN (10:35)
[2022-12-16] MEDS ORDERED: oxyCODONE HCL IR 5 MG TAB (IMMEDIATE RELEASE) PO PRN (10:35)
[2022-12-16] MEDS ORDERED: diphenhydrAMINE Capsule 25 MG CAP PO PRN (10:35)
[2022-12-16] MEDS ORDERED: hydrOXYzine HCl 25 MG TAB PO PRN (10:35)
[2022-12-16] MEDS ORDERED: FAMOTIDINE 20 MG TAB PO PRN (10:35)
[2022-12-16] MEDS ORDERED: LORazepam 2 MG/1 ML VIAL IV PRN (10:35)
[2022-12-16] MEDS ORDERED: NALOXONE HCL 0.4 MG/1 ML VIAL/CARP IV PRN (10:35)
[2022-12-16] MEDS ORDERED: METOCLOPRAMIDE HCL INJ 5 MG/ML 2 ML VIAL IV PRN (10:35)
[2022-12-16] MEDS ORDERED: DO NOT ADMINISTER PNEUMOCOCCAL VACCINE PRN (10:35)
--- NOTE | 2022-12-16 10:37 | Anesthesiology Progress Note ---
Date of Service December 16, 2022 Anesthesia Post Procedure Vital Signs Vital Signs: Temp Pulse Pulse Resp BP BP Pulse Ox 12/16/22 10:00 70 12 119/64 99 12/16/22 10:22 98.8 F 68 12 131/64 96 12/16/22 10:10 83 12 141/70 H 94 12/16/22 09:50 72 16 126/59 L 99 12/16/22 09:42 97.9 F 74 13 139/85 98 12/16/22 07:58 98.2 F 76 18 146/82 H 98 12/15/22 21:50 12/15/22 21:20 98.1 F 84 16 136/79 95 12/15/22 15:19 97.9 F 77 16 141/85 H 97 O2 Del Method O2 Flow Rate 12/16/22 10:00 Oxymask 9 12/16/22 10:22 Room Air 12/16/22 10:10 Room Air 12/16/22 09:50 Oxymask 9 12/16/22 09:42 Oxymask 9 12/16/22 07:58 Room Air 12/15/22 21:50 Room Air 12/15/22 21:20 Room Air 12/15/22 15:19 Room Air Pain Intensity Right Leg: Pain Intensity: 3 Transfer of Care Handoff Completed per policy Notes Mental Status: alert / awake / arousable and participated in evaluation Patient Amnestic to Procedure: Yes Nausea / Vomiting: adequately controlled Pain: adequately controlled Airway Patency, RR, SpO2: stable & adequate BP & HR: stable & adequate Hydration State: stable & adequate Anesthetic Complications: no major complications apparent and Pt Satisfied with anesthetic care
--- NOTE | 2022-12-16 10:38 | Fluoroscopy Report ---
FL spine 1V any level CLINICAL HISTORY: L5 LAMINECTOMY COMPARISON STUDY: MR lumbar spine 12/12/2022 FLUOROSCOPY TIME: 4.4 seconds. FLUOROSCOPY IMAGES: 1 EXPOSURE DOSE: 4.14 mGy FINDINGS: Orthopedic hardware is noted posterior to the L5 vertebral body. Radiopaque sponges noted o verlying the inferior sacrum. No acute fracture identified. Note that the images were submitted follo wing completion of the surgery. IMPRESSION: Fluoroscopic assistance as above. ACT 112: Negative or not required by law. Electronically signed by: Bob Muir M.D. 12/16/2022 10:37 AM
[2022-12-16] MEDS: LACTATED RINGER'S 1,000 ML IV SCH ×2 (10:49→19:51)
[2022-12-16] MEDS: HYDROmorphone INJ 0.5 MG/0.5 ML SYR IV PRN ×3 (10:56→19:51)
--- NOTE | 2022-12-16 15:33 | Hospitalist Progress Note ---
Date of Service December 16, 2022 Assessment & Plan (1) Lumbar back pain with radiculopathy affecting right lower extremity: Plan: She underwent L5-S1 laminectomy earlier today per Dr. Longo. Postoperatively she is stable. Continue pain control measures. (2) Weakness: Plan: Involving right lower extremity due to lumbar radiculopathy. Expect rapid improvement after surgical intervention today. (3) Hypothyroidism: Plan: Stable. Continue thyroid replacement (4) Fibromyalgia: Plan: Stable. Continue current medical management (5) Asthma: Plan: Stable. Continue nebulizer treatments as needed Plan Anticipate eventual discharge to home when cleared by orthopedic surgery Admission and Anticipated Discharge Date Admission Date: December 14, 2022 Subjective Alert and oriented. No distress. is at the bedside. She underwent L5- S1 laminectomy earlier today. Currently she is medically stable Review of Systems Review of Systems: Constitutional-no fever or chills ENT-no blurred vision, no double vision, no epistaxis, no sore throat Respiratory-no cough, no wheezing, no shortness of breath Cardiac-no palpitations, no chest pain, no syncope GI-no nausea, vomiting, diarrhea, melena, hematochezia -no urinary retention, no urinary incontinence, no dysuria, no hematuria Musculoskeletal-mild low back discomfort at surgical site as expected Skin-no bruising, no rashes, no pruritus Neuro-no isolated weakness, no paresthesia, no weakness Psych-no depression, no anxiety Physical Exam Physical Exam: General-alert and oriented x3, no fevers, no chills HEENT-head atraumatic and normocephalic, pupils equal and reactive to light, extraocular muscles intact Neck-no lymphadenopathy or thyromegaly, trachea midline Chest-clear to auscultation percussion. No rales wheezing or rhonchi Cardiac-regular rate and rhythm, normal S1 and S2 Abdomen-normal bowel sounds, nontender, no hepatosplenomegaly Extremities-no cyanosis, clubbing, or edema Neuro-cranial nerves II through XII intact, motor and sensory function within normal limits, strength symmetrical , no focal deficits Psych-normal affect, normal mood Results & Data Results & Data ([facility]) Vital Signs (Past 12 Hours) Vital Signs Temp Pulse Pulse Resp BP Pulse Ox O2 Del Method 12/16/22 13:30 36.6 C 88 15 134/86 96 Room Air 12/16/22 12:30 36.7 C 83 16 116/66 96 Room Air 12/16/22 11:33 36.7 C 76 15 128/76 94 Room Air 12/16/22 11:04 36.2 C L 71 14 117/59 L 97 Room Air 12/16/22 10:30 36.7 C 84 16 121/76 96 Room Air 12/16/22 10:00 70 12 119/64 99 Oxymask 12/16/22 10:22 37.1 C 68 12 131/64 96 Room Air 12/16/22 10:10 83 12 141/70 H 94 Room Air 12/16/22 09:50 72 16 126/59 L 99 Oxymask 12/16/22 09:42 36.6 C 74 13 139/85 98 Oxymask 12/16/22 07:58 36.8 C 76 18 146/82 H 98 Room Air O2 Flow Rate 12/16/22 13:30 12/16/22 12:30 12/16/22 11:33 12/16/22 11:04 12/16/22 10:30 12/16/22 10:00 9 12/16/22 10:22 12/16/22 10:10 12/16/22 09:50 9 12/16/22 09:42 9 12/16/22 07:58 Laboratory Results 12/16/22 06:32 12/16/22 06:32 PG Care Time/CCT Total # of Minutes Spent Total Time Spent with Patient: Total time spent is greater than 50% in coordination of care (as documented) at patient's floor/unit and/or counseling patient: Coding Level of Care Code 76713 SUB INP/OBS CARE 3/50MIN Diagnoses Lumbar back pain with radiculopathy affecting right lower extremity M54.16 Weakness R53.1 Hypothyroidism E03.9 Fibromyalgia M79.7 Asthma J45.909
[2022-12-16] MEDS ORDERED: DOCUSATE SODIUM/SENNA 50/8.6MG TAB PO SCH (21:00)
[2022-12-16] MEDS: MELATONIN 3 MG TAB PO SCH (21:52)
[2022-12-16] MEDS: VERAPAMIL HCL 180 MG TABCR PO SCH (21:52)
[2022-12-16] MEDS: FAMOTIDINE 40 MG TABLET PO SCH (21:52)
[2022-12-17] MEDS: ACETAMINOPHEN 500 MG TAB PO PRN ×2 (02:05→15:17)
[2022-12-17] MEDS: POLYETHYLENE (MIRALAX) 17 GM PACK PO SCH ×2 (05:11→12:32)
[2022-12-17] MEDS: FLUTICASONE/VILANTEROL 200/25MCG 14 PUFFS/INHALER INH SCH (08:14)
[2022-12-17] MEDS: LORATADINE 10 MG TAB PO SCH (08:15)
[2022-12-17] MEDS: PANTOprazole 40 MG TAB PO SCH (08:17)
[2022-12-17] MEDS: PINDOLOL PO SCH (08:18)
--- NOTE | 2022-12-17 10:58 | Orthopedic Progress Note ---
Date of Service December 17, 2022 Assessment & Plan (1) Lumbar disc herniation with radiculopathy: Plan: At this time overnight encouraged her to continue to ambulate as tolerated. From orthopedic standpoint she is safe to return home and follow-up in our office in the next few weeks. Admission and Anticipated Discharge Date Admission Date: December 14, 2022 Subjective Right leg pain markedly improved. Still some residual numbness. She has been tolerating ambulation. Physical Exam Physical Exam: This time she is good strength testing appears comfortable. Results & Data ([facility]) Vital Signs (Past 12 Hours) Vital Signs Temp Pulse Resp BP BP Pulse Ox O2 Del Method 12/17/22 07:14 36.9 C 94 H 17 122/71 95 Room Air 12/17/22 02:22 37.4 C 96 H 20 105/70 95 Room Air
[2022-12-17 11:48] VITALS: PULSE 80; TEMP 98.2; O2SAT 94
--- NOTE | 2022-12-17 12:14 | Discharge Summary ---
Date of Service December 17, 2022 Admission HPI Per Admitting Provider Graciela is a 77-year-old female with a past medical history of radicular low back pain, cervical radiculopathy, IBS, hypothyroidism, hepatic cyst, fatty liver disease, GERD, hypertension who presents with worsened radicular back and leg pain and inability to ambulate after finishing a prednisone course from her PCP. Did have an MRI without significant stenosis in October Patient was seen for low back pain with radicular symptoms and radiating pain down her leg, had been treated with a prednisone burst which was completed. She gradually had worsening pain and which built up to day of admission when she could no longer ambulate or move from bed. Strength testing is limited by severe pain. Given significantly worsened pain, inability to ambulate, and suboptimal exam due to pain repeat MRI is pending. If no indication for surgical intervention, can have follow-up with pain management? Injection Back pain shooting down R leg Followed up with PCP ~10 days ago, tracie melendrez prednisone taper she finished 3 days ag o. That day she was gettign out of a recliner and felt a pop and had suddenly worsened pain and inability to ambulate Pain immediately returned today and is significantly worse now than it was previosly. Feels 'sore' laying still, but 'as soon as I make any movement' pain shoots down her R buttock, thigh, past the knee, and into the ankle. Thinks she feels weak and unsturdy, is hard for her to tell with the severe pain. Hx R knee replacement in the past. L knee gets euflexxa injection. Doing OK, no increase in that pain R toes are tingling and feel numb. No saddle anesthesia. She reports she just started a new medication, gemtasa, for urinary urgency. That has helped her urgency to void, has some incontinence with depends at night. She has not had any difficulty initiation voids. Denies d iarrhea/constipation HTN. Has intermittent palpitations resolved with pindolol, denies afib/flutter Hx asthma. Has not needed proair in several weeks. No wheezing on admit Medical History: Reviewed Medications: Reviewed Surgical History: Reviewed Allergies: Reviewed Social History: No tobacco/etoh Code Status: Full Code Principal Diagnosis Lumbar herniated disc at L5-S1, lumbar radiculopathy Discharge Exam General-alert and oriented x3, no fevers, no chills HEENT-head atraumatic and normocephalic, pupils equal and reactive to light, extraocular muscles intact Neck-no lymphadenopathy or thyromegaly, trachea midline Chest-clear to auscultation percussion. No rales wheezing or rhonchi Cardiac-regular rate and rhythm, normal S1 and S2 Abdomen-normal bowel sounds, nontender, no hepatosplenomegaly Extremities-no cyanosis, clubbing, or edema Skinlumbar surgical site is unremarkable Neuro-cranial nerves II through XII intact, motor and sensory function within normal limits, strength symmetrical , no focal deficits Psych-normal affect, normal mood Discharge Data Allergies Allergy/AdvReac Type Severity Reaction Status Date / Time capsaicin Allergy Intermediate Burning up Verified 11/27/22 14:15 diclofenac Allergy Intermediate Burning up Verified 11/27/22 14:15 Diclopak Allergy Intermediate Burning up Verified 12/18/17 17:41 heparin Allergy Intermediate RASH Verified 11/27/22 14:15 isopropyl alcohol Allergy Intermediate Burning up Verified 11/27/22 14:15 levofloxacin Allergy Intermediate MUSCLE PAIN Verified 11/27/22 14:15 Macrolide Antibiotics Allergy Intermediate SWELLING Verified 11/27/22 14:15 moxifloxacin Allergy Intermediate MUSCLE PAIN Verified 11/27/22 14:15 propylene glycol Allergy Intermediate Burning up Verified 11/27/22 14:15 adhesive Allergy Mild WELTS Verified 11/27/22 14:15 Cephalosporins Allergy Mild RASH Verified 11/27/22 14:15 DIGESTIVE SYSTEM metoprolol Allergy Mild Unknown Verified 11/27/22 14:15 Sulfa (Sulfonamide Allergy Mild RASH Verified 11/27/22 14:15 Antibiotics) celecoxib Allergy Unknown Unknown Verified 11/27/22 14:15 erythromycin base Allergy Unknown UNKNOWN Verified 11/27/22 14:15 pork derived (porcine) Allergy Unknown Rash Verified 11/27/22 14:15 tramadol Allergy Unknown "wheezing, Verified 11/27/22 14:15 shortness of breath" procaine AdvReac Intermediate RACING Verified 11/27/22 14:15 HEART BEAT rofecoxib AdvReac Intermediate INCREASED Verified 11/27/22 14:15 BP SWELLING cortisone AdvReac Mild HEADCAHE Verified 11/27/22 14:15 lidocaine AdvReac Unknown RASH Verified 11/27/22 14:15 Consultations 12/12/22 13:23 ED Decision to Admit Stat 12/12/22 13:39 Consult Pain Management Routine 12/12/22 17:32 Consult Orthopedic Surgery Routine Procedures Performed Operation Date: 12/16/22 09:40 Actual Procedures p Right L5-S1 Laminectomy(Right) - Sandeep Longo, Ordered Studies 12/12/22 13:32 MRI Lumbar Spine [MR lumbar spine wo con] Urgent 12/16/22 13:00 FL spine 1V any level Routine Hospital Course (1) Lumbar back pain with radiculopathy affecting right lower extremity: She underwent L5-S1 laminectomy on December [address] Longo. Unremarkable postoperative course. She is ambulating with use of a walker. Vital signs are stable. Continue pain control measures. (2) Weakness: Involving right lower extremity due to lumbar radiculopathy. Much improved after surgery. She is now ambulating with use of a walker. We will continue home physical therapy at discharge. (3) Hypothyroidism: Stable. Continue thyroid replacement (4) Fibromyalgia: Stable. Continue current medical management (5) Asthma: Stable. Continue nebulizer treatments as needed Plan Home today, December 17, with home health services. She will follow-up with Dr. Longo in 2 weeks Total Time Total Time Spent Total Time Spent (In Minutes): 40 minutes Discharge Plan Discharge Items Patient Disposition: Home - Home Health Services Reason For Visit: BACK PAIN, RADICULOPATHY Discharge Diagnosis: Lumbar radiculopathy, herniated lumbar disc at L5-S1 Condition on Discharge: Good Activity: As commented below Activity Comment: Use a walker as directed to ambulate Non-emergency contact: Primary Care Provider and Surgeon Call non-emergency contact if: you have any medication questions and your symptoms worsen Follow-up/Referrals: ProLester MD [Primary Care Provider] - Diet: Heart Healthy Addtl Attending Provider Instructions: ACTIVITY RECOMMENDATIONS: SELF CARE INSTRUCTIONS AFTER A LAMINECTOMY 1. No prolonged sitting (less than 30 minutes for the first 3 weeks after surgery). 2. No bending, lifting more than 5 pounds, or twisting (roll like a log when turning in bed). 3. You may shower 3 days after surgery if no drainage from wound. Thoroughly dry wound. Do not soak in the tub. 4. Please walk as much as you can for exercise. Gradually increase the distance that you walk as your endurance increases. 5. You may drive in 7-10 days if you are comfortable and no longer requiring pain medications. SPECIAL CARE INSTRUCTIONS: VERY IMPORTANT TO READ AND REVIEW A. Your surgical incision has been closed with a cosmetic suture under the skin that will dissolve in about 6 weeks. In 14 days, you can use a pair of clean scissors and cut the suture that is left outside of the skin at the ends of your incision. B. Complications are uncommon, but please contact us if you have any signs or symptoms of: 1. wound infection (fever higher than 102.5 degrees F, redness, separation of wound, drainage, or increasing pain from the incision) 2. blood clots in legs (pain, swelling, redness and warmth in legs) 3. urinary tract infection (fever higher than 102.5 degrees, burning upon urination or increased frequency of urination) 4. nerve problems (inability to walk on your toes or heels, numbness, loss of bowel or bladder control) 5. any other symptoms that concern you. C. Please call the office at if you have any concerns or questions about your operation or recovery. MANAGING PAIN AFTER SPINAL SURGERY 1. Narcotic medication is intended for short-term use and will be provided for surgical pain. Surgical pain usually lasts for a period of 4-6 weeks. Narcotic medication includes Percocet, Vicodin, Darvocet, Tylenol #3 or Lortab. 2. Longer-term pain is more appropriately treated with non-narcotic medication such as Tylenol ES. 3. Muscle spasm is not appropriately treated with narcotics. Muscle relaxers such as Soma, Flexeril or Skelaxin can be used along with Tylenol ES. 4. Remember that we all live with some "aches and pains". This is not unusual or uncommon after an injury or as we get older. 5. We will provide appropriate medication within the normal guidelines of their prescribed use. We will also be very cautious and aware of potential abuse and extended duration of patients' medication needs. 6. Please allow 2-3 days to process refills. Prescriptions will not be mailed but must be picked up at the office. FOLLOW UP VISIT: Keep your scheduled follow-up appointment. Any questions, please call the office at . Pending Studies at Discharge: No Stand-Alone Forms: My [facility] [employer], Smoking Cessation Medications and DC Order Prescriptions: New oxycodone 5 mg Tablet 5 - 10 mg PO Q4H PRN (Reason: pain) Qty: 20 0RF Continued fluticasone propion-salmeterol [Advair Diskus] 250-50 mcg/dose blister with device 1 inh inhalation BID Qty: 3 2RF Rx Instructions: patient only takes prn now famotidine 40 mg tablet 40 mg PO HS Qty: 90 3RF desloratadine [Clarinex] 5 mg tablet 5 mg PO DAILY 90 Days Qty: 90 1RF clindamycin HCl 300 mg capsule 600 mg PO UD PRN (Reason: dental procedures) Qty: 30 6RF albuterol sulfate 90 mcg/actuation HFA aerosol inhaler 2 puff inhalation Q6H PRN (Reason: sob) Qty: 25.5 3RF verapamil 180 mg capsule,ext rel. pellets 24 hr 180 mg PO QPM Qty: 90 3RF pindolol 5 mg tablet 5 mg PO BID Qty: 180 1RF cyclobenzaprine 10 mg tablet 10 mg PO TID PRN (Reason: muscle spasm) Qty: 30 0RF estradiol acetate 0.1 mg/24 hr ring 1 vag ring vaginal Q3MO Qty: 1 3RF rabeprazole 20 mg tablet,delayed release (DR/EC) 20 mg PO QAM cholecalciferol (vitamin D3) 5,000 unit capsule 5,000 unit PO DAILY loperamide 2 mg tablet 2 mg PO HS Qty: 90 glucosamine sulfate 2KCl [Glucosamine Relief] 1,000 mg tablet 1,000 mg PO BID vitamin E 200 unit capsule 400 units PO BID multivitamin [Daily Multi-Vitamin] tablet 1 tab PO DAILY Lo-C with Bioflavonoids 1,000-200 mg tablet 1 tab PO DAILY fluticasone propionate 50 mcg/actuation spray,suspension 2 sprays intranasal QAM Qty: 48 3RF melatonin 5 mg capsule 10 mg PO QPM calcium carbonate [Calcium 600] 600 mg calcium (1,500 mg) Tablet 1,200 mg PO DAILY Citrucel 500 mg Tablet 500 mg PO DAILY Gemtesa 75 mg Tablet 75 mg PO DAILY Discharge Orders: Discharge Order (Routine); Ordered 12/17/22 Ordered By: Raad Vallecillo Admission Data Admit Date/Time: 12/14/22 19:56 Attending Provider: Raad Vallecillo Admit Provider: Malodnado Izaguirre Primary Care Provider: Lestre Baldwin Other Providers: Maldonado Izaguirre ; German Henderson ; Isis Briggs ; Dani Tafoya ; Remedios Gonzalez ; Rafael Zarco ; Sandeep Longo Coding Level of Care Code 41479 INP/OBS DISCH >30 MIN Diagnoses Lumbar back pain with radiculopathy affecting right lower extremity M54.16 Weakness R53.1 Hypothyroidism E03.9 Fibromyalgia M79.7 Asthma J45.909
[2022-12-17 13:21] VITALS: BP 122/71
== END 2022-12-17 15:39 | disposition home or self-care (01) | DRG 516 ==
LOC: 3N 11:18 → ED 11:18 → SUATTDRO 13:39 → 3N 16:16 → SUATTDRO 12-14 19:56

== ENCOUNTER 2022-12-23 06:20 | Inpatient (IN) ==
[2022-12-23] MEDS ORDERED: HYDROmorphone INJ 0.5 MG/0.5 ML SYR IV PRN ×4 (06:49→11:11)
--- NOTE | 2022-12-23 06:57 | Emergency Department Note ---
Impression & Plan Low back pain ED Provider Note INFORMANT: Patient and ED PROVIDER(S): Caesar Ventura DO CHIEF COMPLAINT: Low back pain PLAN: Disposition: Admission Outpatient prescription management: none Discussion with: Breonna Sommer from Dr. Longo service as well as the hospitalist. MEDICAL DECISION MAKING: This is a 77-year-old female who presents to the ED with a chief complaint of low back pain. The patient reports that she has been having low back pain for some time. She had a L5-S1 laminotomy and disc removal on 04/[address] Longo. She is taking oxycodone about 3 times a day. She was also taking Flexeril and recently prednisone starting on Friday. The patient states that her pain is worsened over the past few days. She is unable to get out of bed this morning, according to the . The patient was transported here by EMS for further evaluation. The patient's vital signs are normal with exception of some mild hypertension. This is likely pain related. She is afebrile. Exam reveals significant difficulty with movement due to pain. She otherwise has normal sensation and motor function in the lower extremities. Her incision site does not appear to be infected. Abdomen is soft and nontender. Lungs are clear. No significant distress when not moving. The patient's white blood cell count is 12.56. This is likely elevated due to recent prednisone use. Sodium is 130 and glucose is 187. No other concerning electrolyte abnormality or anemia. The patient was given some IV Dilaudid for her pain. She will be seen by the hospitalist for further inpatient evaluation and care. I did speak with Breonna Sommer from Dr. Longo service as well. They recommend pain management as well as possible placement for rehab or nursing care Triage Nursing notes reviewed. Vital Signs: reviewed Prior /Outside records reviewed: Surgical note from Dr. Longo 12/16/2022 Differential diagnosis: Acute on chronic pain, postsurgical pain, postsurgical complication, no evidence of infection, neurological injury or other acute problem Diagnostics, as interpreted by me: 12 lead ECG: none Cardiac Monitoring ordered: Sinus rhythm in the 80s to 90s Medical decision rules: none Imaging studies: none Procedures: none. Critical care: none. HPI: See MDM above. PAST MEDICAL HISTORY: See Below PAST SURGICAL HISTORY: See Below SOCIAL HISTORY: See Below HOME MEDICATIONS: See Below ALLERGIES: See Below VITALS: See Below PHYSICAL EXAMINATION: See MDM for positive findings otherwise unremarkable. CONSTITUTIONAL/VITAL SIGNS: Reviewed GENERAL:done as appropriate INTEGUMENTARY: done as appropriate HEAD: done as appropriate EYES: done as appropriate RESPIRATORY: done as appropriate CARDIOVASCULAR:done as appropriate GI/ABDOMEN:done as appropriate EXTREMITIES: done as appropriate NEUROLOGICAL: done as appropriate PSYCHIATRIC:done as appropriate MUSCULOSKELETAL:done as appropriate TRIAGE NURSING DOCUMENTATION REVIEWED. Past Med/Surg History Medical History Asthma uses prn INH 2-3 x monthly on avg Diverticular disease Encounter for removal of sutures Esophageal reflux Fatty liver Fibromyalgia Hepatic cyst being monitored Hiatal hernia History of diverticulitis of colon History of Helicobacter pylori infection History of migraine History of stomach ulcers Hyperlipidemia Hypertension Hypothyroidism Idiopathic polyneuropathy Irritable bowel syndrome Osteoarthritis Osteopenia Tachycardia Vitamin D deficiency Surgical History History of appendectomy History of cardiac cath 2003 - [facility] - abn stress test - no stents/angioplasty - follows w/ Dr. Mcneill History of cholecystectomy History of colonoscopy History of cystoscopy History of D&C History of esophagogastroduodenoscopy (EGD) History of lumpectomy History of right knee joint replacement History of tonsillectomy and adenoidectomy History of tooth extraction HX: benign breast biopsy 2012, right fibroadenoma Status post complete hysterectomy Family History Father Pancreatic cancer Colorectal cancer Diabetes Gastric ulcer Grandmother (Maternal) Family history of diabetes mellitus Aunt Leukemia Mother Hypertension Osteoarthritis Stroke Mitral valve disorder History of nephrolithiasis Daughter Asthma Emphysema of lung Polycystic ovarian syndrome Son Myocardial infarction Hypertension Diabetes Arthritis Obesity Sister Arthritis Dyslipidemia Hypertension Brother Gastric ulcer Dyslipidemia Hypertension Denies family history of Ovarian cancer Prostate cancer Breast cancer Social History Smoking Status: Never smoker Tobacco Type: Cigarettes Second Hand Exposure: No; Hx Alcohol Use: No Hx Substance Use: No Preferred Language: Estonian Communication Ability: Effective Visual Impairment: No Limitations Hearing Ability: Normal Machine Tech Required: No Beliefs That Will Affect Care: None marital status: Current Living Situation: Spouse current occupational status: retired Feels Safe at Home: Yes Physical Activity Frequency: 3-4 Times per Week Seatbelt Use: always Assistive Devices: Cane and Walker Allergies Allergies Allergy/AdvReac Type Severity Reaction Status Date / Time capsaicin Allergy Intermediate Burning up Verified 11/27/22 14:15 diclofenac Allergy Intermediate Burning up Verified 11/27/22 14:15 Diclopak Allergy Intermediate Burning up Verified 12/18/17 17:41 heparin Allergy Intermediate RASH Verified 11/27/22 14:15 isopropyl alcohol Allergy Intermediate Burning up Verified 11/27/22 14:15 levofloxacin Allergy Intermediate MUSCLE PAIN Verified 11/27/22 14:15 Macrolide Antibiotics Allergy Intermediate SWELLING Verified 11/27/22 14:15 moxifloxacin Allergy Intermediate MUSCLE PAIN Verified 11/27/22 14:15 propylene glycol Allergy Intermediate Burning up Verified 11/27/22 14:15 adhesive Allergy Mild WELTS Verified 11/27/22 14:15 Cephalosporins Allergy Mild RASH Verified 11/27/22 14:15 DIGESTIVE SYSTEM metoprolol Allergy Mild Unknown Verified 11/27/22 14:15 Sulfa (Sulfonamide Allergy Mild RASH Verified 11/27/22 14:15 Antibiotics) celecoxib Allergy Unknown Unknown Verified 11/27/22 14:15 erythromycin base Allergy Unknown UNKNOWN Verified 11/27/22 14:15 pork derived (porcine) Allergy Unknown Rash Verified 11/27/22 14:15 tramadol Allergy Unknown "wheezing, Verified 11/27/22 14:15 shortness of breath" procaine AdvReac Intermediate RACING Verified 11/27/22 14:15 HEART BEAT rofecoxib AdvReac Intermediate INCREASED Verified 11/27/22 14:15 BP SWELLING cortisone AdvReac Mild HEADCAHE Verified 11/27/22 14:15 lidocaine AdvReac Unknown RASH Verified 11/27/22 14:15 Home Meds Home Medications Medication Instructions Recorded Confirmed cholecalciferol (vitamin D3) 125 5,000 unit PO DAILY 02/25/19 12/12/22 mcg (5,000 unit) capsule loperamide 2 mg tablet 2 mg PO HS #90 tabs 02/25/19 12/12/22 glucosamine sulfate 2KCl 1,000 mg 1,000 mg PO BID 04/01/19 12/12/22 tablet (Glucosamine Relief) multivitamin (Daily Multi-Vitamin 1 tab PO DAILY 04/01/19 12/12/22 tablet) vitamin E 200 unit capsule 400 units PO BID 04/01/19 12/12/22 calcium carbonate 600 mg calcium 1,200 mg PO DAILY 05/04/19 12/12/22 (1,500 mg) tablet (Calcium) ascorbate calcium-bioflavonoid 1 tab PO DAILY 08/10/19 12/12/22 1,000 mg-200 mg tablet (Lo-C with Bioflavonoids) melatonin 5 mg capsule 10 mg PO QPM 04/26/21 12/12/22 rabeprazole 20 mg tablet,delayed 20 mg PO QAM 10/22/22 12/12/22 release methylcellulose (laxative) 500 mg 500 mg PO DAILY 12/12/22 12/12/22 tablet (Citrucel) vibegron 75 mg tablet (Gemtesa) 75 mg PO DAILY 12/12/22 12/12/22 Previous Rx's Medication Instructions Recorded fluticasone propionate 50 2 sprays intranasal QAM #48 grams 12/02/19 mcg/actuation nasal spray,suspension fluticasone 250 mcg-salmeterol 50 1 inh inhalation BID #3 Inhalers 09/12/21 mcg/dose blistr powdr for inhalation (Advair Diskus) famotidine 40 mg tablet 40 mg PO HS #90 tabs 01/09/22 desloratadine 5 mg tablet 5 mg PO DAILY 90 days #90 tabs 07/09/22 (Clarinex) estradiol acetate 0.1 mg/24 hr 1 vag ring vaginal Q3MO #1 ea 08/28/22 vaginal ring clindamycin HCl 300 mg capsule 600 mg PO UD PRN dental procedures 09/03/22 #30 caps albuterol sulfate 90 mcg/actuation 2 puff inhalation Q6H PRN sob 09/19/22 aerosol inhaler #25.5 grams verapamil 180 mg 24 hr 180 mg PO QPM #90 caps 10/15/22 capsule,extended release cyclobenzaprine 10 mg tablet 10 mg PO TID PRN muscle spasm #30 11/27/22 tabs pindolol 5 mg tablet 5 mg PO BID #180 tabs 12/11/22 oxycodone 5 mg tablet 5 - 10 mg PO Q4H PRN pain #20 tabs 12/17/22 Results & Data (ED) Vital Signs Vital Signs - 24 hr 12/23/22 06:26 12/23/22 06:54 12/23/22 07:37 Temperature 37.4 C Temperature Source Oral Pulse Rate 96 H 93 H 94 H Pulse Rate from SpO2 Sensor 93 H Respiratory Rate 18 23 Respiratory Effort / Characteristics Non-Labored Respiratory Depth Normal Blood Pressure 144/103 H 154/95 H Blood Pressure Mean 116 114 Pulse Oximetry 94 96 Oxygen Delivery Method Room Air Sepsis Recent Fever Within 48 Hours No Sepsis New/Unexplained Change in Mental Status N/A Sepsis Action Taken by Nursing No Action Required Laboratory Data 12/23/22 06:37 12/23/22 06:37 Lab Results 12/23/22 12/23/22 Range/Units 06:37 06:37 WBC 12.56 H (4.8-10.8) K/ul RBC 4.41 (4.20-5.40) M/uL Hgb 14.4 (12.0-16.0) g/dl Hct 42.1 (37.0-47.0) % MCV 95.5 (80.0-100.0) fL MCH 32.7 (25.0-34.0) pg MCHC 34.2 (32.0-36.0) g/dL RDW Std Deviation 47.9 H (36.4-46.3) fL RDW Coeff of Mendez 13.5 (11.5-14.5) % Plt Count 322 (130-400) K/uL MPV 10.3 (9.4-12.4) fL Immature Gran % (Auto) 0.9 % Neut % (Auto) 67.6 % Lymph % (Auto) 16.6 % Hancock % (Auto) 13.1 % Eos % (Auto) 1.4 % Baso % (Auto) 0.4 % Neut # (Auto) 8.50 H (1.40-6.50) K/uL Lymph # (Auto) 2.08 (1.2-3.4) K/uL Hancock # (Auto) 1.64 H (0.11-0.59) K/uL Eos # (Auto) 0.18 (0-0.50) K/uL Baso # (Auto) 0.05 (0-0.2) K/uL Immature Gran # (Auto) 0.11 (0.01-0.20) K/uL Sodium 130 L (136-145) mmol/L Potassium 4.2 (3.5-5.1) mmol/L Chloride 93 L (98-107) mmol/L Carbon Dioxide 28 (21-32) mmol/L Anion Gap 9 (3-11) BUN 19 (6-23) mg/dl Creatinine 0.78 (0.6-1.2) mg/dl Est Cr Clr Drug Dosing 69.5 ml/min Est GFR ( Amer) 86.2 ml/min Est GFR (Non-Af Amer) 74.4 ml/min BUN/Creatinine Ratio 24.4 H (10-20) Glucose 187 H (70-99(Fasting)) mg/dl Calcium 9.1 (8.5-10.1) mg/dl Administered Medications Hydromorphone HCl (Hydromorphone Inj 0.5 Mg/0.5 Ml Syr) 0.5 mg IV Q15M PRN PRN Reason: Pain Stop: 01/06/23 06:48 Last Admin: 12/23/22 07:32 Dose: 0.5 mg Documented By: MT Discharge Plan Visit Data Chief Complaint: Back Injury/Pain Stated Complaint: s/p BACK SURGERY NOW SEVERE BACK PAIN ED Provider: Caesar Ventura Discharge Problem: Low back pain Patient Disposition: Being Evaluated by Hospitalist Forms Stand Alone Forms: [facility] Prescriptions Prescriptions: No Action fluticasone propion-salmeterol [Advair Diskus] 250-50 mcg/dose blister with device 1 inh inhalation BID Qty: 3 2RF Rx Instructions: patient only takes prn now famotidine 40 mg tablet 40 mg PO HS Qty: 90 3RF desloratadine [Clarinex] 5 mg tablet 5 mg PO DAILY 90 Days Qty: 90 1RF clindamycin HCl 300 mg capsule 600 mg PO UD PRN (Reason: dental procedures) Qty: 30 6RF albuterol sulfate 90 mcg/actuation HFA aerosol inhaler 2 puff inhalation Q6H PRN (Reason: sob) Qty: 25.5 3RF verapamil 180 mg capsule,ext rel. pellets 24 hr 180 mg PO QPM Qty: 90 3RF pindolol 5 mg tablet 5 mg PO BID Qty: 180 1RF cyclobenzaprine 10 mg tablet 10 mg PO TID PRN (Reason: muscle spasm) Qty: 30 0RF estradiol acetate 0.1 mg/24 hr ring 1 vag ring vaginal Q3MO Qty: 1 3RF rabeprazole 20 mg tablet,delayed release (DR/EC) 20 mg PO QAM cholecalciferol (vitamin D3) 5,000 unit capsule 5,000 unit PO DAILY loperamide 2 mg tablet 2 mg PO HS Qty: 90 glucosamine sulfate 2KCl [Glucosamine Relief] 1,000 mg tablet 1,000 mg PO BID vitamin E 200 unit capsule 400 units PO BID multivitamin [Daily Multi-Vitamin] tablet 1 tab PO DAILY Lo-C with Bioflavonoids 1,000-200 mg tablet 1 tab PO DAILY fluticasone propionate 50 mcg/actuation spray,suspension 2 sprays intranasal QAM Qty: 48 3RF melatonin 5 mg capsule 10 mg PO QPM calcium carbonate [Calcium 600] 600 mg calcium (1,500 mg) Tablet 1,200 mg PO DAILY Citrucel 500 mg Tablet 500 mg PO DAILY Gemtesa 75 mg Tablet 75 mg PO DAILY oxycodone 5 mg Tablet 5 - 10 mg PO Q4H PRN (Reason: pain) Qty: 20 0RF Referrals Referrals: Pro,Lester Elizabeth MD [Primary Care Provider] -
[2022-12-23 07:11] LABS: Basophils # (auto) 0.05 K/uL (0-0.2); Basophils % (auto) 0.4 %; Eosinophils # (auto) 0.18 K/uL (0-0.50); Eosinophils % (auto) 1.4 %; Hematocrit (blood only) 42.1 % (37.0-47.0); Hemoglobin 14.4 g/dl (12.0-16.0); Immature Granulocytes # (auto) 0.11 K/uL (0.01-0.20); Immature Granulocytes % (auto) 0.9 %; Lymphocytes # (auto) 2.08 K/uL (1.2-3.4); Lymphocytes % (auto) 16.6 %; Mean Corpuscular Hemoglobin 32.7 pg (25.0-34.0); Mean Corpuscular Hgb Conc 34.2 g/dL (32.0-36.0); Mean Corpuscular Volume 95.5 fL (80.0-100.0); Mean Platelet Volume 10.3 fL (9.4-12.4); Monocytes # (auto) 1.64 K/uL (0.11-0.59); Monocytes % (auto) 13.1 %; Neutrophils % (auto) 67.6 %; Platelet Count 322 K/uL (130-400); RDW Coefficient of Variation 13.5 % (11.5-14.5); RDW Standard Deviation 47.9 fL (36.4-46.3); Red Blood Count 4.41 M/uL (4.20-5.40); White Blood Count 12.56 K/ul (4.8-10.8)
[2022-12-23 07:30] LABS: BUN Creatinine Ratio 24.4 (10-20); Calcium 9.1 mg/dl (8.5-10.1); Creatinine Clr Calc Pharmacy 69.5 ml/min; Est GFR (African American) 86.2 ml/min; Est GFR (Non-African American) 74.4 ml/min; Potassium 4.2 mmol/L (3.5-5.1)
[2022-12-23] MEDS ORDERED: ACETAMINOPHEN 325 MG TAB PO PRN (08:30)
[2022-12-23] MEDS ORDERED: ALBUTEROL HFA 8 GM INHALER INH PRN (09:15)
[2022-12-23] MEDS ORDERED: PANTOprazole 40 MG TAB PO STA (09:56)
--- NOTE | 2022-12-23 10:30 | History & Physical Report ---
Date of Service December 23, 2022 Assessment & Plan (1) Lumbar disc herniation with radiculopathy: Plan: Admit for pain management consult ortho spine will obtain repeat MRI Lumbar spine (2) Leukocytosis: Plan: no fever, will repeat cbc in AM. will obtain urine sample and will obtain ct abd pelvis due to rlq abd pain. will hold antibiotics for now. (3) Hypothyroidism: Plan: resume home meds (4) Hypertension: Plan: BP at goal resume home meds (5) Asymptomatic bacteriuria: Plan: Patient had a dirty UA with bacteria. This was the case in her previous hospital stay, tis was not treated. Patient had a UTI with e. coli bacteremia in September 2022, this was treated. Will give IVF and monitor WBC. History of Present Illness Chief Complaint: weakness Primary Care Provider: Lester Baldwin MD Graciela is a 77-year-old female with a past medical history of radicular low back pain, cervical radiculopathy, IBS, hypothyroidism, hepatic cyst, fatty liver disease, GERD, hypertension who presents with worsened radicular back and leg pain and inability to ambulate after finishing a prednisone course from her PCP. Patient was recnetly dischaged on 12/17 after having a sucessful laminectomy due to her low back pain with radicular symptoms. Patient reports that over the course of the past 3 days, she has beencome progressively weaker, and states having intermittent chills. R toes are tingling and feel numb. No saddle anesthesia. She reports she just started a new medication, gemtasa, for urinary urgency. That has helped her urgency to void, has some incontinence with depends at night. She has not had any difficulty initiation voids. Denies diarr hea/constipation Allergies Allergy/AdvReac Type Severity Reaction Status Date / Time capsaicin Allergy Intermediate Burning up Verified 11/27/22 14:15 diclofenac Allergy Intermediate Burning up Verified 11/27/22 14:15 Diclopak Allergy Intermediate Burning up Verified 12/18/17 17:41 heparin Allergy Intermediate RASH Verified 11/27/22 14:15 isopropyl alcohol Allergy Intermediate Burning up Verified 11/27/22 14:15 levofloxacin Allergy Intermediate MUSCLE PAIN Verified 11/27/22 14:15 Macrolide Antibiotics Allergy Intermediate SWELLING Verified 11/27/22 14:15 moxifloxacin Allergy Intermediate MUSCLE PAIN Verified 11/27/22 14:15 propylene glycol Allergy Intermediate Burning up Verified 11/27/22 14:15 adhesive Allergy Mild WELTS Verified 11/27/22 14:15 Cephalosporins Allergy Mild RASH Verified 11/27/22 14:15 DIGESTIVE SYSTEM metoprolol Allergy Mild Unknown Verified 11/27/22 14:15 Sulfa (Sulfonamide Allergy Mild RASH Verified 11/27/22 14:15 Antibiotics) celecoxib Allergy Unknown Unknown Verified 11/27/22 14:15 erythromycin base Allergy Unknown UNKNOWN Verified 11/27/22 14:15 pork derived (porcine) Allergy Unknown Rash Verified 11/27/22 14:15 tramadol Allergy Unknown "wheezing, Verified 11/27/22 14:15 shortness of breath" procaine AdvReac Intermediate RACING Verified 11/27/22 14:15 HEART BEAT rofecoxib AdvReac Intermediate INCREASED Verified 11/27/22 14:15 BP SWELLING cortisone AdvReac Mild HEADCAHE Verified 11/27/22 14:15 lidocaine AdvReac Unknown RASH Verified 11/27/22 14:15 Home Medications Medication Instructions Recorded Confirmed Type cholecalciferol (vitamin D3) 125 5,000 unit PO DAILY 02/25/19 12/12/22 History mcg (5,000 unit) capsule loperamide 2 mg tablet 2 mg PO HS #90 tabs 02/25/19 12/12/22 History glucosamine sulfate 2KCl 1,000 mg 1,000 mg PO BID 04/01/19 12/12/22 History tablet (Glucosamine Relief) multivitamin (Daily Multi-Vitamin 1 tab PO DAILY 04/01/19 12/12/22 History tablet) vitamin E 200 unit capsule 400 units PO BID 04/01/19 12/12/22 History calcium carbonate 600 mg calcium 1,200 mg PO DAILY 05/04/19 12/12/22 History (1,500 mg) tablet (Calcium) ascorbate calcium-bioflavonoid 1 tab PO DAILY 08/10/19 12/12/22 History 1,000 mg-200 mg tablet (Lo-C with Bioflavonoids) fluticasone propionate 50 2 sprays intranasal QAM #48 grams 12/02/19 12/12/22 Rx mcg/actuation nasal spray,suspension melatonin 5 mg capsule 10 mg PO QPM 04/26/21 12/12/22 History fluticasone 250 mcg-salmeterol 50 1 inh inhalation BID #3 Inhalers 09/12/21 12/12/22 Rx mcg/dose blistr powdr for inhalation (Advair Diskus) famotidine 40 mg tablet 40 mg PO HS #90 tabs 01/09/22 12/12/22 Rx desloratadine 5 mg tablet 5 mg PO DAILY 90 days #90 tabs 07/09/22 12/12/22 Rx (Clarinex) estradiol acetate 0.1 mg/24 hr 1 vag ring vaginal Q3MO #1 ea 08/28/22 12/12/22 Rx vaginal ring clindamycin HCl 300 mg capsule 600 mg PO UD PRN dental procedures 09/03/22 12/12/22 Rx #30 caps albuterol sulfate 90 mcg/actuation 2 puff inhalation Q6H PRN sob 09/19/22 12/12/22 Rx aerosol inhaler #25.5 grams verapamil 180 mg 24 hr 180 mg PO QPM #90 caps 10/15/22 12/12/22 Rx capsule,extended release rabeprazole 20 mg tablet,delayed 20 mg PO QAM 10/22/22 12/12/22 History release cyclobenzaprine 10 mg tablet 10 mg PO TID PRN muscle spasm #30 11/27/22 12/12/22 Rx tabs pindolol 5 mg tablet 5 mg PO BID #180 tabs 12/11/22 12/12/22 Rx methylcellulose (laxative) 500 mg 500 mg PO DAILY 12/12/22 12/12/22 History tablet (Citrucel) vibegron 75 mg tablet (Gemtesa) 75 mg PO DAILY 12/12/22 12/12/22 History oxycodone 5 mg tablet 5 - 10 mg PO Q4H PRN pain #20 tabs 12/17/22 Rx Past Med/Surg History Medical History (Updated 12/24/22 @ 15:32 by Danny Srivastava) Asthma uses prn INH 2-3 x monthly on avg Diverticular disease Encounter for removal of sutures Esophageal reflux Fatty liver Fibromyalgia Hepatic cyst being monitored Hiatal hernia History of diverticulitis of colon History of Helicobacter pylori infection History of migraine History of stomach ulcers Hyperlipidemia Hypertension Hypothyroidism Idiopathic polyneuropathy Irritable bowel syndrome Osteoarthritis Osteopenia Tachycardia Vitamin D deficiency Surgical History History of appendectomy History of cardiac cath 2004 - [facility] - abn stress test - no stents/angioplasty - follows w/ Dr. Mcneill History of cholecystectomy History of colonoscopy History of cystoscopy History of D&C History of esophagogastroduodenoscopy (EGD) History of lumpectomy History of right knee joint replacement History of tonsillectomy and adenoidectomy History of tooth extraction HX: benign breast biopsy 2012, right fibroadenoma Status post complete hysterectomy Family History Father Pancreatic cancer Colorectal cancer Diabetes Gastric ulcer Grandmother (Maternal) Family history of diabetes mellitus Aunt Leukemia Mother Hypertension Osteoarthritis Stroke Mitral valve disorder History of nephrolithiasis Daughter Asthma Emphysema of lung Polycystic ovarian syndrome Son Myocardial infarction Hypertension Diabetes Arthritis Obesity Sister Arthritis Dyslipidemia Hypertension Brother Gastric ulcer Dyslipidemia Hypertension Denies family history of Ovarian cancer Prostate cancer Breast cancer Social History Smoking Status: Former smoker Tobacco Type: Cigarettes Second Hand Exposure: No; Hx Alcohol Use: Yes Alcohol type: wine Hx Substance Use: No Preferred Language: Ukrainian Communication Ability: Effective Visual Impairment: No Limitations Hearing Ability: Normal Build And Release Manager Required: No Beliefs That Will Affect Care: None marital status: Current Living Situation: Spouse current occupational status: retired Feels Safe at Home: Yes Safety Concerns: Feels Safe At This Time Physical Activity Frequency: 3-4 Times per Week Seatbelt Use: always Assistive Devices: Walker Review of Systems Constitutional: + chills, + sweats and + fatigue; no fever Eyes: no blind spots Ear, Nose, Mouth, Throat: no ear pain Respiratory: no cough Cardiovascular: no chest pain Gastrointestinal: + abdominal pain Genitourinary: no dysuria, no difficulty urinating and no urinary hesitancy Musculoskeletal: + back pain Integumentary: no acne Neurologic: + gait abnormality Psychiatric: no behavioral changes Endocrine: + fatigue Hematologic / Lymphatic: no easy bleeding Allergy / Immunological: no GI upset with certain foods Physical Exam Physical Exam: General: A&Ox3. NAD. Cooperative. HEENT: Atraumatic, normocephalic. Vision/hearing intact Pulm: CTAB A&P. -wheezes, -rales, -rhonchi. Symmetrical chest rise. No increased work of breathing. No respiratory distress. Cardiac: RRR, -mrg. Radial pulses intact and symmetrical. Abdominal: Nontender, nondistended, soft. BS present. Extremities: Right lower extremity with qualitative numbness/tingling in all toes, ankle dorsiflexion/plantarflexion 5/5 bilaterally. Right hip flexion and knee flexion/extension unable to be assessed due to pain. Patient reports she does feel weaker and unsteady in addition to having pain. No lower extremity pitting edema. No saddle anesthesia Results & Data Results & Data ([facility]) Vital Signs (Past 12 Hours) Vital Signs Temp Pulse Resp BP Pulse Ox O2 Del Method 12/23/22 10:22 101 H 22 114/90 95 12/23/22 09:37 103 H 20 147/104 H 93 12/23/22 07:37 94 H 23 154/95 H 96 12/23/22 06:54 93 H 12/23/22 06:26 37.4 C 96 H 18 144/103 H 94 Room Air PG Care Time/CCT Total # of Minutes Spent Total Time Spent with Patient: Total time spent is greater than 50% in coordination of care (as documented) at patient's floor/unit and/or counseling patient: Coding Level of Care Code 97109 INT INP/OBS CARE 2MIN Diagnoses Lumbar disc herniation with radiculopathy M51.16 Leukocytosis D72.829 Hypothyroidism E03.9 Hypertension I10 Asymptomatic bacteriuria R82.71
[2022-12-23] MEDS: HYDROmorphone INJ 0.5 MG/0.5 ML SYR IV PRN ×2 (11:22→15:19)
[2022-12-23] MEDS: ACETAMINOPHEN 325 MG TAB PO SCH ×2 (13:32→20:02)
[2022-12-23] MEDS: ALLERGY Noted to ORDERED Medication SCH ×2 (14:47→14:48)
[2022-12-23] MEDS: ENOXAPARIN INJ 40 MG/0.4 ML SYR SQ SCH (15:11)
[2022-12-23] MEDS ORDERED: Nursing to Pharmacy Communication SCH (16:00)
[2022-12-23] MEDS ORDERED: GADOBUTROL 65ML VIAL IV ONE (17:29)
--- NOTE | 2022-12-23 17:58 | Magnetic Resonance Report ---
MRI OF THE LUMBAR SPINE WITH AND WITHOUT CONTRAST CLINICAL HISTORY: back pain/ >1 week of surgery COMPARISON STUDY: Lumbar spine MRI December 12, 2022. Lumbar spine fluoroscopic images December 16, 2022. TECHNIQUE: Utilizing a 1.5 Pinky magnet and dedicated coil, multiplanar, multiecho imaging of the claus mbar spine was performed before and after uneventful IV administration of 10 mL of Gadavist. FINDINGS: For purposes of numbering on this exam, the L5-S1 disc space is assigned to axial image 23 of 25. Thi s exam is moderately compromised by motion artifact. There are postoperative findings consistent with right L5-S1 laminotomy. A 1.6 cm fluid collection within the operative bed at the laminotomy site is likely postsurgical. There is a subcutaneous operative bed fluid collection with peripheral enhancem ent that measures 3.8 x 2 x 4 cm. This is expected in the early postoperative setting. In addition, t here is an apparent subdural fluid collection with compression of the nerve roots. This extends from the lower L2-S1 levels. This is also nonspecific in the early postoperative setting. Diffuse epidural enhancement within the mid to lower lumbar and upper sacral canal is present. There is no epidural f luid collection to suggest an epidural abscess. Increased T2 signal within the L5-S1 disc is probably postsurgical. The disc fragments shown on MRI of December 12, 2022 have been removed. The conus terminat es at the L1-L2 level. Severe multilevel facet arthrosis is present. No new disc herniations are pres ent. There is no MRI evidence for acute osteomyelitis. There is no significant prevertebral edema. IMPRESSION: 1. Status post right L5-S1 hemilaminotomy. 1.6 cm laminotomy site fluid collection is postsurgical. 4 x 3.8 x 2 cm subcutaneous operative bed fluid collection is also postsurgical and expected in the ea rly postoperative setting. 2. Diffuse epidural enhancement within the lower lumbar and upper sacral spine. This is nonspecific a lthough likely postsurgical. An infectious process with epidural phlegmon could appear similar. No ep idural fluid collection to suggest abscess. Short-term follow-up MRI with and without contrast is sug gested if persistent symptoms. 3. Suspected nonspecific subdural fluid collection extending from the lower L2-S1 levels with moderat e compression of the nerve roots. 4. Increased T2 signal within the L5-S1 disc which is likely postsurgical but can be assessed on foll ow-up MRI. 5. Exam moderately compromised by motion artifact. ACT 112: Negative or not required by law. Electronically signed by: Wilfred Ruby M.D. 12/23/2022 5:56 PM
[2022-12-23] MEDS: NSS + 20MEQ KCL 20 MEQ/1,000 ML BAG IV SCH (19:46)
--- NOTE | 2022-12-23 20:01 | CT Scan Report ---
ABDOMEN AND PELVIS CT WITHOUT CONTRAST CT DOSE: 1220.50 mGy.cm HISTORY: right lower quadrant abdominal pain TECHNIQUE: Multiaxial CT images of the abdomen and pelvis were performed without contrast. A dose lo wering technique was utilized adhering to the principles of ALARA. COMPARISON STUDY: Abdomen and pelvis CT 10/10/2022. Lumbar spine MRI 12/23/2022. FINDINGS: Bibasilar linear subsegmental atelectasis. The left lung base is clear. No pneumoperitoneum . No pneumatosis. Recent postoperative changes consistent with a prior L5-S1 right hemilaminectomy. G as and fluid at the postoperative site is better appreciated on the same day lumbar spine MRI. This f avors postoperative change. No acute fractures identified. Mitral annulus calcifications are noted. T iny fat-containing umbilical hernia. There is a small diverticulum at the second portion of the duode num. Cholecystectomy. Hepatic steatosis. There is a 5 cm lobular slightly complex right hepatic cyst. This is not significantly changed. The spleen, adrenal glands, and pancreas unremarkable. There is r esidual contrast within the urinary system from the recent lumbar spine MRI. No hydronephrosis. Ashlyn l caliber abdominal aorta. No retroperitoneal lymphadenopathy or hematoma. No pelvic lymphadenopathy or pelvic free fluid. There is a pessary device again noted within the upper vagina. Prior hysterecto my and appendectomy. The bladder is unremarkable. Suboptimal evaluation for bowel pathology due to th e lack of intravenous and oral contrast. However, there is no definite bowel wall thickening or obstr uction. Colonic diverticulosis. No evidence for acute diverticulitis. Moderate well-formed stool with in the colon. IMPRESSION: 1. No bowel wall thickening or obstruction. 2. Colonic diverticulosis. No evidence for acute diverticulitis. 3. Recent postoperative changes consistent with an L5 right hemilaminectomy. This is better appreciat ed on the same day lumbar spine MRI. 4. Stable 5 cm slightly complex right hepatic lobe cyst. 5. Hepatic steatosis. 6. Cholecystectomy, hysterectomy, and appendectomy. ACT 112: Negative or not required by law. Electronically signed by: Cholo Urena M.D. 12/23/2022 7:59 PM
[2022-12-23] MEDS: FAMOTIDINE 40 MG TABLET PO SCH (20:02)
[2022-12-23] MEDS: MELATONIN 3 MG TAB PO SCH (20:02)
[2022-12-23] MEDS: GLUCOSAMINE SULFATE 500 MG CAP PO SCH (20:02)
[2022-12-23] MEDS: VERAPAMIL HCL 180 MG TABCR PO SCH (20:03)
[2022-12-23] MEDS: CYCLOBENZAPRINE HCL 10 MG TAB PO PRN (20:04)
[2022-12-23] MEDS ORDERED: LOPERAMIDE HCL 2 MG CAP PO SCH (21:00)
[2022-12-23 21:29] LABS: Appearance Urine Clear (Clear); Bacteria Urine Automated 4+ (Negative); Bilirubin Urine Negative (Negative); Blood Urine Trace (Negative); Color Urine Yellow; Epithelial Cell Urine Auto 20-30 /lpf (0-5); Glucose Urine UA Trace (Negative); Ketones Urine Trace (Negative); Leukocyte Esterase Urine Negative (Negative); Nitrite Urine Positive (Negative); Protein Urine 1+ (Negative); RBC Urine Automated 0-4 /hpf (0-4); Specific Gravity Urine 1.033 (1.000-1.030); Urobilinogen Urine Negative (Negative)
[2022-12-24] MEDS: ENOXAPARIN INJ 40 MG/0.4 ML SYR SQ SCH ×3 (00:15→23:58)
[2022-12-24] MEDS: ACETAMINOPHEN 325 MG TAB PO SCH ×4 (00:41→17:44)
[2022-12-24] MEDS: CYCLOBENZAPRINE HCL 10 MG TAB PO PRN ×2 (03:10→12:31)
[2022-12-24] MEDS: CHOLECALCIFEROL 5,000 UNITS 125 MCG TAB PO SCH (08:13)
[2022-12-24] MEDS: FLUTICASONE/VILANTEROL 200/25MCG 14 PUFFS/INHALER INH SCH (08:13)
[2022-12-24] MEDS: PANTOprazole 40 MG TAB PO SCH (08:13)
[2022-12-24] MEDS: DOCUSATE SODIUM/SENNA 50/8.6MG TAB PO SCH (08:13)
[2022-12-24] MEDS: LORATADINE 10 MG TAB PO SCH (08:13)
[2022-12-24] MEDS: GLUCOSAMINE SULFATE 500 MG CAP PO SCH ×2 (08:13→20:13)
[2022-12-24] MEDS: FLUTICASONE PROPIONATE NA SPR 16 GM BTL SCH (08:14)
--- NOTE | 2022-12-24 08:38 | Orthopedic Consultation ---
Date of Consultation December 24, 2022 Assessment & Plan (1) Lower back pain: Assessment lumbosacral back pain status post lumbar laminectomy. Plan at this time we will initiate physical therapy and Occupational Therapy and plan for possible rehab placement. She does have pre-existing severe multilevel facet hypertrophy and stenosis that we are trying to observe and avoid extensive surgery. Hopefully she will improve with time and therapy. She has no gross neural compression or radicular complaints at this time. There is nothing urgent from a surgical standpoint. MRI does not demonstrate evidence of normal postoperative inflammatory change. History of Present Illness Reason for Consultation: Postoperative back pain Attending Physician: Danny Srivastava History of Present Illness This is a 77-year-old female status post lumbar laminotomy L5-S1 on the right. Unfortunately she struggled at home with worsening lumbosacral back pain difficulty with transfers and self-care and return to the emergency room and subsequently admitted. This morning she continues to describe pain at the lumbosacral junction with activity. Lying supine is comfortable. Sitting up is difficult. She states she is able to get to the bathroom with assistance. She denies any radicular component to her pain. She has some numbness to the right foot but again no pain. Allergies Allergy/AdvReac Type Severity Reaction Status Date / Time capsaicin Allergy Intermediate Burning up Verified 11/27/22 14:15 diclofenac Allergy Intermediate Burning up Verified 11/27/22 14:15 Diclopak Allergy Intermediate Burning up Verified 12/18/17 17:41 heparin Allergy Intermediate RASH Verified 11/27/22 14:15 isopropyl alcohol Allergy Intermediate Burning up Verified 11/27/22 14:15 levofloxacin Allergy Intermediate MUSCLE PAIN Verified 11/27/22 14:15 Macrolide Antibiotics Allergy Intermediate SWELLING Verified 11/27/22 14:15 moxifloxacin Allergy Intermediate MUSCLE PAIN Verified 11/27/22 14:15 propylene glycol Allergy Intermediate Burning up Verified 11/27/22 14:15 adhesive Allergy Mild WELTS Verified 11/27/22 14:15 Cephalosporins Allergy Mild RASH Verified 11/27/22 14:15 DIGESTIVE SYSTEM metoprolol Allergy Mild Unknown Verified 11/27/22 14:15 Sulfa (Sulfonamide Allergy Mild RASH Verified 11/27/22 14:15 Antibiotics) celecoxib Allergy Unknown Unknown Verified 11/27/22 14:15 erythromycin base Allergy Unknown UNKNOWN Verified 11/27/22 14:15 pork derived (porcine) Allergy Unknown Rash Verified 11/27/22 14:15 tramadol Allergy Unknown "wheezing, Verified 11/27/22 14:15 shortness of breath" procaine AdvReac Intermediate RACING Verified 11/27/22 14:15 HEART BEAT rofecoxib AdvReac Intermediate INCREASED Verified 11/27/22 14:15 BP SWELLING cortisone AdvReac Mild HEADCAHE Verified 11/27/22 14:15 lidocaine AdvReac Unknown RASH Verified 11/27/22 14:15 Home Medications Medication Instructions Recorded Confirmed Type cholecalciferol (vitamin D3) 125 5,000 unit PO DAILY 02/25/19 12/12/22 History mcg (5,000 unit) capsule loperamide 2 mg tablet 2 mg PO HS #90 tabs 02/25/19 12/12/22 History glucosamine sulfate 2KCl 1,000 mg 1,000 mg PO BID 04/01/19 12/12/22 History tablet (Glucosamine Relief) multivitamin (Daily Multi-Vitamin 1 tab PO DAILY 04/01/19 12/12/22 History tablet) vitamin E 200 unit capsule 400 units PO BID 04/01/19 12/12/22 History calcium carbonate 600 mg calcium 1,200 mg PO DAILY 05/04/19 12/12/22 History (1,500 mg) tablet (Calcium) ascorbate calcium-bioflavonoid 1 tab PO DAILY 08/10/19 12/12/22 History 1,000 mg-200 mg tablet (Lo-C with Bioflavonoids) fluticasone propionate 50 2 sprays intranasal QAM #48 grams 12/02/19 12/12/22 Rx mcg/actuation nasal spray,suspension melatonin 5 mg capsule 10 mg PO QPM 04/26/21 12/12/22 History fluticasone 250 mcg-salmeterol 50 1 inh inhalation BID #3 Inhalers 09/12/21 12/12/22 Rx mcg/dose blistr powdr for inhalation (Advair Diskus) famotidine 40 mg tablet 40 mg PO HS #90 tabs 01/09/22 12/12/22 Rx desloratadine 5 mg tablet 5 mg PO DAILY 90 days #90 tabs 07/09/22 12/12/22 Rx (Clarinex) estradiol acetate 0.1 mg/24 hr 1 vag ring vaginal Q3MO #1 ea 08/28/22 12/12/22 Rx vaginal ring clindamycin HCl 300 mg capsule 600 mg PO UD PRN dental procedures 09/03/22 12/12/22 Rx #30 caps albuterol sulfate 90 mcg/actuation 2 puff inhalation Q6H PRN sob 09/19/22 12/12/22 Rx aerosol inhaler #25.5 grams verapamil 180 mg 24 hr 180 mg PO QPM #90 caps 10/15/22 12/12/22 Rx capsule,extended release rabeprazole 20 mg tablet,delayed 20 mg PO QAM 10/22/22 12/12/22 History release cyclobenzaprine 10 mg tablet 10 mg PO TID PRN muscle spasm #30 11/27/22 12/12/22 Rx tabs pindolol 5 mg tablet 5 mg PO BID #180 tabs 12/11/22 12/12/22 Rx methylcellulose (laxative) 500 mg 500 mg PO DAILY 12/12/22 12/12/22 History tablet (Citrucel) vibegron 75 mg tablet (Gemtesa) 75 mg PO DAILY 12/12/22 12/12/22 History oxycodone 5 mg tablet 5 - 10 mg PO Q4H PRN pain #20 tabs 12/17/22 Rx Patient History Medical History Asthma uses prn INH 2-3 x monthly on avg Diverticular disease Encounter for removal of sutures Esophageal reflux Fatty liver Fibromyalgia Hepatic cyst being monitored Hiatal hernia History of diverticulitis of colon History of Helicobacter pylori infection History of migraine History of stomach ulcers Hyperlipidemia Hypertension Hypothyroidism Idiopathic polyneuropathy Irritable bowel syndrome Osteoarthritis Osteopenia Tachycardia Vitamin D deficiency Surgical History History of appendectomy History of cardiac cath 2003 - [facility] - abn stress test - no stents/angioplasty - follows w/ Dr. Mcneill History of cholecystectomy History of colonoscopy History of cystoscopy History of D&C History of esophagogastroduodenoscopy (EGD) History of lumpectomy History of right knee joint replacement History of tonsillectomy and adenoidectomy History of tooth extraction HX: benign breast biopsy 2012, right fibroadenoma Status post complete hysterectomy Family History Father Pancreatic cancer Colorectal cancer Diabetes Gastric ulcer Grandmother (Maternal) Family history of diabetes mellitus Aunt Leukemia Mother Hypertension Osteoarthritis Stroke Mitral valve disorder History of nephrolithiasis Daughter Asthma Emphysema of lung Polycystic ovarian syndrome Son Myocardial infarction Hypertension Diabetes Arthritis Obesity Sister Arthritis Dyslipidemia Hypertension Brother Gastric ulcer Dyslipidemia Hypertension Denies family history of Ovarian cancer Prostate cancer Breast cancer Social History Smoking Status: Former smoker Tobacco Type: Cigarettes Second Hand Exposure: No; Hx Alcohol Use: Yes Alcohol type: wine Hx Substance Use: No Preferred Language: Australian Communication Ability: Effective Visual Impairment: No Limitations Hearing Ability: Normal 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 She is excellent strength plantarflexion dorsiflexion quadriceps. Sensory symmetric and intact in lower extremities. She is markedly uncomfortable with logroll and inspection of her spine. The incision is healing properly. There is no erythema no drainage. Results & Data ([facility]) Vital Signs (Past 12 Hours) Vital Signs Temp Pulse Resp BP BP Pulse Ox O2 Del Method 12/24/22 07:37 36.7 C 98 H 18 117/69 97 Room Air 12/23/22 21:08 37.2 C 102 H 20 143/83 H 93 Room Air (1) Lower back pain Back pain laterality: right Chronicity: acute Sciatica laterality: sciatica of right side Sciatica presence: with sciatica Qualified Code(s): M54.41 - Lumbago with sciatica, right side
[2022-12-24 09:18] LABS: A calco-baum cmplx NotReported Not Detected (NotDetected); Bact fragilis Not Reported Not Detected (NotDetected); C auris Not Reported Not Detected (NotDetected); Calbicans Not Reported Not Detected (NotDetected); Candida glabrata Not Reported Not Detected (NotDetected); Candida krusei Not Reported Not Detected (NotDetected); Cneoformans/gatti Not Reported Not Detected (NotDetected); Cparapsilosis Not Reported Not Detected (NotDetected); Ctropicalis Not Reported Not Detected (NotDetected); E cloacae compx Not Reported Not Detected (NotDetected); Efaecalis Not Reported Not Detected (NotDetected); Efaecium Not Reported Not Detected (NotDetected); Enterobacterales Not Reported Not Detected (NotDetected); Escherichia coli Not Reported Not Detected (NotDetected); H influenzae Not Reported Not Detected (NotDetected); K aerogenes Not Reported Not Detected (NotDetected); Koxytoca Not Reported Not Detected (NotDetected); Kpneumoniae grp Not Reported Not Detected (NotDetected); Lmonocyt Not Reported Not Detected (NotDetected); N meningitidis Not Reported Not Detected (NotDetected); P aeruginosa Not Reported Not Detected (NotDetected); Proteus spp Not Reported Not Detected (NotDetected); Salmonella spp Not Reported Not Detected (NotDetected); Smarcescens Not Reported Not Detected (NotDetected); Staph lugdunensis Not Reported Not Detected (NotDetected); Staph spp. Not Reported DETECTED (NotDetected); Staphaureus Not Reported Not Detected (NotDetected); Staphepi Not Reported DETECTED (NotDetected); Staphylococcus spp. DETECTED (NotDetected); Stenmaltophilia Not Reported Not Detected (NotDetected); Strep agal(GrpB) Not Reported Not Detected (NotDetected); Strep pneum Not Reported Not Detected (NotDetected); Strep pyog (GrpA) Not Reported Not Detected (NotDetected); Strep spp Not Reported Not Detected (NotDetected); mecAC Resistant Gene DETECTED (NotDetected)
[2022-12-24 09:55] LABS: Staphylococcus epidermidis DETECTED (NotDetected)
[2022-12-24 10:05] LABS: Basophils # (auto) 0.06 K/uL (0-0.2); Basophils % (auto) 0.6 %; Eosinophils # (auto) 0.08 K/uL (0-0.50); Eosinophils % (auto) 0.8 %; Hematocrit (blood only) 39.5 % (37.0-47.0); Hemoglobin 13.6 g/dl (12.0-16.0); Immature Granulocytes # (auto) 0.09 K/uL (0.01-0.20); Immature Granulocytes % (auto) 0.9 %; Lymphocytes # (auto) 1.67 K/uL (1.2-3.4); Lymphocytes % (auto) 16.3 %; Mean Corpuscular Hemoglobin 32.2 pg (25.0-34.0); Mean Corpuscular Hgb Conc 34.4 g/dL (32.0-36.0); Mean Corpuscular Volume 93.4 fL (80.0-100.0); Mean Platelet Volume 9.6 fL (9.4-12.4); Monocytes # (auto) 1.34 K/uL (0.11-0.59); Monocytes % (auto) 13.1 %; Neutrophils # (auto) 6.99 K/uL (1.40-6.50); Neutrophils % (auto) 68.3 %; Platelet Count 260 K/uL (130-400); RDW Coefficient of Variation 13.5 % (11.5-14.5); RDW Standard Deviation 46.1 fL (36.4-46.3); Red Blood Count 4.23 M/uL (4.20-5.40); White Blood Count 10.23 K/ul (4.8-10.8)
[2022-12-24 10:21] LABS: Albumin Globulin Ratio 1.1 (0.9-2); Albumin Level 3.4 gm/dl (3.4-5.0); BUN Creatinine Ratio 20.6 (10-20); Bilirubin,Total 0.6 mg/dl (0.2-1.0); C Reactive Protein 21.44 mg/dl (0-0.5); Calcium 8.6 mg/dl (8.5-10.1); Creatinine Clr Calc Pharmacy 78.8 ml/min; Est GFR (African American) 99.2 ml/min; Est GFR (Non-African American) 85.6 ml/min; Globulin 3.2 gm/dl (2.5-4.0); Potassium 4.2 mmol/L (3.5-5.1); Total Protein 6.6 gm/dl (6.0-8.3)
[2022-12-24] MEDS ORDERED: VANCOMYCIN CONSULT ACTIVE PRN (10:35)
[2022-12-24] MEDS ORDERED: VANCOMYCIN HCL 2,000 MG in SODIUM CHLORIDE 0.9% 500 ML IV STA (10:38)
[2022-12-24] MEDS: NSS + 20MEQ KCL 20 MEQ/1,000 ML BAG IV SCH (10:54)
--- NOTE | 2022-12-24 11:46 | Pharmacy Report ---
Pharmacy PK ABX Note - Date of Service December 24, 2022 - Assessment and Plan Assessment 77 year old F receiving vancomycin for treatment of Staphylococcus epidermidis bacteremia presumably related to recent surgery (no other obvious source at this time). Patient is POD #8 s/p L5-S1 laminectomy. Patient reported intermittent chills while at home, afebrile during hospitalization so far, leukocytosis noted. Pertinent microbiologic data includes: blood cultures x 2 (12/23/22) growing gram-positive cocci clusters, BCID-2 suggests methicillin-resistant Staph epidermidis. Recommended treatment at this time would be vancomycin. BMI of 40. Renal function appears to be at/near baseline. Day # 1 of antimicrobial therapy. Plan Vancomycin * Loading dose: 2000 mg IV x 1 * Maintenance dose: 1250 mg IV every 18 hours * Regimen is predicted to achieve target AUC/HEAVEN of 400-600 mg/L.hr * Random level ordered for: 12/26/22 Pharmacy will continue to follow and will adjust dose/frequency as necessary. Thank you. Pharmacy has transitioned to AUC monitoring for vancomycin. AUC/HEAVEN is the preferred PK/PD target and is associated with decreased risk of nephrotoxicity compared to traditional trough targets.
[2022-12-24] MEDS: MELATONIN 3 MG TAB PO SCH (20:12)
[2022-12-24] MEDS: VERAPAMIL HCL 180 MG TABCR PO SCH (20:14)
[2022-12-24] MEDS: FAMOTIDINE 40 MG TABLET PO SCH (20:15)
[2022-12-24] MEDS ORDERED: hydrOXYzine HCl 10 MG TAB PO STA (20:15)
--- NOTE | 2022-12-24 22:35 | Hospitalist Progress Note ---
Date of Service December 24, 2022 Assessment & Plan (1) Bacteremia: Plan: 77 yo female with subjective fever, chills, from home S?P lumbar laminectomy. Now growing gram positive cultures in blood. Patient placed on vanco. awaiting further identification. reviewed blood work on 12/24 and imaging. (2) Lumbar disc herniation with radiculopathy: Plan: Admit for pain management consult ortho spine MRI of lumbar spine shows fluid collection. appreciate input from Ortho (3) Leukocytosis: Plan: WBC is lower but patient now having bacteremia, concern source may be from recent surgery. (4) Hypothyroidism: Plan: resume home meds (5) Hypertension: Plan: BP at goal resume home meds (6) Asymptomatic bacteriuria: Plan: Patient had a dirty UA with bacteria. This was the case in her previous hospital stay, tis was not treated. Patient had a UTI with e. coli bacteremia in September 2022, this was treated. Will give IVF and monitor WBC. Admission and Anticipated Discharge Date Admission Date: December 23, 2022 Subjective Patient reports feeling less warm today. She has no sweats or chills today. Review of Systems Review of Systems: All systems reviewed & are unremarkable except as noted in HPI & below Physical Exam Physical Exam: General: A&Ox3. NAD. Cooperative. HEENT: Atraumatic, normocephalic. Vision/hearing intact Pulm: CTAB A&P. -wheezes, -rales, -rhonchi. Symmetrical chest rise. No increased work of breathing. No respiratory distress. Cardiac: RRR, -mrg. Radial pulses intact and symmetrical. Abdominal: Nontender, nondistended, soft. BS present. Extremities: Right lower extremity with qualitative numbness/tingling in all toes, ankle dorsiflexion/plantarflexion 5/5 bilaterally. Right hip flexion and knee flexion/extension unable to be assessed due to pain. Patient reports she does feel weaker and unsteady in addition to having pain. No lower extremity pitting edema. No saddle anesthesia Results & Data Results & Data ([facility]) Vital Signs (Past 12 Hours) Vital Signs Temp Pulse Resp BP Pulse Ox O2 Del Method 12/24/22 20:49 36.7 C 93 H 18 131/73 93 Room Air 12/24/22 14:50 36.7 C 95 H 18 129/77 97 Room Air PG Care Time/CCT Total # of Minutes Spent Total Time Spent with Patient: Total time spent is greater than 50% in coordination of care (as documented) at patient's floor/unit and/or counseling patient: Coding Level of Care Code 28569 SUB INP/OBS CARE 3/50MIN Diagnoses Bacteremia R78.81 Lumbar disc herniation with radiculopathy M51.16 Leukocytosis D72.829 Hypothyroidism E03.9 Hypertension I10 Asymptomatic bacteriuria R82.71
[2022-12-25] MEDS: ENOXAPARIN INJ 40 MG/0.4 ML SYR SQ SCH ×3 (00:13→21:03)
[2022-12-25] MEDS: ACETAMINOPHEN 325 MG TAB PO SCH ×5 (00:25→21:07)
[2022-12-25] MEDS: VANCOMYCIN HCL 1,250 MG in SODIUM CHLORIDE 0.9% 250 ML IV SCH ×2 (00:28→18:13)
[2022-12-25] MEDS: CYCLOBENZAPRINE HCL 10 MG TAB PO PRN ×2 (02:57→18:13)
[2022-12-25 09:04] LABS: Hematocrit (blood only) 38.7 % (37.0-47.0); Hemoglobin 13.3 g/dl (12.0-16.0); Mean Corpuscular Hemoglobin 32.4 pg (25.0-34.0); Mean Corpuscular Hgb Conc 34.4 g/dL (32.0-36.0); Mean Corpuscular Volume 94.4 fL (80.0-100.0); Mean Platelet Volume 9.9 fL (9.4-12.4); Platelet Count 279 K/uL (130-400); RDW Coefficient of Variation 13.3 % (11.5-14.5); RDW Standard Deviation 46.4 fL (36.4-46.3); White Blood Count 10.95 K/ul (4.8-10.8)
[2022-12-25 09:22] LABS: BUN Creatinine Ratio 17.2 (10-20); C Reactive Protein 22.23 mg/dl (0-0.5); Calcium 8.6 mg/dl (8.5-10.1); Creatinine Clr Calc Pharmacy 92.4 ml/min; Est GFR (African American) 104.5 ml/min; Est GFR (Non-African American) 90.2 ml/min; Potassium 3.9 mmol/L (3.5-5.1)
[2022-12-25] MEDS: FLUTICASONE PROPIONATE NA SPR 16 GM BTL SCH (10:04)
[2022-12-25] MEDS: LORATADINE 10 MG TAB PO SCH (10:06)
[2022-12-25] MEDS: GLUCOSAMINE SULFATE 500 MG CAP PO SCH ×2 (10:06→21:05)
[2022-12-25] MEDS: HYDROmorphone INJ 0.5 MG/0.5 ML SYR IV PRN ×2 (10:06→14:46)
[2022-12-25] MEDS: CHOLECALCIFEROL 5,000 UNITS 125 MCG TAB PO SCH (10:06)
[2022-12-25] MEDS: PANTOprazole 40 MG TAB PO SCH (10:06)
[2022-12-25] MEDS: DOCUSATE SODIUM/SENNA 50/8.6MG TAB PO SCH (10:06)
[2022-12-25] MEDS: FLUTICASONE/VILANTEROL 200/25MCG 14 PUFFS/INHALER INH SCH (10:07)
--- NOTE | 2022-12-25 15:06 | CT Scan Report ---
CT OF THE LUMBAR SPINE CLINICAL HISTORY: Postoperative back pain. COMPARISON STUDY: Lumbar spine MRIs December 12, 2022 and December 23, 2022. TECHNIQUE: Helical axial images of the lumbar spine were obtained. Sagittal and coronal reconstruct ions were viewed. Automated exposure control was utilized for the study. A dose lowering technique was utilized adhering to the principles of ALARA. FINDINGS: For purposes of numbering on this exam, the L5-S1 disc space is assigned to axial image 240 of 287. No lumbar spine fracture is present. Postoperative findings consistent with right L5-S1 jennifer laminotomy are noted. Multiloculated subcutaneous operative bed fluid collection measuring 3.7 cm is again noted. This contains gas. A small amount of gas within the canal is postsurgical. The central c anal and neural foramen are suboptimally assessed given CT technique. There is mild paravertebral str anding at the L5-S1 level. Allowing for differences in technique, this is probably increased since MR I of December 23, 2022. No new fluid collections are present. No bony destruction is present. Otherwise, paravertebral soft tissues are unremarkable. IMPRESSION: 1. Status post right L5-S1 hemilaminotomy. Suboptimal evaluation of the central canal and neural fora men given CT technique. 3.7 cm multiloculated subcutaneous gas and fluid containing operative bed col lection is likely postsurgical. However, sterility cannot be assessed by CT. 2. Mild paravertebral stranding at the L5-S1 level. Although this could be postsurgical, this raises the possibility of discitis. No bony destruction to suggest osteomyelitis by CT. 3. No lumbar spine fractures. ACT 112: Negative or not required by law. Electronically signed by: Wilfred Ruby M.D. 12/25/2022 3:04 PM
[2022-12-25] MEDS: MELATONIN 3 MG TAB PO SCH (21:05)
[2022-12-25] MEDS: FAMOTIDINE 40 MG TABLET PO SCH (21:05)
[2022-12-25] MEDS: VERAPAMIL HCL 180 MG TABCR PO SCH (21:06)
--- NOTE | 2022-12-25 22:52 | Hospitalist Progress Note ---
Date of Service December 25, 2022 Assessment & Plan (1) Bacteremia: Plan: 77 yo female with subjective fever, chills, from home S/P lumbar laminectomy. Now growing gram positive cultures in blood. Patient placed on vanco. awaiting further identification. reviewed blood work on 12/25 and imaging. repeated blood culture on 12/25 (2) Lumbar disc herniation with radiculopathy: Plan: Postoperative laminectomy complication in the setting of subdural fluid collection on MRI Possible cord compression consult ortho spine MRI of lumbar spine shows fluid collection. appreciate input from Ortho (3) Leukocytosis: Plan: WBC is lower but patient now having bacteremia, concern source may be from recent surgery. (4) Hypothyroidism: Plan: resume home meds (5) Hypertension: Plan: BP at goal resume home meds (6) Asymptomatic bacteriuria: Plan: Patient had a dirty UA with bacteria. This was the case in her previous hospital stay, tis was not treated. Patient had a UTI with e. coli bacteremia in September 2022, this was treated. will monitor (7) BMI greater than 40: Plan: Obesity with BMI = 40 Patient s/p laminectomy and back pain has BMI = 40 Treatment: Weight, I&O Admission and Anticipated Discharge Date Admission Date: December 23, 2022 Subjective 77 yo female reports no new symptoms. Review of Systems Review of Systems: All systems reviewed & are unremarkable except as noted in HPI & below Physical Exam Physical Exam: General: A&Ox3. NAD. Cooperative. HEENT: Atraumatic, normocephalic. Vision/hearing intact Pulm: CTAB A&P. -wheezes, -rales, -rhonchi. Symmetrical chest rise. No increased work of breathing. No respiratory distress. Cardiac: RRR, -mrg. Radial pulses intact and symmetrical. Abdominal: Nontender, nondistended, soft. BS present. Extremities: Right lower extremity with qualitative numbness/tingling in all toes, ankle dorsiflexion/plantarflexion 5/5 bilaterally. Right hip flexion and knee flexion/extension unable to be assessed due to pain. Patient reports she does feel weaker and unsteady in addition to having pain. No lower extremity pitting edema. No saddle anesthesia Results & Data Results & Data Vital Signs (Past 12 Hours) Vital Signs Temp Pulse Resp BP Pulse Ox O2 Del Method 12/25/22 20:25 36.6 C 96 H 18 123/74 94 Room Air 12/25/22 15:22 36.8 C 88 20 118/70 94 Room Air PG Care Time/CCT Total # of Minutes Spent Total Time Spent with Patient: Total time spent is greater than 50% in coordination of care (as documented) at patient's floor/unit and/or counseling patient: Coding Level of Care Code 39438 SUB INP/OBS CARE 3/50MIN Diagnoses Bacteremia R78.81 Lumbar disc herniation with radiculopathy M51.16 Leukocytosis D72.829 Hypothyroidism E03.9 Hypertension I10 Asymptomatic bacteriuria R82.71 BMI greater than 40
[2022-12-26] MEDS: HYDROmorphone INJ 0.5 MG/0.5 ML SYR IV PRN ×3 (03:18→22:52)
[2022-12-26] MEDS: ACETAMINOPHEN 325 MG TAB PO SCH ×4 (05:12→22:54)
[2022-12-26] MEDS: PANTOprazole 40 MG TAB PO SCH (08:29)
[2022-12-26] MEDS: CHOLECALCIFEROL 5,000 UNITS 125 MCG TAB PO SCH (08:30)
[2022-12-26] MEDS: GLUCOSAMINE SULFATE 500 MG CAP PO SCH ×2 (08:31→20:23)
[2022-12-26] MEDS: DOCUSATE SODIUM/SENNA 50/8.6MG TAB PO SCH (08:31)
[2022-12-26] MEDS: LORATADINE 10 MG TAB PO SCH (08:31)
[2022-12-26] MEDS: FLUTICASONE PROPIONATE NA SPR 16 GM BTL SCH (08:32)
[2022-12-26] MEDS: FLUTICASONE/VILANTEROL 200/25MCG 14 PUFFS/INHALER INH SCH (08:33)
[2022-12-26 08:43] LABS: Hemoglobin 12.7 g/dl (12.0-16.0); Mean Corpuscular Hemoglobin 32.6 pg (25.0-34.0); Mean Corpuscular Hgb Conc 35.3 g/dL (32.0-36.0); Mean Corpuscular Volume 92.5 fL (80.0-100.0); Mean Platelet Volume 9.8 fL (9.4-12.4); Platelet Count 308 K/uL (130-400); RDW Coefficient of Variation 12.9 % (11.5-14.5); RDW Standard Deviation 43.6 fL (36.4-46.3); Red Blood Count 3.89 M/uL (4.20-5.40); White Blood Count 11.56 K/ul (4.8-10.8)
[2022-12-26 09:12] LABS: BUN Creatinine Ratio 19.2 (10-20); C Reactive Protein 23.87 mg/dl (0-0.5); Calcium 8.5 mg/dl (8.5-10.1); Creatinine Clr Calc Pharmacy 103.1 ml/min; Est GFR (African American) 108.3 ml/min; Est GFR (Non-African American) 93.5 ml/min; Potassium 3.1 mmol/L (3.5-5.1)
--- NOTE | 2022-12-26 09:36 | Hospitalist Progress Note ---
Date of Service December 26, 2022 Assessment & Plan (1) Bacteremia: Plan: acute bacteremia, high risk , staph species, at least 1 species is Staph epidermidis, with lumbar laminectomy, 12/16/22, with subjective fever, chills, from home also gives history that the patient received knee injection somewhere in the middle of November gram positive cultures in blood on vancomycin will transition to daptomycin for ease of home transition. urine culture with Klebsiella- initial was consider asymptomatic bacteremia we will add ertapenem to also cover the possibility of osteomyelitis/discitis as mentioned on CT scan from 12/25/2022 Additional blood cultures obtained on 12/26/2022 as the patient has not cleared blood cultures yet. Echocardiogram transthoracic will be ordered would likely may need to pursue transesophageal Anticipate infectious disease consultation on 12/27/2022 (2) Lumbar disc herniation with radiculopathy: Plan: Postoperative laminectomy complication in the setting of subdural fluid collection on MRI Possible cord compression CT scan performed on 12/25 feels the multiloculated subcutaneous gas fluid containing operative bed collection is likely postsurgical consult ortho spine no need for urgent surgical decompression Patient may transition to daptomycin and ertapenem to cover her staph and Klebsiella confirmed bacteria and also cover for osteomyelitis and suggestion of discitis is seen on CT scan from 315 (3) BMI greater than 40: Plan: chronic stable high risk Obesity with BMI = 40, BMI places patient at increased risk for postoperative challenges Patient s/p laminectomy and back pain has BMI = 40 Treatment: Weight, I&O Admission and Anticipated Discharge Date Admission Date: December 23, 2022 Subjective Patient was bit anxious this morning. She was seen in the company of her . She said Ativan did help her significantly. Patient had a rica postoperative course but she says she has been painful every day but generally slowly improving. She has no other signs or symptoms of infectious etiology and we discussed particularly the fact that she had a urinary tract infection or culture positive for urinary tract bacteria but she had lacked any clinical symptoms. She however did have a catheter for her recent surgery. Urinary tract infections organism is different than her bacteremia Results & Data Results & Data Vital Signs (Past 12 Hours) Vital Signs Temp Pulse Resp BP Pulse Ox O2 Del Method 12/26/22 07:56 98.1 F 91 H 18 158/83 H 94 Room Air Laboratory Results Reviewed CBC Reviewed PRP Reviewed inflammatory marker C-reactive protein elevated Reviewed vancomycin random level Diagnostic Findings CT scan lumbar spine from 12/25/2022 she has mild paravertebral stranding at the L5-S1 level although this could be postsurgical it raised the possibility of discitis no bony destruction to suggest osteomyelitis by CT scan PG Care Time/CCT Total # of Minutes Spent Total Time Spent with Patient: Total time spent is greater than 50% in coordination of care (as documented) at patient's floor/unit and/or counseling patient: Coding Level of Care Code 09276 SUB INP/OBS CARE 50MIN Diagnoses Bacteremia R78.81 Lumbar disc herniation with radiculopathy M51.16 BMI greater than 40
[2022-12-26] MEDS ORDERED: MAGNESIUM SULFATE / D5W 1 GM/100 ML BAG IV ONE (09:37)
[2022-12-26] MEDS: POTASSIUM CHLORIDE / WTR 10 MEQ/100 ML PLCT IV SCH ×3 (10:04→12:11)
[2022-12-26] MEDS: POTASSIUM CHLORIDE CRTAB 20 MEQ TABCR PO SCH ×2 (10:12→20:24)
--- NOTE | 2022-12-26 10:48 | Pharmacy Report ---
Pharmacy Vanc AUC Short Note - Date of Service December 26, 2022 - Assessment & Plan Assessment 77 year old F receiving vancomycin for treatment of Staphylococcus epidermidis bacteremia presumably related to recent surgery (no other obvious source at this time). Patient is POD #8 s/p L5-S1 laminectomy. Patient reported intermittent chills while at home, afebrile during hospitalization so far, leukocytosis noted. Pertinent microbiologic data includes: blood cultures x 2 (12/23/22) growing gram-positive cocci clusters, BCID-2 suggests methicillin-resistant Staph epidermidis. Recommended treatment at this time would be vancomycin. BMI of 40. Renal function appears to be at/near baseline. Day #3 of antimicrobial therapy. Plan Vancomycin * Load: Vancomycin 2,000 mg IV once on 12/24/22 at 1054 * Random level today: 8.0 * Maintenance: Increased to Vancomycin 1,250 mg IV q12h starting 12/26/22 at 1100. * AUC/HEAVEN is the preferred PK/PD target for vancomycin * AUC guided dosing is effective and associated with decreased risk of nephrotoxicity compared to traditional trough targets * Trough level of 10.4 mcg/mL is predicted to achieve target AUC/HEAVEN of 400-600 mg/L.hr and may be associated with a 6 % risk of nephrotoxicity * Random level ordered for: 12/27/22 with AM labs. Pharmacy will continue to follow and will adjust dose/frequency as necessary. Thank you.
[2022-12-26] MEDS ORDERED: VANCOMYCIN HCL 1,250 MG in SODIUM CHLORIDE 0.9% 250 ML IV SCH (11:00)
[2022-12-26] MEDS: ENOXAPARIN INJ 40 MG/0.4 ML SYR SQ SCH ×2 (11:37→22:54)
[2022-12-26] MEDS: LORazepam 0.5 MG TAB PO PRN (13:10)
[2022-12-26] MEDS ORDERED: DAPTOmycin 425 MG in SYRINGE 0 ML IV SCH (16:00)
[2022-12-26] MEDS ORDERED: ERTAPENEM SODIUM 1,000 MG in SYRINGE 0 ML IV SCH (17:00)
[2022-12-26] MEDS: CYCLOBENZAPRINE HCL 10 MG TAB PO PRN (19:17)
[2022-12-26] MEDS: MELATONIN 3 MG TAB PO SCH (20:23)
[2022-12-26] MEDS: FAMOTIDINE 40 MG TABLET PO SCH (20:23)
[2022-12-27] MEDS: HYDROmorphone INJ 0.5 MG/0.5 ML SYR IV PRN ×3 (02:59→23:11)
[2022-12-27] MEDS: ACETAMINOPHEN 325 MG TAB PO SCH ×3 (05:03→18:11)
[2022-12-27] MEDS: FLUTICASONE PROPIONATE NA SPR 16 GM BTL SCH (07:43)
[2022-12-27] MEDS: LORATADINE 10 MG TAB PO SCH (07:43)
[2022-12-27] MEDS: CHOLECALCIFEROL 5,000 UNITS 125 MCG TAB PO SCH (07:43)
[2022-12-27] MEDS: DOCUSATE SODIUM/SENNA 50/8.6MG TAB PO SCH (07:44)
[2022-12-27] MEDS: PANTOprazole 40 MG TAB PO SCH (07:44)
[2022-12-27] MEDS: POTASSIUM CHLORIDE CRTAB 20 MEQ TABCR PO SCH ×2 (07:45→20:06)
[2022-12-27] MEDS: FLUTICASONE/VILANTEROL 200/25MCG 14 PUFFS/INHALER INH SCH (07:45)
[2022-12-27] MEDS: GLUCOSAMINE SULFATE 500 MG CAP PO SCH ×2 (07:46→20:06)
[2022-12-27 09:23] LABS: Hematocrit (blood only) 37.5 % (37.0-47.0); Hemoglobin 12.7 g/dl (12.0-16.0); Mean Corpuscular Hemoglobin 32.1 pg (25.0-34.0); Mean Corpuscular Hgb Conc 33.9 g/dL (32.0-36.0); Mean Corpuscular Volume 94.7 fL (80.0-100.0); Mean Platelet Volume 9.7 fL (9.4-12.4); Platelet Count 357 K/uL (130-400); RDW Coefficient of Variation 13.2 % (11.5-14.5); RDW Standard Deviation 45.9 fL (36.4-46.3); Red Blood Count 3.96 M/uL (4.20-5.40); White Blood Count 13.55 K/ul (4.8-10.8)
[2022-12-27 09:43] LABS: BUN Creatinine Ratio 18.8 (10-20); Calcium 8.5 mg/dl (8.5-10.1); Creatinine Clr Calc Pharmacy 111.7 ml/min; Est GFR (African American) 111.2 ml/min; Magnesium 1.8 mg/dl (1.7-2.4); Potassium 3.3 mmol/L (3.5-5.1)
[2022-12-27] MEDS: ENOXAPARIN INJ 40 MG/0.4 ML SYR SQ SCH (10:31)
[2022-12-27] MEDS: CYCLOBENZAPRINE HCL 10 MG TAB PO PRN (10:34)
--- NOTE | 2022-12-27 13:53 | Orthopedic Progress Note ---
Date of Service December 27, 2022 Assessment & Plan (1) Lumbar disc herniation with radiculopathy: Plan: At this time she does appear comfortable. Source of the bacteremia is of concern however her lumbar symptoms and imaging do not point to this as the cause. I would encourage her to continue with at least room ambulation and physical therapy. Admission and Anticipated Discharge Date Admission Date: December 23, 2022 Subjective Patient states her pain is well controlled at rest. She was able to ambulate a little bit yesterday and tolerated sitting in a chair. She denies any leg pain. Physical Exam Physical Exam: On exam she has +5-5 plantarflexion dorsiflexion quadriceps. Sensory appears to be intact. Incision continues to appear to be healing appropriately there is no erythema no drainage. She is nontender to palpation of lumbar musculature. Results & Data Vital Signs (Past 12 Hours) Vital Signs Temp Pulse Resp BP Pulse Ox O2 Del Method 12/27/22 07:08 37.0 C 100 H 20 179/81 H 93 Room Air
[2022-12-27] MEDS: LORazepam 0.5 MG TAB PO PRN (13:59)
--- NOTE | 2022-12-27 14:29 | Infectious Disease Consult ---
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 Diffuse epidural enhancement within the lower lumbar and upper sacral spine, possible discitis #L5-S1 laminectomy 77yo female with history of HTN, HLP, GERD, fibromyalgia, R knee replacement, L knee intra-articular injections most recent in November 2022, admitted on [facility] for ongoing pain secondary to Lumbar disc herniation with radiculopathy s/p L5-S1 laminectomy on December 16. Admitted with progressing back pain. Infectious diseases consulted for Staph epi bacteremia. Patient was having subjective fevers at home and progressively worsening back pain and readmitted to [facility]. On admission on 12/23 she was afebrile, WBC 12.6, 12/23 Blood cultures drawn growing /4 MRSE, Blood cx 12/25, 12/26 positive (speciation P). patient was initiated on Vancomycin on 12/23. WBC increasing since admission. 12/23 MRI with following Read: 1. Status post right L5-S1 hemilaminotomy. 1.6 cm laminotomy site fluid collection is postsurgical. 4 x 3.8 x 2 cm subcutaneous operative bed fluid collection is also postsurgical and expected in the early postoperative setting. 2. Diffuse epidural enhancement within the lower lumbar and upper sacral spine. This is nonspecific although likely postsurgical. An infectious process with epidural phlegmon could appear similar. No epidural fluid collection to suggest abscess. Short-term follow-up MRI with and without contrast is suggested if persistent symptoms. 3. Suspected nonspecific subdural fluid collection extending from the lower L2- S1 levels with moderate compression of the nerve roots. CT lumbar spine 1. Status post right L5-S1 hemilaminotomy. Suboptimal evaluation of the central canal and neural foramen given CT technique. 3.7 cm multiloculated subcutaneous gas and fluid containing operative bed collection is likely postsurgical. However, sterility cannot be assessed by CT. 2. Mild paravertebral stranding at the L5-S1 level. Although this could be postsurgical, this raises the possibility of discitis Discussion: Patient with ongoing MRSE infection without clearance. MRSE typically associated with hardware, surgeries and injections. Her L knee/R knees without issue no pain or TTP. I am concerned for her surgical site as source. Her WBC is continuing to go up and cultures not cleared. Would start with 2DE to ensure valves not seeded. She is on Daptomycin, I would increase to 8mg/kg IBW for better bone penetration (2) Lumbar disc herniation with radiculopathy: Plan -Continue to repeat blood cultures q24-48 hours until clearance -Check 2DEcho -Surgery is following for recent surgery--> Given type of bacteria concern there is infection at site in setting of inc WBC and lack of clearance -Currently on Dapto 8mg/kg ABW qdaily, order am CPK, she is not on a statin--> Discussed with pharmacy -I would dc Ceftriaxone I contacted Primary team regarding my recommendations Please page OTW with questions. Dr. Montez to start service on Friday. Graciela Pabon MD Infectious Diseases Consultation Information Consultation was provided via telemedicine using two-way real-time interactive telecommunication between the patient and the telemedicine provider. For the duration of the visit, the provider was performing the assessment from a different facility than the patient. This includesuse of bluetooth stethoscope forauscultationperformed by the telepresenter that the telemedicine provider can hear if described in the physical exam. [employer] contact information: Please call [facility] . (Phone Number For Physician Use Only) After establishing a telemedicine visit, patient was: Patient was verified with two unique identifiers, Patient/authorized rep acknowledged consent and understanding and Gave permission to continue telehealth session Time Spent with Patient: Initial => 55 min History of Present Illness Reason for Consultation: MRSE bacteremia Attending Physician: Delta Guerrero MD History of Present Illness 77yo female with history of HTN, HLP, GERD, fibromyalgia, R knee replacement, L knee intra-articular injections most recent in November 2022, admitted on [facility] for ongoing pain secondary to Lumbar disc herniation with radiculopathy s/p L5-S1 laminectomy on December 16. Admitted with progressing back pain. Infectious diseases consulted for Staph epi bacteremia. Patient was having subjective fevers at home and progressively worsening back pain and readmitted to [facility]. On admission on 12/23 she was afebrile, WBC 12.6, 12/23 Blood cultures drawn growing 4/4 MRSE, Blood cx 12/25, 12/26 positive (speciation P). patient was initiated on Vancomycin on 12/23. WBC increasing since admission. 12/23 MRI with following Read: 1. Status post right L5-S1 hemilaminotomy. 1.6 cm laminotomy site fluid collection is postsurgical. 4 x 3.8 x 2 cm subcutaneous operative bed fluid collection is also postsurgical and expected in the early postoperative setting. 2. Diffuse epidural enhancement within the lower lumbar and upper sacral spine. This is nonspecific although likely postsurgical. An infectious process with epidural phlegmon could appear similar. No epidural fluid collection to suggest abscess. Short-term follow-up MRI with and without contrast is suggested if persistent symptoms. 3. Suspected nonspecific subdural fluid collection extending from the lower L2- S1 levels with moderate compression of the nerve roots. CT lumbar spine 1. Status post right L5-S1 hemilaminotomy. Suboptimal evaluation of the central canal and neural foramen given CT technique. 3.7 cm multiloculated subcutaneous gas and fluid containing operative bed collection is likely postsurgical. However, sterility cannot be assessed by CT. 2. Mild paravertebral stranding at the L5-S1 level. Although this could be postsurgical, this raises the possibility of discitis On my interview, she c/o painful back which has not improved. She c/o sweats. We reviewed all her hardware. Allergies Allergy/AdvReac Type Severity Reaction Status Date / Time capsaicin Allergy Intermediate Burning up Verified 11/27/22 14:15 diclofenac Allergy Intermediate Burning up Verified 11/27/22 14:15 Diclopak Allergy Intermediate Burning up Verified 12/18/17 17:41 heparin Allergy Intermediate RASH Verified 11/27/22 14:15 isopropyl alcohol Allergy Intermediate Burning up Verified 11/27/22 14:15 levofloxacin Allergy Intermediate MUSCLE PAIN Verified 11/27/22 14:15 Macrolide Antibiotics Allergy Intermediate SWELLING Verified 11/27/22 14:15 moxifloxacin Allergy Intermediate MUSCLE PAIN Verified 11/27/22 14:15 propylene glycol Allergy Intermediate Burning up Verified 11/27/22 14:15 adhesive Allergy Mild WELTS Verified 11/27/22 14:15 Cephalosporins Allergy Mild RASH Verified 11/27/22 14:15 DIGESTIVE SYSTEM metoprolol Allergy Mild Unknown Verified 11/27/22 14:15 Sulfa (Sulfonamide Allergy Mild RASH Verified 11/27/22 14:15 Antibiotics) celecoxib Allergy Unknown Unknown Verified 11/27/22 14:15 erythromycin base Allergy Unknown UNKNOWN Verified 11/27/22 14:15 pork derived (porcine) Allergy Unknown Rash Verified 11/27/22 14:15 tramadol Allergy Unknown "wheezing, Verified 11/27/22 14:15 shortness of breath" procaine AdvReac Intermediate RACING Verified 11/27/22 14:15 HEART BEAT rofecoxib AdvReac Intermediate INCREASED Verified 11/27/22 14:15 BP SWELLING cortisone AdvReac Mild HEADCAHE Verified 11/27/22 14:15 lidocaine AdvReac Unknown RASH Verified 11/27/22 14:15 Home Medications Medication Instructions Recorded Confirmed Type cholecalciferol (vitamin D3) 125 5,000 unit PO DAILY 02/25/19 12/12/22 History mcg (5,000 unit) capsule loperamide 2 mg tablet 2 mg PO HS #90 tabs 02/25/19 12/12/22 History glucosamine sulfate 2KCl 1,000 mg 1,000 mg PO BID 04/01/19 12/12/22 History tablet (Glucosamine Relief) multivitamin (Daily Multi-Vitamin 1 tab PO DAILY 04/01/19 12/12/22 History tablet) vitamin E 200 unit capsule 400 units PO BID 04/01/19 12/12/22 History calcium carbonate 600 mg calcium 1,200 mg PO DAILY 05/04/19 12/12/22 History (1,500 mg) tablet (Calcium) ascorbate calcium-bioflavonoid 1 tab PO DAILY 08/10/19 12/12/22 History 1,000 mg-200 mg tablet (Lo-C with Bioflavonoids) fluticasone propionate 50 2 sprays intranasal QAM #48 grams 12/02/19 12/12/22 Rx mcg/actuation nasal spray,suspension melatonin 5 mg capsule 10 mg PO QPM 04/26/21 12/12/22 History fluticasone 250 mcg-salmeterol 50 1 inh inhalation BID #3 Inhalers 09/12/21 12/12/22 Rx mcg/dose blistr powdr for inhalation (Advair Diskus) famotidine 40 mg tablet 40 mg PO HS #90 tabs 01/09/22 12/12/22 Rx desloratadine 5 mg tablet 5 mg PO DAILY 90 days #90 tabs 07/09/22 12/12/22 Rx (Clarinex) estradiol acetate 0.1 mg/24 hr 1 vag ring vaginal Q3MO #1 ea 08/28/22 12/12/22 Rx vaginal ring clindamycin HCl 300 mg capsule 600 mg PO UD PRN dental procedures 09/03/22 12/12/22 Rx #30 caps albuterol sulfate 90 mcg/actuation 2 puff inhalation Q6H PRN sob 09/19/22 12/12/22 Rx aerosol inhaler #25.5 grams verapamil 180 mg 24 hr 180 mg PO QPM #90 caps 10/15/22 12/12/22 Rx capsule,extended release rabeprazole 20 mg tablet,delayed 20 mg PO QAM 10/22/22 12/12/22 History release cyclobenzaprine 10 mg tablet 10 mg PO TID PRN muscle spasm #30 11/27/22 12/12/22 Rx tabs pindolol 5 mg tablet 5 mg PO BID #180 tabs 12/11/22 12/12/22 Rx methylcellulose (laxative) 500 mg 500 mg PO DAILY 12/12/22 12/12/22 History tablet (Citrucel) vibegron 75 mg tablet (Gemtesa) 75 mg PO DAILY 12/12/22 12/12/22 History oxycodone 5 mg tablet 5 - 10 mg PO Q4H PRN pain #20 tabs 12/17/22 Rx Patient History Medical History (Updated 12/26/22 @ 07:00 by Danny Srivastava) Asthma uses prn INH 2-3 x monthly on avg Diverticular disease Encounter for removal of sutures Esophageal reflux Fatty liver Fibromyalgia Hepatic cyst being monitored Hiatal hernia History of diverticulitis of colon History of Helicobacter pylori infection History of migraine History of stomach ulcers Hyperlipidemia Hypertension Hypothyroidism Idiopathic polyneuropathy Irritable bowel syndrome Osteoarthritis Osteopenia Tachycardia Vitamin D deficiency Surgical History History of appendectomy History of cardiac cath 2003 - [facility] - abn stress test - no stents/angioplasty - follows w/ Dr. Mcneill History of cholecystectomy History of colonoscopy History of cystoscopy History of D&C History of esophagogastroduodenoscopy (EGD) History of lumpectomy History of right knee joint replacement History of tonsillectomy and adenoidectomy History of tooth extraction HX: benign breast biopsy 2012, right fibroadenoma Status post complete hysterectomy Family History Father Pancreatic cancer Colorectal cancer Diabetes Gastric ulcer Grandmother (Maternal) Family history of diabetes mellitus Aunt Leukemia Mother Hypertension Osteoarthritis Stroke Mitral valve disorder History of nephrolithiasis Daughter Asthma Emphysema of lung Polycystic ovarian syndrome Son Myocardial infarction Hypertension Diabetes Arthritis Obesity Sister Arthritis Dyslipidemia Hypertension Brother Gastric ulcer Dyslipidemia Hypertension Denies family history of Ovarian cancer Prostate cancer Breast cancer Social History Smoking Status: Former smoker Tobacco Type: Cigarettes Second Hand Exposure: No; Hx Alcohol Use: Yes Alcohol type: wine Hx Substance Use: No Preferred Language: Mongolian Communication Ability: Effective Visual Impairment: No Limitations Hearing Ability: Normal Home Health Clinical Liaison Required: No Beliefs That Will Affect Care: None marital status: Current Living Situation: Spouse current occupational status: retired Feels Safe at Home: Yes Safety Concerns: Feels Safe At This Time Physical Activity Frequency: 3-4 Times per Week Seatbelt Use: always Assistive Devices: Walker Results & Data Vital Signs (Past 12 Hours) Vital Signs Temp Pulse Resp BP Pulse Ox O2 Del Method 12/27/22 07:08 37.0 C 100 H 20 179/81 H 93 Room Air Laboratory Results Laboratory Results - last 48 hr 12/26/22 12/26/22 12/26/22 08:20 08:20 08:20 WBC 11.56 H RBC 3.89 L Hgb 12.7 Hct 36.0 L MCV 92.5 MCH 32.6 MCHC 35.3 RDW Std Deviation 43.6 RDW Coeff of Mendez 12.9 Plt Count 308 MPV 9.8 Sodium 134 L Potassium 3.1 L D Chloride 100 Carbon Dioxide 26 Anion Gap 8 BUN 10 Creatinine 0.52 L Est Cr Clr Drug Dosing 103.1 Est GFR ( Amer) 108.3 Est GFR (Non-Af Amer) 93.5 BUN/Creatinine Ratio 19.2 Glucose 173 H Calcium 8.5 Magnesium C-Reactive Protein 23.87 H Random Vancomycin 8.0 L 12/27/22 12/27/22 08:48 08:48 WBC 13.55 H RBC 3.96 L Hgb 12.7 Hct 37.5 MCV 94.7 MCH 32.1 MCHC 33.9 RDW Std Deviation 45.9 RDW Coeff of Mendez 13.2 Plt Count 357 MPV 9.7 Sodium 134 L Potassium 3.3 L Chloride 99 Carbon Dioxide 25 Anion Gap 10 BUN 9 Creatinine 0.48 L Est Cr Clr Drug Dosing 111.7 Est GFR ( Amer) 111.2 Est GFR (Non-Af Amer) 96.0 BUN/Creatinine Ratio 18.8 Glucose 190 H Calcium 8.5 Magnesium 1.8 C-Reactive Protein Random Vancomycin Microbiology 12/26/22 16:02 Blood Aerobic Blood Culture - Preliminary No growth in Aerobic bottle after 24 hours. 12/26/22 16:02 Blood Anaerobic Blood Culture - Preliminary No growth in Anaerobic bottle after 24 hours. 12/26/22 16:14 Blood Aerobic Blood Culture - Preliminary Gram positive cocci clusters 12/25/22 15:10 Blood Aerobic Blood Culture - Final Staphylococcus epidermidis 12/25/22 15:10 Blood Anaerobic Blood Culture - Final Staphylococcus epidermidis 12/25/22 15:00 Blood Aerobic Blood Culture - Final Staphylococcus epidermidis 12/25/22 15:00 Blood Anaerobic Blood Culture - Final Staphylococcus epidermidis 12/23/22 06:36 Blood Aerobic Blood Culture - Final Staphylococcus epidermidis#2 Staphylococcus epidermidis 12/23/22 06:36 Blood Anaerobic Blood Culture - Final Staphylococcus epidermidis#2 Staphylococcus epidermidis 12/23/22 Unknown Blood Aerobic Blood Culture - Final Staphylococcus epidermidis#2 Staphylococcus epidermidis 12/23/22 Unknown Blood Anaerobic Blood Culture - Final Staphylococcus epidermidis#2 Staphylococcus epidermidis 12/23/22 21:00 Urine,Clean Catch Urine Culture - Final Klebsiella pneumoniae Diagnostic Findings Lumbar Spine CT 12/25/22 11:27 CT OF THE LUMBAR SPINE CLINICAL HISTORY: Postoperative back pain. COMPARISON STUDY: Lumbar spine MRIs December 12, 2022 and December 23, 2022. TECHNIQUE: Helical axial images of the lumbar spine were obtained. Sagittal and coronal reconstructions were viewed. Automated exposure control was utilized for the study. A dose lowering technique was utilized adhering to the principles of ALARA. FINDINGS: For purposes of numbering on this exam, the L5-S1 disc space is assigned to axial image 240 of 287. No lumbar spine fracture is present. Postoperative findings consistent with right L5-S1 hemilaminotomy are noted. Multiloculated subcutaneous operative bed fluid collection measuring 3.7 cm is again noted. This contains gas. A small amount of gas within the canal is postsurgical. The central canal and neural foramen are suboptimally assessed given CT technique. There is mild paravertebral stranding at the L5-S1 level. Allowing for differences in technique, this is probably increased since MRI of December 23, 2022. No new fluid collections are present. No bony destruction is present. Otherwise, paravertebral soft tissues are unremarkable. IMPRESSION: 1. Status post right L5-S1 hemilaminotomy. Suboptimal evaluation of the central canal and neural foramen given CT technique. 3.7 cm multiloculated subcutaneous gas and fluid containing operative bed collection is likely postsurgical. However, sterility cannot be assessed by CT. 2. Mild paravertebral stranding at the L5-S1 level. Although this could be postsurgical, this raises the possibility of discitis. No bony destruction to suggest osteomyelitis by CT. 3. No lumbar spine fractures. ACT 112: Negative or not required by law. Electronically signed by: Wilfred Ruby M.D. 12/25/2022 3:04 PM Medications Administered Current Inpatient Medications Acetaminophen (Acetaminophen 325 Mg Tab) 650 mg PO Q6HWA [facility] Stop: 01/22/23 11:59 Last Admin: 12/27/22 18:11 Dose: 650 mg Albuterol (Albuterol Hfa 8 Gm Inhaler) 2 puffs INH Q6H PRN; Protocol PRN Reason: sob Stop: 01/22/23 09:14 Cyclobenzaprine HCl (Cyclobenzaprine Hcl 10 Mg Tab) 10 mg PO TID PRN PRN Reason: muscle spasm Stop: 01/22/23 09:14 Last Admin: 12/27/22 10:34 Dose: 10 mg Enoxaparin Sodium (Enoxaparin Inj 40 Mg/0.4 Ml Syr) 40 mg SQ Q12H [facility] Stop: 01/22/23 11:14 Last Admin: 12/27/22 10:31 Dose: 40 mg Famotidine (Famotidine 40 Mg Tablet) 40 mg PO HS [facility] Stop: 01/22/23 20:59 Last Admin: 12/26/22 20:23 Dose: 40 mg Fluticasone Propionate (Fluticasone Propionate Na Spr 16 Gm Btl) 2 sprays NA QAM [facility] Stop: 01/23/23 08:59 Last Admin: 12/27/22 07:43 Dose: 2 sprays Fluticasone/Vilanterol (Fluticasone/Vilanterol 200/25mcg 14 Puffs/Inhaler) 1 puffs INH DAILY [facility] Stop: 01/23/23 08:59 Last Admin: 12/27/22 07:45 Dose: 1 puffs Glucosamine Sulfate (Glucosamine Sulfate 500 Mg Cap) 1,000 mg PO BID [facility] Stop: 01/22/23 20:59 Last Admin: 12/27/22 07:46 Dose: 1,000 mg Hydromorphone HCl (Hydromorphone Inj 0.5 Mg/0.5 Ml Syr) 0.5 mg IV Q4H PRN PRN Reason: Severe Pain (Scale 7, 8, 9,10) Stop: 01/06/23 09:25 Last Admin: 12/27/22 14:38 Dose: 0.5 mg Hydromorphone HCl (Hydromorphone Inj 0.5 Mg/0.5 Ml Syr) 0.25 mg IV Q4H PRN PRN Reason: Moderate Pain (Scale 4, 5, 6) Stop: 01/06/23 09:23 Daptomycin 550 mg/ Syringe 11 mls @ 4.25 mls/min IV Q24H [facility]; Protocol Stop: 01/10/23 15:59 Last Admin: 12/27/22 16:09 Dose: 4.25 mls/min Ceftriaxone Sodium 2,000 mg/ (Dextrose) 70 mls @ 140 mls/hr IV Q24H [facility] Stop: 01/06/23 16:59 Last Infusion: 12/27/22 16:08 Dose: Infused Loperamide HCl (Loperamide Hcl 2 Mg Cap) 2 mg PO HS [facility] Stop: 01/22/23 20:59 Loratadine (Loratadine 10 Mg Tab) 10 mg PO DAILY [facility]; Protocol Stop: 01/23/23 08:59 Last Admin: 12/27/22 07:43 Dose: 10 mg Lorazepam (Lorazepam 0.5 Mg Tab) 0.5 mg PO Q6H PRN PRN Reason: Anxiety Stop: 01/25/23 12:05 Last Admin: 12/27/22 13:59 Dose: 0.5 mg Melatonin (Melatonin 3 Mg Tab) 9 mg PO QPM [facility] Stop: 01/22/23 20:59 Last Admin: 12/26/22 20:23 Dose: 9 mg Pantoprazole Sodium (Pantoprazole 40 Mg Tab) 40 mg PO QAM [facility] Stop: 01/23/23 08:59 Last Admin: 12/27/22 07:44 Dose: 40 mg Pindolol (Pindolol) 1 each PO BID [facility] Stop: 01/23/23 20:59 Last Admin: 12/27/22 07:45 Dose: 1 each Potassium Chloride (Potassium Chloride Crtab 20 Meq Tabcr) 20 meq PO BID [facility] Stop: 12/28/22 21:01 Senna/Docusate Sodium (Docusate Sodium/Senna 50/8.6mg Tab) 1 tab PO QAM [facility] Stop: 01/23/23 08:59 Last Admin: 12/27/22 07:44 Dose: Not Given Vitamin D (Cholecalciferol 5,000 Units 125 Mcg Tab) 5,000 units PO DAILY [facility] Stop: 01/23/23 08:59 Last Admin: 12/27/22 07:43 Dose: 5,000 units
[2022-12-27] MEDS: DAPTOmycin 550 MG in SYRINGE 0 ML IV SCH (16:09)
[2022-12-27] MEDS ORDERED: cefTRIAXone SODIUM 2,000 MG in DEXTROSE 5% 50 ML IV SCH (17:00)
--- NOTE | 2022-12-27 17:02 | Hospitalist Progress Note ---
Date of Service December 27, 2022 Assessment & Plan (1) Bacteremia: Plan: acute bacteremia, high risk , staph species, at least 1 species is Staph epidermidis, with lumbar laminectomy, 12/16/22, with subjective fever, chills, from home also gives history that the patient received knee injection somewhere in the middle of November gram positive cultures Staph epidermidis in blood transition to daptomycin for ease of home transition. urine culture with Klebsiella- initial was consider asymptomatic bacteremia we started with ertapenem pharmacy feels cephalosporins performs been safe in the past with this patient she was transition to ceftriaxone to also cover the possibility of osteomyelitis/discitis as mentioned on CT scan from 12/25/2022 Additional blood cultures obtained on 12/26/2022 as the patient has not cleared blood cultures yet. Echocardiogram transthoracic will be ordered would likely may need to pursue transesophageal Anticipate infectious disease consultation on 12/27/2022 (2) Lumbar disc herniation with radiculopathy: Plan: Postoperative laminectomy complication in the setting of subdural fluid collection on MRI Possible cord compression CT scan performed on 12/25 feels the multiloculated subcutaneous gas fluid containing operative bed collection is likely postsurgical consult ortho spine no need for urgent surgical decompression Patient may transition to daptomycin and ceftriaxone to cover her staph and Klebsiella confirmed bacteria and also cover for osteomyelitis and suggestion of discitis is seen on CT scan from 315 No evidence of clinical nidus of infection on inspection on 12/27/2022 (3) BMI greater than 40: Plan: chronic stable high risk Obesity with BMI = 40, BMI places patient at increased risk for postoperative challenges Patient s/p laminectomy and back pain has BMI = 40 Treatment: Weight, I&O Plan is voiced displeasure on multiple occasions requesting transfer to [place]. I personally called [facility] transfer center in the afternoon of 12/27/2022. These feel that a patient generate a request require insurance prior authorization which we could procure but at this point time insurance offices are not available to get the prior authorization and if need be we need to pursue this in a nonurgent manner on business day on Friday. If the patient requires emergency services or is at risk of life or lab we can proceed with emergent transfer over the weekend Admission and Anticipated Discharge Date Admission Date: December 23, 2022 Subjective this pt is slightly confused but with direct questioning can be re oriented Patient has no focal back pain or other sites of focal discomfort that may lead to a nidus or origin of her infection Physical Exam Physical Exam: Alert and oriented x3 does have occasional visual hallucinations and nonsensical speaking No peripheral stigmata of endocarditis No cardiac murmurs lungs are clear Abdomen is NABS Expected her back wound site this is with Steri-Strips in place it is slightly tender there is no induration erythema or fluctuant material Her distal extremities are without edema her previous right knee arthroplasty site is not warm it is full range of motion no crepitus no pain her left knee which had injections in November also examines normally with exception of osteoarthritic change Results & Data Results & Data Vital Signs (Past 12 Hours) Vital Signs Temp Pulse Resp BP Pulse Ox O2 Del Method 12/27/22 07:08 98.6 F 100 H 20 179/81 H 93 Room Air Laboratory Results Reviewed CBC Reviewed PRP PG Care Time/CCT Total # of Minutes Spent Total Time Spent with Patient: Total time spent is greater than 50% in coordination of care (as documented) at patient's floor/unit and/or counseling patient: Coding Level of Care Code 87853 SUB INP/OBS CARE 3/50MIN Diagnoses Bacteremia R78.81 Lumbar disc herniation with radiculopathy M51.16 BMI greater than 40
[2022-12-27] MEDS: MELATONIN 3 MG TAB PO SCH (20:06)
[2022-12-27] MEDS: FAMOTIDINE 40 MG TABLET PO SCH (20:06)
--- NOTE | 2022-12-27 21:42 | XCELERA ---
[id number]
[2022-12-28] MEDS: ACETAMINOPHEN 325 MG TAB PO SCH ×4 (00:01→17:35)
[2022-12-28] MEDS: ENOXAPARIN INJ 40 MG/0.4 ML SYR SQ SCH ×2 (00:01→11:01)
[2022-12-28] MEDS: CYCLOBENZAPRINE HCL 10 MG TAB PO PRN ×3 (01:59→23:24)
[2022-12-28] MEDS: HYDROmorphone INJ 0.5 MG/0.5 ML SYR IV PRN ×4 (04:44→23:24)
[2022-12-28 06:34] LABS: Hematocrit (blood only) 36.1 % (37.0-47.0); Hemoglobin 12.6 g/dl (12.0-16.0); Mean Corpuscular Hemoglobin 32.3 pg (25.0-34.0); Mean Corpuscular Hgb Conc 34.9 g/dL (32.0-36.0); Mean Corpuscular Volume 92.6 fL (80.0-100.0); Mean Platelet Volume 9.9 fL (9.4-12.4); Platelet Count 401 K/uL (130-400); RDW Coefficient of Variation 13.2 % (11.5-14.5); RDW Standard Deviation 44.5 fL (36.4-46.3); White Blood Count 14.96 K/ul (4.8-10.8)
[2022-12-28 07:03] LABS: BUN Creatinine Ratio 19.6 (10-20); Calcium 8.7 mg/dl (8.5-10.1); Creatinine Clr Calc Pharmacy 105.1 ml/min; Est GFR (Non-African American) 94.1 ml/min; Magnesium 1.8 mg/dl (1.7-2.4); Potassium 3.6 mmol/L (3.5-5.1)
[2022-12-28 07:52] LABS: C Reactive Protein 28.26 mg/dl (0-0.5)
[2022-12-28] MEDS: FLUTICASONE PROPIONATE NA SPR 16 GM BTL SCH (08:13)
[2022-12-28] MEDS: FLUTICASONE/VILANTEROL 200/25MCG 14 PUFFS/INHALER INH SCH (08:14)
[2022-12-28] MEDS: DOCUSATE SODIUM/SENNA 50/8.6MG TAB PO SCH (08:15)
[2022-12-28] MEDS: LORATADINE 10 MG TAB PO SCH (08:15)
[2022-12-28] MEDS: PANTOprazole 40 MG TAB PO SCH (08:15)
[2022-12-28] MEDS: GLUCOSAMINE SULFATE 500 MG CAP PO SCH ×2 (08:15→20:42)
[2022-12-28] MEDS: CHOLECALCIFEROL 5,000 UNITS 125 MCG TAB PO SCH (08:15)
[2022-12-28] MEDS: POTASSIUM CHLORIDE CRTAB 20 MEQ TABCR PO SCH ×2 (08:16→20:42)
[2022-12-28] MEDS ORDERED: LORazepam 2 MG/1 ML VIAL IV PRN (10:15)
--- NOTE | 2022-12-28 11:26 | Orthopedic Progress Note ---
Date of Service December 28, 2022 Assessment & Plan (1) Bacteremia: Plan: At this point will obtain an MRI lumbar spine today. There is some concern that we may have to explore the operative bed as a possible source of infection. We will make further recommendations after review of updated imaging. Admission and Anticipated Discharge Date Admission Date: December 23, 2022 Subjective Patient states this morning she was up and ambulating to the bathroom without difficulty but now has back and left leg pain. Physical Exam Physical Exam: On exam she is uncomfortable when try to move in bed. She has tenderness palpation of the left lateral thigh. She is is excellent strength plantarflexion dorsiflexion bilateral lower extremities. Results & Data Vital Signs (Past 12 Hours) Vital Signs Temp Pulse Resp BP Pulse Ox O2 Del Method 12/28/22 07:06 36.9 C 100 H 20 147/82 H 94 Room Air
[2022-12-28] MEDS ORDERED: GADOBUTROL 30ML VIAL IV ONE (12:00)
--- NOTE | 2022-12-28 12:37 | Hospitalist Progress Note ---
Date of Service December 28, 2022 Assessment & Plan (1) Bacteremia: Plan: acute bacteremia, high risk , staph species, at least 1 species is Staph epidermidis, with lumbar laminectomy, 12/16/22, with subjective fever, chills, from home also gives history that the patient received knee injection somewhere in the middle of November gram positive cultures Staph epidermidis in blood transition to daptomycin for ease of home transition. Blood cultures on 12/05 are negative at this time possibility of osteomyelitis/discitis as mentioned on CT scan from 12/25/2022 as per recommendations with infectious disease consideration of back being source. Speaking with Dr. Longo her orthospine surgeon will pursue MRI of her back on 12/28/2022. If progression or persistence of fluid collection consideration of surgical decompression on 12/30/2022. urine culture with Klebsiella- initial was consider asymptomatic bacteremia infectious disease recommends stopping antibiotics Additional blood cultures obtained on 12/26/2022 as the patient has not cleared blood cultures yet. Echocardiogram transthoracic does not show evidence of valvular vegetations. Appreciate infectious disease consultation on 12/27/2022 (2) Lumbar disc herniation with radiculopathy: Plan: Postoperative laminectomy complication in the setting of subdural fluid collection on MRI Possible cord compression CT scan performed on 12/25 feels the multiloculated subcutaneous gas fluid containing operative bed collection is likely postsurgical consult ortho spine recommend repeat imaging on 318 continues on daptomycin to cover Staph epidermidis and cover for osteomyelitis and suggestion of discitis is seen on CT scan from 315 (3) BMI greater than 40: Plan: chronic stable high risk Obesity with BMI = 40, BMI places patient at increased risk for postoperative challenges Patient s/p laminectomy and back pain has BMI = 40 Treatment: Weight, I&O Plan is voiced displeasure on multiple occasions requesting transfer to [facility]. I personally called [facility] transfer center in the afternoon of 12/27/2022. These feel that a patient generate a request require insurance prior authorization which we could procure but at this point time insurance offices are not available to get the prior authorization and if need be we need to pursue this in a nonurgent manner on business day on Friday. If the patient requires emergency services or is at risk of life or lab we can proceed with emergent transfer over the weekend Admission and Anticipated Discharge Date Admission Date: December 23, 2022 Subjective Patient states she feels improved today was encouraged with some ambulation. No increased intense pain in her back. Does have monitor escalation of leukocytosis and CRP. I personally discussed this case with Dr. Longo who is in agreement with infectious disease recommendations of repeat imaging of her b ack. Physical Exam Physical Exam: Awake alert and appropriate. No cardiac murmurs or peripheral stigmata of endocarditis. Lungs are clear. Abdomen NABS soft. Patient is a previous cholecystectomy and has no right upper quadrant pain. Extremities are without sinus clubbing or edema. Her back once again is without remark showing typical postoperative recovery and changes Results & Data Results & Data Vital Signs (Past 12 Hours) Vital Signs Temp Pulse Resp BP Pulse Ox O2 Del Method 12/28/22 07:06 98.4 F 100 H 20 147/82 H 94 Room Air Laboratory Results Reviewed CBC Reviewed PRP Reviewed CRP PG Care Time/CCT Total # of Minutes Spent Total Time Spent with Patient: Total time spent is greater than 50% in coordination of care (as documented) at patient's floor/unit and/or counseling patient: Coding Level of Care Code 75100 SUB INP/OBS CARE 2/35MIN Diagnoses Bacteremia R78.81 Lumbar disc herniation with radiculopathy M51.16 BMI greater than 40
--- NOTE | 2022-12-28 12:57 | Magnetic Resonance Report ---
MRI OF THE LUMBAR SPINE WITH AND WITHOUT CONTRAST CLINICAL HISTORY: Low back and left leg pain. Evaluate for abscess or discitis. COMPARISON STUDY: Lumbar spine MRIs December 12, 2022 and December 23, 2022. Lumbar spine CT December 25, 2022 . TECHNIQUE: Utilizing a 1.5 Pinky magnet and dedicated coil, multiplanar, multiecho imaging of the claus mbar spine was performed before and after uneventful IV administration of 10 mL of Gadavist. FINDINGS: For purposes of numbering on this exam, the L5-S1 disc space is assigned to axial image 27 of 34. Alignment of the lumbar spine is anatomic. Vertebral body heights are maintained. The conus te rminates at the upper L2 level. This exam is moderately compromised by motion artifact. There are pos toperative findings consistent with right L5-S1 hemilaminotomy. The subcutaneous operative bed fluid collection with peripheral enhancement has mildly increased in size since prior MRI. This collection measures 6.1 x 3.9 cm. This communicates with the right laminectomy bed fluid collection that measure s 3.5 x 1.4 cm. This also has peripheral enhancement. The central canal and neural foramen are subopt imally assessed due to motion artifact on this exam. Diffuse epidural enhancement within the lower claus mbar and upper sacral canal is again noted. No epidural fluid collection is identified although sensi tivity is diminished on this exam. As before, the nerve roots are clustered with possible subdural fl uid collection. Arachnoiditis could appear similar. Increased fluid signal within the L5-S1 disc has increased since MRI of December 23, 2022. In addition, mildly diminished T1 marrow signal within the adj acent L5 and S1 endplates is now noted. Associated prevertebral fluid and enhancement, including pres acral fluid and enhancement has developed since previous MRI. This was shown on recent CT. No additio nal fluid collections are identified. IMPRESSION: 1. Status post right L5-S1 hemilaminectomy. 6.1 x 3.9 cm subcutaneous rim-enhancing operative bed flu id collection which contains gas and communicates with a 3.5 x 1.4 cm right laminectomy bed fluid col lection. Although nonspecific by MRI, this is suspicious for abscess formation. 2. Increased fluid signal within the L5-S1 disc suspicious for discitis with developing osteomyelitis of L5 and S1. Presacral/paravertebral fluid and enhancement is likely infectious. 3. Persistent epidural enhancement within the lower lumbar and upper sacral canal. This is nonspecifi c in the postoperative setting but could reflect an infectious process with phlegmon. No epidural flu id collection identified although sensitivity diminished given motion artifact. 4. Persistent clumping of the nerve roots within the lumbar canal. This could be due to a subdural fl uid collection or represent arachnoiditis. ACT 112: Negative or not required by law. Electronically signed by: Wilfred Ruby M.D. 12/28/2022 12:55 PM
[2022-12-28] MEDS: DAPTOmycin 550 MG in SYRINGE 0 ML IV SCH (15:15)
[2022-12-28] MEDS: LORazepam 0.5 MG TAB PO PRN (18:19)
[2022-12-28] MEDS: MELATONIN 3 MG TAB PO SCH (20:42)
[2022-12-28] MEDS: FAMOTIDINE 40 MG TABLET PO SCH (20:42)
[2022-12-29] MEDS: ACETAMINOPHEN 325 MG TAB PO SCH ×5 (00:15→23:00)
[2022-12-29] MEDS ORDERED: LORazepam 2 MG/1 ML VIAL IV ONE (02:35)
[2022-12-29 06:41] LABS: Hematocrit (blood only) 37.4 % (37.0-47.0); Hemoglobin 12.6 g/dl (12.0-16.0); Mean Corpuscular Hemoglobin 32.3 pg (25.0-34.0); Mean Corpuscular Hgb Conc 33.7 g/dL (32.0-36.0); Mean Corpuscular Volume 95.9 fL (80.0-100.0); Mean Platelet Volume 9.7 fL (9.4-12.4); Platelet Count 447 K/uL (130-400); RDW Coefficient of Variation 13.6 % (11.5-14.5); RDW Standard Deviation 48.1 fL (36.4-46.3); White Blood Count 15.78 K/ul (4.8-10.8)
--- NOTE | 2022-12-29 06:48 | Anesthesiology Consultation ---
Date of Service December 29, 2022 Assessment & Plan Chart Review Chart Review: Acceptable Risk for Surgery and Patient NOT seen in Pre Admission Testing Consults Requested none ASA ASA3 Proposed Anesthesia Anesthesia Type: General History Surgery Operation Date: 12/29/22 07:30 Proposed Procedures p Incision and Drainage Lumbar - Sandeep Longo DO Height/Weight Height: 5 ft 2 in Weight: 99.5 kg Allergies Allergy/AdvReac Type Severity Reaction Status Date / Time capsaicin Allergy Intermediate Burning up Verified 11/27/22 14:15 diclofenac Allergy Intermediate Burning up Verified 11/27/22 14:15 Diclopak Allergy Intermediate Burning up Verified 12/18/17 17:41 heparin Allergy Intermediate RASH Verified 11/27/22 14:15 isopropyl alcohol Allergy Intermediate Burning up Verified 11/27/22 14:15 levofloxacin Allergy Intermediate MUSCLE PAIN Verified 11/27/22 14:15 Macrolide Antibiotics Allergy Intermediate SWELLING Verified 11/27/22 14:15 moxifloxacin Allergy Intermediate MUSCLE PAIN Verified 11/27/22 14:15 propylene glycol Allergy Intermediate Burning up Verified 11/27/22 14:15 adhesive Allergy Mild WELTS Verified 11/27/22 14:15 Cephalosporins Allergy Mild RASH Verified 11/27/22 14:15 DIGESTIVE SYSTEM metoprolol Allergy Mild Unknown Verified 11/27/22 14:15 Sulfa (Sulfonamide Allergy Mild RASH Verified 11/27/22 14:15 Antibiotics) celecoxib Allergy Unknown Unknown Verified 11/27/22 14:15 erythromycin base Allergy Unknown UNKNOWN Verified 11/27/22 14:15 pork derived (porcine) Allergy Unknown Rash Verified 11/27/22 14:15 tramadol Allergy Unknown "wheezing, Verified 11/27/22 14:15 shortness of breath" procaine AdvReac Intermediate RACING Verified 11/27/22 14:15 HEART BEAT rofecoxib AdvReac Intermediate INCREASED Verified 11/27/22 14:15 BP SWELLING cortisone AdvReac Mild HEADCAHE Verified 11/27/22 14:15 lidocaine AdvReac Unknown RASH Verified 11/27/22 14:15 Medications Home Medications Medication Instructions Recorded Confirmed Last Taken cholecalciferol (vitamin D3) 125 5,000 unit PO DAILY 02/25/19 12/12/22 12/11/22 17:30 mcg (5,000 unit) capsule loperamide 2 mg tablet 2 mg PO HS #90 tabs 02/25/19 12/12/22 12/11/22 21:00 glucosamine sulfate 2KCl 1,000 mg 1,000 mg PO BID 04/01/19 12/12/22 12/12/22 07:00 tablet (Glucosamine Relief) multivitamin (Daily Multi-Vitamin 1 tab PO DAILY 04/01/19 12/12/22 12/11/22 17:30 tablet) vitamin E 200 unit capsule 400 units PO BID 04/01/19 12/12/22 12/12/22 07:00 calcium carbonate 600 mg calcium 1,200 mg PO DAILY 05/04/19 12/12/22 12/11/22 17:30 (1,500 mg) tablet (Calcium) ascorbate calcium-bioflavonoid 1 tab PO DAILY 08/10/19 12/12/22 12/11/22 17:30 1,000 mg-200 mg tablet (Lo-C with Bioflavonoids) fluticasone propionate 50 2 sprays intranasal QAM #48 grams 12/02/19 12/12/22 12/12/22 07:00 mcg/actuation nasal spray,suspension melatonin 5 mg capsule 10 mg PO QPM 04/26/21 12/12/22 12/11/22 22:00 fluticasone 250 mcg-salmeterol 50 1 inh inhalation BID #3 Inhalers 09/12/21 12/12/22 Unknown mcg/dose blistr powdr for inhalation (Advair Diskus) famotidine 40 mg tablet 40 mg PO HS #90 tabs 01/09/22 12/12/22 12/11/22 20:00 desloratadine 5 mg tablet 5 mg PO DAILY 90 days #90 tabs 07/09/22 12/12/22 12/12/22 07:00 (Clarinex) estradiol acetate 0.1 mg/24 hr 1 vag ring vaginal Q3MO #1 ea 08/28/22 12/12/22 Unknown vaginal ring clindamycin HCl 300 mg capsule 600 mg PO UD PRN dental procedures 09/03/22 12/12/22 Unknown #30 caps albuterol sulfate 90 mcg/actuation 2 puff inhalation Q6H PRN sob 09/19/22 12/12/22 Unknown aerosol inhaler #25.5 grams verapamil 180 mg 24 hr 180 mg PO QPM #90 caps 10/15/22 12/12/22 12/11/22 21:00 capsule,extended release rabeprazole 20 mg tablet,delayed 20 mg PO QAM 10/22/22 12/12/22 12/12/22 07:00 release cyclobenzaprine 10 mg tablet 10 mg PO TID PRN muscle spasm #30 11/27/22 12/12/22 12/12/22 07:00 tabs pindolol 5 mg tablet 5 mg PO BID #180 tabs 12/11/22 12/12/22 12/12/22 07:00 methylcellulose (laxative) 500 mg 500 mg PO DAILY 12/12/22 12/12/22 12/11/22 20:00 tablet (Citrucel) vibegron 75 mg tablet (Gemtesa) 75 mg PO DAILY 12/12/22 12/12/22 12/12/22 07:00 oxycodone 5 mg tablet 5 - 10 mg PO Q4H PRN pain #20 tabs 12/17/22 Unknown Active Medications Generic Name Dose Route Start Last Admin Trade Name [facility] PRN Reason Stop Dose Admin Acetaminophen 650 mg 12/23/22 12:00 12/29/22 05:18 Acetaminophen 325 Mg Tab PO 01/22/23 11:59 Not Given Q6HWA BRIGIDO Cyclobenzaprine HCl 10 mg 12/23/22 09:15 12/28/22 23:24 Cyclobenzaprine Hcl 10 Mg Tab PO 01/22/23 09:14 10 mg TID PRN Administration muscle spasm Famotidine 40 mg 12/23/22 21:00 12/28/22 20:42 Famotidine 40 Mg Tablet PO 01/22/23 20:59 40 mg HS BRIGIDO Administration Fluticasone Propionate 2 sprays 12/24/22 09:00 12/28/22 08:13 Fluticasone Propionate Na Spr 16 Gm Btl NA 01/23/23 08:59 2 sprays QAM BRIGIDO Administration Fluticasone/Vilanterol 1 puffs 12/24/22 09:00 12/28/22 08:14 Fluticasone/Vilanterol 200/25mcg 14 Puffs/Inhaler INH 01/23/23 08:59 1 puffs DAILY BRIGIDO Administration Glucosamine Sulfate 1,000 mg 12/23/22 21:00 12/28/22 20:42 Glucosamine Sulfate 500 Mg Cap PO 01/22/23 20:59 1,000 mg BID BRIGIDO Administration Hydromorphone HCl 0.5 mg 12/23/22 11:11 12/28/22 23:24 Hydromorphone Inj 0.5 Mg/0.5 Ml Syr IV 01/06/23 09:25 0.5 mg Q4H PRN Administration Severe Pain (Scale 7, 8, 9,10) Daptomycin 550 mg/ Syringe 11 mls @ 4.25 mls/min 12/27/22 16:00 12/28/22 15:15 IV 01/10/23 15:59 4.25 mls/min Q24H BRIGIDO Administration Protocol Loratadine 10 mg 12/24/22 09:00 12/28/22 08:15 Loratadine 10 Mg Tab PO 01/23/23 08:59 10 mg DAILY BRIGIDO Administration Protocol Lorazepam 0.5 mg 12/26/22 12:06 12/28/22 18:19 Lorazepam 0.5 Mg Tab PO 01/25/23 12:05 0.5 mg Q6H PRN Administration Anxiety Melatonin 9 mg 12/23/22 21:00 12/28/22 20:42 Melatonin 3 Mg Tab PO 01/22/23 20:59 9 mg QPM BRIGIDO Administration Pantoprazole Sodium 40 mg 12/24/22 09:00 12/28/22 08:15 Pantoprazole 40 Mg Tab PO 01/23/23 08:59 40 mg QAM BRIGIDO Administration Pindolol 1 each 12/24/22 21:00 12/28/22 20:42 Pindolol PO 01/23/23 20:59 1 each BID BRIGIDO Administration Senna/Docusate Sodium 1 tab 12/24/22 09:00 12/28/22 08:15 Docusate Sodium/Senna 50/8.6mg Tab PO 01/23/23 08:59 1 tab QAM BRIGIDO Administration Vitamin D 5,000 units 12/24/22 09:00 12/28/22 08:15 Cholecalciferol 5,000 Units 125 Mcg Tab PO 01/23/23 08:59 5,000 units DAILY BRIGIDO Administration NPO Date Last Intake of Fluids: 12/28/22 Time Last Intake of Fluids: 23:00 Date Last Intake of Solids: 12/28/22 Time Last Intake of Solids: 18:00 Last Intake of Solids Comment: dinner tray Past Medical History Medical History Asthma uses prn INH 2-3 x monthly on avg Diverticular disease Encounter for removal of sutures Esophageal reflux Fatty liver Fibromyalgia Hepatic cyst being monitored Hiatal hernia History of diverticulitis of colon History of Helicobacter pylori infection History of migraine History of stomach ulcers Hyperlipidemia Hypertension Hypothyroidism Idiopathic polyneuropathy Irritable bowel syndrome Osteoarthritis Osteopenia Tachycardia Vitamin D deficiency Exercise / Class Metabolic Activity III < 4 Walking/Shop/Light housework Past Family History Family History Father Pancreatic cancer Colorectal cancer Diabetes Gastric ulcer Grandmother (Maternal) Family history of diabetes mellitus Aunt Leukemia Mother Hypertension Osteoarthritis Stroke Mitral valve disorder History of nephrolithiasis Daughter Asthma Emphysema of lung Polycystic ovarian syndrome Son Myocardial infarction Hypertension Diabetes Arthritis Obesity Sister Arthritis Dyslipidemia Hypertension Brother Gastric ulcer Dyslipidemia Hypertension Denies family history of Ovarian cancer Prostate cancer Breast cancer Past Surgical History Surgical History History of appendectomy History of cardiac cath 2003 - [facility] - abn stress test - no stents/angioplasty - follows w/ Dr. Mcneill History of cholecystectomy History of colonoscopy History of cystoscopy History of D&C History of esophagogastroduodenoscopy (EGD) History of lumpectomy History of right knee joint replacement History of tonsillectomy and adenoidectomy History of tooth extraction HX: benign breast biopsy 2013, right fibroadenoma Status post complete hysterectomy Past Anesthesia History No Hx of Anesthesia Complications and No Family Hx of Anesthesia Complications History of PONV No Hx of PONV and No Hx of Motion Sickness Social History Smoking Status: Former smoker Hx Alcohol Use: Yes Alcohol type: wine alcohol intake frequency: holidays/special occasions only Hx Substance Use: No substance use type: does not use Physical Exam Vital Signs Last Vital Signs Temp 36.8 C 12/29/22 05:04 Pulse 98 H 12/29/22 05:04 Resp 18 12/29/22 05:04 BP 146/71 H 12/29/22 05:04 Pulse Ox 95 12/29/22 05:04 O2 Del Method Room Air 12/29/22 05:04 Testing Laboratory Results 12/29/22 06:18 Urine Color Yellow 12/23/22 21:00 Urine Appearance Clear (Clear) 12/23/22 21:00 Urine pH 6.0 (4.5-7.5) 12/23/22 21:00 Ur Specific [place] 1.033 (1.000-1.030) H 12/23/22 21:00 Urine Protein 1+ (Negative) H 12/23/22 21:00 Urine Glucose (UA) Trace (Negative) H 12/23/22 21:00 Urine Ketones Trace (Negative) H 12/23/22 21:00 Urine Nitrite Positive (Negative) A 12/23/22 21:00 Ur Leukocyte Esterase Negative (Negative) 12/23/22 21:00 Urine WBC (Auto) 1-5 /hpf (0-5) 12/23/22 21:00 Urine RBC (Auto) 0-4 /hpf (0-4) 12/23/22 21:00 U Hyaline Cast (Auto) 1-5 /lpf (0-5) 12/23/22 21:00 U Epithel Cells (Auto) 20-30 /lpf (0-5) H 12/23/22 21:00 Urine Bacteria (Auto) 4+ (Negative) H 12/23/22 21:00 12/27/22 08:48 Aerobic Blood Culture - Preliminary Blood Gram positive cocci clusters Anaerobic Blood Culture - Preliminary Gram positive cocci clusters 12/26/22 16:02 Aerobic Blood Culture - Preliminary Blood No growth in Aerobic bottle after 48 hours. Anaerobic Blood Culture - Preliminary Gram positive cocci clusters 12/27/22 09:02 Aerobic Blood Culture - Preliminary Blood No growth in Aerobic bottle after 24 hours. Anaerobic Blood Culture - Preliminary No growth in Anaerobic bottle after 24 hours. 12/26/22 16:14 Aerobic Blood Culture - Preliminary Blood Gram positive cocci clusters Anaerobic Blood Culture - Final 12/25/22 15:10 Aerobic Blood Culture - Final Blood Staphylococcus epidermidis Anaerobic Blood Culture - Final Staphylococcus epidermidis 12/25/22 15:00 Aerobic Blood Culture - Final Blood Staphylococcus epidermidis Anaerobic Blood Culture - Final Staphylococcus epidermidis 12/23/22 06:36 Aerobic Blood Culture - Final Blood Staphylococcus epidermidis#2 Staphylococcus epidermidis Anaerobic Blood Culture - Final Staphylococcus epidermidis#2 Staphylococcus epidermidis 12/23/22 Unknown Aerobic Blood Culture - Final Blood Staphylococcus epidermidis#2 Staphylococcus epidermidis Anaerobic Blood Culture - Final Staphylococcus epidermidis#2 Staphylococcus epidermidis 12/23/22 21:00 Urine Culture - Final Urine,Clean Catch Klebsiella pneumoniae Electrocardiogram Date: 02/01/20 Findings: + NSR @ (@ 80) Chest X-Ray Date: 10/10/22 Findings: + NAD and + cardiomegaly (mild) Echocardiogram Date: 12/27/22 EF: > 70% hyperdynamic fxn LV Function: normal RWMA: + none Other Findings: + LVH (mild) Valvular Disease: + no significant valvular disease
[2022-12-29 07:00] LABS: BUN Creatinine Ratio 23.6 (10-20); Calcium 9.1 mg/dl (8.5-10.1); Creatinine Clr Calc Pharmacy 97.5 ml/min; Est GFR (African American) 106.3 ml/min; Est GFR (Non-African American) 91.8 ml/min; Magnesium 1.8 mg/dl (1.7-2.4); Potassium 4.3 mmol/L (3.5-5.1)
[2022-12-29] MEDS ORDERED: VANCOMYCIN HCL 1000MG/20ML VIAL ONE ×2 (07:14→08:43)
[2022-12-29] MEDS ORDERED: GENTAMICIN SULFATE 40 MG/ML 2 ML VIAL ONE ×2 (07:15→08:43)
[2022-12-29] MEDS ORDERED: BUPIVACAINE/EPINEPHRINE 0.25% 1:200,000 30 ML VIAL ONE (07:18)
[2022-12-29] MEDS ORDERED: BUPIVACAINE/EPINEPHRINE 0.5% MPF 1:200,000 30 ML VIAL ONE (07:19)
[2022-12-29] MEDS ORDERED: PROPOFOL IV EMULSION 10 MG/ML 20 ML VIAL IV ONE (07:19)
--- NOTE | 2022-12-29 07:19 | History & Physical Bridge Note ---
Date of Service December 29, 2022 History & Physical Bridge Note I have examined the patient, reviewed the History & Physical and in the interval since the performance of the History & Physical I have noted the following changes of clinical significance: Irrigation and debridement lumbar spine
[2022-12-29] MEDS ORDERED: ceFAZolin 330 MG/ML 1 GM VIAL ONE (07:20)
[2022-12-29] MEDS ORDERED: fentaNYL citrate PF 100 MCG/2 ML VIAL ONE ×2 (07:23→09:27)
[2022-12-29] MEDS ORDERED: CISATRACURIUM BESYLATE IV SOLN 2 MG/ML 10 ML VIAL IV ONE (07:24)
[2022-12-29] MEDS ORDERED: SUCCINYLCHOLINE CHLORIDE 20 MG/ML 10 ML VIAL IV ONE (07:24)
[2022-12-29] MEDS ORDERED: MIDAZOLAM HCL 1 MG/ML 2ML VIAL ONE (07:24)
[2022-12-29] MEDS ORDERED: PHENYLEPHRINE HCL 10 MG/ML VIAL ONE (07:25)
[2022-12-29] MEDS ORDERED: ePHEDrine sulfate 50 MG/ML AMP ONE (07:27)
[2022-12-29] MEDS ORDERED: GLYCOPYRROLATE 0.2 MG/ML VIAL ONE (08:37)
[2022-12-29] MEDS ORDERED: NEOSTIGMINE METHYLSULFATE 1 MG/ML 10ML VIAL ONE (08:37)
--- NOTE | 2022-12-29 09:06 | Operative Report ---
Post Operative Report Pre & Post Diagnosis Operation Date: 12/29/22 07:30 Pre-Op Diagnosis: Lumbar Spine Abscess Post-Op Diagnosis: Lumbar Spine Abscess I identified the patient and participated in the time-out.: Yes Procedure Operation Date: 12/29/22 07:30 Actual Procedures #1 revision laminotomy L5-S1 on the right. #2 irrigation debridement lumbar spine abscess Surgeon Sandeep Longo, DO [place] [employer] None Estimated Blood Loss 50 Findings Consistent with Post-Op Diagnosis Gross purulence in the subcutaneous tissue. Exploration of the epidural space found no gross infection. Specimens Lumbar cultures Indications This is a 77-year-old female who presents with bacteremia and marked changes in her MRI from 1 performed several days ago. Subsequently she is undergoing urgent surgery. Description of Procedure Patient was met with identified informed consent obtained. Patient was then taken to the operative suite underwent a patient placed in a prone position the Floyd table top of the Johnny frame. All bony promises well-padded eyes inspected to ensure no external pressure placed upon them. This point the lumbar spine was prepped and draped in a sterile fashion. Using the previous incision site sharp dissection formed down to and exposing the lumbar fascia. Gross purulence was identified as well as some modest tracking. I extended the incision a centimeter on either end for further exposure and debridement. Cultures were obtained. Several liters of antibiotic solution were then irrigated. I then released the fascial sutures to the L5-S1 lamina on the right. A small revision laminotomy was performed and I explored the epidural space and did not identify any evidence of epidural abscess. I then irrigated the wound with a few more liters of saline. A 15 round PHANI drain was then inserted. I then placed approximately-5 cc of stimulant beads impregnated with vancomycin gentamicin throughout the incision. Incision was then closed with subcutaneous Vicryl and luda for final skin closure. Sterile dressing placed. Patient waken taken to PACU stable condition. I attest to the content of the Intraoperative Record and any orders documented therein. Any exceptions are noted below.
[2022-12-29] MEDS ORDERED: PROMETHAZINE HCL 12.5 MG in SODIUM CHLORIDE 0.9% 50 ML IV PRN (09:24)
[2022-12-29] MEDS ORDERED: ATROPINE SULFATE 0.1 MG/ML 10ML SYR IV PRN (09:24)
[2022-12-29] MEDS ORDERED: FLUMAZENIL 0.1 MG/1 ML 10 ML VIAL IV PRN (09:24)
[2022-12-29] MEDS ORDERED: NALOXONE HCL 0.4 MG/1 ML VIAL/CARP IV PRN (09:24)
[2022-12-29] MEDS ORDERED: ONDANSETRON INJ 2 MG/ML 2 ML VIAL IV PRN (09:24)
[2022-12-29] MEDS ORDERED: ePHEDrine sulfate 50 MG/ML AMP IV PRN (09:24)
[2022-12-29] MEDS: fentaNYL citrate PF 100 MCG/2 ML VIAL IV PRN ×2 (09:28→09:33)
--- NOTE | 2022-12-29 09:56 | Anesthesiology Progress Note ---
Date of Service December 29, 2022 Anesthesia Post Procedure Vital Signs Vital Signs: Temp Pulse Pulse Pulse Resp BP Pulse Ox 12/29/22 09:35 98 H 12 142/91 H 94 12/29/22 09:25 98 H 15 148/128 H 95 12/29/22 09:18 36.6 C 83 22 157/60 H 97 12/29/22 07:20 36.6 C 106 H 19 159/70 H 97 12/28/22 20:35 12/29/22 05:04 36.8 C 98 H 18 146/71 H 95 12/28/22 22:12 36.3 C L 98 H 18 147/69 H 98 12/28/22 20:44 37.3 C 108 H 18 141/70 H 92 12/28/22 15:30 36.3 C L 66 18 136/82 93 O2 Del Method O2 Flow Rate 12/29/22 09:35 Nasal Cannula 4 12/29/22 09:25 Oxymask 7 12/29/22 09:18 Oxymask 7 12/29/22 07:20 Room Air 12/28/22 20:35 Room Air 12/29/22 05:04 Room Air 12/28/22 22:12 Room Air 12/28/22 20:44 Room Air 12/28/22 15:30 Room Air Pain Intensity Back: Pain Intensity: 8 Transfer of Care Handoff Completed per policy Notes Mental Status: alert / awake / arousable Patient Amnestic to Procedure: Yes Nausea / Vomiting: adequately controlled Pain: adequately controlled Airway Patency, RR, SpO2: stable & adequate BP & HR: stable & adequate Hydration State: stable & adequate Anesthetic Complications: no major complications apparent
--- NOTE | 2022-12-29 10:36 | Electrocardiogram Report ---
Test Reason : Blood Pressure : / mmHG Vent. Rate : 104 BPM Atrial Rate : 104 BPM P-R Int : 166 ms QRS Dur : 078 ms QT Int : 314 ms P-R-T Axes : 047 039 080 degrees QTc Int : 412 ms Poor data quality, interpretation may be adversely affected Sinus tachycardia Abnormal ECG Confirmed by Anmol Keys ([id number]) on 12/29/2022 10:35:29 AM Referred By: REFERRED SELF Confirmed By:Zafar Keys
[2022-12-29] MEDS: CHOLECALCIFEROL 5,000 UNITS 125 MCG TAB PO SCH (11:58)
[2022-12-29] MEDS: DOCUSATE SODIUM/SENNA 50/8.6MG TAB PO SCH (11:58)
[2022-12-29] MEDS: GLUCOSAMINE SULFATE 500 MG CAP PO SCH ×2 (11:59→21:44)
[2022-12-29] MEDS: LORATADINE 10 MG TAB PO SCH (11:59)
--- NOTE | 2022-12-29 12:21 | Hospitalist Progress Note ---
Date of Service December 29, 2022 Assessment & Plan (1) Bacteremia: Plan: acute bacteremia, high risk , staph species, at least 1 species is Staph epidermidis, with lumbar laminectomy, 12/16/22, with subjective fever, chills, from home gram positive cultures Staph epidermidis in blood transition to daptomycin for ease of home transition. With persistently positive blood cultures and imaging suggestive of fluid collection patient was taken to the operating room on 12/30/2019 3 subcutaneous abscess was identified and drained irrigated and beads of vancomycin and gentamicin placed prior to wound closure. Drain was left in place, intraoperative cultures were collected urine culture with Klebsiella- initial was consider asymptomatic bacteremia infectious disease recommends stopping antibiotics We will need to have clear blood cultures prior to instituting a longer-term line for persistent treatment of the bacteremia Echocardiogram transthoracic does not show evidence of valvular vegetations. Appreciate infectious disease consultation on 12/27/2022 Parenteral pain medications are required (2) Lumbar disc herniation with radiculopathy: Plan: Postoperative laminectomy complication in the setting of subdural fluid collection on MRI Patient had exploration of wound on 12/29 small revision of laminectomy was performed continues on daptomycin to cover Staph epidermidis and intraoperative bead placement containing vancomycin and gentamicin 12/29/2022 (3) BMI greater than 40: Plan: chronic stable high risk Obesity with BMI = 40, BMI places patient at increased risk for postoperative challenges Patient s/p laminectomy and back pain has BMI = 40 Treatment: Weight, I&O Plan After patient in OR is pleased with her care and does not wish for transfer at this point time Admission and Anticipated Discharge Date Admission Date: December 23, 2022 Subjective This patient was seen as she medial arrived to the floor postoperatively. She was recovering well though slightly sedate she was having some discomfort in her back and nursing was going to administer as needed pain medications. Good distal strength and sensation to her feet Physical Exam Physical Exam: Patient awake she is oriented x2 she knew who I was she had no focal complaints of pain with exception of the surgical site she had no neurological compromise Results & Data Results & Data Vital Signs (Past 12 Hours) Vital Signs Temp Pulse Pulse Resp BP Pulse Ox O2 Del Method 12/29/22 11:20 98.8 F 102 H 18 148/81 H 96 Nasal Cannula 12/29/22 10:50 98.2 F 104 H 18 127/65 98 Nasal Cannula 12/29/22 10:20 Nasal Cannula 12/29/22 10:20 99.0 F 102 H 18 142/78 H 98 Nasal Cannula 12/29/22 10:11 93 H 21 96 Nasal Cannula 12/29/22 09:55 97.7 F 99 H 21 141/92 H 97 Nasal Cannula 12/29/22 09:35 98 H 12 142/91 H 94 Nasal Cannula 12/29/22 09:25 98 H 15 148/128 H 95 Oxymask 12/29/22 09:45 93 H 18 145/103 H 99 Nasal Cannula 12/29/22 09:18 97.9 F 83 22 157/60 H 97 Oxymask 12/29/22 07:20 97.9 F 106 H 19 159/70 H 97 Room Air 12/29/22 05:04 98.2 F 98 H 18 146/71 H 95 Room Air O2 Flow Rate 12/29/22 11:20 12/29/22 10:50 4 12/29/22 10:20 4 12/29/22 10:20 4 12/29/22 10:11 4 12/29/22 09:55 4 12/29/22 09:35 4 12/29/22 09:25 7 12/29/22 09:45 4 12/29/22 09:18 7 12/29/22 07:20 12/29/22 05:04 Laboratory Results Reviewed CBC Reviewed PRP Reviewed operative report PG Care Time/CCT Total # of Minutes Spent Total Time Spent with Patient: Total time spent is greater than 50% in coordination of care (as documented) at patient's floor/unit and/or counseling patient: Coding Level of Care Code 59058 SUB INP/OBS CARE 3/50MIN Diagnoses Bacteremia R78.81 Lumbar disc herniation with radiculopathy M51.16 BMI greater than 40
[2022-12-29] MEDS: PANTOprazole 40 MG TAB PO SCH (12:22)
[2022-12-29] MEDS: FLUTICASONE/VILANTEROL 200/25MCG 14 PUFFS/INHALER INH SCH (12:23)
[2022-12-29] MEDS: FLUTICASONE PROPIONATE NA SPR 16 GM BTL SCH (12:23)
[2022-12-29] MEDS: CYCLOBENZAPRINE HCL 10 MG TAB PO PRN ×2 (12:27→18:14)
[2022-12-29] MEDS: HYDROmorphone INJ 0.5 MG/0.5 ML SYR IV PRN ×3 (12:27→22:56)
[2022-12-29] MEDS: DAPTOmycin 550 MG in SYRINGE 0 ML IV SCH (15:36)
[2022-12-29] MEDS: MELATONIN 3 MG TAB PO SCH (21:44)
[2022-12-29] MEDS: FAMOTIDINE 40 MG TABLET PO SCH (21:45)
[2022-12-30] MEDS: HYDROmorphone INJ 0.5 MG/0.5 ML SYR IV PRN (04:48)
[2022-12-30] MEDS: CYCLOBENZAPRINE HCL 10 MG TAB PO PRN (04:48)
[2022-12-30] MEDS: ACETAMINOPHEN 325 MG TAB PO SCH ×4 (05:57→23:42)
[2022-12-30 07:06] LABS: Hematocrit (blood only) 35.8 % (37.0-47.0); Hemoglobin 12.2 g/dl (12.0-16.0); Mean Corpuscular Hemoglobin 32.4 pg (25.0-34.0); Mean Corpuscular Hgb Conc 34.1 g/dL (32.0-36.0); Mean Corpuscular Volume 95.2 fL (80.0-100.0); Platelet Count 459 K/uL (130-400); RDW Coefficient of Variation 13.6 % (11.5-14.5); RDW Standard Deviation 48.1 fL (36.4-46.3); Red Blood Count 3.76 M/uL (4.20-5.40); White Blood Count 13.91 K/ul (4.8-10.8)
[2022-12-30 07:18] LABS: BUN Creatinine Ratio 22.2 (10-20); Calcium 8.9 mg/dl (8.5-10.1); Creatinine Clr Calc Pharmacy 99.3 ml/min; Est GFR (Non-African American) 92.3 ml/min; Potassium 3.7 mmol/L (3.5-5.1)
[2022-12-30] MEDS: CHOLECALCIFEROL 5,000 UNITS 125 MCG TAB PO SCH (08:53)
[2022-12-30] MEDS: DOCUSATE SODIUM/SENNA 50/8.6MG TAB PO SCH (08:53)
[2022-12-30] MEDS: LORATADINE 10 MG TAB PO SCH (08:53)
[2022-12-30] MEDS: FLUTICASONE PROPIONATE NA SPR 16 GM BTL SCH (08:54)
[2022-12-30] MEDS: FLUTICASONE/VILANTEROL 200/25MCG 14 PUFFS/INHALER INH SCH (08:55)
--- NOTE | 2022-12-30 10:13 | Orthopedic Progress Note ---
Date of Service December 30, 2022 Assessment & Plan (1) Asymptomatic bacteriuria: Plan: At this time we will initiate physical therapy as tolerated. Maintain the PHANI drain for another day or so. Admission and Anticipated Discharge Date Admission Date: December 23, 2022 Subjective Complaining of back pain no leg pain Physical Exam Physical Exam: Patient in the chair at the bedside. She is neurologically intact. Results & Data Vital Signs (Past 12 Hours) Vital Signs Temp Pulse Pulse Resp BP Pulse Ox O2 Del Method 12/30/22 08:07 36.6 C 98 H 16 134/80 94 Room Air 12/30/22 03:01 36.6 C 91 H 16 144/79 H 94 Room Air 12/29/22 22:15 36.7 C 96 H 16 131/77 94 Room Air
--- NOTE | 2022-12-30 10:59 | Infectious Disease Progress Nt ---
Date of Service December 30, 2022 Assessment & Plan (1) Bacteremia: Plan: PROBLEM LIST #MRSE Bacteremia 12/23 ongoing #Fluid collection at hemilaminectomy site- abscess with purulent fluid noted in OR #. Diffuse epidural enhancement within the lower lumbar and upper sacral spine- presumed discitis/osteo #recent L5-S1 laminectomy 77yo female with history of HTN, HLP, GERD, fibromyalgia, R knee replacement, L knee intra-articular injections most recent in November 2022, admitted on [facility] for ongoing pain secondary to Lumbar disc herniation with radiculopathy s/p L5-S1 laminectomy on December 16. Admitted with progressing back pain. Infectious diseases consulted for Staph epi bacteremia. Patient was having subjective fevers at home and progressively worsening back pain and readmitted to [facility]. On admission on 12/23 she was afebrile, WBC 12.6, 12/23 Blood cultures drawn growing 01/14 MRSE, Blood cx 12/25, 12/26 and 12/27 positive. patient was initiated on Vancomycin on 12/23. 12/23 MRI with following Read: 1. Status post right L5-S1 hemilaminotomy. 1.6 cm laminotomy site fluid collection is postsurgical. 4 x 3.8 x 2 cm subcutaneous operative bed fluid collection is also postsurgical and expected in the early postoperative setting. 2. Diffuse epidural enhancement within the lower lumbar and upper sacral spine. This is nonspecific although likely postsurgical. An infectious process with epi dural phlegmon could appear similar. No epidural fluid collection to suggest abscess. Short-term follow-up MRI with and without contrast is suggested if persistent symptoms. 3. Suspected nonspecific subdural fluid collection extending from the lower L2- S1 levels with moderate compression of the nerve roots. CT lumbar spine 1. Status post right L5-S1 hemilaminotomy. Suboptimal evaluation of the central canal and neural foramen given CT technique. 3.7 cm multiloculated subcutaneous gas and fluid containing operative bed collection is likely pos tsurgical. However, sterility cannot be assessed by CT. 2. Mild paravertebral stranding at the L5-S1 level. Although this could be postsurgical, this raises the possibility of discitis TTE unable to r/o vegetations but without valvular dysfunction MRI L-spine 12/28 : Status post right L5-S1 hemilaminectomy. 6.1 x 3.9 cm subcutaneous rim-enhancing operative bed fluid collection which contains gas and communicates with a 3.5 x 1.4 cm right laminectomy bed fluid collection. Although nonspecific by MRI, this is suspicious for abscess formation. pt s/p 12/29 #1 revision laminotomy L5-S1 on the right. #2 irrigation debridement lumbar spine abscess Per OR note, Gross purulence in the subcutaneous tissue. Exploration of the epidural space found no gross infection. vanco/gent impregnated beads and PHANI drain placed 12/27 Bcxs remain positive for MRSE 12/28 OR cx pending (2) Lumbar disc herniation with radiculopathy: Plan -Will need to document bacteremia clearance- repeat ordered today -ROXANNA unlikely to guide changer at this time- source of infection is discitis/osteo which will already require extended course of abx -s/p OR-OR cx pending- pt with retained hardware at this time -Currently on Dapto 8mg/kg ABW qdaily, CPK baseline ok, she is not on a statin Please page with any questions. Gloria Montez M.D. [facility] [employer] Pager [phone] Admission and Anticipated Discharge Date Admission Date: December 23, 2022 Subjective This patient recommendation is based on a telemedicine consult request which was completed asynchronously through chart review and information provided by the primary physician. The patient was not seen or examined today. The evaluation is consultative in nature and all patient care and treatment decisions can either be accepted or rejected by the patient's primary hospital-based treating physician using their own independent medical judgment for their patient. Time Spent Reviewing Chart: 31+ minutes pt afebrile. TTE unable to r/o vegetations. MRI L-spine 12/28 : Status post right L5-S1 hemilaminectomy. 6.1 x 3.9 cm subcutaneous rim-enhancing operative bed fluid collection which contains gas and communicates with a 3.5 x 1.4 cm right laminectomy bed fluid collection. Although nonspecific by MRI, this is suspicious for abscess formation. pt s/p 12/29 #1 revision laminotomy L5-S1 on the right. #2 irrigation debridement lumbar spine abscess Per OR note, Gross purulence in the subcutaneous tissue. Exploration of the epidural space found no gross infection. vanco/gent impregnated beads and PHANI drain placed Results & Data Vital Signs (Past 12 Hours) Vital Signs Temp Pulse Pulse Resp BP Pulse Ox O2 Del Method 12/30/22 08:07 36.6 C 98 H 16 134/80 94 Room Air 12/30/22 03:01 36.6 C 91 H 16 144/79 H 94 Room Air Laboratory Results 12/27/22 09:02 Aerobic Blood Culture - Preliminary Blood Staphylococcus epidermidis Anaerobic Blood Culture - Preliminary No growth in Anaerobic bottle after 48 hours. 12/27/22 08:48 Aerobic Blood Culture - Preliminary Blood Staphylococcus epidermidis Anaerobic Blood Culture - Preliminary Staphylococcus epidermidis 12/26/22 16:02 Aerobic Blood Culture - Preliminary Blood No growth in Aerobic bottle after 48 hours. Anaerobic Blood Culture - Preliminary Staphylococcus epidermidis 12/26/22 16:14 Aerobic Blood Culture - Preliminary Blood Staphylococcus epidermidis Anaerobic Blood Culture - Final 12/29/22 08:29 Gram Stain - Final Back Aerobic and Anaerobic Culture - Pending 12/30/22 12/30/22 06:26 06:26 WBC 13.91 H RBC 3.76 L Hgb 12.2 Hct 35.8 L MCV 95.2 MCH 32.4 MCHC 34.1 RDW Std Deviation 48.1 H RDW Coeff of Mendez 13.6 Plt Count 459 H MPV 10.0 Sodium 131 L Potassium 3.7 Chloride 96 L Carbon Dioxide 26 Anion Gap 9 BUN 12 Creatinine 0.54 L Est Cr Clr Drug Dosing 99.3 Est GFR ( Amer) 107.0 Est GFR (Non-Af Amer) 92.3 BUN/Creatinine Ratio 22.2 H Glucose 199 H Calcium 8.9 Diagnostic Findings Lumbar Spine MRI 12/28/22 10:32 MRI OF THE LUMBAR SPINE WITH AND WITHOUT CONTRAST CLINICAL HISTORY: Low back and left leg pain. Evaluate for abscess or discitis. COMPARISON STUDY: Lumbar spine MRIs December 12, 2022 and December 23, 2022. Lumbar spine CT December 25, 2022. TECHNIQUE: Utilizing a 1.5 Pinky magnet and dedicated coil, multiplanar, multiecho imaging of the lumbar spine was performed before and after uneventful IV administration of 10 mL of Gadavist. FINDINGS: For purposes of numbering on this exam, the L5-S1 disc space is assigned to axial image 27 of 34. Alignment of the lumbar spine is anatomic. Vertebral body heights are maintained. The conus terminates at the upper L2 level. This exam is moderately compromised by motion artifact. There are postoperative findings consistent with right L5-S1 hemilaminotomy. The subcutaneous operative bed fluid collection with peripheral enhancement has mildly increased in size since prior MRI. This collection measures 6.1 x 3.9 cm. This communicates with the right laminectomy bed fluid collection that measures 3.5 x 1.4 cm. This also has peripheral enhancement. The central canal and neural foramen are suboptimally assessed due to motion artifact on this exam. Diffuse epidural enhancement within the lower lumbar and upper sacral canal is again noted. No epidural fluid collection is identified although sensitivity is diminished on this exam. As before, the nerve roots are clustered with possible subdural fluid collection. Arachnoiditis could appear similar. Increased fluid signal within the L5-S1 disc has increased since MRI of December 23, 2022. In addition, mildly diminished T1 marrow signal within the adjacent L5 and S1 endplates is now noted. Associated prevertebral fluid and enhancement, including presacral fluid and enhancement has developed since previous MRI. This was shown on recent CT. No additional fluid collections are identified. IMPRESSION: 1. Status post right L5-S1 hemilaminectomy. 6.1 x 3.9 cm subcutaneous rim- enhancing operative bed fluid collection which contains gas and communicates with a 3.5 x 1.4 cm right laminectomy bed fluid collection. Although nonspecific by MRI, this is suspicious for abscess formation. 2. Increased fluid signal within the L5-S1 disc suspicious for discitis with developing osteomyelitis of L5 and S1. Presacral/paravertebral fluid and enhancement is likely infectious. 3. Persistent epidural enhancement within the lower lumbar and upper sacral canal. This is nonspecific in the postoperative setting but could reflect an infectious process with phlegmon. No epidural fluid collection identified although sensitivity diminished given motion artifact. 4. Persistent clumping of the nerve roots within the lumbar canal. This could be due to a subdural fluid collection or represent arachnoiditis. ACT 112: Negative or not required by law. Electronically signed by: Wilfred Ruby M.D. 12/28/2022 12:55 PM Medications Administered Current Medications Acetaminophen (Acetaminophen 325 Mg Tab) 650 mg PO Q6HWA [facility] Stop: 01/22/23 11:59 Last Admin: 12/30/22 05:57 Dose: 650 mg Albuterol (Albuterol Hfa 8 Gm Inhaler) 2 puffs INH Q6H PRN; Protocol PRN Reason: sob Stop: 01/22/23 09:14 Cyclobenzaprine HCl (Cyclobenzaprine Hcl 10 Mg Tab) 10 mg PO TID PRN PRN Reason: muscle spasm Stop: 01/22/23 09:14 Last Admin: 12/30/22 04:48 Dose: 10 mg Famotidine (Famotidine 40 Mg Tablet) 40 mg PO HS [facility] Stop: 01/22/23 20:59 Last Admin: 12/29/22 21:45 Dose: 40 mg Fluticasone Propionate (Fluticasone Propionate Na Spr 16 Gm Btl) 2 sprays NA QAM [facility]O Stop: 01/23/23 08:59 Last Admin: 12/30/22 08:54 Dose: 2 sprays Fluticasone/Vilanterol (Fluticasone/Vilanterol 200/25mcg 14 Puffs/Inhaler) 1 puffs INH DAILY [facility] Stop: 01/23/23 08:59 Last Admin: 12/30/22 08:55 Dose: 1 puffs Glucosamine Sulfate (Glucosamine Sulfate 500 Mg Cap) 1,000 mg PO BID [facility] Stop: 01/22/23 20:59 Last Admin: 12/29/22 21:44 Dose: 1,000 mg Hydromorphone HCl (Hydromorphone Inj 0.5 Mg/0.5 Ml Syr) 0.5 mg IV Q4H PRN PRN Reason: Severe Pain (Scale 7, 8, 9,10) Stop: 01/06/23 09:25 Last Admin: 12/30/22 04:48 Dose: 0.5 mg Hydromorphone HCl (Hydromorphone Inj 0.5 Mg/0.5 Ml Syr) 0.25 mg IV Q4H PRN PRN Reason: Moderate Pain (Scale 4, 5, 6) Stop: 01/06/23 09:23 Last Admin: 12/30/22 08:52 Dose: 0.25 mg Daptomycin 550 mg/ Syringe 11 mls @ 4.25 mls/min IV Q24H [facility]; Protocol Stop: 01/10/23 15:59 Last Admin: 12/29/22 15:36 Dose: 4.25 mls/min Loratadine (Loratadine 10 Mg Tab) 10 mg PO DAILY [facility]; Protocol Stop: 01/23/23 08:59 Last Admin: 12/30/22 08:53 Dose: 10 mg Lorazepam (Lorazepam 0.5 Mg Tab) 0.5 mg PO Q6H PRN PRN Reason: Anxiety Stop: 01/25/23 12:05 Last Admin: 12/28/22 18:19 Dose: 0.5 mg Melatonin (Melatonin 3 Mg Tab) 9 mg PO QPM [facility] Stop: 01/22/23 20:59 Last Admin: 12/29/22 21:44 Dose: 9 mg Pantoprazole Sodium (Pantoprazole 40 Mg Tab) 40 mg PO QAM [facility] Stop: 01/23/23 08:59 Last Admin: 12/29/22 12:22 Dose: 40 mg Pindolol (Pindolol) 1 each PO BID [facility] Stop: 01/23/23 20:59 Last Admin: 12/30/22 08:54 Dose: 1 each Senna/Docusate Sodium (Docusate Sodium/Senna 50/8.6mg Tab) 1 tab PO QAM [facility] Stop: 01/23/23 08:59 Last Admin: 12/30/22 08:53 Dose: 1 tab Vitamin D (Cholecalciferol 5,000 Units 125 Mcg Tab) 5,000 units PO DAILY [facility] Stop: 01/23/23 08:59 Last Admin: 12/30/22 08:53 Dose: 5,000 units
[2022-12-30] MEDS: PANTOprazole 40 MG TAB PO SCH (16:03)
[2022-12-30] MEDS: GLUCOSAMINE SULFATE 500 MG CAP PO SCH ×2 (16:03→20:01)
[2022-12-30] MEDS: DAPTOmycin 550 MG in SYRINGE 0 ML IV SCH (16:06)
--- NOTE | 2022-12-30 16:39 | Hospitalist Progress Note ---
Date of Service December 30, 2022 Assessment & Plan (1) Bacteremia: Plan: acute bacteremia, high risk , staph species, at least 1 species is Staph epidermidis, with lumbar laminectomy, 12/16/22, with subjective fever, chills, from home gram positive cultures Staph epidermidis in blood transition to daptomycin for ease of home transition. With persistently positive blood cultures and imaging suggestive of fluid collection patient was taken to the operating room on 12/30/2019 3 subcutaneous abscess was identified and drained irrigated and beads of vancomycin and gentamicin placed prior to wound closure. Drain was left in place, intraoperative cultures were collected urine culture with Klebsiella- initial was consider asymptomatic bacteremia infectious disease recommends stopping antibiotics We will need to have clear blood cultures prior to instituting a longer-term line for persistent treatment of the bacteremia Echocardiogram transthoracic does not show evidence of valvular vegetations. Appreciate infectious disease consultation, additional cultures ordered on 12/30 by infectious disease. Appreciate recommendations of not pursuing ROXANNA as it may not change course and will need a prolonged course given her osteomyelitis discitis. We will await intraoperative cultures and clearing of peripheral cultures prior to placing any type of long-term Continues on daptomycin Parenteral pain medications are required (2) Lumbar disc herniation with radiculopathy: Plan: Postoperative laminectomy complication in the setting of subdural fluid collection on MRI Patient had exploration of wound on 12/29 small revision of laminectomy was performed continues on daptomycin to cover Staph epidermidis and intraoperative bead placement containing vancomycin and gentamicin 12/29/2022 (3) BMI greater than 40: Plan: chronic stable high risk Obesity with BMI = 40, BMI places patient at increased risk for postoperative challenges Patient s/p laminectomy and back pain has BMI = 40 Treatment: Weight, I&O Plan After patient in OR is pleased with her care and does not wish for transfer at this point time Admission and Anticipated Discharge Date Admission Date: December 23, 2022 Subjective Patient awake alert oriented she appears much improved from the days past given her recent abscess drainage. Physical Exam Physical Exam: Awake and oriented x3 cardiac exam is regular there is no murmurs or peripheral stigmata of endocarditis lungs are clear without wheezes or crackles extremities are without neurological compromise she does have some focal back pain Results & Data Results & Data Vital Signs (Past 12 Hours) Vital Signs Temp Pulse Pulse Resp BP Pulse Ox O2 Del Method 12/30/22 15:08 98.6 F 94 H 18 144/78 H 96 Room Air 12/30/22 08:07 97.9 F 98 H 16 134/80 94 Room Air PG Care Time/CCT Total # of Minutes Spent Total Time Spent with Patient: Total time spent is greater than 50% in coordination of care (as documented) at patient's floor/unit and/or counseling patient: Coding Level of Care Code 60513 SUB INP/OBS CARE 2/35MIN Diagnoses Bacteremia R78.81 Lumbar disc herniation with radiculopathy M51.16 BMI greater than 40
[2022-12-30] MEDS: MELATONIN 3 MG TAB PO SCH (20:01)
[2022-12-30] MEDS: FAMOTIDINE 40 MG TABLET PO SCH (20:02)
[2022-12-31] MEDS: HYDROmorphone INJ 0.5 MG/0.5 ML SYR IV PRN ×2 (02:06→22:48)
[2022-12-31] MEDS: CYCLOBENZAPRINE HCL 10 MG TAB PO PRN (02:06)
[2022-12-31] MEDS: ACETAMINOPHEN 325 MG TAB PO SCH ×3 (05:34→18:30)
[2022-12-31] MEDS: LORATADINE 10 MG TAB PO SCH (08:53)
[2022-12-31] MEDS: PANTOprazole 40 MG TAB PO SCH (08:53)
[2022-12-31] MEDS: DOCUSATE SODIUM/SENNA 50/8.6MG TAB PO SCH (08:53)
[2022-12-31] MEDS: CHOLECALCIFEROL 5,000 UNITS 125 MCG TAB PO SCH (08:53)
[2022-12-31] MEDS: FLUTICASONE/VILANTEROL 200/25MCG 14 PUFFS/INHALER INH SCH (08:53)
[2022-12-31] MEDS: GLUCOSAMINE SULFATE 500 MG CAP PO SCH ×2 (08:53→20:08)
[2022-12-31] MEDS: FLUTICASONE PROPIONATE NA SPR 16 GM BTL SCH (08:54)
--- NOTE | 2022-12-31 12:06 | Orthopedic Progress Note ---
Date of Service December 31, 2022 Assessment & Plan (1) Bacteremia: Plan: This time the patient seems to be improving appropriately. We will continue with physical therapy. I will discontinue her drain today. Hopefully she will be a candidate for rehab in the next few days. Admission and Anticipated Discharge Date Admission Date: December 23, 2022 Subjective Back pain improving. Patient denies any leg pain. Physical Exam Physical Exam: Patient is alert and oriented. She is distracted testing. Results & Data Vital Signs (Past 12 Hours) Vital Signs Temp Pulse Resp BP Pulse Ox O2 Del Method 12/31/22 08:32 Room Air 12/31/22 07:07 36.9 C 101 H 18 142/79 H 96 Room Air
--- NOTE | 2022-12-31 16:10 | Hospitalist Progress Note ---
Date of Service December 31, 2022 Assessment & Plan (1) Bacteremia: Plan: acute bacteremia, high risk , staph species, at least 1 species is Staph epidermidis, with lumbar laminectomy, 12/16/22, with subjective fever, chills, from home gram positive cultures Staph epidermidis in blood transition to daptomycin for ease of home transition. With persistently positive blood cultures and imaging suggestive of fluid collection patient was taken to the operating room on 12/30/2019 3 subcutaneous abscess was identified and drained irrigated and beads of vancomycin and gentamicin placed prior to wound closure. Drain was left in place, intraoperative cultures were collected urine culture with Klebsiella- initial was consider asymptomatic bacteremia infectious disease recommends stopping antibiotics We will need to have clear blood cultures prior to instituting a longer-term line for persistent treatment of the bacteremia, so far blood cx from 12/30 no growth Echocardiogram transthoracic does not show evidence of valvular vegetations. Appreciate infectious disease consultation, additional cultures ordered on 12/30 by infectious disease. Appreciate recommendations of not pursuing ROXANNA as it may not change course and will need a prolonged course given her osteomyelitis discitis. We will await intraoperative cultures and clearing of peripheral cultures prior to placing any type of long-term Continues on daptomycin will need prolongued course Parenteral pain medications are required (2) Lumbar disc herniation with radiculopathy: Plan: Postoperative laminectomy complication in the setting of subdural fluid collection on MRI Patient had exploration of wound on 12/29 small revision of laminectomy was performed continues on daptomycin to cover Staph epidermidis and intraoperative bead placement containing vancomycin and gentamicin 12/29/2022 (3) BMI greater than 40: Plan: chronic stable high risk Obesity with BMI = 40, BMI places patient at increased risk for postoperative challenges Patient s/p laminectomy and back pain has BMI = 40 Treatment: Weight, I&O Admission and Anticipated Discharge Date Admission Date: December 23, 2022 Subjective pt is improved but still with some delirium, some visual hallucinations back pain seems typical after surgery Physical Exam Physical Exam: Patient is awake alert appropriate. She has focal back pain. Her cardiac exam is regular without murmurs or peripheral stigmata of endocarditis her lungs are clear abdomen NABS and soft she has no peripheral or distal neurological compromise Results & Data Results & Data Vital Signs (Past 12 Hours) Vital Signs Temp Pulse Resp BP Pulse Ox O2 Del Method 12/31/22 15:34 98.6 F 95 H 18 132/83 96 Room Air 12/31/22 08:32 Room Air 12/31/22 07:07 98.4 F 101 H 18 142/79 H 96 Room Air PG Care Time/CCT Total # of Minutes Spent Total Time Spent with Patient: Total time spent is greater than 50% in coordination of care (as documented) at patient's floor/unit and/or counseling patient: Coding Level of Care Code 51955 SUB INP/OBS CARE 2/35MIN Diagnoses Bacteremia R78.81 Lumbar disc herniation with radiculopathy M51.16 BMI greater than 40
[2022-12-31] MEDS: DAPTOmycin 550 MG in SYRINGE 0 ML IV SCH (16:53)
[2022-12-31] MEDS: MELATONIN 3 MG TAB PO SCH (20:08)
[2022-12-31] MEDS: FAMOTIDINE 40 MG TABLET PO SCH (20:08)
[2022-12-31] MEDS: LORazepam 0.5 MG TAB PO PRN (21:26)
[2023-01-01] MEDS: ACETAMINOPHEN 325 MG TAB PO SCH ×5 (00:46→22:33)
--- NOTE | 2023-01-01 08:39 | Orthopedic Progress Note ---
Date of Service January 01, 2023 Assessment & Plan (1) Bacteremia: Plan: Graciela is postoperative day 3 status post I&D lumbar spine. She is bacteremia. IV antibiotics are per infectious disease recommendations. Ambulate ad lauren. Orthopedically stable. Admission and Anticipated Discharge Date Admission Date: December 23, 2022 Subjective Graciela is postop day 3 status post I&D lumbar spine by Dr. Longo. She is bacteremic. She denies any back or lower extremity pain. She is currently on IV daptomycin. She is anticipating discharge to rehab. She is currently afebrile. Review of Systems Review of Systems: All systems reviewed & are unremarkable except as noted in HPI & below Physical Exam Physical Exam: She is lying in bed in no acute distress Alert and oriented x3 Lumbar dressing is clean dry and intact Strength intact bilateral lower extremities Results & Data Vital Signs (Past 12 Hours) Vital Signs Temp Pulse Resp BP Pulse Ox O2 Del Method 01/01/23 07:17 37.0 C 97 H 18 153/77 H 97 Room Air
[2023-01-01] MEDS: GLUCOSAMINE SULFATE 500 MG CAP PO SCH ×2 (09:22→20:36)
[2023-01-01] MEDS: PANTOprazole 40 MG TAB PO SCH (09:22)
[2023-01-01] MEDS: FLUTICASONE PROPIONATE NA SPR 16 GM BTL SCH (09:23)
[2023-01-01] MEDS: DOCUSATE SODIUM/SENNA 50/8.6MG TAB PO SCH (09:23)
[2023-01-01] MEDS: LORATADINE 10 MG TAB PO SCH (09:23)
[2023-01-01] MEDS: CHOLECALCIFEROL 5,000 UNITS 125 MCG TAB PO SCH (09:23)
[2023-01-01] MEDS: FLUTICASONE/VILANTEROL 200/25MCG 14 PUFFS/INHALER INH SCH (09:23)
--- NOTE | 2023-01-01 09:35 | Infectious Disease Progress Nt ---
Date of Service January 01, 2023 Assessment & Plan (1) Bacteremia: Plan: PROBLEM LIST #MRSE Bacteremia #Fluid collection at hemilaminectomy site- abscess with purulent fluid noted in OR #. Diffuse epidural enhancement within the lower lumbar and upper sacral spine- presumed discitis/osteo #recent L5-S1 laminectomy 77yo female with history of HTN, HLP, GERD, fibromyalgia, R knee replacement, L knee intra-articular injections most recent in November 2022, admitted on [facility] for ongoing pain secondary to Lumbar disc herniation with radiculopathy s/p L5-S1 laminectomy on December 16. Admitted with progressing back pain. Infectious diseases consulted for Staph epi bacteremia. Patient was having subjective fevers at home and progressively worsening back pain and readmitted to [facility]. On admission on 12/23 she was afebrile, WBC 12.6, 12/23 Blood cultures drawn growing 4/4 MRSE, Blood cx 12/25, 12/26 and 12/27 positive. patient was initiated on Vancomycin on 12/23. 12/23 MRI with following Read: 1. Status post right L5-S1 hemilaminotomy. 1.6 cm laminotomy site fluid collection is postsurgical. 4 x 3.8 x 2 cm subcutaneous operative bed fluid collection is also postsurgical and expected in the early postoperative setting. 2. Diffuse epidural enhancement within the lower lumbar and upper sacral spine. This is nonspecific although likely postsurgical. An infectious process with epidural phlegmon could appear similar. No epidural fluid collection to suggest abscess. Short-term follow-up MRI with and without contrast is suggested if persistent symptoms. 3. Suspected nonspecific subdural fluid collection extending from the lower L2- S1 levels with moderate compression of the nerve roots. CT lumbar spine 1. Status post right L5-S1 hemilaminotomy. Suboptimal evaluation of the central canal and neural foramen given CT technique. 3.7 cm multiloculated subcutaneous gas and fluid containing operative bed collection is likely p ostsurgical. However, sterility cannot be assessed by CT. 2. Mild paravertebral stranding at the L5-S1 level. Although this could be postsurgical, this raises the possibility of discitis TTE unable to r/o vegetations but without valvular dysfunction MRI L-spine 12/28 : Status post right L5-S1 hemilaminectomy. 6.1 x 3.9 cm subcutaneous rim-enhancing operative bed fluid collection which contains gas and communicates with a 3.5 x 1.4 cm right laminectomy bed fluid collection. Although nonspecific by MRI, this is suspicious for abscess formation. pt s/p 12/29 #1 revision laminotomy L5-S1 on the right. #2 irrigation debridement lumbar spine abscess Per OR note, Gross purulence in the subcutaneous tissue. Exploration of the epidural space found no gross infection. vanco/gent impregnated beads and PHANI drain placed 12/27 Bcxs remain positive for MRSE 12/28 OR cx rare staph species 12/30 Bcxs NGTD ROXANNA unlikely to change advisor at this time- source of infection is discitis/osteo which will already require extended course of abx (2) Lumbar disc herniation with radiculopathy: Plan -12/30 Bcxs are NGTD -ok to place PICC -s/p OR- 12/29 OR cx with staph species - pt with retained hardware at this time- advised pt that due to retained hardware, she will need close monitoring to determine if 6 weeks of antibiotics were effective. It is unclear that potential benefit of rifampin would outweight potential risk in this case. -Continue Dapto 550mg (~8mg/kg Adjusted BW) q24 x 6 weeks from OR 12/29 (end date 01/30/23) with weekly CBC with diff, CMP, ESR and CRP. CPK baseline ok, she is not on a statin Please page with any questions. Gloria Montez M.D. [facility] [employer] Pager [phone] Admission and Anticipated Discharge Date Admission Date: December 23, 2022 Subjective Subsequent visit was provided via telemedicine using two-way real-time interactive telecommunication between the patient and the telemedicine provider. For the duration of the visit, the provider was performing the assessment from a different facility than the patient. This includesuse of bluetooth stethoscope forauscultationperformed by the telepresenter that the telemedicine provider can hear if described in the physical exam. [employer] contact information: Please call [employer] [facility] Call Center . (Phone Number For Physician Use Only) After establishing a telemedicine visit, patient was: Patient was verified with two unique identifiers, Patient/authorized rep acknowledged consent and understanding and Gave permission to continue telehealth session Time Spent with Patient: Subsequent => 25 min pt denies fever, chills- reports feels cold/warm occasionally. no abd pain. Notes softer BMs due to abx - has occurred in past and pt took probiotics Physical Exam Physical Exam: PE: Gen: Awake, alert, NAD HEENT: anicteric Resp: no resp distress on RA Abd: Soft, NT/ND Extr: no c/c/e Skin: peripheral IV ok. Back incision with several luda at superior aspect, with incision open below. Moderate serosanguineous drainage noted on dressing. Unable to appreciate erythema adjacent to incision- exam of incision inferiorly somewhat limited by body habitus Results & Data Vital Signs (Past 12 Hours) Vital Signs Temp Pulse Resp BP Pulse Ox O2 Del Method 01/01/23 07:17 37.0 C 97 H 18 153/77 H 97 Room Air Laboratory Results 12/26/22 16:02 Aerobic Blood Culture - Final Blood No growth in Aerobic bottle after 5 days. Anaerobic Blood Culture - Preliminary Staphylococcus epidermidis 12/30/22 12:24 Aerobic Blood Culture - Preliminary Blood No growth in Aerobic bottle after 24 hours. Anaerobic Blood Culture - Final 12/30/22 12:14 Aerobic Blood Culture - Preliminary Blood No growth in Aerobic bottle after 24 hours. Anaerobic Blood Culture - Preliminary No growth in Anaerobic bottle after 24 hours. 12/29/22 08:29 Gram Stain - Final Back Aerobic and Anaerobic Culture - Preliminary Staphylococcus species Medications Administered Current Medications Acetaminophen (Acetaminophen 325 Mg Tab) [facility] Stop: 01/22/23 11:59 Last Admin: 01/01/23 05:49 Dose: 650 mg Albuterol (Albuterol Hfa 8 Gm Inhaler) 2 puffs INH Q6H PRN; Protocol PRN Reason: sob Stop: 01/22/23 09:14 Cyclobenzaprine HCl (Cyclobenzaprine Hcl 10 Mg Tab) 10 mg PO TID PRN PRN Reason: muscle spasm Stop: 01/22/23 09:14 Last Admin: 12/31/22 02:06 Dose: 10 mg Famotidine (Famotidine 40 Mg Tablet) 40 mg PO HS [facility] Stop: 01/22/23 20:59 Last Admin: 12/31/22 20:08 Dose: 40 mg Fluticasone Propionate (Fluticasone Propionate Na Spr 16 Gm Btl) 2 sprays NA QAM [facility] Stop: 01/23/23 08:59 Last Admin: 03/22/23 09:23 Dose: 2 sprays Fluticasone/Vilanterol (Fluticasone/Vilanterol 200/25mcg 14 Puffs/Inhaler) 1 puffs INH DAILY [facility] Stop: 01/23/23 08:59 Last Admin: 01/01/23 09:23 Dose: 1 puffs Glucosamine Sulfate (Glucosamine Sulfate 500 Mg Cap) 1,000 mg PO BID [facility] Stop: 01/22/23 20:59 Last Admin: 01/01/23 09:22 Dose: 1,000 mg Hydromorphone HCl (Hydromorphone Inj 0.5 Mg/0.5 Ml Syr) 0.5 mg IV Q4H PRN PRN Reason: Severe Pain (Scale 7, 8, 9,10) Stop: 01/06/23 09:25 Last Admin: 12/31/22 22:48 Dose: 0.5 mg Hydromorphone HCl (Hydromorphone Inj 0.5 Mg/0.5 Ml Syr) 0.25 mg IV Q4H PRN PRN Reason: Moderate Pain (Scale 4, 5, 6) Stop: 01/06/23 09:23 Last Admin: 12/30/22 08:52 Dose: 0.25 mg Daptomycin 550 mg/ Syringe 11 mls @ 4.25 mls/min IV Q24H [facility]; Protocol Stop: 02/07/23 15:59 Last Admin: 12/31/22 16:53 Dose: 4.25 mls/min Loratadine (Loratadine 10 Mg Tab) 10 mg PO DAILY [facility]; Protocol Stop: 01/23/23 08:59 Last Admin: 01/01/23 09:23 Dose: 10 mg Lorazepam (Lorazepam 0.5 Mg Tab) 0.5 mg PO Q6H PRN PRN Reason: Anxiety Stop: 01/25/23 12:05 Last Admin: 12/31/22 21:26 Dose: 0.5 mg Melatonin (Melatonin 3 Mg Tab) 9 mg PO QPM [facility] Stop: 01/22/23 20:59 Last Admin: 12/31/22 20:08 Dose: 9 mg Pantoprazole Sodium (Pantoprazole 40 Mg Tab) 40 mg PO QAM [facility] Stop: 01/23/23 08:59 Last Admin: 01/01/23 09:22 Dose: 40 mg Pindolol (Pindolol) 1 each PO BID [facility] Stop: 01/23/23 20:59 Last Admin: 01/01/23 09:24 Dose: 1 each Senna/Docusate Sodium (Docusate Sodium/Senna 50/8.6mg Tab) 1 tab PO QAM [facility] Stop: 01/23/23 08:59 Last Admin: 01/01/23 09:23 Dose: 1 tab Vitamin D (Cholecalciferol 5,000 Units 125 Mcg Tab) 5,000 units PO DAILY [facility] Stop: 01/23/23 08:59 Last Admin: 01/01/23 09:23 Dose: 5,000 units
--- NOTE | 2023-01-01 13:50 | Hospitalist Progress Note ---
Date of Service January 01, 2023 Assessment & Plan (1) Bacteremia: Plan: acute bacteremia, high risk , staph species, at least 1 species is Staph epidermidis, with lumbar laminectomy, 12/16/22, with subjective fever, chills, from home gram positive cultures Staph epidermidis in blood transition to daptomycin for ease of home transition. With persistently positive blood cultures and imaging suggestive of fluid collection patient was taken to the operating room on 12/30/2019 3 subcutaneous abscess was identified and drained irrigated and beads of vancomycin and gentamicin placed prior to wound closure. Drain was left in place, intraoperative cultures were collected urine culture with Klebsiella- initial was consider asymptomatic bacteremia infectious disease recommends stopping antibiotics blood cultures from 12/30 are negative will have PICC placed Echocardiogram transthoracic does not show evidence of valvular vegetations. Appreciate infectious disease consultation, additional cultures ordered on 12/30 by infectious disease. Appreciate recommendations of not pursuing ROXANNA as it may not change course and will need a prolonged course given her osteomyelitis discitis. Continue Dapto 550mg (~8mg/kg Adjusted BW) q24 x 6 weeks from OR 12/29 (end date 01/30/23) with weekly CBC with diff, CMP, ESR and CRP. CPK baseline ok, she is not on a statin It is unclear that potential benefit of rifampin would outweight potential risk in this case. Parenteral pain medications are required (2) Lumbar disc herniation with radiculopathy: Plan: Postoperative laminectomy complication in the setting of subdural fluid collection on MRI Patient had exploration of wound on 12/29 small revision of laminectomy was performed continues on daptomycin to cover Staph epidermidis and intraoperative bead placement containing vancomycin and gentamicin 12/29/2022 (3) BMI greater than 40: Plan: chronic stable high risk Obesity with BMI = 40, BMI places patient at increased risk for postoperative challenges Patient s/p laminectomy and back pain has BMI = 40 Treatment: Weight, I&O Admission and Anticipated Discharge Date Admission Date: December 23, 2022 Subjective pt feels tired out today, less pain but some drainage from wound site, serosanguineous Physical Exam Physical Exam: Patient is awake alert appropriate. She has focal back pain. Her cardiac exam is regular without murmurs or peripheral stigmata of endocarditis her lungs are clear abdomen NABS and soft she has no peripheral or distal neurological compromise Results & Data Results & Data Vital Signs (Past 12 Hours) Vital Signs Temp Pulse Resp BP Pulse Ox O2 Del Method 01/01/23 09:20 Room Air 01/01/23 07:17 98.6 F 97 H 18 153/77 H 97 Room Air PG Care Time/CCT Total # of Minutes Spent Total Time Spent with Patient: Total time spent is greater than 50% in coordination of care (as documented) at patient's floor/unit and/or counseling patient: Coding Level of Care Code 48982 SUB INP/OBS CARE 2/35MIN Diagnoses Bacteremia R78.81 Lumbar disc herniation with radiculopathy M51.16 BMI greater than 40
[2023-01-01] MEDS: DAPTOmycin 550 MG in SYRINGE 0 ML IV SCH (16:49)
[2023-01-01] MEDS: FAMOTIDINE 40 MG TABLET PO SCH (20:36)
[2023-01-01] MEDS: MELATONIN 3 MG TAB PO SCH (20:36)
[2023-01-02] MEDS: LORazepam 0.5 MG TAB PO PRN (01:00)
[2023-01-02] MEDS: CYCLOBENZAPRINE HCL 10 MG TAB PO PRN ×2 (01:00→09:19)
[2023-01-02] MEDS: HYDROmorphone INJ 0.5 MG/0.5 ML SYR IV PRN (03:55)
[2023-01-02] MEDS: ACETAMINOPHEN 325 MG TAB PO SCH ×3 (06:18→17:09)
[2023-01-02] MEDS ORDERED: LIDOCAINE/PRILOCAINE 2.5% EA CRM EXT STA (06:54)
[2023-01-02] MEDS: FLUTICASONE/VILANTEROL 200/25MCG 14 PUFFS/INHALER INH SCH (09:16)
[2023-01-02] MEDS: CHOLECALCIFEROL 5,000 UNITS 125 MCG TAB PO SCH (09:17)
[2023-01-02] MEDS: GLUCOSAMINE SULFATE 500 MG CAP PO SCH (09:17)
[2023-01-02] MEDS: FLUTICASONE PROPIONATE NA SPR 16 GM BTL SCH (09:17)
[2023-01-02] MEDS: DOCUSATE SODIUM/SENNA 50/8.6MG TAB PO SCH (09:18)
[2023-01-02] MEDS: PANTOprazole 40 MG TAB PO SCH (09:18)
[2023-01-02] MEDS: LORATADINE 10 MG TAB PO SCH (09:18)
--- NOTE | 2023-01-02 16:51 | Discharge Summary ---
Date of Service January 02, 2023 Admission HPI Per Admitting Provider Graciela is a 77-year-old female with a past medical history of radicular low back pain, cervical radiculopathy, IBS, hypothyroidism, hepatic cyst, fatty liver disease, GERD, hypertension who presents with worsened radicular back and leg pain and inability to ambulate after finishing a prednisone course from her PCP. Patient was recnetly dischaged on 12/17 after having a sucessful laminectomy due to her low back pain with radicular symptoms. Patient reports that over the course of the past 3 days, she has beencome progressively weaker, and states having intermittent chills. R toes are tingling and feel numb. No saddle anesthesia. She reports she just started a new medication, gemtasa, for urinary urgency. That has helped her urgency to void, has some incontinence with depends at night. She has not had any difficulty initiation voids. Denies diarrhea/constipation Principal Diagnosis bacteremia Discharge Exam General: A&Ox3. NAD. Cooperative. HEENT: Atraumatic, normocephalic. Vision/hearing intact Pulm: CTAB A&P. -wheezes, -rales, -rhonchi. Symmetrical chest rise. No increased work of breathing. No respiratory distress. Cardiac: RRR, -mrg. Radial pulses intact and symmetrical. Abdominal: Nontender, nondistended, soft. BS present. Extremities: Right lower extremity with qualitative numbness/tingling in all toes, ankle dorsiflexion/plantarflexion 5/5 bilaterally. Right hip flexion and knee flexion/extension unable to be assessed due to pain. Patient reports she does feel weaker and unsteady in addition to having pain. No lower extremity pitting edema. No saddle anesthesia Discharge Data Allergies Allergy/AdvReac Type Severity Reaction Status Date / Time capsaicin Allergy Intermediate Burning up Verified 11/27/22 14:15 diclofenac Allergy Intermediate Burning up Verified 11/27/22 14:15 Diclopak Allergy Intermediate Burning up Verified 12/18/17 17:41 heparin Allergy Intermediate RASH Verified 11/27/22 14:15 isopropyl alcohol Allergy Intermediate Burning up Verified 11/27/22 14:15 levofloxacin Allergy Intermediate MUSCLE PAIN Verified 11/27/22 14:15 Macrolide Antibiotics Allergy Intermediate SWELLING Verified 11/27/22 14:15 moxifloxacin Allergy Intermediate MUSCLE PAIN Verified 11/27/22 14:15 propylene glycol Allergy Intermediate Burning up Verified 11/27/22 14:15 adhesive Allergy Mild WELTS Verified 11/27/22 14:15 Cephalosporins Allergy Mild RASH Verified 11/27/22 14:15 DIGESTIVE SYSTEM metoprolol Allergy Mild Unknown Verified 11/27/22 14:15 Sulfa (Sulfonamide Allergy Mild RASH Verified 11/27/22 14:15 Antibiotics) celecoxib Allergy Unknown Unknown Verified 11/27/22 14:15 erythromycin base Allergy Unknown UNKNOWN Verified 11/27/22 14:15 pork derived (porcine) Allergy Unknown Rash Verified 11/27/22 14:15 tramadol Allergy Unknown "wheezing, Verified 11/27/22 14:15 shortness of breath" procaine AdvReac Intermediate RACING Verified 11/27/22 14:15 HEART BEAT rofecoxib AdvReac Intermediate INCREASED Verified 11/27/22 14:15 BP SWELLING cortisone AdvReac Mild HEADCAHE Verified 11/27/22 14:15 lidocaine AdvReac Unknown RASH Verified 11/27/22 14:15 Consultations 12/23/22 08:09 ED Decision to Admit Stat 12/23/22 08:30 Consult Orthopedic Surgery Routine 12/27/22 12:29 Consult Infectious Diseases Routine Procedures Performed Operation Date: 12/29/22 07:30 Actual Procedures p Irrigation and Dedridement Lumbar Spine with Application of Stimulan Beads - Sandeep Longo DO Ordered Studies 12/23/22 11:36 MR lumbar spine wo/w con Urgent 12/23/22 19:08 CT abd pelvis wo con Routine 12/25/22 11:27 CT lumbar spine wo con Routine 12/28/22 10:32 MRI Lumbar Spine [MR lumbar spine wo/w con] Routine Hospital Course (1) Bacteremia: acute bacteremia, high risk , staph species, at least 1 species is Staph epidermidis, with lumbar laminectomy, 12/16/22, with subjective fever, chills, from home gram positive cultures Staph epidermidis in blood transition to daptomycin for ease of home transition. With persistently positive blood cultures and imaging suggestive of fluid collection patient was taken to the operating room on 12/30/2019 3 subcutaneous abscess was identified and drained irrigated and beads of vancomycin and gentamicin placed prior to wound closure. Drain was left in place, intraoperative cultures were collected urine culture with Klebsiella- initial was consider asymptomatic bacteremia infectious disease recommends stopping antibiotics blood cultures from 12/30 are negative will have PICC placed Echocardiogram transthoracic does not show evidence of valvular vegetations. Appreciate infectious disease consultation, additional cultures ordered on 12/30 by infectious disease. Appreciate recommendations of not pursuing ROXANNA as it may not change course and will need a prolonged course given her osteomyelitis discitis. Continue Dapto 550mg (~8mg/kg Adjusted BW) q24 x 6 weeks from OR 12/29 (end date 01/30/23) with weekly CBC with diff, CMP, ESR and CRP. CPK baseline ok, she is not on a statin It is unclear that potential benefit of rifampin would outweight potential risk in this case. Patient will be discharged on 01/02. (2) Lumbar disc herniation with radiculopathy: Postoperative laminectomy complication in the setting of subdural fluid collection on MRI Patient had exploration of wound on 12/29 small revision of laminectomy was performed continues on daptomycin to cover Staph epidermidis and intraoperative bead placement containing vancomycin and gentamicin 12/29/2022 (3) BMI greater than 40: chronic stable high risk Obesity with BMI = 40, BMI places patient at increased risk for postoperative challenges Patient s/p laminectomy and back pain has BMI = 40 Treatment: Weight, I&O Total Time Total Time Spent Total Time Spent (In Minutes): 35 Discharge Plan Discharge Items Patient Disposition: Transfer Acute Care Hospital Reason For Visit: s/p BACK SURGERY NOW SEVERE BACK PAIN Discharge Diagnosis: bacteremia Activity: Resume your previous activity Non-emergency contact: Primary Care Provider Call non-emergency contact if: you have any medication questions Follow-up/Referrals: ProLester MD [Primary Care Provider] - Diet: Regular Addtl Attending Provider Instructions: - pt with retained hardware at this time- advised pt that due to retained hardware, she will need close monitoring to determine if 6 weeks of antibiotics were effective. -Continue Dapto 550mg (~8mg/kg Adjusted BW) q24 x 6 weeks from OR 12/29 (end date 01/30/23) with weekly CBC with diff, CMP, ESR and CRP. CPK baseline ok, she is not on a statin Pending Studies at Discharge: No Stand-Alone Forms: Varthana, Smoking Cessation Skilled Items Patient informed of condition?: No DNR: No Discharge Level of Care: Skilled Communicable Disease: No Discharge Prognosis: Stable Lines: PICC Urinary Catheter: No Medications and DC Order Prescriptions: New daptomycin 500 mg recon soln 550 mg IV DAILY 42 Days Qty: 42 0RF Rx Instructions: administer over 30 mins lorazepam 0.5 mg Tablet 0.5 mg PO Q6H PRNQty: 30 0RF acetaminophen 325 mg Tablet 650 mg PO Q6HWA Qty: 30 0RF sennosides-docusate sodium [Senokot-S] 8.6-50 mg Tablet 1 tab PO QAM Qty: 30 0RF Continued fluticasone propion-salmeterol [Advair Diskus] 250-50 mcg/dose blister with device 1 inh inhalation BID Qty: 3 2RF Rx Instructions: patient only takes prn now famotidine 40 mg tablet 40 mg PO HS Qty: 90 3RF desloratadine [Clarinex] 5 mg tablet 5 mg PO DAILY 90 Days Qty: 90 1RF clindamycin HCl 300 mg capsule 600 mg PO UD PRN (Reason: dental procedures) Qty: 30 6RF albuterol sulfate 90 mcg/actuation HFA aerosol inhaler 2 puff inhalation Q6H PRN (Reason: sob) Qty: 25.5 3RF pindolol 5 mg tablet 5 mg PO BID Qty: 180 1RF cyclobenzaprine 10 mg tablet 10 mg PO TID PRN (Reason: muscle spasm) Qty: 30 0RF estradiol acetate 0.1 mg/24 hr ring 1 vag ring vaginal Q3MO Qty: 1 3RF rabeprazole 20 mg tablet,delayed release (DR/EC) 20 mg PO QAM cholecalciferol (vitamin D3) 5,000 unit capsule 5,000 unit PO DAILY loperamide 2 mg tablet 2 mg PO HS Qty: 90 glucosamine sulfate 2KCl [Glucosamine Relief] 1,000 mg tablet 1,000 mg PO BID vitamin E 200 unit capsule 400 units PO BID multivitamin [Daily Multi-Vitamin] tablet 1 tab PO DAILY Lo-C with Bioflavonoids 1,000-200 mg tablet 1 tab PO DAILY fluticasone propionate 50 mcg/actuation spray,suspension 2 sprays intranasal QAM Qty: 48 3RF melatonin 5 mg capsule 10 mg PO QPM calcium carbonate [Calcium 600] 600 mg calcium (1,500 mg) Tablet 1,200 mg PO DAILY Citrucel 500 mg Tablet 500 mg PO DAILY Gemtesa 75 mg Tablet 75 mg PO DAILY oxycodone 5 mg Tablet 5 - 10 mg PO Q4H PRN (Reason: pain) Qty: 20 0RF Discontinued verapamil 180 mg capsule,ext rel. pellets 24 hr 180 mg PO QPM Qty: 90 3RF Discharge Orders: Discharge Order (Routine); Ordered 01/02/23 Ordered By: Danny Srivastava Admission Data Admit Date/Time: 12/23/22 08:30 Attending Provider: Danny Srivastava Admit Provider: Danny Srivastava Primary Care Provider: Lester Baldwin Other Providers: [facility] ; Danny Srivastava ; Sandeep Longo Sabina M. ; Tyson Desai ; Arabella Castillo ; Chiquita Higgins ; Gloria Montez ; Graciela Pabon ; Tamanna Keen ; Matt Green ; Jeanette Avalos Coding Level of Care Code 84663 INP/OBS DISCH >30 MIN Diagnoses Bacteremia R78.81 Lumbar disc herniation with radiculopathy M51.16 BMI greater than 40
[2023-01-02] MEDS: DAPTOmycin 550 MG in SYRINGE 0 ML IV SCH (17:09)
== END 2023-01-02 18:00 | DRG 857 ==
LOC: ED 06:20 → 3N 08:30 → SUATTDRO 08:30 → 3N 10:25

== ENCOUNTER 2023-01-23 23:34 | Inpatient (IN) ==
[2023-01-24] MEDS ORDERED: ONDANSETRON INJ 2 MG/ML 2 ML VIAL IV STA (00:25)
[2023-01-24] MEDS ORDERED: HYDROmorphone INJ 0.5 MG/0.5 ML SYR IV STA ×2 (00:25→02:48)
--- NOTE | 2023-01-24 00:31 | Emergency Department Note ---
Impression & Plan Postoperative abscess, Chronic osteomyelitis of lumbar spine, Acute hyperglycemia Admit to the [facility] ED Provider Note NAME: JACY JOSEPH AGE: 77 SEX: F ARRIVES VIA: Walk-In INFORMANT: Patient and her ED PROVIDER(S): Anabell Corea DO CHIEF COMPLAINT: Back pain PLAN: Disposition: Admit to the [facility] Condition: Fair MEDICAL DECISION MAKING: This is a 77-year-old female patient presents emergency department with persistent back pain lower extremity weakness and lower extremity muscle spasm. Patient underwent lumbar spine surgery last month was diagnosed with a postsurgical abscess/discitis/osteomyelitis at the L5-S1 junction. She has been receiving IV antibiotics through PICC line. She had a follow-up MRI on 01/21 which unfortunately shows persistent osteomyelitis/discitis at L5-S1 along with persistent and new postsurgical abscess formation. Patient has been suffering from severe low back pain, lower extremity muscle spasms and increasing leg weakness. She has been followed by infectious disease and is scheduled to have an appointment later this month to reevaluate her current antibiotics and scheduled follow-up with spinal surgery. Because of the continued/worsening abscess formation, increased pain and lower extremity symptoms, I have discussed the case with the [facility] and they will evaluate for further management. Triage Nursing notes reviewed and agree with them. Additional history obtained from the patient's who is at the bedside External medical records reviewed including MRI report from 3 days ago. Vital Signs: reviewed and remarkable for tachycardia Differential diagnosis: Persistent abscess formation, osteomyelitis, discitis ER treatment provided: IV Dilaudid, IV Zofran Diagnostics interpreted by me: Laboratory studies: See below Imaging studies: See radiology report MRI lumbar spine: See radiology report HPI: 77/F arrives for evaluation of low back pain. Patient underwent 2 recent lumbar spine surgeries. The patient was diagnosed with discitis/osteomyelitis at L5-S1. She is currently receiving daily vancomycin through PICC line for the above-mentioned infection as well as abscess formation at the laminectomy surgical site. Patient has recently been having severe low back pain and lower extremity muscle spasms and underwent a follow-up MRI. She had not seen the results of that MRI prior to coming to the emergency department tonight. I reviewed the results of that MRI on January 21 which revealed additional new absc ess formation at that site as well as persistent discitis/osteomyelitis at L5- S1. PAST MEDICAL HISTORY:See Below PAST SURGICAL HISTORY:See Below FAMILY HISTORY:See Below SOCIAL HISTORY:See Below HOME MEDICATIONS:See list ALLERGIES:See list VITALS:See Below PHYSICAL EXAMINATION: HEENT: Head - normocephalic and atraumatic. Pupils are equal, round, and reactive to light. Extraocular eye muscles are intact, and sclera are anicteric. Nose - moist nasal mucosa without discharge. Mouth - moist buccal mucosa. Oropharynx is nonerythematous and there is no tonsillar exudate or edema noted. Neck: Supple; no cervical lymphadenopathy Heart: Regular rate and rhythm. There is a normal S1 and S2 with no murmurs, clicks, or gallops appreciated. Lungs: Clear to auscultation bilaterally with no wheezes, rales, or rhonchi. Abdomen: Soft, completely nontender, nondistended, with good bowel sounds. There are no palpable pulsatile masses or hepatosplenomegaly. There is no guarding, rigidity, or rebound noted. Extremities: No evidence of cyanosis, clubbing, or edema. There are easily palpable peripheral pulses. Skin: warm and dry with good turgor and no rashes. Neuro: Patient has significant weakness in the lower extremities. Muscle strength is 3/5 in both lower extremities. This is specifically with leg raising. The patient seems to be able to have stronger pedal push and pull at 4/5. Sensation in the feet seems to be normal. ED COURSE: Times/Reassessments: 2355: Patient was evaluated in room C7 A complete history and physical was performed. Her PICC line was accessed and labs were drawn. She was given IV Dilaudid and IV Zofran for used for pain. I discussed the case with the [facility] Hospitalist and they will evaluate for further management. Anabell Corea DO Past Med/Surg History Medical History (Updated 01/24/23 @ 19:44 by Anabell Corea DO) Asthma uses prn INH 2-3 x monthly on avg Discitis of lumbosacral region Diverticular disease Encounter for removal of sutures Esophageal reflux Fatty liver Fibromyalgia Hepatic cyst being monitored Hiatal hernia History of diverticulitis of colon History of Helicobacter pylori infection History of migraine History of stomach ulcers Hyperlipidemia Hypertension Hypothyroidism Idiopathic polyneuropathy Irritable bowel syndrome Osteoarthritis Osteomyelitis of lumbar spine Osteopenia Postoperative abscess Tachycardia Vitamin D deficiency Surgical History (Updated 01/13/23 @ 12:16 by Leisa Carver PA-C) History of appendectomy History of cardiac cath 2004 - [facility] - abn stress test - no stents/angioplasty - follows w/ Dr. Mcneill History of cholecystectomy History of colonoscopy History of cystoscopy History of D&C History of esophagogastroduodenoscopy (EGD) History of lumpectomy History of right knee joint replacement History of tonsillectomy and adenoidectomy History of tooth extraction HX: benign breast biopsy 2013, right fibroadenoma Status post complete hysterectomy Family History Father Pancreatic cancer Colorectal cancer Diabetes Gastric ulcer Grandmother (Maternal) Family history of diabetes mellitus Aunt Leukemia Mother Hypertension Osteoarthritis Stroke Mitral valve disorder History of nephrolithiasis Daughter Asthma Emphysema of lung Polycystic ovarian syndrome Son Myocardial infarction Hypertension Diabetes Arthritis Obesity Sister Arthritis Dyslipidemia Hypertension Brother Gastric ulcer Dyslipidemia Hypertension Denies family history of Ovarian cancer Prostate cancer Breast cancer Social History Smoking Status: Former smoker Tobacco Type: Cigarettes Second Hand Exposure: No; Hx Alcohol Use: Yes Alcohol type: wine Hx Substance Use: No Preferred Language: Yakut Communication Ability: Effective Visual Impairment: No Limitations Hearing Ability: Normal 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: No Beliefs That Will Affect Care: None marital status: Current Living Situation: Spouse current occupational status: retired Other Information That Helps Us Care for You: No Feels Safe at Home: Yes Safety Concerns: Feels Safe At This Time Physical Activity Frequency: 3-4 Times per Week Seatbelt Use: always Assistive Devices: Walker Allergies Allergies Allergy/AdvReac Type Severity Reaction Status Date / Time capsaicin Allergy Intermediate Burning up Verified 01/24/23 01:17 diclofenac [Diclopak] Allergy Intermediate Burning up Verified 01/24/23 01:18 Diclopak Allergy Intermediate Burning up Verified 12/18/17 17:41 heparin Allergy Intermediate RASH Verified 01/24/23 01:17 isopropyl alcohol Allergy Intermediate Burning up Verified 01/24/23 01:17 levofloxacin Allergy Intermediate MUSCLE PAIN Verified 01/24/23 01:17 Macrolide Antibiotics Allergy Intermediate SWELLING Verified 01/24/23 01:17 moxifloxacin Allergy Intermediate MUSCLE PAIN Verified 01/24/23 01:17 propylene glycol Allergy Intermediate Burning up Verified 01/24/23 01:17 adhesive Allergy Mild WELTS Verified 01/24/23 01:17 Cephalosporins Allergy Mild RASH Verified 01/24/23 01:17 DIGESTIVE SYSTEM metoprolol Allergy Mild Unknown Verified 01/24/23 01:17 Sulfa (Sulfonamide Allergy Mild RASH Verified 01/24/23 01:17 Antibiotics) celecoxib Allergy Unknown Unknown Verified 01/24/23 01:17 erythromycin base Allergy Unknown UNKNOWN Verified 01/24/23 01:17 pork derived (porcine) Allergy Unknown Rash Verified 01/24/23 01:17 tramadol Allergy Unknown "wheezing, Verified 01/24/23 01:17 shortness of breath" procaine AdvReac Intermediate RACING Verified 01/24/23 01:17 HEART BEAT rofecoxib AdvReac Intermediate INCREASED Verified 01/24/23 01:17 BP SWELLING cortisone AdvReac Mild HEADCAHE Verified 01/24/23 01:17 lidocaine AdvReac Unknown RASH Verified 01/24/23 01:17 Home Meds Home Medications Medication Instructions Recorded Confirmed cholecalciferol (vitamin D3) 125 5,000 unit PO QPM 02/25/19 01/24/23 mcg (5,000 unit) capsule loperamide 2 mg tablet 2 mg PO HS #90 tabs 02/25/19 01/24/23 glucosamine sulfate 2KCl 1,000 mg 1,000 mg PO AMPM 04/01/19 01/24/23 tablet (Glucosamine Relief) multivitamin (Daily Multi-Vitamin 1 tab PO QPM 04/01/19 01/24/23 tablet) calcium carbonate 600 mg calcium 1,200 mg PO QPM 05/04/19 01/24/23 (1,500 mg) tablet (Calcium) ascorbate calcium-bioflavonoid 1 tab PO QAM 08/10/19 01/24/23 1,000 mg-200 mg tablet (Lo-C with Bioflavonoids) melatonin 5 mg capsule 10 mg PO QPM 04/26/21 01/24/23 methylcellulose (laxative) 500 mg 500 mg PO HS 12/12/22 01/24/23 tablet (Citrucel) fluticasone 250 mcg-salmeterol 50 1 inh inhalation BID PRN Shortness 01/24/23 01/24/23 mcg/dose blistr powdr for Of Breath Or Wheezing inhalation (Advair Diskus) lorazepam 0.5 mg tablet 0.5 mg PO Q12 PRN Anxiety 01/24/23 01/24/23 oxycodone 5 mg tablet 5 mg PO Q8 PRN pain scale 4-6 01/24/23 01/24/23 verapamil 180 mg 24 hr 180 mg PO HS 01/24/23 01/24/23 capsule,extended release vitamin E 268 mg (400 unit) capsule 268 mg PO BID 01/24/23 01/24/23 Previous Rx's Medication Instructions Recorded fluticasone propionate 50 2 sprays intranasal QAM #48 grams 12/02/19 mcg/actuation nasal spray,suspension desloratadine 5 mg tablet 5 mg PO DAILY 90 days #90 tabs 07/09/22 (Clarinex) estradiol acetate 0.1 mg/24 hr 1 vag ring vaginal Q3MO #1 ea 08/28/22 vaginal ring clindamycin HCl 300 mg capsule 600 mg PO UD PRN dental procedures 09/03/22 #30 caps albuterol sulfate 90 mcg/actuation 2 puff inhalation Q6H PRN sob 09/19/22 aerosol inhaler #25.5 grams cyclobenzaprine 10 mg tablet 10 mg PO TID PRN muscle spasm #30 11/27/22 tabs pindolol 5 mg tablet 5 mg PO BID #180 tabs 12/11/22 acetaminophen 325 mg tablet 650 mg PO Q6HWA #30 tabs 01/02/23 daptomycin 500 mg intravenous 550 mg IV DAILY 6 weeks #42 ea 01/02/23 solution famotidine 40 mg tablet 40 mg PO HS #90 tabs 01/07/23 rabeprazole 20 mg tablet,delayed 20 mg PO QAM #90 tabs 01/22/23 release Results & Data (ED) Vital Signs Vital Signs - 24 hr 01/23/23 23:43 Temperature 36.7 C Temperature Source Oral Pulse Rate 100 H Respiratory Rate 20 Respiratory Effort / Characteristics Non-Labored Spontaneous Respiratory Depth Normal Respiratory Pattern Regular Blood Pressure 116/60 Blood Pressure Mean 78 Blood Pressure Position Sitting Pulse Oximetry 98 Oxygen Delivery Method Room Air Sepsis Recent Fever Within 48 Hours No Sepsis New/Unexplained Change in Mental Status N/A Sepsis Action Taken by Nursing No Action Required Laboratory Data 01/24/23 01:00 01/24/23 01:00 Lab Results 01/24/23 01/24/23 01/24/23 Range/Units 01:00 01:00 02:55 WBC 10.06 (4.8-10.8) K/ul RBC 3.97 L (4.20-5.40) M/uL Hgb 12.5 (12.0-16.0) g/dl Hct 36.8 L (37.0-47.0) % MCV 92.7 (80.0-100.0) fL MCH 31.5 (25.0-34.0) pg MCHC 34.0 (32.0-36.0) g/dL RDW Std Deviation 45.1 (36.4-46.3) fL RDW Coeff of Mendez 13.4 (11.5-14.5) % Plt Count 350 (130-400) K/uL MPV 9.9 (9.4-12.4) fL Immature Gran % (Auto) 0.5 % Neut % (Auto) 60.7 % Lymph % (Auto) 25.8 % Edwards % (Auto) 11.0 % Eos % (Auto) 1.4 % Baso % (Auto) 0.6 % Neut # (Auto) 6.10 (1.40-6.50) K/uL Lymph # (Auto) 2.60 (1.2-3.4) K/uL Edwards # (Auto) 1.11 H (0.11-0.59) K/uL Eos # (Auto) 0.14 (0-0.50) K/uL Baso # (Auto) 0.06 (0-0.2) K/uL Immature Gran # (Auto) 0.05 (0.01-0.20) K/uL Sodium 134 L (136-145) mmol/L Potassium 3.5 (3.5-5.1) mmol/L Chloride 99 (98-107) mmol/L Carbon Dioxide 24 (21-32) mmol/L Anion Gap 11 (3-11) BUN 11 (6-23) mg/dl Creatinine 0.61 (0.6-1.2) mg/dl Est Cr Clr Drug Dosing Not Reportable Est GFR ( Amer) 102.8 ml/min Est GFR (Non-Af Amer) 88.7 ml/min BUN/Creatinine Ratio 18.0 (10-20) Glucose 227 H (70-99(Fasting)) mg/dl Calcium 9.1 (8.6-10.3) mg/dl SARS-CoV-2, RNA, NAAT NEGATIVE (NEGATIVE) Administered Medications Acetaminophen (Acetaminophen 325 Mg Tab) 650 mg PO Q6HWA [facility] Stop: 02/23/23 05:59 Last Admin: 01/24/23 17:37 Dose: 650 mg Documented By: Admin: 01/24/23 12:01 Dose: 650 mg Documented By: Admin: 01/24/23 05:35 Dose: 650 mg Documented By: AMINATA Cyclobenzaprine HCl (Cyclobenzaprine Hcl 10 Mg Tab) 10 mg PO TID PRN PRN Reason: muscle spasm Stop: 02/23/23 04:59 Last Admin: 01/24/23 14:09 Dose: 10 mg Documented By: Admin: 01/24/23 10:10 Dose: 10 mg Documented By: KIAN Fluticasone Propionate (Fluticasone Propionate Na Spr 16 Gm Btl) 2 sprays MITCH Q AM BRIGIDO Stop: 02/23/23 08:59 Last Admin: 01/24/23 09:01 Dose: 2 sprays Documented By: KIAN Glucosamine Sulfate (Glucosamine Sulfate 500 Mg Cap) 1,000 mg PO BID BRIGIDO Stop: 02/23/23 08:59 Last Admin: 01/24/23 09:01 Dose: 1,000 mg Documented By: KIAN Cefepime HCl 2,000 mg/ Syringe 20 mls @ 5 mls/min IV Q8H BRIGIDO; Protocol Stop: 03/07/23 15:29 Last Admin: 01/24/23 15:58 Dose: 5 mls/min Documented By: KIAN Loratadine (Loratadine 10 Mg Tab) 10 mg PO DAILY BRIGIDO Stop: 02/23/23 08:59 Last Admin: 01/24/23 09:00 Dose: 10 mg Documented By: KIAN Lorazepam (Lorazepam 0.5 Mg Tab) 0.5 mg PO Q6H PRN PRN Reason: Anxiety Stop: 02/23/23 04:59 Last Admin: 01/24/23 08:55 Dose: 0.5 mg Documented By: KIAN Oxycodone HCl (Oxycodone Hcl Ir 5 Mg Tab (Immediate Release)) 5 mg PO Q4H PRN PRN Reason: Moderate Pain (Scale 4, 5, 6) Stop: 02/07/23 03:08 Last Admin: 01/24/23 14:09 Dose: 5 mg Documented By: Admin: 01/24/23 10:10 Dose: 5 mg Documented By: Admin: 01/24/23 06:11 Dose: 5 mg Documented By: AMINATA Pantoprazole Sodium (Pantoprazole 40 Mg Tab) 40 mg PO QAM BRIGIDO Stop: 02/23/23 08:59 Last Admin: 01/24/23 09:01 Dose: 40 mg Documented By: KIAN Pindolol (Pindolol 5mg Tab) 1 each PO Q12H BRIGIDO Stop: 02/23/23 11:59 Last Admin: 01/24/23 14:48 Dose: 1 each Documented By: KIAN Vitamin E (Tocopheryl, Dl-Alpha 400 Units 180 Mg Cap) 400 units PO BID BRIGIDO Stop: 02/23/23 08:59 Last Admin: 01/24/23 09:01 Dose: 400 units Documented By: KIAN Discontinued Medications Hydromorphone HCl (Hydromorphone Inj 0.5 Mg/0.5 Ml Syr) 0.5 mg IV NOW STA Stop: 01/24/23 00:26 Last Admin: 01/24/23 00:56 Dose: 0.5 mg Documented By: Hydromorphone HCl (Hydromorphone Inj 0.5 Mg/0.5 Ml Syr) 0.5 mg IV NOW STA Stop: 01/24/23 02:49 Last Admin: 01/24/23 03:21 Dose: 0.5 mg Documented By: Doxycycline Hyclate 100 mg/ (Dextrose) 110 mls @ 50 mls/hr IV NOW STA Stop: 01/24/23 05:19 Last Infusion: 01/24/23 07:16 Dose: 0 mls/hr Documented By: Admin: 01/24/23 05:04 Dose: 50 mls/hr Documented By: AMINATA Daptomycin 550 mg/ Syringe 11 mls @ 5.5 mls/min IV Q24H BRIGIDO; Protocol Stop: 02/07/23 08:59 Last Admin: 01/24/23 09:00 Dose: 5.5 mls/min Documented By: KIAN Miscellaneous (Pindolol: Order Awaiting Action) 1 each N/A QS BRIGIDO Stop: 02/23/23 07:59 Last Admin: 01/24/23 09:57 Dose: Not Given Documented By: KIAN Ondansetron HCl (Ondansetron Inj 2 Mg/Ml 2 Ml Vial) 4 mg IV NOW STA Stop: 01/24/23 00:26 Last Admin: 01/24/23 00:56 Dose: 4 mg Documented By: Discharge Plan Visit Data Chief Complaint: Back Injury/Pain Stated Complaint: SEVERE BACK PAIN INTO LEG, HX 2 BACK SURGERIES ED Provider: Anabell Corea Discharge Problem: Postoperative abscess, Chronic osteomyelitis of lumbar spine, Acute hyperglycemia Patient Disposition: Admitted As Inpatient Discharge Instructions Interventions: ED Discharge Assessment Last Done: 01/24/23 04:12
[2023-01-24 01:28] LABS: Basophils # (auto) 0.06 K/uL (0-0.2); Basophils % (auto) 0.6 %; Eosinophils # (auto) 0.14 K/uL (0-0.50); Eosinophils % (auto) 1.4 %; Hematocrit (blood only) 36.8 % (37.0-47.0); Hemoglobin 12.5 g/dl (12.0-16.0); Immature Granulocytes # (auto) 0.05 K/uL (0.01-0.20); Immature Granulocytes % (auto) 0.5 %; Lymphocytes % (auto) 25.8 %; Mean Corpuscular Hemoglobin 31.5 pg (25.0-34.0); Mean Corpuscular Volume 92.7 fL (80.0-100.0); Mean Platelet Volume 9.9 fL (9.4-12.4); Monocytes # (auto) 1.11 K/uL (0.11-0.59); Neutrophils % (auto) 60.7 %; Platelet Count 350 K/uL (130-400); RDW Coefficient of Variation 13.4 % (11.5-14.5); RDW Standard Deviation 45.1 fL (36.4-46.3); Red Blood Count 3.97 M/uL (4.20-5.40); White Blood Count 10.06 K/ul (4.8-10.8)
[2023-01-24 01:34] LABS: Anion Gap 11 (3-11); Blood Urea Nitrogen 11 mg/dl (6-23); Calcium 9.1 mg/dl (8.6-10.3); Carbon Dioxide 24 mmol/L (21-32); Chloride 99 mmol/L (98-107); Est GFR (African American) 102.8 ml/min; Est GFR (Non-African American) 88.7 ml/min; Glucose 227 mg/dl (70-99(Fasting)); Potassium 3.5 mmol/L (3.5-5.1); Sodium 134 mmol/L (136-145)
[2023-01-24] MEDS ORDERED: DOXYCYCLINE HYCLATE 100 MG in DEXTROSE 5% 100 ML IV STA (03:08)
[2023-01-24] MEDS ORDERED: ACETAMINOPHEN 1,000 MG/100 ML VIAL IV PRN (03:09)
--- NOTE | 2023-01-24 03:20 | History & Physical Report ---
Date of Service January 24, 2023 Assessment & Plan (1) H/O lumbosacral spine surgery: (2) Bacteremia: (3) Hypothyroidism: (4) Hypertension: (5) Lumbar disc herniation with radiculopathy: (6) Mixed stress and urge urinary incontinence: (7) Gout: (8) Asthma: (9) Esophageal reflux: (10) Discitis of lumbosacral region: (11) Osteomyelitis of lumbar spine: (12) Postoperative abscess: (13) Hyperlipidemia: Plan L5-S1 discitis/osteomyelitis/postsurgical abscess/Staph epidermidis bacteremia- Continue daptomycin IV Add doxycycline 100 mg IV every 12 hours Consult infectious disease in the morning Consult orthopedic spine surgery if needed Patient will likely need IR consult Acetaminophen 1 g IV every 8 hours as needed for mild pain or fever, the patient reports works significantly better than oral Tylenol Oxycodone 5 mg by mouth every 4 hours as needed for moderate pain Dilaudid 0.5 mg IV every 3 hours as needed for severe pain Zofran 4 mg IV every 6 hours as needed Continue cyclobenzaprine 10 mg p.o. 3 times daily as needed muscle spasm, may benefit from a change to baclofen Hypertension- Continue verapamil 180 mg at bedtime GERD- Change rabeprazole to pantoprazole per formulary interchange Continue famotidine 40 mg at bedtime Asthma/allergy- Continue Advair discus and Flonase nasal spray Anxiety- Continue lorazepam 0.5 mg p.o. every 6 hours as needed Insomnia- Continue melatonin 10 mg at bedtime as needed History of Present Illness Chief Complaint: The patient presents to the emergency department with worsening of her low back pain, lower extremity weakness and muscle spasm Primary Care Provider: Lester Baldwin MD The patient is a 77-year-old female with a past medical history including epidur al abscess, discitis and osteomyelitis. She underwent an L5-S1 laminectomy on 12/16/2022, and was admitted through 12/23/2022-01/06/2023 for staph epi bacteremia. She was discharged at that time on daptomycin IV, which she continues to take once daily in the a.m. However, patient developed worsening low back pain, lower extremity weakness and muscle spasm, and presented to the ED for assessment this evening. She had an MRI performed on 01/21/23, which had worsened compared to 12/28/2022, and was referred to the emergency department due to worsening pain and spasm as noted Allergies Allergy/AdvReac Type Severity Reaction Status Date / Time capsaicin Allergy Intermediate Burning up Verified 01/24/23 01:17 diclofenac [Diclopak] Allergy Intermediate Burning up Verified 01/24/23 01:18 Diclopak Allergy Intermediate Burning up Verified 12/18/17 17:41 heparin Allergy Intermediate RASH Verified 01/24/23 01:17 isopropyl alcohol Allergy Intermediate Burning up Verified 01/24/23 01:17 levofloxacin Allergy Intermediate MUSCLE PAIN Verified 01/24/23 01:17 Macrolide Antibiotics Allergy Intermediate SWELLING Verified 01/24/23 01:17 moxifloxacin Allergy Intermediate MUSCLE PAIN Verified 01/24/23 01:17 propylene glycol Allergy Intermediate Burning up Verified 01/24/23 01:17 adhesive Allergy Mild WELTS Verified 01/24/23 01:17 Cephalosporins Allergy Mild RASH Verified 01/24/23 01:17 DIGESTIVE SYSTEM metoprolol Allergy Mild Unknown Verified 01/24/23 01:17 Sulfa (Sulfonamide Allergy Mild RASH Verified 01/24/23 01:17 Antibiotics) celecoxib Allergy Unknown Unknown Verified 01/24/23 01:17 erythromycin base Allergy Unknown UNKNOWN Verified 01/24/23 01:17 pork derived (porcine) Allergy Unknown Rash Verified 01/24/23 01:17 tramadol Allergy Unknown "wheezing, Verified 01/24/23 01:17 shortness of breath" procaine AdvReac Intermediate RACING Verified 01/24/23 01:17 HEART BEAT rofecoxib AdvReac Intermediate INCREASED Verified 01/24/23 01:17 BP SWELLING cortisone AdvReac Mild HEADCAHE Verified 01/24/23 01:17 lidocaine AdvReac Unknown RASH Verified 01/24/23 01:17 Home Medications Medication Instructions Recorded Confirmed Type cholecalciferol (vitamin D3) 125 5,000 unit PO QPM 02/25/19 01/24/23 History mcg (5,000 unit) capsule loperamide 2 mg tablet 2 mg PO HS #90 tabs 02/25/19 01/24/23 History glucosamine sulfate 2KCl 1,000 mg 1,000 mg PO AMPM 04/01/19 01/24/23 History tablet (Glucosamine Relief) multivitamin (Daily Multi-Vitamin 1 tab PO QPM 04/01/19 01/24/23 History tablet) calcium carbonate 600 mg calcium 1,200 mg PO QPM 05/04/19 01/24/23 History (1,500 mg) tablet (Calcium) ascorbate calcium-bioflavonoid 1 tab PO QAM 08/10/19 01/24/23 History 1,000 mg-200 mg tablet (Lo-C with Bioflavonoids) fluticasone propionate 50 2 sprays intranasal QAM #48 grams 12/02/19 01/24/23 Rx mcg/actuation nasal spray,suspension melatonin 5 mg capsule 10 mg PO QPM 04/26/21 01/24/23 History desloratadine 5 mg tablet 5 mg PO DAILY 90 days #90 tabs 07/09/22 01/24/23 Rx (Clarinex) estradiol acetate 0.1 mg/24 hr 1 vag ring vaginal Q3MO #1 ea 08/28/22 01/24/23 Rx vaginal ring clindamycin HCl 300 mg capsule 600 mg PO UD PRN dental procedures 09/03/22 01/24/23 Rx #30 caps albuterol sulfate 90 mcg/actuation 2 puff inhalation Q6H PRN sob 09/19/22 01/24/23 Rx aerosol inhaler #25.5 grams cyclobenzaprine 10 mg tablet 10 mg PO TID PRN muscle spasm #30 11/27/22 01/24/23 Rx tabs pindolol 5 mg tablet 5 mg PO BID #180 tabs 12/11/22 01/24/23 Rx methylcellulose (laxative) 500 mg 500 mg PO HS 12/12/22 01/24/23 History tablet (Citrucel) acetaminophen 325 mg tablet 650 mg PO Q6HWA #30 tabs 01/02/23 01/24/23 Rx daptomycin 500 mg intravenous 550 mg IV DAILY 6 weeks #42 ea 01/02/23 01/24/23 R x solution famotidine 40 mg tablet 40 mg PO HS #90 tabs 01/07/23 01/24/23 Rx rabeprazole 20 mg tablet,delayed 20 mg PO QAM #90 tabs 01/22/23 01/24/23 Rx release fluticasone 250 mcg-salmeterol 50 1 inh inhalation BID PRN Shortness 01/24/23 01/24/23 History mcg/dose blistr powdr for Of Breath Or Wheezing inhalation (Advair Diskus) lorazepam 0.5 mg tablet 0.5 mg PO Q12 PRN Anxiety 01/24/23 01/24/23 History oxycodone 5 mg tablet 5 mg PO Q8 PRN pain scale 4-6 01/24/23 01/24/23 History verapamil 180 mg 24 hr 180 mg PO HS 01/24/23 01/24/23 History capsule,extended release vitamin E 268 mg (400 unit) capsule 268 mg PO BID 01/24/23 01/24/23 History Past Med/Surg History Medical History (Updated 01/24/23 @ 04:45 by Joaquim Perea MD) Asthma uses prn INH 2-3 x monthly on avg Discitis of lumbosacral region Diverticular disease Encounter for removal of sutures Esophageal reflux Fatty liver Fibromyalgia Hepatic cyst being monitored Hiatal hernia History of diverticulitis of colon History of Helicobacter pylori infection History of migraine History of stomach ulcers Hyperlipidemia Hypertension Hypothyroidism Idiopathic polyneuropathy Irritable bowel syndrome Osteoarthritis Osteomyelitis of lumbar spine Osteopenia Postoperative abscess Tachycardia Vitamin D deficiency Surgical History (Updated 01/13/23 @ 12:16 by Leisa Carver PA-C) History of appendectomy History of cardiac cath 2003 - [facility] - abn stress test - no stents/angioplasty - follows w/ Dr. Mcneill History of cholecystectomy History of colonoscopy History of cystoscopy History of D&C History of esophagogastroduodenoscopy (EGD) History of lumpectomy History of right knee joint replacement History of tonsillectomy and adenoidectomy History of tooth extraction HX: benign breast biopsy 2012, right fibroadenoma Status post complete hysterectomy Family History Father Pancreatic cancer Colorectal cancer Diabetes Gastric ulcer Grandmother (Maternal) Family history of diabetes mellitus Aunt Leukemia Mother Hypertension Osteoarthritis Stroke Mitral valve disorder History of nephrolithiasis Daughter Asthma Emphysema of lung Polycystic ovarian syndrome Son Myocardial infarction Hypertension Diabetes Arthritis Obesity Sister Arthritis Dyslipidemia Hypertension Brother Gastric ulcer Dyslipidemia Hypertension Denies family history of Ovarian cancer Prostate cancer Breast cancer Social History Smoking Status: Former smoker Tobacco Type: Cigarettes Second Hand Exposure: No; Hx Alcohol Use: Yes Alcohol type: wine Hx Substance Use: No Preferred Language: Luxembourger Communication Ability: Effective Visual Impairment: No Limitations Hearing Ability: Normal 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 Beliefs That Will Affect Care: None marital status: Current Living Situation: Spouse current occupational status: retired Feels Safe at Home: Yes Physical Activity Frequency: 3-4 Times per Week Seatbelt Use: always Assistive Devices: Cane and Walker Review of Systems Review of Systems: The patient denies chest pain, palpitations, shortness of breath, dyspnea on exertion, cough, lower extremity swelling, sore throat, fevers, chills, sweats, nausea, vomiting, diarrhea , constipation, abdominal pain, pelvic pain, blood in urine or stool, dysuria, urinary frequency or urgency, lightheadedness, dizziness, headache, memory loss, loss of consciousness, rash, abnormal bruising or bleeding, focal or generalized weakness, numbness or tingling in arms, generalized arthralgias or myalgias, neck pain, or night sweats. The review of systems is otherwise negative other than for that already noted above, and at least 10 systems have been reviewed. Physical Exam Physical Exam: The patient is awake, alert and oriented 3, well developed and well nourished, normocephalic and atraumatic, lying in bed and in no acute distress. HEENT--PERRL, EOMI, mucous membranes and oropharynx normal. Neck--supple. No JVD. No bruits. Thyroid normal, trachea midline, no adenopathy. Heart--normal S1 and S2. No murmurs, rubs or gallops. Lungs--clear bilaterally, no respiratory distress, no accessory muscle use. Abdomen--normal bowel sounds and soft. Nontender. Nondistended, no hernias or masses, no organomegaly. Extremities--no cyanosis or clubbing. No edema. There are good distal pulses b/l. Dermatologic--normal skin turgor, normal color. Neurologic--cranial nerves II through XII grossly intact. Rheumatologic--limited lower extremity exam due to pain Psychiatric--normal affect. Results & Data Results & Data Vital Signs (Past 12 Hours) Vital Signs Temp Pulse Resp BP Pulse Ox O2 Del Method 01/23/23 23:43 36.7 C 100 H 20 116/60 98 Room Air Laboratory Results Laboratory Results WBC 10.06 K/ul (4.8-10.8) 01/24/23 01:00 RBC 3.97 M/uL (4.20-5.40) L 01/24/23 01:00 Hgb 12.5 g/dl (12.0-16.0) 01/24/23 01:00 Hct 36.8 % (37.0-47.0) L 01/24/23 01:00 MCV 92.7 fL (80.0-100.0) 01/24/23 01:00 MCH 31.5 pg (25.0-34.0) 01/24/23 01:00 MCHC 34.0 g/dL (32.0-36.0) 01/24/23 01:00 RDW Std Deviation 45.1 fL (36.4-46.3) 01/24/23 01:00 RDW Coeff of Mendez 13.4 % (11.5-14.5) 01/24/23 01:00 Plt Count 350 K/uL (130-400) 01/24/23 01:00 MPV 9.9 fL (9.4-12.4) 01/24/23 01:00 Immature Gran % (Auto) 0.5 % 01/24/23 01:00 Neut % (Auto) 60.7 % 01/24/23 01:00 Lymph % (Auto) 25.8 % 01/24/23 01:00 [place] % (Auto) 11.0 % 01/24/23 01:00 Eos % (Auto) 1.4 % 01/24/23 01:00 Baso % (Auto) 0.6 % 01/24/23 01:00 Neut # (Auto) 6.10 K/uL (1.40-6.50) 01/24/23 01:00 Lymph # (Auto) 2.60 K/uL (1.2-3.4) 01/24/23 01:00 [place] # (Auto) 1.11 K/uL (0.11-0.59) H 01/24/23 01:00 Eos # (Auto) 0.14 K/uL (0-0.50) 01/24/23 01:00 Baso # (Auto) 0.06 K/uL (0-0.2) 01/24/23 01:00 Immature Gran # (Auto) 0.05 K/uL (0.01-0.20) 01/24/23 01:00 Sodium 134 mmol/L (136-145) L 01/24/23 01:00 Potassium 3.5 mmol/L (3.5-5.1) 01/24/23 01:00 Chloride 99 mmol/L (98-107) 01/24/23 01:00 Carbon Dioxide 24 mmol/L (21-32) 01/24/23 01:00 Anion Gap 11 (3-11) 01/24/23 01:00 BUN 11 mg/dl (6-23) 01/24/23 01:00 Creatinine 0.61 mg/dl (0.6-1.2) 01/24/23 01:00 Est Cr Clr Drug Dosing Not Reportable 01/24/23 01:00 Est GFR ( Amer) 102.8 ml/min 01/24/23 01:00 Est GFR (Non-Af Amer) 88.7 ml/min 01/24/23 01:00 BUN/Creatinine Ratio 18.0 (10-20) 01/24/23 01:00 Glucose 227 mg/dl (70-99(Fasting)) H 01/24/23 01:00 Calcium 9.1 mg/dl (8.6-10.3) 01/24/23 01:00 SARS-CoV-2, RNA, NAAT NEGATIVE (NEGATIVE) 01/24/23 02:55 Diagnostic Findings MR lumbar spine wo con CLINICAL HISTORY: G89.18 TECHNIQUE: Multiplanar sequences through the lumbar spine were obtained, without intravenous contrast. Comparison: Comparison is made to MRI lumbar spine 12/28/2022 FINDINGS: Patient is status post right L5-S1 hemilaminectomy. There is interval mild decrease in size of a soft tissue fluid collection at the surgical site measuring 41 x 39 mm with a small tract to the laminectomy bed collection which measures approximately 12 x 25 mm. Enhancement of the L5-S1 disc and adjacent bone is again noted. Presacral soft tissue seen fluid collection 4 x 12 mm, new from prior exam. Redemonstration of multilevel disc disease with broad base posterior disc bulge at L4-L5 and L5-S1. Due to the combined effects of epidural soft tissue collection and L5-S1 disc bulge, there is significant impingement on the right nerve roots. Previously noted clumping of the nerve roots is less evident on today's exam. IMPRESSION: 1. Redemonstration of discitis osteomyelitis of L5-S1. There is interval development of an left-sided presacral fluid collection concerning for an associated abscess. 2. Redemonstration of complex soft tissue collection at the surgical site extending into the laminectomy bed, slightly decreased from prior exam, concerning for postsurgical abscess. 3. Compression of the exiting right L5 nerve roots secondary to laminectomy bed fluid collection. ACT 112: Negative or not required by law. Electronically signed by: Frank Mcfarlane M.D. 01/22/2023 9:28 AM Dictated:01/22/23909 Transcribed: 01/22/23909 Code Status & VTE Plan Code Status Full code PG Care Time/CCT Total # of Minutes Spent Total Time Spent with Patient: Total time spent is greater than 50% in coordination of care (as documented) at patient's floor/unit and/or counseling patient: Coding Level of Care Code 52090 INT INP/OBS CARE 3/75MIN Diagnoses H/O lumbosacral spine surgery Z98.890 Bacteremia R78.81 Hypothyroidism E03.9 Hypertension I10 Lumbar disc herniation with radiculopathy M51.16 Mixed stress and urge urinary incontinence N39.46 Gout M10.9 Asthma J45.909 Esophageal reflux K21.9 Discitis of lumbosacral region M46.47 Osteomyelitis of lumbar spine M46.26 Postoperative abscess T81.49XA Hyperlipidemia E78.5
[2023-01-24] MEDS ORDERED: ONDANSETRON INJ 2 MG/ML 2 ML VIAL IV PRN (05:00)
[2023-01-24] MEDS ORDERED: ALBUTEROL HFA 8 GM INHALER INH PRN (05:00)
[2023-01-24] MEDS: ACETAMINOPHEN 325 MG TAB PO SCH ×3 (05:35→17:37)
[2023-01-24] MEDS ORDERED: FLUTICASONE/VILANTEROL 200/25MCG 14 PUFFS/INHALER INH PRN (05:45)
[2023-01-24] MEDS: oxyCODONE HCL IR 5 MG TAB (IMMEDIATE RELEASE) PO PRN ×4 (06:11→20:07)
--- NOTE | 2023-01-24 08:14 | Hospitalist Progress Note ---
Date of Service January 24, 2023 Assessment & Plan (1) H/O lumbosacral spine surgery: Plan: chronic unstable high risk increasing pain and weakness, feet feel clumsy L5-S1 discitis/osteomyelitis/postsurgical abscess/Staph epidermidis bacteremia- MRI on January 21 which revealed additional new abscess formation at that site as well as persistent discitis/osteomyelitis at L5-S1. compression of nerve roots by fluid collection Continue daptomycin IV increased dose per kilo and add cefepime to cover for gram-negative bacteria given her recent hospitalization Orthospine surgery was out of town will consult upon return if any progressive neurological compromise patient will be transferred to a tertiary center Patient may eventually need intervention radiology for drainage of abscess Acetaminophen 1 g IV every 8 hours as needed for mild pain or fever, the patient reports works significantly better than oral Tylenol Oxycodone 5 mg by mouth every 4 hours as needed for moderate pain Dilaudid 0.5 mg IV every 3 hours as needed for severe pain Zofran 4 mg IV every 6 hours as needed Continue cyclobenzaprine 10 mg p.o. 3 times daily as needed muscle spasm, may benefit from a change to baclofen (2) Hypertension: Plan: Chronic stable Hypertension- Continue verapamil 180 mg at bedtime (3) Asthma: Plan: chronic stable Asthma/allergy- Continue Advair discus and Flonase nasal spray (4) Esophageal reflux: Plan: chronic stable GERD- Change rabeprazole to pantoprazole per formulary interchange Continue famotidine 40 mg at bedtime (5) Hyperlipidemia: Plan Anxiety- Continue lorazepam 0.5 mg p.o. every 6 hours as needed Insomnia- Continue melatonin 10 mg at bedtime as needed Admission and Anticipated Discharge Date Admission Date: January 24, 2023 Subjective Patient was seen in the company of her her back pain is controlled medications. She reports feeling that her feet are clumsy or heavy but she has intact sensation and on examination confrontational issues good strength I reviewed MRI findings with orthospine surgery although she may eventually need an additional decompression no immediate surgical interventions were recommended unless she has neurological compromise Physical Exam Physical Exam: Awake alert appropriate. Heart is regular lungs are clear Distal extremities have good distal and sensation intact she is good dorsiflexion plantarflexion intact pulses and there is no subjective loss of sensation although she says her sensation is altered Results & Data Results & Data Vital Signs (Past 12 Hours) Vital Signs Temp Pulse Pulse Resp BP BP Pulse Ox 01/24/23 07:14 97.9 F 87 18 105/63 96 01/24/23 07:02 89 01/24/23 05:49 140/75 01/24/23 05:15 93 H 01/24/23 05:15 98.1 F 94 H 16 146/76 H 96 01/24/23 03:25 84 18 148/78 H 94 01/23/23 23:43 98.1 F 100 H 20 116/60 98 O2 Del Method 01/24/23 07:14 Room Air 01/24/23 07:02 01/24/23 05:49 01/24/23 05:15 01/24/23 05:15 Room Air 01/24/23 03:25 Room Air 01/23/23 23:43 Room Air Laboratory Results Reviewed labs from today CBC PRP added a CRP which was elevated at 5 this is slightly higher than her January 13 CRP PG Care Time/CCT Total # of Minutes Spent Total Time Spent with Patient: Total time spent is greater than 50% in coordination of care (as documented) at patient's floor/unit and/or counseling patient: Coding Level of Care Code 51441 SUB INP/OBS CARE 3/50MIN Diagnoses H/O lumbosacral spine surgery Z98.890 Hypertension I10 Asthma J45.909 Esophageal reflux K21.9 Hyperlipidemia E78.5
[2023-01-24] MEDS: LORazepam 0.5 MG TAB PO PRN (08:55)
[2023-01-24] MEDS ORDERED: DAPTOmycin 550 MG in SYRINGE 0 ML IV SCH (09:00)
[2023-01-24] MEDS ORDERED: DAPTOmycin 500 MG VIAL IV SCH (09:00)
[2023-01-24] MEDS ORDERED: NON-FORMULARY MEDICATION (Ascorbate Calcium-Bioflavonoid [Ester-C With Bioflavonoids] 1,00 PO SCH (09:00)
[2023-01-24] MEDS: LORATADINE 10 MG TAB PO SCH (09:00)
[2023-01-24] MEDS: TOCOPHERYL, DL-ALPHA 400 UNITS 180 MG CAP PO SCH ×2 (09:01→20:08)
[2023-01-24] MEDS: FLUTICASONE PROPIONATE NA SPR 16 GM BTL NAE SCH (09:01)
[2023-01-24] MEDS: PANTOprazole 40 MG TAB PO SCH (09:01)
[2023-01-24] MEDS: GLUCOSAMINE SULFATE 500 MG CAP PO SCH ×2 (09:01→20:09)
[2023-01-24] MEDS ORDERED: CHOLESTYRAMINE LIGHT 4 GM PKT PO PRN (10:00)
[2023-01-24] MEDS: CYCLOBENZAPRINE HCL 10 MG TAB PO PRN ×3 (10:10→20:07)
[2023-01-24] MEDS: PINDOLOL 5 MG PO SCH ×2 (14:48→20:10)
[2023-01-24] MEDS: CEFEPIME 2,000 MG in SYRINGE 0 ML IV SCH (15:58)
[2023-01-24] MEDS ORDERED: DOXYCYCLINE HYCLATE 100 MG in DEXTROSE 5% 100 ML IV SCH (18:00)
[2023-01-24] MEDS: FAMOTIDINE 40 MG TABLET PO SCH (20:08)
[2023-01-24] MEDS: CHOLECALCIFEROL 5,000 UNITS 125 MCG TAB PO SCH (20:08)
[2023-01-24] MEDS: CALCIUM CARBONATE 1250MG TAB PO SCH (20:08)
[2023-01-24] MEDS: MELATONIN 3 MG TAB PO SCH (20:09)
[2023-01-24] MEDS: MULTIVITAMIN TAB PO SCH (20:09)
[2023-01-24] MEDS: VERAPAMIL HCL 180 MG TABCR PO SCH (20:10)
[2023-01-24] MEDS: METHYLCELLULOSE POWDER 454 GM JAR PO SCH (21:59)
[2023-01-25] MEDS: CEFEPIME 2,000 MG in SYRINGE 0 ML IV SCH ×4 (00:27→23:54)
[2023-01-25] MEDS: ACETAMINOPHEN 325 MG TAB PO SCH ×5 (00:30→23:54)
[2023-01-25] MEDS: oxyCODONE HCL IR 5 MG TAB (IMMEDIATE RELEASE) PO PRN ×4 (01:22→20:03)
[2023-01-25] MEDS: CYCLOBENZAPRINE HCL 10 MG TAB PO PRN ×2 (03:31→08:17)
[2023-01-25] MEDS: LORazepam 0.5 MG TAB PO PRN (04:11)
[2023-01-25] MEDS: DAPTOmycin 750 MG in SYRINGE 0 ML IV SCH (06:17)
[2023-01-25 07:55] LABS: Basophils # (auto) 0.09 K/uL (0-0.2); Eosinophils # (auto) 0.25 K/uL (0-0.50); Eosinophils % (auto) 2.7 %; Hematocrit (blood only) 38.6 % (37.0-47.0); Hemoglobin 12.9 g/dl (12.0-16.0); Immature Granulocytes # (auto) 0.05 K/uL (0.01-0.20); Immature Granulocytes % (auto) 0.5 %; Lymphocytes # (auto) 2.62 K/uL (1.2-3.4); Lymphocytes % (auto) 28.6 %; Mean Corpuscular Hemoglobin 31.2 pg (25.0-34.0); Mean Corpuscular Hgb Conc 33.4 g/dL (32.0-36.0); Mean Corpuscular Volume 93.2 fL (80.0-100.0); Mean Platelet Volume 9.7 fL (9.4-12.4); Monocytes # (auto) 1.16 K/uL (0.11-0.59); Monocytes % (auto) 12.7 %; Neutrophils # (auto) 4.98 K/uL (1.40-6.50); Neutrophils % (auto) 54.5 %; Platelet Count 337 K/uL (130-400); RDW Coefficient of Variation 13.3 % (11.5-14.5); Red Blood Count 4.14 M/uL (4.20-5.40); White Blood Count 9.15 K/ul (4.8-10.8)
[2023-01-25 08:07] LABS: Albumin Level 3.3 gm/dl (3.4-5.0); BUN Creatinine Ratio 16.4 (10-20); Bilirubin,Total 0.4 mg/dl (0.2-1.0); C Reactive Protein 6.75 mg/dl (0-0.5); Calcium 9.2 mg/dl (8.6-10.3); Creatinine Clr Calc Pharmacy 95.9 ml/min; Est GFR (African American) 106.3 ml/min; Est GFR (Non-African American) 91.8 ml/min; Globulin 3.3 gm/dl (2.5-4.0); Magnesium 1.5 mg/dl (1.7-2.4); Potassium 3.9 mmol/L (3.5-5.1); Total Protein 6.6 gm/dl (6.0-8.3)
[2023-01-25] MEDS: PINDOLOL 5 MG PO SCH ×2 (08:11→20:05)
[2023-01-25] MEDS: FLUTICASONE PROPIONATE NA SPR 16 GM BTL NAE SCH (08:11)
[2023-01-25] MEDS: GLUCOSAMINE SULFATE 500 MG CAP PO SCH ×2 (08:11→20:05)
[2023-01-25] MEDS: TOCOPHERYL, DL-ALPHA 400 UNITS 180 MG CAP PO SCH ×2 (08:11→20:04)
[2023-01-25] MEDS: LORATADINE 10 MG TAB PO SCH (08:12)
[2023-01-25] MEDS: PANTOprazole 40 MG TAB PO SCH (08:12)
[2023-01-25] MEDS: MAGNESIUM SULFATE / D5W 1 GM/100 ML BAG IV SCH ×2 (08:59→11:11)
--- NOTE | 2023-01-25 17:46 | Hospitalist Progress Note ---
Date of Service January 25, 2023 Assessment & Plan (1) H/O lumbosacral spine surgery: Plan: chronic unstable high risk osteomyelitis and discitis are confirmed on 411 MRI scan Pain is controlled medications but the patient has toxic encephalopathy with some confusion and hallucinations L5-S1 discitis/osteomyelitis/postsurgical abscess/Staph epidermidis bacteremia- MRI on January 21 which revealed additional new abscess formation at that site as well as persistent discitis/osteomyelitis at L5-S1. Concern for presacral fluid collection Continue daptomycin IV increased dose per kilo and add cefepime to cover for gram-negative bacteria given her recent hospitalization Orthospine surgery was out of town will consult upon return if any progressive neurological compromise patient will be transferred to a tertiary center as mentioned did speak with [facility] today Dr. Otero who did not recommend emergent transfer or surgery agree with continuation of antibiotics Patient may eventually need intervention radiology for drainage of abscess Acetaminophen 1 g IV every 8 hours as needed for mild pain or fever, the patient reports works significantly better than oral Tylenol Oxycodone 5 mg by mouth every 4 hours as needed for moderate pain Dilaudid 0.5 mg IV every 3 hours as needed for severe pain Zofran 4 mg IV every 6 hours as needed Family wish to change the baclofen from cyclobenzaprine (2) Hypertension: Plan: Chronic stable Hypertension- Continue verapamil 180 mg at bedtime (3) Asthma: Plan: chronic stable Asthma/allergy- Continue Advair discus and Flonase nasal spray (4) Esophageal reflux: Plan: chronic stable GERD- Change rabeprazole to pantoprazole per formulary interchange Continue famotidine 40 mg at bedtime (5) Hyperlipidemia: Plan Anxiety- Continue lorazepam 0.5 mg p.o. every 6 hours as needed Insomnia- Continue melatonin 10 mg at bedtime as needed Spent additional 25 minutes on top of the normal visit discussing the case with her she is sending films and then once again I coming to the bedside and discussing the results of the conversation with the Ortho spine surgery at [facility] therefore total visit today was 60 minutes Admission and Anticipated Discharge Date Admission Date: January 24, 2023 Subjective Patient was seen in the company of her her back pain is controlled but has intermittant spasms. Patient has some subjective paresthesias to her right foot on 01/25 but she has intact sensation and on examination confrontational issues good strength I reviewed MRI findings with orthospine surgery over the phone at [facility] and he agrees that although she may eventually need an additional decompression no immediate surgical interventions were recommended unless she has neurological compromise Physical Exam Physical Exam: Awake alert appropriate. Heart is regular lungs are clear Distal extremities have good distal and sensation intact she is good dorsiflexion plantarflexion intact pulses and there is no subjective loss of sensation although she says her sensation is altered Results & Data Results & Data Vital Signs (Past 12 Hours) Vital Signs Temp Pulse Pulse Resp BP Pulse Ox O2 Del Method 01/25/23 15:57 88 01/25/23 15:20 98.4 F 91 H 16 119/71 95 Room Air 01/25/23 12:09 97.9 F 84 17 110/74 95 Room Air 01/25/23 07:00 82 01/25/23 10:03 Room Air 01/25/23 08:21 98.1 F 99 H 17 119/79 91 Room Air PG Care Time/CCT Total # of Minutes Spent Total Time Spent with Patient: Total time spent is greater than 50% in coordination of care (as documented) at patient's floor/unit and/or counseling patient: Coding Level of Care Code 13400 SUB INP/OBS CARE 3/50MIN Diagnoses H/O lumbosacral spine surgery Z98.890 Hypertension I10 Asthma J45.909 Esophageal reflux K21.9 Hyperlipidemia E78.5
[2023-01-25] MEDS: BACLOFEN 10 MG TAB PO PRN (20:04)
[2023-01-25] MEDS: CHOLECALCIFEROL 5,000 UNITS 125 MCG TAB PO SCH (20:04)
[2023-01-25] MEDS: CALCIUM CARBONATE 1250MG TAB PO SCH (20:04)
[2023-01-25] MEDS: MELATONIN 3 MG TAB PO SCH (20:05)
[2023-01-25] MEDS: MULTIVITAMIN TAB PO SCH (20:05)
[2023-01-25] MEDS: FAMOTIDINE 40 MG TABLET PO SCH (20:05)
[2023-01-25] MEDS: VERAPAMIL HCL 180 MG TABCR PO SCH (20:06)
[2023-01-25] MEDS: METHYLCELLULOSE POWDER 454 GM JAR PO SCH (20:06)
[2023-01-26] MEDS: ACETAMINOPHEN 325 MG TAB PO SCH ×4 (06:07→23:06)
[2023-01-26] MEDS: DAPTOmycin 750 MG in SYRINGE 0 ML IV SCH (06:08)
[2023-01-26 06:46] LABS: Basophils # (auto) 0.07 K/uL (0-0.2); Basophils % (auto) 0.7 %; Eosinophils # (auto) 0.31 K/uL (0-0.50); Eosinophils % (auto) 3.3 %; Hematocrit (blood only) 37.6 % (37.0-47.0); Hemoglobin 12.6 g/dl (12.0-16.0); Immature Granulocytes # (auto) 0.05 K/uL (0.01-0.20); Immature Granulocytes % (auto) 0.5 %; Lymphocytes # (auto) 2.99 K/uL (1.2-3.4); Lymphocytes % (auto) 31.7 %; Mean Corpuscular Hemoglobin 31.2 pg (25.0-34.0); Mean Corpuscular Hgb Conc 33.5 g/dL (32.0-36.0); Mean Corpuscular Volume 93.1 fL (80.0-100.0); Mean Platelet Volume 9.7 fL (9.4-12.4); Monocytes # (auto) 1.24 K/uL (0.11-0.59); Monocytes % (auto) 13.2 %; Neutrophils # (auto) 4.76 K/uL (1.40-6.50); Neutrophils % (auto) 50.6 %; Platelet Count 355 K/uL (130-400); RDW Coefficient of Variation 13.4 % (11.5-14.5); Red Blood Count 4.04 M/uL (4.20-5.40); White Blood Count 9.42 K/ul (4.8-10.8)
[2023-01-26 07:13] LABS: Albumin Level 3.3 gm/dl (3.4-5.0); BUN Creatinine Ratio 18.2 (10-20); Bilirubin,Total 0.5 mg/dl (0.2-1.0); C Reactive Protein 6.93 mg/dl (0-0.5); Creatinine Clr Calc Pharmacy 96.6 ml/min; Est GFR (African American) 106.3 ml/min; Est GFR (Non-African American) 91.8 ml/min; Globulin 3.3 gm/dl (2.5-4.0); Magnesium 1.9 mg/dl (1.7-2.4); Potassium 3.9 mmol/L (3.5-5.1); Total Protein 6.6 gm/dl (6.0-8.3)
[2023-01-26] MEDS: GLUCOSAMINE SULFATE 500 MG CAP PO SCH ×2 (07:23→20:18)
[2023-01-26] MEDS: LORATADINE 10 MG TAB PO SCH (07:23)
[2023-01-26] MEDS: PANTOprazole 40 MG TAB PO SCH (07:24)
[2023-01-26] MEDS: TOCOPHERYL, DL-ALPHA 400 UNITS 180 MG CAP PO SCH ×2 (07:24→20:17)
[2023-01-26] MEDS: FLUTICASONE PROPIONATE NA SPR 16 GM BTL NAE SCH (07:25)
[2023-01-26] MEDS: PINDOLOL 5 MG PO SCH ×2 (07:26→20:20)
[2023-01-26] MEDS: CEFEPIME 2,000 MG in SYRINGE 0 ML IV SCH ×3 (07:55→23:07)
--- NOTE | 2023-01-26 08:08 | Hospitalist Progress Note ---
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 Concern for presacral fluid collection Continue daptomycin IV increased dose per kilo and add cefepime to cover for gram-negative bacteria given her recent hospitalization [facility] was out of town will consult upon return if any progressive neurological compromise patient will be transferred to a tertiary center as mentioned did speak with [facility] today Dr. Otero who did not recommend emergent transfer or surgery agree with continuation of antibiotics Patient may eventually need intervention radiology for drainage of abscess Acetaminophen 1 g IV every 8 hours as needed for mild pain or fever, the patient reports works significantly better than oral Tylenol Oxycodone 5 mg by mouth every 4 hours as needed for moderate pain Dilaudid 0.5 mg IV every 3 hours as needed for severe pain Zofran 4 mg IV every 6 hours as needed Family wish to change the baclofen from cyclobenzaprine (2) Hypertension: Plan: Chronic stable Hypertension- Continue verapamil 180 mg at bedtime (3) Asthma: Plan: chronic stable Asthma/allergy- Continue Advair discus and Flonase nasal spray (4) Esophageal reflux: Plan: chronic stable GERD- Change rabeprazole to pantoprazole per formulary interchange Continue famotidine 40 mg at bedtime (5) Hyperlipidemia: Plan Anxiety- Continue lorazepam 0.5 mg p.o. every 6 hours as needed Insomnia- Continue melatonin 10 mg at bedtime as needed Spent additional 25 minutes on top of the normal visit discussing the case with her she is sending films and then once again I coming to the bedside and discussing the results of the conversation with the Orth[facility] spine surgery at [place] therefore total visit today was 60 minutes Admission and Anticipated Discharge Date Admission Date: January 24, 2023 Subjective Patient is about her usual state intermittently with back discomfort occasionally with confusion from her muscle relaxants. Difficulty sitting up or standing or walking due to back pain no radicular components mostly focal pain at her incision site Physical Exam Physical Exam: Patient awake alert appropriate although at times has tangential thinking her cardiac exam is regular without murmurs her lungs are clear Extremities are with objective sensation intact along with reflexes and strength patient subjectively says that there is a slight decrease in sensation although left greater than right Results & Data Results & Data Vital Signs (Past 12 Hours) Vital Signs Temp Pulse Pulse Resp BP Pulse Ox O2 Del Method 01/26/23 07:00 84 01/26/23 04:35 98.2 F 81 20 132/75 94 Room Air 01/25/23 23:38 98.4 F 86 20 116/72 94 Room Air 01/25/23 22:54 90 PG Care Time/CCT Total # of Minutes Spent Total Time Spent with Patient: Total time spent is greater than 50% in coordination of care (as documented) at patient's floor/unit and/or counseling patient: Coding Level of Care Code 13418 SUB INP/OBS CARE 2/35MIN Diagnoses H/O lumbosacral spine surgery Z98.890 Hypertension I10 Asthma J45.909 Esophageal reflux K21.9 Hyperlipidemia E78.5
[2023-01-26] MEDS ORDERED: ALTEPLASE, RECOMBINANT 1 MG/ML 2ML VIAL INSTIL ONE (08:13)
[2023-01-26] MEDS: BACLOFEN 10 MG TAB PO PRN ×2 (13:28→20:17)
[2023-01-26] MEDS: oxyCODONE HCL IR 5 MG TAB (IMMEDIATE RELEASE) PO PRN ×2 (15:23→23:46)
[2023-01-26] MEDS: CHOLECALCIFEROL 5,000 UNITS 125 MCG TAB PO SCH (20:17)
[2023-01-26] MEDS: CALCIUM CARBONATE 1250MG TAB PO SCH (20:17)
[2023-01-26] MEDS: FAMOTIDINE 40 MG TABLET PO SCH (20:17)
[2023-01-26] MEDS: MELATONIN 3 MG TAB PO SCH (20:18)
[2023-01-26] MEDS: VERAPAMIL HCL 180 MG TABCR PO SCH (20:18)
[2023-01-26] MEDS: MULTIVITAMIN TAB PO SCH (20:18)
[2023-01-26] MEDS: METHYLCELLULOSE POWDER 454 GM JAR PO SCH (20:20)
[2023-01-27] MEDS: LORazepam 0.5 MG TAB PO PRN ×3 (01:16→20:04)
[2023-01-27] MEDS: DAPTOmycin 750 MG in SYRINGE 0 ML IV SCH (05:11)
[2023-01-27] MEDS: ACETAMINOPHEN 325 MG TAB PO SCH ×3 (05:12→18:36)
[2023-01-27 06:49] LABS: C Reactive Protein 5.66 mg/dl (0-0.5); Magnesium 1.8 mg/dl (1.7-2.4)
[2023-01-27] MEDS: oxyCODONE HCL IR 5 MG TAB (IMMEDIATE RELEASE) PO PRN ×2 (07:43→22:17)
[2023-01-27] MEDS: FLUTICASONE PROPIONATE NA SPR 16 GM BTL NAE SCH (07:43)
[2023-01-27] MEDS: PANTOprazole 40 MG TAB PO SCH (07:43)
[2023-01-27] MEDS: TOCOPHERYL, DL-ALPHA 400 UNITS 180 MG CAP PO SCH ×2 (07:43→20:01)
[2023-01-27] MEDS: GLUCOSAMINE SULFATE 500 MG CAP PO SCH ×2 (07:43→20:02)
[2023-01-27] MEDS: LORATADINE 10 MG TAB PO SCH (07:43)
[2023-01-27] MEDS: PINDOLOL 5 MG PO SCH ×2 (07:44→20:03)
[2023-01-27] MEDS: CEFEPIME 2,000 MG in SYRINGE 0 ML IV SCH ×2 (08:37→18:18)
--- NOTE | 2023-01-27 10:51 | Orthopedic Consultation ---
Date of Consultation January 27, 2023 Assessment & Plan (1) Postoperative abscess: Assessment lumbar discitis with epidural abscess. Plan at this time she has failed her initial I&D and has a worsening clinical presentation and imaging picture. I am recommending urgent revision decompression and fusion L5-S1. Risk benefits pros cons and alternatives were outlined with the patient and her . She understands this would include an aggressive washout with antibiotics. She is currently n.p.o. and will plan for surgery today. History of Present Illness Reason for Consultation: Lumbar discitis Attending Physician: Delta Guerrero MD History of Present Illness This is a 77-year-old female well-known to me who was recently admitted with marked decline in status. Worsening back pain bilateral leg pain imaging demonstrates expansion of the lumbar infection at L5-S1 with gross discitis and epidural abscess. She states that she is markedly uncomfortable with any motion pain rating across the back and down her legs left seems to be worse than the right. There is also associated weakness and that she is unable to ambulate. Allergies Allergy/AdvReac Type Severity Reaction Status Date / Time capsaicin Allergy Intermediate Burning up Verified 01/24/23 01:17 diclofenac [Diclopak] Allergy Intermediate Burning up Verified 01/24/23 01:18 Diclopak Allergy Intermediate Burning up Verified 12/18/17 17:41 heparin Allergy Intermediate RASH Verified 01/24/23 01:17 isopropyl alcohol Allergy Intermediate Burning up Verified 01/24/23 01:17 levofloxacin Allergy Intermediate MUSCLE PAIN Verified 01/24/23 01:17 Macrolide Antibiotics Allergy Intermediate SWELLING Verified 01/24/23 01:17 moxifloxacin Allergy Intermediate MUSCLE PAIN Verified 01/24/23 01:17 propylene glycol Allergy Intermediate Burning up Verified 01/24/23 01:17 adhesive Allergy Mild WELTS Verified 01/24/23 01:17 Cephalosporins Allergy Mild RASH Verified 01/24/23 01:17 DIGESTIVE SYSTEM metoprolol Allergy Mild Unknown Verified 01/24/23 01:17 Sulfa (Sulfonamide Allergy Mild RASH Verified 01/24/23 01:17 Antibiotics) celecoxib Allergy Unknown Unknown Verified 01/24/23 01:17 erythromycin base Allergy Unknown UNKNOWN Verified 01/24/23 01:17 pork derived (porcine) Allergy Unknown Rash Verified 01/24/23 01:17 tramadol Allergy Unknown "wheezing, Verified 01/24/23 01:17 shortness of breath" procaine AdvReac Intermediate RACING Verified 01/24/23 01:17 HEART BEAT rofecoxib AdvReac Intermediate INCREASED Verified 01/24/23 01:17 BP SWELLING cortisone AdvReac Mild HEADCAHE Verified 01/24/23 01:17 lidocaine AdvReac Unknown RASH Verified 01/24/23 01:17 Home Medications Medication Instructions Recorded Confirmed Type cholecalciferol (vitamin D3) 125 5,000 unit PO QPM 02/25/19 01/24/23 History mcg (5,000 unit) capsule loperamide 2 mg tablet 2 mg PO HS #90 tabs 02/25/19 01/24/23 History glucosamine sulfate 2KCl 1,000 mg 1,000 mg PO AMPM 04/01/19 01/24/23 History tablet (Glucosamine Relief) multivitamin (Daily Multi-Vitamin 1 tab PO QPM 04/01/19 01/24/23 History tablet) calcium carbonate 600 mg calcium 1,200 mg PO QPM 05/04/19 01/24/23 History (1,500 mg) tablet (Calcium) ascorbate calcium-bioflavonoid 1 tab PO QAM 08/10/19 01/24/23 History 1,000 mg-200 mg tablet (Lo-C with Bioflavonoids) fluticasone propionate 50 2 sprays intranasal QAM #48 grams 12/02/19 01/24/23 Rx mcg/actuation nasal spray,suspension melatonin 5 mg capsule 10 mg PO QPM 04/26/21 01/24/23 History desloratadine 5 mg tablet 5 mg PO DAILY 90 days #90 tabs 07/09/22 01/24/23 Rx (Clarinex) estradiol acetate 0.1 mg/24 hr 1 vag ring vaginal Q3MO #1 ea 08/28/22 01/24/23 Rx vaginal ring clindamycin HCl 300 mg capsule 600 mg PO UD PRN dental procedures 09/03/22 01/24/23 Rx #30 caps albuterol sulfate 90 mcg/actuation 2 puff inhalation Q6H PRN sob 09/19/22 01/24/23 Rx aerosol inhaler #25.5 grams cyclobenzaprine 10 mg tablet 10 mg PO TID PRN muscle spasm #30 11/27/22 01/24/23 Rx tabs pindolol 5 mg tablet 5 mg PO BID #180 tabs 12/11/22 01/24/23 Rx methylcellulose (laxative) 500 mg 500 mg PO HS 12/12/22 01/24/23 History tablet (Citrucel) acetaminophen 325 mg tablet 650 mg PO Q6HWA #30 tabs 01/02/23 01/24/23 Rx daptomycin 500 mg intravenous 550 mg IV DAILY 6 weeks #42 ea 01/02/23 01/24/23 Rx solution famotidine 40 mg tablet 40 mg PO HS #90 tabs 01/07/23 01/24/23 Rx rabeprazole 20 mg tablet,delayed 20 mg PO QAM #90 tabs 01/22/23 01/24/23 Rx release fluticasone 250 mcg-salmeterol 50 1 inh inhalation BID PRN Shortness 01/24/23 01/24/23 History mcg/dose blistr powdr for Of Breath Or Wheezing inhalation (Advair Diskus) lorazepam 0.5 mg tablet 0.5 mg PO Q12 PRN Anxiety 01/24/23 01/24/23 History oxycodone 5 mg tablet 5 mg PO Q8 PRN pain scale 4-6 01/24/23 01/24/23 History verapamil 180 mg 24 hr 180 mg PO HS 01/24/23 01/24/23 History capsule,extended release vitamin E 268 mg (400 unit) capsule 268 mg PO BID 01/24/23 01/24/23 History Patient History Medical History (Updated 01/24/23 @ 19:44 by Anabell Corea, DO) Asthma uses prn INH 2-3 x monthly on avg Discitis of lumbosacral region Diverticular disease Encounter for removal of sutures Esophageal reflux Fatty liver Fibromyalgia Hepatic cyst being monitored Hiatal hernia History of diverticulitis of colon History of Helicobacter pylori infection History of migraine History of stomach ulcers Hyperlipidemia Hypertension Hypothyroidism Idiopathic polyneuropathy Irritable bowel syndrome Osteoarthritis Osteomyelitis of lumbar spine Osteopenia Postoperative abscess Tachycardia Vitamin D deficiency Surgical History (Updated 01/13/23 @ 12:16 by Leisa Carver PA-C) History of appendectomy History of cardiac cath 2003 - [facility] - abn stress test - no stents/angioplasty - follows w/ Dr. Mcneill History of cholecystectomy History of colonoscopy History of cystoscopy History of D&C History of esophagogastroduodenoscopy (EGD) History of lumpectomy History of right knee joint replacement History of tonsillectomy and adenoidectomy History of tooth extraction HX: benign breast biopsy 2013, right fibroadenoma Status post complete hysterectomy Family History Father Pancreatic cancer Colorectal cancer Diabetes Gastric ulcer Grandmother (Maternal) Family history of diabetes mellitus Aunt Leukemia Mother Hypertension Osteoarthritis Stroke Mitral valve disorder History of nephrolithiasis Daughter Asthma Emphysema of lung Polycystic ovarian syndrome Son Myocardial infarction Hypertension Diabetes Arthritis Obesity Sister Arthritis Dyslipidemia Hypertension Brother Gastric ulcer Dyslipidemia Hypertension Denies family history of Ovarian cancer Prostate cancer Breast cancer Social History Smoking Status: Former smoker Tobacco Type: Cigarettes Second Hand Exposure: No; Hx Alcohol Use: Yes Alcohol type: wine Hx Substance Use: No Preferred Language: Ukrainian Communication Ability: Effective Visual Impairment: No Limitations Hearing Ability: Normal Sexual Assault Response Coordinator Required: No Beliefs That Will Affect Care: None marital status: Current Living Situation: Spouse current occupational status: retired Other Information That Helps Us Care for You: No Feels Safe at Home: Yes Safety Concerns: Feels Safe At This Time Physical Activity Frequency: 3-4 Times per Week Seatbelt Use: always Assistive Devices: Walker Physical Exam Physical Exam: On exam she is currently in bed lying supine. Her is at the bedside. She is 4/5 bilateral plantarflexion dorsiflexion quadriceps. Sensory appears to be intact. She is uncomfortable with any motion. Results & Data Vital Signs (Past 12 Hours) Vital Signs Temp Pulse Resp BP Pulse Ox O2 Del Method 01/27/23 08:00 Room Air 01/27/23 07:57 36.5 C 72 18 122/79 96 Room Air 01/27/23 03:23 36.9 C 87 20 113/65 92 Room Air 01/27/23 00:05 36.9 C 81 20 124/68 93 Room Air
--- NOTE | 2023-01-27 12:46 | Hospitalist Progress Note ---
Date of Service January 27, 2023 Assessment & Plan (1) H/O lumbosacral spine surgery: Plan: chronic unstable high risk L5-S1 osteomyelitis and discitis are confirmed on 01/21 MRI scan, previous Staph epidermidis bacteremia- Pain is controlled medications but the patient has toxic encephalopathy with some confusion and hallucinations Continue daptomycin IV increased dose per kilo and add cefepime to cover for gram-negative bacteria given her recent hospitalization Dr Longo will have washout 01/27/23 parenteral pain control and oral muscle relaxants (2) Hypertension: Plan: Chronic stable Hypertension- Continue verapamil 180 mg at bedtime (3) Asthma: Plan: chronic stable Asthma/allergy- Continue Advair discus and Flonase nasal spray (4) Esophageal reflux: Plan: chronic stable GERD- Change rabeprazole to pantoprazole per formulary interchange Continue famotidine 40 mg at bedtime (5) Hyperlipidemia: Plan Anxiety-chronic , unstable with hospital stay Continue lorazepam 0.5 mg p.o. every 6 hours as needed Insomnia-chronic Continue melatonin 10 mg at bedtime as needed Admission and Anticipated Discharge Date Admission Date: January 24, 2023 Subjective Pt is confused from medication, she is with pain and spasm, for OR this week Physical Exam Physical Exam: Pt is oriented but confused has intact distal sensation and strength, subjectively says feet feel different but can feel sensation testing cardiac exam is regular lungs are clear Results & Data Results & Data Vital Signs (Past 12 Hours) Vital Signs Temp Pulse Resp BP Pulse Ox O2 Del Method 01/27/23 12:11 98.2 F 89 18 146/85 H 97 Room Air 01/27/23 10:57 98.2 F 88 20 125/76 95 Room Air 01/27/23 08:00 Room Air 01/27/23 07:57 97.7 F 72 18 122/79 96 Room Air 01/27/23 03:23 98.4 F 87 20 113/65 92 Room Air Laboratory Results reviewed mag reviewed crp PG Care Time/CCT Total # of Minutes Spent Total Time Spent with Patient: Total time spent is greater than 50% in coordination of care (as documented) at patient's floor/unit and/or counseling patient: Coding Level of Care Code 75173 SUB INP/OBS CARE 2/35MIN Diagnoses H/O lumbosacral spine surgery Z98.890 Hypertension I10 Asthma J45.909 Esophageal reflux K21.9 Hyperlipidemia E78.5
--- NOTE | 2023-01-27 12:49 | History & Physical Bridge Note ---
Date of Service January 27, 2023 History & Physical Bridge Note I have examined the patient, reviewed the History & Physical and in the interval since the performance of the History & Physical I have noted the following changes of clinical significance: Lumbar decompression fusion L5-S1
[2023-01-27] MEDS ORDERED: GENTAMICIN SULFATE 40 MG/ML 2 ML VIAL ONE (13:06)
[2023-01-27] MEDS ORDERED: VANCOMYCIN HCL 1000MG/20ML VIAL ONE (13:07)
[2023-01-27] MEDS ORDERED: BUPIVACAINE/EPINEPHRINE 0.25% 1:200,000 30 ML VIAL ONE (13:07)
[2023-01-27] MEDS ORDERED: ceFAZolin 330 MG/ML 1 GM VIAL ONE (13:07)
--- NOTE | 2023-01-27 13:07 | Hospitalist Progress Note ---
Date of Service January 27, 2023 Assessment & Plan (1) H/O lumbosacral spine surgery: Plan: chronic unstable high risk L5-S1 osteomyelitis and discitis are confirmed on 01/21 MRI scan, previous Staph epidermidis bacteremia- Pain is controlled medications but the patient has toxic encephalopathy with some confusion and hallucinations Continue daptomycin IV increased dose per kilo and add cefepime to cover for gram-negative bacteria given her recent hospitalization Dr Longo will have washout 01/27/23 parenteral pain control and oral muscle relaxants (2) Hypertension: Plan: Chronic stable Hypertension- Continue verapamil 180 mg at bedtime (3) Asthma: Plan: chronic stable Asthma/allergy- Continue Advair discus and Flonase nasal spray (4) Esophageal reflux: Plan: chronic stable GERD- Change rabeprazole to pantoprazole per formulary interchange Continue famotidine 40 mg at bedtime (5) Hyperlipidemia: Plan Anxiety-chronic , unstable with hospital stay Continue lorazepam 0.5 mg p.o. every 6 hours as needed Insomnia-chronic Continue melatonin 10 mg at bedtime as needed Postoperative L5-S1 discitis/osteomyelitis/postsurgical abscess/S. epidermidis bacteremia, complications of care Admission and Anticipated Discharge Date Admission Date: January 24, 2023 Results & Data Results & Data Vital Signs (Past 12 Hours) Vital Signs Temp Pulse Resp BP Pulse Ox O2 Del Method 01/27/23 12:11 98.2 F 89 18 146/85 H 97 Room Air 01/27/23 10:57 98.2 F 88 20 125/76 95 Room Air 01/27/23 08:00 Room Air 01/27/23 07:57 97.7 F 72 18 122/79 96 Room Air 01/27/23 03:23 98.4 F 87 20 113/65 92 Room Air PG Care Time/CCT Total # of Minutes Spent Total Time Spent with Patient: Total time spent is greater than 50% in coordination of care (as documented) at patient's floor/unit and/or counseling patient: Coding Level of Care Code None Diagnoses H/O lumbosacral spine surgery Z98.890 Hypertension I10 Asthma J45.909 Esophageal reflux K21.9 Hyperlipidemia E78.5
[2023-01-27] MEDS ORDERED: PROPOFOL IV EMULSION 10 MG/ML 20 ML VIAL IV ONE (13:11)
[2023-01-27] MEDS ORDERED: ROCURONIUM BROMIDE 10 MG/ML 5 ML VIAL IV ONE ×3 (13:13→14:54)
[2023-01-27] MEDS ORDERED: fentaNYL citrate PF 100 MCG/2 ML VIAL ONE (13:14)
[2023-01-27] MEDS ORDERED: ALBUTEROL 0.083% NEBU SOLN 3 ML VIAL INH PRN (13:34)
[2023-01-27] MEDS ORDERED: ATROPINE SULFATE 0.1 MG/ML 10ML SYR IV PRN (13:34)
[2023-01-27] MEDS ORDERED: ONDANSETRON INJ 2 MG/ML 2 ML VIAL IV PRN (13:34)
[2023-01-27] MEDS ORDERED: LABETALOL HCL IV 5 MG/ML 20ML IV PRN (13:34)
[2023-01-27] MEDS ORDERED: ACETAMINOPHEN 1,000 MG/100 ML VIAL IV STA (13:34)
[2023-01-27] MEDS ORDERED: MIDAZOLAM HCL 1 MG/ML 2ML VIAL ONE (13:34)
[2023-01-27] MEDS ORDERED: ePHEDrine sulfate 50 MG/ML AMP IV PRN (13:34)
--- NOTE | 2023-01-27 13:34 | Anesthesiology Consultation ---
Date of Service January 27, 2023 Assessment & Plan Chart Review Chart Review: Acceptable Risk for Surgery ASA [id number] Proposed Anesthesia Anesthesia Type: General History Surgery Operation Date: 01/27/23 09:40 Proposed Procedures p L5-S1 Decompression and Fusion, Spinal Cord Monitoring - Sandeep Longo DO Height/Weight Height: 5 ft 2 in Weight: 95.2 kg Allergies Allergy/AdvReac Type Severity Reaction Status Date / Time capsaicin Allergy Intermediate Burning up Verified 01/24/23 01:17 diclofenac [Diclopak] Allergy Intermediate Burning up Verified 01/24/23 01:18 Diclopak Allergy Intermediate Burning up Verified 12/18/17 17:41 heparin Allergy Intermediate RASH Verified 01/24/23 01:17 isopropyl alcohol Allergy Intermediate Burning up Verified 01/24/23 01:17 levofloxacin Allergy Intermediate MUSCLE PAIN Verified 01/24/23 01:17 Macrolide Antibiotics Allergy Intermediate SWELLING Verified 01/24/23 01:17 moxifloxacin Allergy Intermediate MUSCLE PAIN Verified 01/24/23 01:17 propylene glycol Allergy Intermediate Burning up Verified 01/24/23 01:17 adhesive Allergy Mild WELTS Verified 01/24/23 01:17 Cephalosporins Allergy Mild RASH Verified 01/24/23 01:17 DIGESTIVE SYSTEM metoprolol Allergy Mild Unknown Verified 01/24/23 01:17 Sulfa (Sulfonamide Allergy Mild RASH Verified 01/24/23 01:17 Antibiotics) celecoxib Allergy Unknown Unknown Verified 01/24/23 01:17 erythromycin base Allergy Unknown UNKNOWN Verified 01/24/23 01:17 pork derived (porcine) Allergy Unknown Rash Verified 01/24/23 01:17 tramadol Allergy Unknown "wheezing, Verified 01/24/23 01:17 shortness of breath" procaine AdvReac Intermediate RACING Verified 01/24/23 01:17 HEART BEAT rofecoxib AdvReac Intermediate INCREASED Verified 01/24/23 01:17 BP SWELLING cortisone AdvReac Mild HEADCAHE Verified 01/24/23 01:17 lidocaine AdvReac Unknown RASH Verified 01/24/23 01:17 Medications Home Medications Medication Instructions Recorded Confirmed Last Taken cholecalciferol (vitamin D3) 125 5,000 unit PO QPM 02/25/19 01/24/23 01/23/23 mcg (5,000 unit) capsule loperamide 2 mg tablet 2 mg PO HS #90 tabs 0501/24/23 01/23/23 glucosamine sulfate 2KCl 1,000 mg 1,000 mg PO AMPM 04/01/19 01/24/23 01/23/23 tablet (Glucosamine Relief) multivitamin (Daily Multi-Vitamin 1 tab PO QPM 04/01/19 01/24/23 01/23/23 tablet) calcium carbonate 600 mg calcium 1,200 mg PO QPM 05/04/19 01/24/23 01/23/23 (1,500 mg) tablet (Calcium) ascorbate calcium-bioflavonoid 1 tab PO QAM 08/10/19 01/24/23 01/23/23 1,000 mg-200 mg tablet (Lo-C with Bioflavonoids) fluticasone propionate 50 2 sprays intranasal QAM #48 grams 12/02/19 01/24/23 01/23/23 mcg/actuation nasal spray,suspension melatonin 5 mg capsule 10 mg PO QPM 04/26/21 01/24/23 01/23/23 desloratadine 5 mg tablet 5 mg PO DAILY 90 days #90 tabs 07/09/22 01/24/23 01/23/23 (Clarinex) estradiol acetate 0.1 mg/24 hr 1 vag ring vaginal Q3MO #1 ea 08/28/22 01/24/23 Unknown vaginal ring clindamycin HCl 300 mg capsule 600 mg PO UD PRN dental procedures 09/03/22 01/24/23 Unknown #30 caps albuterol sulfate 90 mcg/actuation 2 puff inhalation Q6H PRN sob 09/19/22 01/24/23 Unknown aerosol inhaler #25.5 grams cyclobenzaprine 10 mg tablet 10 mg PO TID PRN muscle spasm #30 11/27/22 01/24/23 12/12/22 07:00 tabs pindolol 5 mg tablet 5 mg PO BID #180 tabs 12/11/22 01/24/23 01/23/23 methylcellulose (laxative) 500 mg 500 mg PO HS 12/12/22 01/24/23 01/23/23 tablet (Citrucel) acetaminophen 325 mg tablet 650 mg PO Q6HWA #30 tabs 01/02/23 01/24/23 01/23/23 daptomycin 500 mg intravenous 550 mg IV DAILY 6 weeks #42 ea 01/02/23 01/24/23 01/23/23 solution famotidine 40 mg tablet 40 mg PO HS #90 tabs 01/07/23 01/24/23 01/23/23 rabeprazole 20 mg tablet,delayed 20 mg PO QAM #90 tabs 01/22/23 01/24/23 01/23/23 release fluticasone 250 mcg-salmeterol 50 1 inh inhalation BID PRN Shortness 01/24/23 01/24/23 Unknown mcg/dose blistr powdr for Of Breath Or Wheezing inhalation (Advair Diskus) lorazepam 0.5 mg tablet 0.5 mg PO Q12 PRN Anxiety 01/24/23 01/24/23 Unknown oxycodone 5 mg tablet 5 mg PO Q8 PRN pain scale 4-6 01/24/23 01/24/23 Unknown verapamil 180 mg 24 hr 180 mg PO HS 01/24/23 01/24/23 01/23/23 capsule,extended release vitamin E 268 mg (400 unit) capsule 268 mg PO BID 01/24/23 01/24/23 01/23/23 Active Medications Generic Name Dose Route Start Last Admin Trade Name Freq PRN Reason Stop Dose Admin Acetaminophen 650 mg 01/24/23 06:00 01/27/23 11:43 Acetaminophen 325 Mg Tab PO 02/23/23 05:59 Not Given Q6HWA BRIGIDO Baclofen 10 mg 01/25/23 17:03 01/26/23 20:17 Baclofen 10 Mg Tab PO 02/24/23 20:59 10 mg TID PRN Administration Muscle Spasm Calcium Carbonate 1,250 mg 01/24/23 21:00 01/26/23 20:17 Calcium Carbonate 1250mg Tab PO 02/23/23 20:59 1,250 mg QPM BRIGIDO Administration Famotidine 40 mg 01/24/23 21:00 01/26/23 20:17 Famotidine 40 Mg Tablet PO 02/23/23 20:59 40 mg HS BRIGIDO Administration Fluticasone Propionate 2 sprays 01/24/23 09:00 01/27/23 07:43 Fluticasone Propionate Na Spr 16 Gm Btl MITCH 02/23/23 08:59 2 sprays QAM BRIGIDO Administration Glucosamine Sulfate 1,000 mg 01/24/23 09:00 01/27/23 07:43 Glucosamine Sulfate 500 Mg Cap PO 02/23/23 08:59 1,000 mg BID BRIGIDO Administration Cefepime HCl 2,000 mg/ Syringe 20 mls @ 5 mls/min 01/24/23 15:30 01/27/23 08:37 IV 03/07/23 15:29 5 mls/min Q8H BRIGIDO Administration Protocol Daptomycin 750 mg/ Syringe 15 mls @ 7.5 mls/min 01/25/23 06:00 01/27/23 05:11 IV 02/08/23 05:59 7.5 mls/min Q24H BRIGIDO Administration Protocol Loratadine 10 mg 01/24/23 09:00 01/27/23 07:43 Loratadine 10 Mg Tab PO 02/23/23 08:59 10 mg DAILY BRIGIDO Administration Lorazepam 0.5 mg 01/24/23 05:00 01/27/23 07:43 Lorazepam 0.5 Mg Tab PO 02/23/23 04:59 0.5 mg Q6H PRN Administration Anxiety Melatonin 9 mg 01/24/23 21:00 01/26/23 20:18 Melatonin 3 Mg Tab PO 02/23/23 20:59 9 mg QPM BRIGIDO Administration Methylcellulose 0.5 gm 01/24/23 21:00 01/26/23 20:20 Methylcellulose Powder 454 Gm Jar PO 02/23/23 20:59 0.5 gm HS BRIGIDO Administration Multivitamins 1 tab 01/24/23 21:00 01/26/23 20:18 Multivitamin Tab PO 02/23/23 20:59 1 tab QPM BRIGIDO Administration Oxycodone HCl 5 mg 01/24/23 03:09 01/27/23 07:43 Oxycodone Hcl Ir 5 Mg Tab (Immediate Release) PO 02/07/23 03:08 5 mg Q4H PRN Administration Moderate Pain (Scale 4, 5, 6) Pantoprazole Sodium 40 mg 01/24/23 09:00 01/27/23 07:43 Pantoprazole 40 Mg Tab PO 02/23/23 08:59 40 mg QAM BRIGIDO Administration Pindolol 1 each 01/24/23 12:00 01/27/23 07:44 Pindolol 5mg Tab PO 02/23/23 11:59 1 each Q12H BRIGIDO Administration Verapamil HCl 180 mg 01/24/23 21:00 01/26/23 20:18 Verapamil Hcl 180 Mg Tabcr PO 02/23/23 20:59 180 mg HS BRIGIDO Administration Vitamin D 5,000 units 01/24/23 21:00 01/26/23 20:17 Cholecalciferol 5,000 Units 125 Mcg Tab PO 02/23/23 20:59 5,000 units QPM BRIGIDO Administration Vitamin E 400 units 01/24/23 09:00 01/27/23 07:43 Tocopheryl, Dl-Alpha 400 Units 180 Mg Cap PO 02/23/23 08:59 400 units BID BRIGIDO Administration NPO Date Last Intake of Fluids: 01/26/23 Time Last Intake of Fluids: 21:30 Last Intake of Fluids Comment: sips with meds this am Date Last Intake of Solids: 01/26/23 Time Last Intake of Solids: 17:00 Past Medical History Medical History (Updated 01/24/23 @ 19:44 by Anabell Corea, DO) Asthma uses prn INH 2-3 x monthly on avg Discitis of lumbosacral region Diverticular disease Encounter for removal of sutures Esophageal reflux Fatty liver Fibromyalgia Hepatic cyst being monitored Hiatal hernia History of diverticulitis of colon History of Helicobacter pylori infection History of migraine History of stomach ulcers Hyperlipidemia Hypertension Hypothyroidism Idiopathic polyneuropathy Irritable bowel syndrome Osteoarthritis Osteomyelitis of lumbar spine Osteopenia Postoperative abscess Tachycardia Vitamin D deficiency Past Family History Family History Father Pancreatic cancer Colorectal cancer Diabetes Gastric ulcer Grandmother (Maternal) Family history of diabetes mellitus Aunt Leukemia Mother Hypertension Osteoarthritis Stroke Mitral valve disorder History of nephrolithiasis Daughter Asthma Emphysema of lung Polycystic ovarian syndrome Son Myocardial infarction Hypertension Diabetes Arthritis Obesity Sister Arthritis Dyslipidemia Hypertension Brother Gastric ulcer Dyslipidemia Hypertension Denies family history of Ovarian cancer Prostate cancer Breast cancer Past Surgical History Surgical History (Updated 01/13/23 @ 12:16 by Leisa Carver PA-C) History of appendectomy History of cardiac cath 2003 - [facility] - abn stress test - no stents/angioplasty - follows w/ Dr. Mcneill History of cholecystectomy History of colonoscopy History of cystoscopy History of D&C History of esophagogastroduodenoscopy (EGD) History of lumpectomy History of right knee joint replacement History of tonsillectomy and adenoidectomy History of tooth extraction HX: benign breast biopsy 2013, right fibroadenoma Status post complete hysterectomy Social History Smoking Status: Former smoker Hx Alcohol Use: Yes Alcohol type: wine alcohol intake frequency: holidays/special occasions only Hx Substance Use: No substance use type: does not use Review of Systems Respiratory: no problem reported Cardiovascular: no problem reported Physical Exam Vital Signs Last Vital Signs Temp 36.8 C 01/27/23 12:11 Pulse 89 01/27/23 12:11 Resp 18 01/27/23 12:11 BP 146/85 H 01/27/23 12:11 Pulse Ox 97 01/27/23 12:11 O2 Del Method Room Air 01/27/23 12:11 Neck normal visual inspection Respiratory normal respiratory effort; no respiratory distress Auscultation: lungs clear to auscultation bilaterally Cardiovascular Rate/Rhythm: regular rate and regular rhythm Psychiatric Orientation: alert and oriented x 3 Testing Laboratory Results 01/26/23 06:05 01/26/23 06:05 01/24/23 11:00 Aerobic Blood Culture - Preliminary Blood No growth in Aerobic bottle after 48 hours. Anaerobic Blood Culture - Final 01/24/23 11:05 Aerobic Blood Culture - Preliminary Blood No growth in Aerobic bottle after 48 hours. Anaerobic Blood Culture - Preliminary No growth in Anaerobic bottle after 48 hours.
[2023-01-27] MEDS ORDERED: PHENYLEPHRINE HCL 10 MG/ML VIAL ONE ×2 (13:58)
[2023-01-27] MEDS ORDERED: DEXAMETHASONE SOD INJ 4 MG/ML VIAL ONE (14:41)
[2023-01-27] MEDS ORDERED: HYDROmorphone INJ 2 MG/ML SYR/VIAL ONE ×2 (14:42→16:47)
[2023-01-27] MEDS ORDERED: GLYCOPYRROLATE 0.2 MG/ML VIAL ONE ×2 (14:44→14:45)
[2023-01-27] MEDS ORDERED: ONDANSETRON INJ 2 MG/ML 2 ML VIAL ONE (15:21)
[2023-01-27] MEDS ORDERED: FLOSEAL HEMOSTATIC MATRIX 10ML TOP ONE (15:23)
--- NOTE | 2023-01-27 15:27 | Operative Report ---
Post Operative Report Pre & Post Diagnosis Operation Date: 01/27/23 09:40 Pre-Op Diagnosis: Epidural abscess Post-Op Diagnosis: Epidural abscess I identified the patient and participated in the time-out.: Yes Procedure Operation Date: 01/27/23 09:40 Actual Procedures #1 revision decompression with bilateral medial facetectomies and foraminotomies L4-5 L5-S1. #2 posterior spinal fusion L5-S1. #3 placed posterior instrumentation L5-S1. #4 interbody fusion L5 dysfunction #5 placement of Spira 10 x 26 mm at L5-S1. Placement of the collagen sponge count and with mass graft in the posterior gutters. Surgeon Sandeep Longo, Childcare Teacher Breonna Garces Estimated Blood Loss 300 Findings Consistent with Post-Op Diagnosis Specimens Biopsy of the epidural space as well as L5-S1 disc space Indications This is a 77-year-old female who presents with evidence of osteomyelitis and epidural abscess is here for urgent decompression and stabilization. Description of Procedure Patient was met with identified informed consent obtained. Patient was then taken to the operative suite underwent intubation placed in a prone position the Floyd table top the Johnny frame. All bony prominences well-padded eyes inspected to ensure no external pressure placed upon them. This point the lum bar spine was prepped and draped in normal sterile fashion. Sharp dissection with the assistance of Bovie cautery was performed down to and exposing the remaining lamina and transverse processes of L5-S1. Obvious epidural inflammation was noted. Cultures were obtained. I then performed a complete laminectomy revision decompression L5 and partial laminectomy of L4 including bilateral medial facetectomies and foraminotomies addressing all neural compression and inflammatory tissue. Pedicle screws were placed in L5 and S1 bilaterally with assistance of fluoroscopy and the proper sized criss placed. Then entered the disc space bilaterally noting gross fluid within the disc space. Cultures were obtained. And then completely curetted and evacuated the entire disc and cartilage to subcortical bleeding bone. In light of her bone quality I elected to place an interbody spacer for additional stability. A 10 x 22 mm Spira cage was then tapped in position. I did place Stimulan beads impre gnated with gentamicin vancomycin throughout the disc space and posterior lateral gutters. Infuse fungal sponge, master graft was placed in the posterior gutters. 15 round PHANI inserted. The incision was then closed with 1 Vicryl the fascia 2-0 Vicryl subcutaneously and 4 Monocryl for final skin closure. Steri- Strip sterile dressing placed. Patient awakened and taken to PACU in stable condition. Please note Breonna Garces was present at the entire procedure involved the patient positioning complex portions of the surgery and final skin closure. Lastly spinal cord monitoring was utilized at the procedure no changes noted. I attest to the content of the Intraoperative Record and any orders documented therein. Any exceptions are noted below.
--- NOTE | 2023-01-27 15:53 | Fluoroscopy Report ---
FL lumbar spine 2-3V CLINICAL HISTORY: L5-S1 DFIchronic low back pain COMPARISON STUDY: MRI lumbar spine 01/21/2023 FLUOROSCOPY TIME: 30 seconds. FLUOROSCOPY IMAGES: 1 EXPOSURE DOSE: Not given. FINDINGS: Posterior interbody criss and screw fusion with discectomy at L5-S1. Hardware appears intact. No unexpected opaque foreign bodies identified. IMPRESSION: Fluoroscopic assistance as above. ACT 112: Negative or not required by law. Electronically signed by: Bob Muir M.D. 01/27/2023 3:51 PM
[2023-01-27] MEDS: fentaNYL citrate PF 100 MCG/2 ML VIAL IV PRN ×4 (16:00→16:18)
[2023-01-27] MEDS ORDERED: HYDROmorphone INJ 2 MG/ML SYR/VIAL IV PRN (17:09)
--- NOTE | 2023-01-27 17:35 | Anesthesiology Progress Note ---
Date of Service January 27, 2023 Anesthesia Post Procedure Vital Signs Vital Signs: Temp Pulse Pulse Resp BP BP Pulse Ox 01/27/23 17:15 36.5 C 93 H 22 150/82 H 97 01/27/23 17:05 93 H 20 129/76 91 01/27/23 16:55 85 16 178/94 H 94 01/27/23 16:45 93 H 19 146/97 H 96 01/27/23 16:35 93 H 21 154/91 H 97 01/27/23 16:25 92 H 16 154/91 H 98 01/27/23 16:15 86 29 H 146/95 H 92 01/27/23 16:05 87 20 96/78 L 94 01/27/23 15:55 83 24 117/77 99 01/27/23 15:46 36.3 C L 81 22 122/87 95 01/27/23 12:11 36.8 C 89 18 146/85 H 97 01/27/23 10:57 36.8 C 88 20 125/76 95 01/27/23 08:00 01/27/23 07:57 36.5 C 72 18 122/79 96 01/27/23 03:23 36.9 C 87 20 113/65 92 01/27/23 00:05 36.9 C 81 20 124/68 93 01/26/23 21:40 01/26/23 20:20 96 H 146/74 H O2 Del Method O2 Flow Rate 01/27/23 17:15 Nasal Cannula 2 01/27/23 17:05 Nasal Cannula 2 01/27/23 16:55 Nasal Cannula 2 01/27/23 16:45 Nasal Cannula 2 01/27/23 16:35 Room Air 01/27/23 16:25 Room Air 01/27/23 16:15 Room Air 01/27/23 16:05 Oxymask 5 01/27/23 15:55 Oxymask 5 01/27/23 15:46 Room Air 01/27/23 12:11 Room Air 01/27/23 10:57 Room Air 01/27/23 08:00 Room Air 01/27/23 07:57 Room Air 01/27/23 03:23 Room Air 01/27/23 00:05 Room Air 01/26/23 21:40 Room Air 01/26/23 20:20 Pain Intensity Back: Pain Intensity: 4 Transfer of Care Handoff Completed per policy Notes Mental Status: alert / awake / arousable Patient Amnestic to Procedure: Yes Nausea / Vomiting: adequately controlled Pain: adequately controlled Airway Patency, RR, SpO2: stable & adequate BP & HR: stable & adequate Hydration State: stable & adequate Anesthetic Complications: no major complications apparent
[2023-01-27] MEDS: CHOLECALCIFEROL 5,000 UNITS 125 MCG TAB PO SCH (20:01)
[2023-01-27] MEDS: CALCIUM CARBONATE 1250MG TAB PO SCH (20:01)
[2023-01-27] MEDS: MELATONIN 3 MG TAB PO SCH (20:02)
[2023-01-27] MEDS: FAMOTIDINE 40 MG TABLET PO SCH (20:02)
[2023-01-27] MEDS: MULTIVITAMIN TAB PO SCH (20:03)
[2023-01-27] MEDS: METHYLCELLULOSE POWDER 454 GM JAR PO SCH (20:04)
[2023-01-27] MEDS: VERAPAMIL HCL 180 MG TABCR PO SCH (20:04)
[2023-01-28] MEDS: ACETAMINOPHEN 325 MG TAB PO SCH ×5 (02:09→23:14)
[2023-01-28] MEDS ORDERED: Nursing to Pharmacy Communication SCH (03:15)
[2023-01-28] MEDS: CEFEPIME 2,000 MG in SYRINGE 0 ML IV SCH ×3 (04:06→20:47)
[2023-01-28] MEDS: DAPTOmycin 750 MG in SYRINGE 0 ML IV SCH (06:17)
[2023-01-28] MEDS: TOCOPHERYL, DL-ALPHA 400 UNITS 180 MG CAP PO SCH ×2 (09:33→20:49)
[2023-01-28] MEDS: FLUTICASONE PROPIONATE NA SPR 16 GM BTL NAE SCH (09:33)
[2023-01-28] MEDS: LORATADINE 10 MG TAB PO SCH (09:33)
[2023-01-28] MEDS: PANTOprazole 40 MG TAB PO SCH (09:33)
[2023-01-28] MEDS: GLUCOSAMINE SULFATE 500 MG CAP PO SCH ×2 (09:33→20:50)
[2023-01-28] MEDS: PINDOLOL 5 MG PO SCH ×2 (09:34→20:51)
[2023-01-28 10:05] LABS: Hematocrit (blood only) 35.3 % (37.0-47.0); Hemoglobin 11.9 g/dl (12.0-16.0); Mean Corpuscular Hemoglobin 31.4 pg (25.0-34.0); Mean Corpuscular Hgb Conc 33.7 g/dL (32.0-36.0); Mean Corpuscular Volume 93.1 fL (80.0-100.0); Mean Platelet Volume 9.8 fL (9.4-12.4); Platelet Count 367 K/uL (130-400); RDW Coefficient of Variation 13.4 % (11.5-14.5); RDW Standard Deviation 45.7 fL (36.4-46.3); Red Blood Count 3.79 M/uL (4.20-5.40); White Blood Count 15.81 K/ul (4.8-10.8)
[2023-01-28 10:19] LABS: Calcium 9.4 mg/dl (8.6-10.3); Creatinine Clr Calc Pharmacy 81.7 ml/min; Est GFR (African American) 101.2 ml/min; Est GFR (Non-African American) 87.3 ml/min; Potassium 4.2 mmol/L (3.5-5.1)
--- NOTE | 2023-01-28 11:12 | Orthopedic Progress Note ---
Date of Service January 28, 2023 Assessment & Plan (1) Postoperative abscess: Plan: This time she appears to struggle with sundowning and believes that lorazepam is the culprit. I have stopped this. Her is requested to stay at night. This has been improved. We will continue with physical therapy as tolerated. Cultures are pending. Admission and Anticipated Discharge Date Admission Date: January 24, 2023 Subjective Patient's back pain has improved. Leg pain is improved. She has been out of bed and ambulating. Physical Exam Physical Exam: On exam she does appear comfortable. Is good strength testing. Results & Data Vital Signs (Past 12 Hours) Vital Signs Temp Pulse Resp BP Pulse Ox O2 Del Method 01/28/23 10:45 36.5 C 95 H 18 104/66 98 Room Air 01/28/23 07:18 36.7 C 99 H 16 111/72 96 Room Air 01/28/23 02:51 36.5 C 103 H 16 110/56 L 96 Room Air
--- NOTE | 2023-01-28 19:09 | Hospitalist Progress Note ---
Date of Service January 28, 2023 Assessment & Plan (1) H/O lumbosacral spine surgery: Plan: Status post lumbar spinal surgery 01/27/2023 Chronic osteomyelitis and discitis of L5-S1 high risk for now stabilized postoperatively Previous Staph epidermidis bacteremia treated with intravenous daptomycin. On presentation IV daptomycin dose increased per kilo and a cefepime was added to cover gram-negative bacteria given recent hospital stay 01/27/2023 L5-S1 decompression fusion patient meant of interbody discDr. Qing Complains of postoperative constipation senna added (2) Hypertension: Plan: Chronic stable hypertension continue verapamil 180 at bedtime (3) Asthma: Plan: Chronic stable asthma continue Advair discus and Flonase nasal spray (4) Esophageal reflux: Plan: Chronic stable reflux disease change rabeprazole pantoprazole and continue famotidine Plan Postoperative L5-S1 discitis/osteomyelitis/postsurgical abscess/S. epidermidis bacteremia, complications of care Admission and Anticipated Discharge Date Admission Date: January 24, 2023 Subjective pt is fatigued she complains of constipation she is improvement of her back pain she still has some clumsy feelings or fever otherwise no focal complaints Physical Exam Physical Exam: Awake alert appropriate Card exam is regular Lungs are clear Feet are with sensation intact to gross confrontation Results & Data Results & Data Vital Signs (Past 12 Hours) Vital Signs Temp Pulse Resp BP Pulse Ox O2 Del Method 01/28/23 15:19 97.9 F 98 H 20 145/86 H 95 Room Air 01/28/23 08:15 Room Air 01/28/23 10:45 97.7 F 95 H 18 104/66 98 Room Air 01/28/23 07:18 98.1 F 99 H 16 111/72 96 Room Air Laboratory Results Reviewed CBC Reviewed chemistry PG Care Time/CCT Total # of Minutes Spent Total Time Spent with Patient: Total time spent is greater than 50% in coordination of care (as documented) at patient's floor/unit and/or counseling patient: Coding Level of Care Code 00079 SUB INP/OBS CARE 3/50MIN Diagnoses H/O lumbosacral spine surgery Z98.890 Hypertension I10 Asthma J45.909 Esophageal reflux K21.9
[2023-01-28] MEDS: CHOLECALCIFEROL 5,000 UNITS 125 MCG TAB PO SCH (20:48)
[2023-01-28] MEDS: CALCIUM CARBONATE 1250MG TAB PO SCH (20:48)
[2023-01-28] MEDS: FAMOTIDINE 40 MG TABLET PO SCH (20:49)
[2023-01-28] MEDS: MELATONIN 3 MG TAB PO SCH (20:50)
[2023-01-28] MEDS: MULTIVITAMIN TAB PO SCH (20:50)
[2023-01-28] MEDS: VERAPAMIL HCL 180 MG TABCR PO SCH (20:51)
[2023-01-28] MEDS: METHYLCELLULOSE POWDER 454 GM JAR PO SCH (20:52)
[2023-01-28] MEDS: SENNA 8.6 MG TAB PO SCH (20:57)
[2023-01-29] MEDS: oxyCODONE HCL IR 5 MG TAB (IMMEDIATE RELEASE) PO PRN ×2 (02:32→19:43)
[2023-01-29] MEDS: CEFEPIME 2,000 MG in SYRINGE 0 ML IV SCH ×3 (03:11→19:44)
[2023-01-29] MEDS: DAPTOmycin 750 MG in SYRINGE 0 ML IV SCH (05:55)
[2023-01-29] MEDS: ACETAMINOPHEN 325 MG TAB PO SCH ×4 (05:55→23:31)
[2023-01-29] MEDS ORDERED: GLUCOSE 40% GEL 15 GM TUBE PO PRN (08:29)
[2023-01-29] MEDS ORDERED: GLUCAGON FOR INJ 1 MG VIAL SQ PRN (08:29)
[2023-01-29] MEDS ORDERED: DEXTROSE 50% 50 ML SYRINGE IV PRN (08:29)
[2023-01-29] MEDS ORDERED: GLUCOSE 10 TAB/TUBE PO PRN (08:29)
[2023-01-29] MEDS ORDERED: CARBOHYDRATES FOR HYPOGLYCEMIA PO PRN (08:29)
[2023-01-29] MEDS: LORATADINE 10 MG TAB PO SCH (08:36)
[2023-01-29] MEDS: FLUTICASONE PROPIONATE NA SPR 16 GM BTL NAE SCH (08:37)
[2023-01-29] MEDS: PANTOprazole 40 MG TAB PO SCH (08:37)
[2023-01-29] MEDS: GLUCOSAMINE SULFATE 500 MG CAP PO SCH ×2 (08:37→19:46)
[2023-01-29] MEDS: TOCOPHERYL, DL-ALPHA 400 UNITS 180 MG CAP PO SCH ×2 (08:37→19:45)
[2023-01-29] MEDS: PINDOLOL 5 MG PO SCH ×2 (08:37→19:47)
--- NOTE | 2023-01-29 08:37 | Orthopedic Progress Note ---
Date of Service January 29, 2023 Assessment & Plan (1) Osteomyelitis of lumbar spine: Plan: Graciela is postoperative day 2 status post I&D lumbar spine and TLIF L5-S1. Continue physical therapy. Maintain PHANI drain. She already has her PICC line. Currently receiving IV antibiotics. She is quite adamant that she wants to return home upon discharge. From an orthopedic standpoint I would say she would be ready to be discharged home within the next day or 2. Admission and Anticipated Discharge Date Admission Date: January 24, 2023 Subjective Graciela is postoperative day 2 status post I&D lumbar spine and TLIF L5-S1. She is doing well. Pain is improving. Still notes some weakness affecting the left lower extremity. PHANI drain output is 50 cc. Yesterday physical therapy ambling 12 feet. She is passing flatus. No bowel movement. Wound cultures are currently no growth to date. She is on IV Daptomyosin and cefepime. Review of Systems Review of Systems: All systems reviewed & are unremarkable except as noted in HPI & below Physical Exam Physical Exam: Alert and oriented x3 No acute distress Lumbar dressing is clean dry intact with functioning PHANI drain Strength unchanged bilateral lower extremity Calf soft nontender bilaterally Results & Data Vital Signs (Past 12 Hours) Vital Signs Temp Pulse Resp BP Pulse Ox Pulse Ox O2 Del Method 01/29/23 07:21 36.8 C 98 H 16 133/80 98 Room Air 01/28/23 20:48 Room Air 01/28/23 20:48 96 01/28/23 20:45 36.5 C 102 H 16 129/72 96 Room Air O2 Del Method 01/29/23 07:21 01/28/23 20:48 01/28/23 20:48 Room Air 01/28/23 20:45
[2023-01-29 09:08] LABS: BUN Creatinine Ratio 26.3 (10-20); Calcium 9.2 mg/dl (8.6-10.3); Creatinine Clr Calc Pharmacy 91.7 ml/min; Est GFR (African American) 105.1 ml/min; Est GFR (Non-African American) 90.7 ml/min; Potassium 3.7 mmol/L (3.5-5.1)
[2023-01-29] MEDS: INSULIN ASPART PER UNIT CHARGE SC SCH ×3 (12:30→20:29)
--- NOTE | 2023-01-29 17:30 | Hospitalist Progress Note ---
Date of Service January 29, 2023 Assessment & Plan (1) H/O lumbosacral spine surgery: Plan: Status post lumbar spinal surgery 01/27/2023 Chronic osteomyelitis and discitis of L5-S1 high risk for now stabilized postoperatively Previous Staph epidermidis bacteremia treated with intravenous daptomycin. On presentation IV daptomycin dose increased per kilo and a cefepime was added to cover gram-negative bacteria given recent hospital stay 01/27/2023 L5-S1 decompression fusion patient meant of interbody discDr. Qing Complains of postoperative constipation senna added hyperglycemia secondry to steroids, using ssi and carb resticted diet (2) Hypertension: Plan: Chronic stable hypertension continue verapamil 180 at bedtime (3) Asthma: Plan: Chronic stable asthma continue Advair discus and Flonase nasal spray (4) Esophageal reflux: Plan: Chronic stable reflux disease change rabeprazole pantoprazole and continue famotidine Plan Postoperative L5-S1 discitis/osteomyelitis/postsurgical abscess/S. epidermidis bacteremia, complications of care Admission and Anticipated Discharge Date Admission Date: January 24, 2023 Subjective Pt looks improved, less pain in back, still wants to go home 01/29 needed to start some insulin coverage for glucoses > 200 Physical Exam Physical Exam: Awake alert appropriate Card exam is regular Lungs are clear l;ess back pain Feet are with sensation intact to gross confrontation Results & Data Results & Data Vital Signs (Past 12 Hours) Vital Signs Temp Pulse Resp BP Pulse Ox O2 Del Method O2 Del Method 01/29/23 15:54 98.4 F 95 H 16 121/76 95 Room Air 01/29/23 08:00 Room Air 01/29/23 08:00 Room Air 01/29/23 07:21 98.2 F 98 H 16 133/80 98 Room Air PG Care Time/CCT Total # of Minutes Spent Total Time Spent with Patient: Total time spent is greater than 50% in coordination of care (as documented) at patient's floor/unit and/or counseling patient: Coding Level of Care Code 10050 SUB INP/OBS CARE 2/35MIN Diagnoses H/O lumbosacral spine surgery Z98.890 Hypertension I10 Asthma J45.909 Esophageal reflux K21.9
[2023-01-29] MEDS: CALCIUM CARBONATE 1250MG TAB PO SCH (19:44)
[2023-01-29] MEDS: CHOLECALCIFEROL 5,000 UNITS 125 MCG TAB PO SCH (19:45)
[2023-01-29] MEDS: FAMOTIDINE 40 MG TABLET PO SCH (19:46)
[2023-01-29] MEDS: METHYLCELLULOSE POWDER 454 GM JAR PO SCH (19:47)
[2023-01-29] MEDS: SENNA 8.6 MG TAB PO SCH (19:47)
[2023-01-29] MEDS: MULTIVITAMIN TAB PO SCH (19:47)
[2023-01-29] MEDS: VERAPAMIL HCL 180 MG TABCR PO SCH (19:50)
[2023-01-29] MEDS: MELATONIN 3 MG TAB PO SCH (19:51)
[2023-01-29] MEDS ORDERED: KETOROLAC TROMETHAMINE 15 MG/ML VIAL IV ONE (22:13)
[2023-01-30] MEDS: oxyCODONE HCL IR 5 MG TAB (IMMEDIATE RELEASE) PO PRN ×4 (02:00→21:06)
[2023-01-30] MEDS: CEFEPIME 2,000 MG in SYRINGE 0 ML IV SCH ×3 (03:24→21:09)
[2023-01-30] MEDS: ACETAMINOPHEN 325 MG TAB PO SCH ×4 (05:09→22:59)
[2023-01-30] MEDS: DAPTOmycin 750 MG in SYRINGE 0 ML IV SCH (05:09)
[2023-01-30 08:09] LABS: Calcium 9.2 mg/dl (8.6-10.3); Potassium 3.6 mmol/L (3.5-5.1)
[2023-01-30 08:14] LABS: BUN Creatinine Ratio 23.3 (10-20); Creatinine Clr Calc Pharmacy 87.1 ml/min; Est GFR (African American) 103.3 ml/min; Est GFR (Non-African American) 89.2 ml/min
[2023-01-30] MEDS: INSULIN ASPART PER UNIT CHARGE SC SCH ×4 (08:41→21:07)
[2023-01-30] MEDS: PANTOprazole 40 MG TAB PO SCH (08:42)
[2023-01-30] MEDS: LORATADINE 10 MG TAB PO SCH (08:42)
--- NOTE | 2023-01-30 08:42 | Orthopedic Progress Note ---
Date of Service January 30, 2023 Assessment & Plan (1) Postoperative abscess: Plan: This time continue physical therapy monitor PHANI output. She will ultimately be discharged home with home health when medically and physically able. She requested a sleep aid. I have added Ambien 5 mg p.o. nightly if okay with medicine. Admission and Anticipated Discharge Date Admission Date: January 24, 2023 Subjective Back pain is controlled she is improving with physical therapy. Physical Exam Physical Exam: Patient is in bed. He is comfortable. His recent strength testing. Results & Data Vital Signs (Past 12 Hours) Vital Signs Temp Pulse Resp BP Pulse Ox O2 Del Method 01/30/23 07:40 36.8 C 88 16 137/76 94 Room Air 01/29/23 22:48 18 01/29/23 22:22 36.9 C 94 H 22 122/77 95 Room Air
[2023-01-30] MEDS: TOCOPHERYL, DL-ALPHA 400 UNITS 180 MG CAP PO SCH ×2 (08:43→20:48)
[2023-01-30] MEDS: PINDOLOL 5 MG PO SCH ×2 (08:43→20:52)
[2023-01-30] MEDS: GLUCOSAMINE SULFATE 500 MG CAP PO SCH ×2 (08:43→20:48)
[2023-01-30] MEDS: FLUTICASONE PROPIONATE NA SPR 16 GM BTL NAE SCH (08:43)
--- NOTE | 2023-01-30 18:13 | Hospitalist Progress Note ---
Date of Service January 30, 2023 Assessment & Plan (1) H/O lumbosacral spine surgery: Plan: Status post lumbar spinal surgery 01/27/2023 Chronic osteomyelitis and discitis of L5-S1 high risk for now stabilized postoperatively Previous Staph epidermidis bacteremia treated with intravenous daptomycin. On presentation IV daptomycin dose increased per kilo and a cefepime was added to cover gram-negative bacteria given recent hospital stay 01/27/2023 L5-S1 decompression fusion patient meant of interbody discDr. Qing Complains of postoperative constipation senna added hyperglycemia secondry to steroids, using ssi and carb resticted diet Given that patient had an abscess and this was treated, vultures showing rare amounts of bacteria. Sensitivites were not to be completed, left message to microlab to complete sensitivities on these cultures on 01/30 will consider ID consult in AM (2) Hypertension: Plan: Chronic stable hypertension continue verapamil 180 at bedtime (3) Asthma: Plan: Chronic stable asthma continue Advair discus and Flonase nasal spray (4) Esophageal reflux: Plan: Chronic stable reflux disease change rabeprazole pantoprazole and continue famotidine Plan Postoperative L5-S1 discitis/osteomyelitis/postsurgical abscess/S. epidermidis bacteremia, complications of care Admission and Anticipated Discharge Date Admission Date: January 24, 2023 Subjective 77 yo female reports feeling well. Review of Systems Review of Systems: All systems reviewed & are unremarkable except as noted in HPI & below Physical Exam Physical Exam: Awake alert appropriate Card exam is regular Lungs are clear l;ess back pain Feet are with sensation intact to gross confrontation Results & Data Results & Data Vital Signs (Past 12 Hours) Vital Signs Temp Pulse Resp BP Pulse Ox O2 Del Method 01/30/23 15:22 36.9 C 95 H 16 126/73 96 Room Air 01/30/23 07:40 36.8 C 88 16 137/76 94 Room Air PG Care Time/CCT Total # of Minutes Spent Total Time Spent with Patient: Total time spent is greater than 50% in coordination of care (as documented) at patient's floor/unit and/or counseling patient: Coding Level of Care Code 64073 SUB INP/OBS CARE 3/50MIN Diagnoses H/O lumbosacral spine surgery Z98.890 Hypertension I10 Asthma J45.909 Esophageal reflux K21.9 Time Spent (min) 50
[2023-01-30] MEDS: CALCIUM CARBONATE 1250MG TAB PO SCH (20:47)
[2023-01-30] MEDS: CHOLECALCIFEROL 5,000 UNITS 125 MCG TAB PO SCH (20:47)
[2023-01-30] MEDS: FAMOTIDINE 40 MG TABLET PO SCH (20:48)
[2023-01-30] MEDS: MULTIVITAMIN TAB PO SCH (20:49)
[2023-01-30] MEDS: SENNA 8.6 MG TAB PO SCH ×2 (20:50→21:12)
[2023-01-30] MEDS: VERAPAMIL HCL 180 MG TABCR PO SCH (20:50)
[2023-01-30] MEDS: METHYLCELLULOSE POWDER 454 GM JAR PO SCH ×2 (20:53→21:12)
[2023-01-30] MEDS: MELATONIN 3 MG TAB PO SCH (21:23)
[2023-01-30] MEDS: ZOLPIDEM TARTRATE 5 MG TAB PO PRN (22:59)
[2023-01-31] MEDS: ACETAMINOPHEN 325 MG TAB PO SCH ×3 (05:02→18:04)
[2023-01-31] MEDS: CEFEPIME 2,000 MG in SYRINGE 0 ML IV SCH ×2 (05:02→12:27)
[2023-01-31] MEDS: DAPTOmycin 750 MG in SYRINGE 0 ML IV SCH (05:02)
[2023-01-31 07:11] LABS: BUN Creatinine Ratio 19.7 (10-20); Calcium 9.2 mg/dl (8.6-10.3); Creatinine Clr Calc Pharmacy 85.7 ml/min; Est GFR (African American) 102.8 ml/min; Est GFR (Non-African American) 88.7 ml/min; Potassium 3.4 mmol/L (3.5-5.1)
[2023-01-31] MEDS: FLUTICASONE PROPIONATE NA SPR 16 GM BTL NAE SCH (08:42)
[2023-01-31] MEDS: PANTOprazole 40 MG TAB PO SCH (08:43)
[2023-01-31] MEDS: TOCOPHERYL, DL-ALPHA 400 UNITS 180 MG CAP PO SCH ×2 (08:43→20:16)
[2023-01-31] MEDS: LORATADINE 10 MG TAB PO SCH (08:43)
[2023-01-31] MEDS: GLUCOSAMINE SULFATE 500 MG CAP PO SCH ×2 (08:43→20:17)
[2023-01-31] MEDS: PINDOLOL 5 MG PO SCH ×2 (08:44→20:19)
[2023-01-31] MEDS: INSULIN ASPART PER UNIT CHARGE SC SCH ×4 (08:46→21:15)
--- NOTE | 2023-01-31 10:18 | Orthopedic Progress Note ---
Date of Service January 31, 2023 Assessment & Plan (1) Chronic osteomyelitis of lumbar spine: Plan: Assessment status post I&D and fusion of lumbar spine. Plan at this time she has progressed appropriately from orthopedic standpoint she can return home when cleared by medicine. Admission and Anticipated Discharge Date Admission Date: January 24, 2023 Subjective Back pain controlled leg pain improving. She is improving with physical therapy. Physical Exam Physical Exam: Patient is in the chair at the bedside. Is comfortable. Is good strength testing. Results & Data Vital Signs (Past 12 Hours) Vital Signs Temp Pulse Resp BP Pulse Ox O2 Del Method 01/31/23 08:36 119/80 01/31/23 07:32 36.6 C 90 18 167/111 H 96 Room Air
[2023-01-31] MEDS: oxyCODONE HCL IR 5 MG TAB (IMMEDIATE RELEASE) PO PRN ×2 (10:51→15:13)
--- NOTE | 2023-01-31 15:15 | Infectious Disease Consult ---
Date of Consultation January 31, 2023 Assessment & Plan (1) Postoperative abscess: (2) Osteomyelitis of lumbar spine: (3) Discitis of lumbosacral region: Plan 77 yo female with history of HTN, HLD, GERD, fibromyalgia, R knee replacement, L knee intra-articular injections most recent in November 2022, lumbar disc herniation with radiculopathy s/p L5-S1 laminectomy (12/16/22) c/b MRSE hardware- associated L5/S1 osteomyelitis and abscesses in operative bed and MRSE bactere colt, s/p washout (12/29/22) on daptomycin x 6 weeks planned through 01/30, who presented on 01/24 with worsening lower back pain, lower extremity weakness and muscle spasms. She had a recent MRI L spine on 01/21 which showed persistent discitis/osteomyelitis at L5-S1, interval development of a L sided presacral fluid collection c/f abscess, and redemonstration of complex soft tissue collection at surgical site extending into laminectomy bed, slightly decreased from prior, c/f postsurgical abscess, and compression of exiting R L5 nerve roots 2/2 laminectomy bed fluid collection. On presentation, VSS, WBC 10, CRP 5.1. Pt was continued on daptomycin, and cefepime was added. Ortho took pt back to OR on 01/27 for a washout. OR cultures are growing coag neg Staph and Micrococcus species, awaiting sensitivities. Anticipating discharge soon. Micro: 01/27 OR culture 2 Disk space cx: rare Micrococcus species (sensitivities to follow). GS--no organisms 01/27 OR culture 1 Epidural space lumbar spine cx: coag neg Staph (sensitivities to follow). GS--no organisms 01/24 BCx x2: NG 12/29 Lumbar spine cx: coag neg Staph, not lugdunensis (S dapto, tetra, TMP/SMX, vanc. R clinda, oxacillin) 12/27 BCx x2: Staph epi in 3/4 bottles 12/26 BCx x2: Staph epi in 2/4 bottles 12/25 BCx x2: Staph epi in 4/4 bottles 12/23 BCx x2: Staph epi in 4/4 bottles (2 susceptibility patterns: #1 R oxacill in, #2 S oxacillin) Abx: Daptomycin 01/24 - present Cefepime 01/24 - present Problems: #Lumbar abscesses #MRSE L5/S1 discitis/osteomyelitis #MRSE Bacteremia: 12/23-12/27. TTE unable to r/o vegetations but without valvular dysfunction #L5-S1 laminectomy (12/16/22) #Antibiotic allergies: levofloxacin, moxifloxacin, cephalosporins (tolerating cefepime), sulfa Plan: -Follow-up Micrococcus and coag neg Staph susceptibilities from 01/27 OR cultures. Anticipate will be susceptible to daptomycin, but should confirm. -Ok to discontinue cefepime -Would reset 6 week course of daptomycin 650 mg IV q24h (~8-10 mg/kg by adjusted body weight) to date of last washout (01/27 - 03/09) -Check weekly CBC with diff, CMP, ESR, CRP, CK to monitor for toxicity. Last CK 186 on 01/31 -Given retained hardware, after completing 6 weeks of IV antibiotics, would transition to suppressive doxycycline 100 mg PO BID for at least 1 year, p ossibly lifelong if tolerating -Ideally, should follow-up locally with ID, otherwise with PCP Discussed with primary team. Consultation Information This patient recommendation is based on a telemedicine consult request which was completed asynchronously through chart review and information provided by the primary physician. The patient was not seen or examined today. The evaluation is consultative in nature and all patient care and treatment decisions can either be accepted or rejected by the patient's primary hospital-based treating physici an using their own independent medical judgment for their patient. [employer] contact information: Please call [facility] [phone]. (Phone Number For Physician Use Only) Time Spent Reviewing Chart: 31+ minutes History of Present Illness Reason for Consultation: Spinal infection with hardware Requesting Physician: Dr. Srivastava Attending Physician: Danny Srivastava History of Present Illness 77 yo female with history of HTN, HLD, GERD, fibromyalgia, R knee replacement, L knee intra-articular injections most recent in November 2022, lumbar disc herniation with radiculopathy s/p L5-S1 laminectomy (12/16/22) c/b MRSE hardware- associated L5/S1 osteomyelitis and abscesses in operative bed and MRSE bacteremi a, s/p washout (12/29/22) on daptomycin x 6 weeks planned through 01/30, who presented on 01/24 with worsening lower back pain, lower extremity weakness and muscle spasms. She had a recent MRI L spine on 01/21 which showed persistent discitis/osteomyelitis at L5-S1, interval development of a L sided presacral fluid collection c/f abscess, and redemonstration of complex soft tissue collection at surgical site extending into laminectomy bed, slightly decreased from prior, c/f postsurgical abscess, and compression of exiting R L5 nerve roots 2/2 lainectomy bed fluid collection. On presentation, pt was afebrile, VSS. Labs showed WBC 10, CRP 5.1. Pt was continued on daptomycin, and cefepime was added. Ortho was consulted and took pt back to OR on 01/27 for a washout. Per operative note, obvious epidural inflammation noted, gross fluid seen within disc space. Complete laminectomy revision decompression L5 and partial laminectomy of L4 including bilateral medial facetectomies and foraminotomies, p edicle screws placed in L5 and S1 bilaterally, evacuated entire disc and cartilage to subcortical bleeding bone. WBC increased to 15.8 post-operatively on 01/28, and has not been rechecked. Pt has remained afebrile. Admission BCx are NG. OR cultures are growing rare coag neg Staph and rare Micrococcus species, awaiting sensitivities. Allergies Allergy/AdvReac Type Severity Reaction Status Date / Time capsaicin Allergy Intermediate Burning up Verified 01/24/23 01:17 diclofenac [Diclopak] Allergy Intermediate Burning up Verified 01/24/23 01:18 Diclopak Allergy Intermediate Burning up Verified 12/18/17 17:41 heparin Allergy Intermediate RASH Verified 01/24/23 01:17 isopropyl alcohol Allergy Intermediate Burning up Verified 01/24/23 01:17 levofloxacin Allergy Intermediate MUSCLE PAIN Verified 01/24/23 01:17 Macrolide Antibiotics Allergy Intermediate SWELLING Verified 01/24/23 01:17 moxifloxacin Allergy Intermediate MUSCLE PAIN Verified 01/24/23 01:17 propylene glycol Allergy Intermediate Burning up Verified 01/24/23 01:17 adhesive Allergy Mild WELTS Verified 01/24/23 01:17 Cephalosporins Allergy Mild RASH Verified 01/24/23 01:17 DIGESTIVE SYSTEM metoprolol Allergy Mild Unknown Verified 01/24/23 01:17 Sulfa (Sulfonamide Allergy Mild RASH Verified 01/24/23 01:17 Antibiotics) celecoxib Allergy Unknown Unknown Verified 01/24/23 01:17 erythromycin base Allergy Unknown UNKNOWN Verified 01/24/23 01:17 pork derived (porcine) Allergy Unknown Rash Verified 01/24/23 01:17 tramadol Allergy Unknown "wheezing, Verified 01/24/23 01:17 shortness of breath" procaine AdvReac Intermediate RACING Verified 01/24/23 01:17 HEART BEAT rofecoxib AdvReac Intermediate INCREASED Verified 01/24/23 01:17 BP SWELLING cortisone AdvReac Mild HEADCAHE Verified 01/24/23 01:17 lidocaine AdvReac Unknown RASH Verified 01/24/23 01:17 Home Medications Medication Instructions Recorded Confirmed Type cholecalciferol (vitamin D3) 125 5,000 unit PO QPM 02/25/19 01/24/23 History mcg (5,000 unit) capsule loperamide 2 mg tablet 2 mg PO HS #90 tabs 02/25/19 01/24/23 History glucosamine sulfate 2KCl 1,000 mg 1,000 mg PO AMPM 04/01/19 01/24/23 History tablet (Glucosamine Relief) multivitamin (Daily Multi-Vitamin 1 tab PO QPM 04/01/19 01/24/23 History tablet) calcium carbonate 600 mg calcium 1,200 mg PO QPM 05/04/19 01/24/23 History (1,500 mg) tablet (Calcium) ascorbate calcium-bioflavonoid 1 tab PO QAM 08/10/19 01/24/23 History 1,000 mg-200 mg tablet (Lo-C with Bioflavonoids) fluticasone propionate 50 2 sprays intranasal QAM #48 grams 12/02/19 01/24/23 Rx mcg/actuation nasal spray,suspension melatonin 5 mg capsule 10 mg PO QPM 04/26/21 01/24/23 History desloratadine 5 mg tablet 5 mg PO DAILY 90 days #90 tabs 07/09/22 01/24/23 Rx (Clarinex) estradiol acetate 0.1 mg/24 hr 1 vag ring vaginal Q3MO #1 ea 08/28/22 01/24/23 Rx vaginal ring clindamycin HCl 300 mg capsule 600 mg PO UD PRN dental procedures 09/03/2201/24 Rx #30 caps albuterol sulfate 90 mcg/actuation 2 puff inhalation Q6H PRN sob 09/19/22 01/24/23 Rx aerosol inhaler #25.5 grams cyclobenzaprine 10 mg tablet 10 mg PO TID PRN muscle spasm #30 11/27/22 01/24/23 Rx tabs pindolol 5 mg tablet 5 mg PO BID #180 tabs 12/11/22 01/24/23 Rx methylcellulose (laxative) 500 mg 500 mg PO HS 12/12/22 01/24/23 History tablet (Citrucel) acetaminophen 325 mg tablet 650 mg PO Q6HWA #30 tabs 01/02/23 01/24/23 Rx daptomycin 500 mg intravenous 550 mg IV DAILY 6 weeks #42 ea 01/02/23 01/24/23 Rx solution famotidine 40 mg tablet 40 mg PO HS #90 tabs 01/07/23 01/24/23 Rx rabeprazole 20 mg tablet,delayed 20 mg PO QAM #90 tabs 01/22/23 01/24/23 Rx release fluticasone 250 mcg-salmeterol 50 1 inh inhalation BID PRN Shortness 01/24/23 01/24/23 History mcg/dose blistr powdr for Of Breath Or Wheezing inhalation (Advair Diskus) lorazepam 0.5 mg tablet 0.5 mg PO Q12 PRN Anxiety 01/24/23 01/24/23 History oxycodone 5 mg tablet 5 mg PO Q8 PRN pain scale 4-6 01/24/23 01/24/23 History verapamil 180 mg 24 hr 180 mg PO HS 01/24/23 01/24/23 History capsule,extended release vitamin E 268 mg (400 unit) capsule 268 mg PO BID 01/24/23 01/24/23 History Patient History Medical History (Updated 01/24/23 @ 19:44 by Anabell Corea DO) Asthma uses prn INH 2-3 x monthly on avg Discitis of lumbosacral region Diverticular disease Encounter for removal of sutures Esophageal reflux Fatty liver Fibromyalgia Hepatic cyst being monitored Hiatal hernia History of diverticulitis of colon History of Helicobacter pylori infection History of migraine History of stomach ulcers Hyperlipidemia Hypertension Hypothyroidism Idiopathic polyneuropathy Irritable bowel syndrome Osteoarthritis Osteomyelitis of lumbar spine Osteopenia Postoperative abscess Tachycardia Vitamin D deficiency Surgical History (Updated 01/13/23 @ 12:16 by Leisa Carver PA-C) History of appendectomy History of cardiac cath 2004 - [facility] - abn stress test - no stents/angioplasty - follows w/ Dr. Mcneill History of cholecystectomy History of colonoscopy History of cystoscopy History of D&C History of esophagogastroduodenoscopy (EGD) History of lumpectomy History of right knee joint replacement History of tonsillectomy and adenoidectomy History of tooth extraction HX: benign breast biopsy 2012, right fibroadenoma Status post complete hysterectomy Family History Father Pancreatic cancer Colorectal cancer Diabetes Gastric ulcer Grandmother (Maternal) Family history of diabetes mellitus Aunt Leukemia Mother Hypertension Osteoarthritis Stroke Mitral valve disorder History of nephrolithiasis Daughter Asthma Emphysema of lung Polycystic ovarian syndrome Son Myocardial infarction Hypertension Diabetes Arthritis Obesity Sister Arthritis Dyslipidemia Hypertension Brother Gastric ulcer Dyslipidemia Hypertension Denies family history of Ovarian cancer Prostate cancer Breast cancer Social History Smoking Status: Former smoker Tobacco Type: Cigarettes Second Hand Exposure: No; Hx Alcohol Use: Yes Alcohol type: wine Hx Substance Use: No Preferred Language: Urdu Communication Ability: Effective Visual Impairment: No Limitations Hearing Ability: Normal 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 Operator Required: No Beliefs That Will Affect Care: Evangelical marital status: Current Living Situation: Spouse current occupational status: retired Other Information That Helps Us Care for You: No Feels Safe at Home: Yes Safety Concerns: Feels Safe At This Time Physical Activity Frequency: 3-4 Times per Week Seatbelt Use: always Assistive Devices: Walker Review of System Pt was not seen Physical Exam Physical Exam: Pt was not seen Results & Data Vital Signs (Past 12 Hours) Vital Signs Temp Pulse Resp BP Pulse Ox O2 Del Method 01/31/23 14:42 36.7 C 91 H 18 117/75 96 Room Air 01/31/23 08:36 119/80 01/31/23 07:32 36.6 C 90 18 167/111 H 96 Room Air Laboratory Results [facility] 01/31/23 06:27 Sodium 134 L Potassium 3.4 L Chloride 99 Carbon Dioxide 27 BUN 12 Creatinine 0.61 Glucose 161 H Calcium 9.2 Cardiac Enzymes 01/31/23 Range/Units 06:27 Total Creatine Kinase 186 (26-192) U/L Diagnostic Findings 01/21 Lumbar spine MRI FINDINGS: Patient is status post right L5-S1 hemilaminectomy. There is interval mild decrease in size of a soft tissue fluid collection at the surgical site measuring 41 x 39 mm with a small tract to the laminectomy bed collection which measures approximately 12 x 25 mm. Enhancement of the L5-S1 disc and adjacent bone is again noted. Presacral soft tissue seen fluid collection 4 x 12 mm, new from prior exam. Redemonstration of multilevel disc disease with broad base posterior disc bulge at L4-L5 and L5-S1. Due to the combined effects of epidural soft tissue collection and L5-S1 disc bulge, there is significant impingement on the right nerve roots. Previously noted clumping of the nerve roots is less evident on today's exam. IMPRESSION: 1. Redemonstration of discitis osteomyelitis of L5-S1. There is interval development of an left-sided presacral fluid collection concerning for an associated abscess. 2. Redemonstration of complex soft tissue collection at the surgical site extending into the laminectomy bed, slightly decreased from prior exam, concerning for postsurgical abscess. 3. Compression of the exiting right L5 nerve roots secondary to laminectomy bed fluid collection. Medications Administered Current Inpatient Medications Acetaminophen (Acetaminophen 325 Mg Tab) 650 mg PO Q6HWA BRIGIDO Stop: 02/23/23 05:59 Last Admin: 01/31/23 12:24 Dose: 650 mg Albuterol (Albuterol Hfa 8 Gm Inhaler) 2 puffs INH Q6H PRN PRN Reason: Shortness of breath Stop: 02/23/23 04:59 Baclofen (Baclofen 10 Mg Tab) 10 mg PO TID PRN PRN Reason: Muscle Spasm Stop: 02/24/23 20:59 Last Admin: 01/26/23 20:17 Dose: 10 mg Calcium Carbonate (Calcium Carbonate 1250mg Tab) 1,250 mg PO QPM BRIGIDO Stop: 02/23/23 20:59 Last Admin: 01/30/23 20:47 Dose: 1,250 mg Cholestyramine Resin (Cholestyramine Light 4 Gm Pkt) 4 gm PO QID PRN PRN Reason: Diarrhea Stop: 02/23/23 09:59 Dextrose (Dextrose 50% 50 Ml Syringe) 25 - 50 ml IV UD PRN; Protocol PRN Reason: Hypoglycemia Protocol Stop: 02/28/23 08:28 Famotidine (Famotidine 40 Mg Tablet) 40 mg PO HS BRIGIDO Stop: 02/23/23 20:59 Last Admin: 01/30/23 20:48 Dose: 40 mg Fluticasone Propionate (Fluticasone Propionate Na Spr 16 Gm Btl) 2 sprays MITCH QAM BRIGIDO Stop: 02/23/23 08:59 Last Admin: 01/31/23 08:42 Dose: 2 sprays Fluticasone/Vilanterol (Fluticasone/Vilanterol 200/25mcg 14 Puffs/Inhaler) 1 puffs INH DAILY PRN PRN Reason: Shortness Of Breath Or Wheezin Stop: 02/23/23 05:44 Glucagon (Glucagon For Inj 1 Mg Vial) 1 mg SQ UD PRN; Protocol PRN Reason: Hypoglycemia Protocol Stop: 02/28/23 08:28 Glucosamine Sulfate (Glucosamine Sulfate 500 Mg Cap) 1,000 mg PO BID BRIGIDO Stop: 02/23/23 08:59 Last Admin: 01/31/23 08:43 Dose: 1,000 mg Glucose (Glucose 10 Tab/Tube) 4 - 8 tab PO UD PRN; Protocol PRN Reason: Hypoglycemia Treatment Stop: 02/28/23 08:28 Glucose (Glucose 40% Gel 15 Gm Tube) 15 - 30 gm PO UD PRN; Protocol PRN Reason: Hypoglycemia Protocol Stop: 02/28/23 08:28 Daptomycin 750 mg/ Syringe 15 mls @ 7.5 mls/min IV Q24H [facility]; Protocol Stop: 02/08/23 05:59 Last Admin: 01/31/23 05:02 Dose: 7.5 mls/min Insulin Aspart (Insulin Aspart Per Unit Charge) 0 units SC ACHS [facility] Stop: 02/28/23 11:29 Last Admin: 01/31/23 12:24 Dose: Not Given Loratadine (Loratadine 10 Mg Tab) 10 mg PO DAILY [facility] Stop: 02/23/23 08:59 Last Admin: 01/31/23 08:43 Dose: 10 mg Melatonin (Melatonin 3 Mg Tab) 9 mg PO QPM BRIG[facility]O Stop: 02/23/23 20:59 Last Admin: 01/30/23 21:23 Dose: 9 mg Methylcellulose (Methylcellulose Powder 454 Gm Jar) 0.5 gm PO HS BRIGIDO Stop: 02/23/23 20:59 Last Admin: 01/30/23 21:12 Dose: Not Given Miscellaneous (Carbohydrates For Hypoglycemia ) 15 - 30 gm PO UD PRN PRN Reason: Hypoglycemia Protocol Stop: 02/28/23 08:28 Multivitamins (Multivitamin Tab) 1 tab PO QPM BRIGIDO Stop: 02/23/23 20:59 Last Admin: 01/30/23 20:49 Dose: 1 tab Ondansetron HCl (Ondansetron Inj 2 Mg/Ml 2 Ml Vial) 4 mg IV Q6H PRN PRN Reason: Nausea Stop: 02/23/23 04:59 Oxycodone HCl (Oxycodone Hcl Ir 5 Mg Tab (Immediate Release)) 5 mg PO Q4H PRN PRN Reason: Moderate Pain (Scale 4, 5, 6) Stop: 02/07/23 03:08 Last Admin: 01/31/23 10:51 Dose: 5 mg Pantoprazole Sodium (Pantoprazole 40 Mg Tab) 40 mg PO QAM BRIGIDO Stop: 02/23/23 08:59 Last Admin: 01/31/23 08:43 Dose: 40 mg Pindolol (Pindolol 5mg Tab) 1 each PO Q12H [facility]O Stop: 02/23/23 11:59 Last Admin: 01/31/23 08:44 Dose: 1 each Sennosides (Senna 8.6 Mg Tab) 17.2 mg PO QPM [facility]O Stop: 02/27/23 20:59 Last Admin: 01/30/23 21:12 Dose: Not Given Verapamil HCl (Verapamil Hcl 180 Mg Tabcr) 180 mg PO HS BRIG[facility]O Stop: 02/23/23 20:59 Last Admin: 01/30/23 20:50 Dose: 180 mg Vitamin D (Cholecalciferol 5,000 Units 125 Mcg Tab) 5,000 units PO QPM [facility]O Stop: 02/23/23 20:59 Last Admin: 01/30/23 20:47 Dose: 5,000 units Vitamin E (Tocopheryl, Dl-Alpha 400 Units 180 Mg Cap) 400 units PO BID BRIGIDO Stop: 02/23/23 08:59 Last Admin: 01/31/23 08:43 Dose: 400 units Zolpidem Tartrate (Zolpidem Tartrate 5 Mg Tab) 5 mg PO HSZ PRN PRN Reason: Sleep Stop: 03/01/23 08:39 Last Admin: 01/30/23 22:59 Dose: 5 mg
[2023-01-31] MEDS: CHOLECALCIFEROL 5,000 UNITS 125 MCG TAB PO SCH (20:16)
[2023-01-31] MEDS: CALCIUM CARBONATE 1250MG TAB PO SCH (20:16)
[2023-01-31] MEDS: FAMOTIDINE 40 MG TABLET PO SCH (20:17)
[2023-01-31] MEDS: METHYLCELLULOSE POWDER 454 GM JAR PO SCH (20:18)
[2023-01-31] MEDS: MULTIVITAMIN TAB PO SCH (20:18)
[2023-01-31] MEDS: VERAPAMIL HCL 180 MG TABCR PO SCH (20:19)
[2023-01-31] MEDS: SENNA 8.6 MG TAB PO SCH (20:19)
[2023-01-31] MEDS: MELATONIN 3 MG TAB PO SCH (20:21)
[2023-01-31] MEDS: ZOLPIDEM TARTRATE 5 MG TAB PO PRN (22:17)
--- NOTE | 2023-01-31 22:42 | Hospitalist Progress Note ---
Date of Service January 31, 2023 Assessment & Plan (1) H/O lumbosacral spine surgery: Plan: Status post lumbar spinal surgery 01/27/2023 Chronic osteomyelitis and discitis of L5-S1 high risk for now stabilized postoperatively Previous Staph epidermidis bacteremia treated with intravenous daptomycin. On presentation IV daptomycin dose increased per kilo and a cefepime was added to cover gram-negative bacteria given recent hospital stay 01/27/2023 L5-S1 decompression fusion patient meant of interbody discDr. Qing Complains of postoperative constipation senna added hyperglycemia secondry to steroids, using ssi and carb resticted diet Given that patient had an abscess and this was treated, cultures showing rare amounts of bacteria. Sensitivites were not to be completed. Called lab, the coag neg S. will be completed on 02/01, the other culture is a sent out. appreciate input from ID. will continue daptomycin. (2) Hypertension: Plan: Chronic stable hypertension continue verapamil 180 at bedtime (3) Asthma: Plan: Chronic stable asthma continue Advair discus and Flonase nasal spray (4) Esophageal reflux: Plan: Chronic stable reflux disease change rabeprazole pantoprazole and continue famotidine Plan Postoperative L5-S1 discitis/osteomyelitis/postsurgical abscess/S. epidermidis bacteremia, complications of care Admission and Anticipated Discharge Date Admission Date: January 24, 2023 Subjective 77 yo female reports no new symptoms. Review of Systems Review of Systems: All systems reviewed & are unremarkable except as noted in HPI & below Physical Exam Physical Exam: Awake alert appropriate Card exam is regular Lungs are clear less back pain Feet are with sensation intact to gross confrontation Results & Data Results & Data Vital Signs (Past 12 Hours) Vital Signs Temp Pulse Resp BP Pulse Ox O2 Del Method 01/31/23 20:00 36.5 C 100 H 20 157/88 H 96 Room Air 01/31/23 14:42 36.7 C 91 H 18 117/75 96 Room Air PG Care Time/CCT Total # of Minutes Spent Total Time Spent with Patient: Total time spent is greater than 50% in coordination of care (as documented) at patient's floor/unit and/or counseling patient: Coding Level of Care Code 68615 SUB INP/OBS CARE 3/50MIN Diagnoses H/O lumbosacral spine surgery Z98.890 Hypertension I10 Asthma J45.909 Esophageal reflux K21.9 Time Spent (min) 50
[2023-02-01] MEDS: ACETAMINOPHEN 325 MG TAB PO SCH ×5 (00:30→23:29)
[2023-02-01] MEDS: DAPTOmycin 650 MG in SYRINGE 0 ML IV SCH (05:34)
[2023-02-01 06:51] LABS: BUN Creatinine Ratio 19.6 (10-20); Calcium 9.3 mg/dl (8.6-10.3); Creatinine Clr Calc Pharmacy 102.5 ml/min; Est GFR (Non-African American) 94.1 ml/min; Potassium 3.5 mmol/L (3.5-5.1)
[2023-02-01] MEDS: TOCOPHERYL, DL-ALPHA 400 UNITS 180 MG CAP PO SCH ×2 (09:16→20:55)
[2023-02-01] MEDS: FLUTICASONE PROPIONATE NA SPR 16 GM BTL NAE SCH (09:16)
[2023-02-01] MEDS: GLUCOSAMINE SULFATE 500 MG CAP PO SCH ×2 (09:16→20:56)
[2023-02-01] MEDS: PINDOLOL 5 MG PO SCH ×2 (09:16→21:23)
[2023-02-01] MEDS: LORATADINE 10 MG TAB PO SCH (09:16)
[2023-02-01] MEDS: PANTOprazole 40 MG TAB PO SCH (09:16)
[2023-02-01] MEDS: INSULIN ASPART PER UNIT CHARGE SC SCH ×4 (09:19→21:23)
[2023-02-01] MEDS: oxyCODONE HCL IR 5 MG TAB (IMMEDIATE RELEASE) PO PRN ×2 (14:13→23:29)
[2023-02-01] MEDS: CALCIUM CARBONATE 1250MG TAB PO SCH (20:54)
[2023-02-01] MEDS: SENNA 8.6 MG TAB PO SCH (20:55)
[2023-02-01] MEDS: MULTIVITAMIN TAB PO SCH (20:56)
[2023-02-01] MEDS: VERAPAMIL HCL 180 MG TABCR PO SCH (20:56)
[2023-02-01] MEDS: FAMOTIDINE 40 MG TABLET PO SCH (20:57)
[2023-02-01] MEDS: CHOLECALCIFEROL 5,000 UNITS 125 MCG TAB PO SCH (20:57)
[2023-02-01] MEDS: MELATONIN 3 MG TAB PO SCH (21:22)
[2023-02-01] MEDS: METHYLCELLULOSE POWDER 454 GM JAR PO SCH (21:36)
--- NOTE | 2023-02-01 22:23 | Hospitalist Progress Note ---
Date of Service February 01, 2023 Assessment & Plan (1) H/O lumbosacral spine surgery: Plan: Status post lumbar spinal surgery 01/27/2023 Chronic osteomyelitis and discitis of L5-S1 high risk for now stabilized postoperatively Previous Staph epidermidis bacteremia treated with intravenous daptomycin. On presentation IV daptomycin dose increased per kilo and a cefepime was added to cover gram-negative bacteria given recent hospital stay 01/27/2023 L5-S1 decompression fusion patient meant of interbody discDr. Qing Complains of postoperative constipation senna added hyperglycemia secondry to steroids, using ssi and carb resticted diet Given that patient had an abscess and this was treated, cultures showing rare amounts of bacteria. Sensitivites were not to be completed. Called lab, the coag neg S. will be completed on 02/01, the other culture is a sent out. appreciate input from ID. will continue daptomycin. Culture still not ready on 02/01, will monitor for another day. (2) Hypertension: Plan: Chronic stable hypertension continue verapamil 180 at bedtime (3) Asthma: Plan: Chronic stable asthma continue Advair discus and Flonase nasal spray (4) Esophageal reflux: Plan: Chronic stable reflux disease change rabeprazole pantoprazole and continue famotidine Plan Postoperative L5-S1 discitis/osteomyelitis/postsurgical abscess/S. epidermidis bacteremia, complications of care Admission and Anticipated Discharge Date Admission Date: January 24, 2023 Subjective Patient reports no new symnptoms. Review of Systems Review of Systems: All systems reviewed & are unremarkable except as noted in HPI & below Physical Exam Physical Exam: Awake alert appropriate Card exam is regular Lungs are clear less back pain Feet are with sensation intact to gross confrontation Results & Data Results & Data Vital Signs (Past 12 Hours) Vital Signs Temp Pulse Resp BP Pulse Ox O2 Del Method 02/01/23 21:29 37.3 C 99 H 18 147/65 H 99 Room Air 02/01/23 15:15 36.9 C 105 H 16 132/77 96 Room Air PG Care Time/CCT Total # of Minutes Spent Total Time Spent with Patient: Total time spent is greater than 50% in coordination of care (as documented) at patient's floor/unit and/or counseling patient: Coding Level of Care Code 39616 SUB INP/OBS CARE 2/35MIN Diagnoses H/O lumbosacral spine surgery Z98.890 Hypertension I10 Asthma J45.909 Esophageal reflux K21.9
[2023-02-02] MEDS: DAPTOmycin 650 MG in SYRINGE 0 ML IV SCH (06:09)
[2023-02-02] MEDS: ACETAMINOPHEN 325 MG TAB PO SCH ×2 (06:09→12:09)
[2023-02-02] MEDS: FLUTICASONE PROPIONATE NA SPR 16 GM BTL NAE SCH (08:11)
[2023-02-02] MEDS: oxyCODONE HCL IR 5 MG TAB (IMMEDIATE RELEASE) PO PRN (08:14)
[2023-02-02] MEDS: INSULIN ASPART PER UNIT CHARGE SC SCH ×2 (08:15→12:09)
--- NOTE | 2023-02-02 08:27 | Orthopedic Progress Note ---
Date of Service February 02, 2023 Assessment & Plan (1) Chronic osteomyelitis of lumbar spine: Plan: Patient is status post TLIF L5-S1 due to discitis/osteomyelitis. She is orthopedically stable for discharge. She will follow-up in our office in a few weeks. Call for an appointment please. Currently on IV daptomycin. Will most likely need long-term oral suppression once IV antibiotics have been discontinued. Follow-up with infectious disease. Admission and Anticipated Discharge Date Admission Date: January 24, 2023 Thomas Owens is status post lumbar decompression and fusion L5-S1 after diagnosis of L5-S1 discitis/osteomyelitis. She is quite anxious to go home. History and physical therapy completed 150 feet. PICC line is in place. She is currently on IV daptomycin. Cefepime has been discontinued. Currently awaiting final sensitivities for discharge. Pain is controlled. Review of Systems Review of Systems: All systems reviewed & are unremarkable except as noted in HPI & below Physical Exam Physical Exam: She is lying in bed in no acute distress Alert and oriented x3 Calf soft nontender bilateral Strength intact bilateral lower extremities Results & Data Vital Signs (Past 12 Hours) Vital Signs Temp Pulse Resp BP Pulse Ox O2 Del Method 02/02/23 07:35 36.7 C 89 16 151/78 H 98 Room Air 02/01/23 21:29 37.3 C 99 H 18 147/65 H 99 Room Air
[2023-02-02] MEDS: PANTOprazole 40 MG TAB PO SCH (09:41)
[2023-02-02] MEDS: TOCOPHERYL, DL-ALPHA 400 UNITS 180 MG CAP PO SCH (09:41)
[2023-02-02] MEDS: GLUCOSAMINE SULFATE 500 MG CAP PO SCH (09:41)
[2023-02-02] MEDS: PINDOLOL 5 MG PO SCH (09:42)
[2023-02-02] MEDS: LORATADINE 10 MG TAB PO SCH (10:42)
--- NOTE | 2023-02-02 12:31 | Discharge Summary ---
Date of Service February 02, 2023 Principal Diagnosis Epidural abscess Discharge Exam Awake alert appropriate Card exam is regular Lungs are clear less back pain Feet are with sensation intact to gross confrontation Discharge Data Allergies Allergy/AdvReac Type Severity Reaction Status Date / Time capsaicin Allergy Intermediate Burning up Verified 01/24/23 01:17 diclofenac [Diclopak] Allergy Intermediate Burning up Verified 01/24/23 01:18 Diclopak Allergy Intermediate Burning up Verified 12/18/17 17:41 heparin Allergy Intermediate RASH Verified 01/24/23 01:17 isopropyl alcohol Allergy Intermediate Burning up Verified 01/24/23 01:17 levofloxacin Allergy Intermediate MUSCLE PAIN Verified 01/24/23 01:17 Macrolide Antibiotics Allergy Intermediate SWELLING Verified 01/24/23 01:17 moxifloxacin Allergy Intermediate MUSCLE PAIN Verified 01/24/23 01:17 propylene glycol Allergy Intermediate Burning up Verified 01/24/23 01:17 adhesive Allergy Mild WELTS Verified 01/24/23 01:17 Cephalosporins Allergy Mild RASH Verified 01/24/23 01:17 DIGESTIVE SYSTEM metoprolol Allergy Mild Unknown Verified 01/24/23 01:17 Sulfa (Sulfonamide Allergy Mild RASH Verified 01/24/23 01:17 Antibiotics) celecoxib Allergy Unknown Unknown Verified 01/24/23 01:17 erythromycin base Allergy Unknown UNKNOWN Verified 01/24/23 01:17 pork derived (porcine) Allergy Unknown Rash Verified 01/24/23 01:17 tramadol Allergy Unknown "wheezing, Verified 01/24/23 01:17 shortness of breath" procaine AdvReac Intermediate RACING Verified 01/24/23 01:17 HEART BEAT rofecoxib AdvReac Intermediate INCREASED Verified 01/24/23 01:17 BP SWELLING cortisone AdvReac Mild HEADCAHE Verified 01/24/23 01:17 lidocaine AdvReac Unknown RASH Verified 01/24/23 01:17 Consultations 01/24/23 02:37 ED Decision to Admit Stat 01/26/23 17:21 Consult Orthopedic Surgery Routine 01/31/23 11:23 Consult Infectious Diseases Routine Procedures Performed Operation Date: 01/27/23 09:40 Actual Procedures p L5-S1 Decompression and Fusion, Placement of Interbody, Spinal Cord Monitoring(Not Applicable) - Sandeep Longo, Ordered Studies 01/27/23 13:30 FL lumbar spine 2-3V Routine Hospital Course (1) H/O lumbosacral spine surgery: Status post lumbar spinal surgery 01/27/2023 Chronic osteomyelitis and discitis of L5-S1 high risk for now stabilized postoperatively Previous Staph epidermidis bacteremia treated with intravenous daptomycin. On presentation IV daptomycin dose increased per kilo and a cefepime was added to cover gram-negative bacteria given recent hospital stay 01/27/2023 L5-S1 decompression fusion patient meant of interbody discDr. Qing Complains of postoperative constipation senna added hyperglycemia secondry to steroids, using ssi and carb resticted diet Given that patient had an abscess and this was treated, cultures showing rare amounts of bacteria. Sensitivites were not to be completed. Called lab, the coag neg S.continues to be sensitive to daptomycin the other culture is a sent out. appreciate input from ID. will continue daptomycin. Would reset 6 week course of daptomycin 650 mg IV q24h (~8-10 mg/kg by adjusted body weight) to date of last washout (01/27 - 03/09) Given retained hardware, after completing 6 weeks of IV antibiotics, would transition to suppressive doxycycline 100 mg PO BID for at least 1 year, possibly lifelong if tolerating -Ideally, should follow-up locally with ID, otherwise with PCP (2) Hypertension: Chronic stable hypertension continue verapamil 180 at bedtime (3) Asthma: Chronic stable asthma continue Advair discus and Flonase nasal spray (4) Esophageal reflux: Chronic stable reflux disease change rabeprazole pantoprazole and continue famotidine Plan Postoperative L5-S1 discitis/osteomyelitis/postsurgical abscess/S. epidermidis bacteremia, complications of care Total Time Total Time Spent Total Time Spent (In Minutes): 32 Discharge Plan Discharge Items Patient Disposition: Home - Home Health Services Reason For Visit: EPIDURAL ABSCESS, BACTEREMIA Discharge Diagnosis: bacteremia Activity: Resume your previous activity Non-emergency contact: Primary Care Provider Call non-emergency contact if: you have any medication questions Follow-up/Referrals: ProLester MD [Primary Care Provider] - Diet: Carb Consistent or DM2 Addtl Attending Provider Instructions: ACTIVITY RECOMMENDATIONS: SELF CARE INSTRUCTIONS AFTER THORACIC/LUMBAR FUSIONS 1. You may walk to your tolerance. It is good exercise for your legs and back. Expect some back and intermittent leg aches and pains. 2. You may perform "counter-top" level activities (make a sandwich, lisa with a project, etc.). 3. No bending or lifting of more than 10 pounds or back twisting of any nature (roll like a log when turning in bed). 4. You may ride in a car for 20-30 minutes at a time. No driving until after your first visit with your doctor. 5. Frequent changes of position and restricting sitting to 30 minutes at a time will help limit the amount of back spasms and stiffness you may experience. 6. You may discontinue the use of ambulatory aids (cane, crutches, etc.) once your strength and confidence allow. 7. You may consumer marketing specialist the shower and let water strike your incision when you arrive home at least once daily. Do not take a tub bath, sit in a hot tub or go into a swimming pool until after your first recheck in the office. SPECIAL CARE INSTRUCTIONS: VERY IMPORTANT TO READ AND REVIEW A. Your surgical incision has been closed with a cosmetic suture under the skin that will dissolve in about 6 weeks. In 14 days, you can use a pair of clean scissors and cut the suture that is left outside of the skin at the ends of your incision. 1. The small skin tapes can be removed 7 days after surgery if they have not fallen off by that point. 2. You may keep the wound open to air as much as possible to promote healing after post-op day number 5 unless told otherwise by your doctor. 3. If you think the wound looks like it is becoming infected (redness or worsening drainage) and/or you are experiencing fever, chill or worsening back pain and muscle spasms, contact the office so that we may evaluate you as soon as possible. B. Complications are uncommon, but please contact us if you have any signs or symptoms of: 1. wound infection (fever higher than 102.5 degrees F, redness, separation of wound, drainage, or increasing pain from the incision) 2. blood clots in legs (pain, swelling, redness and warmth in legs) 3. urinary tract infection (fever higher than 102.5 degrees F, burning upon urination or increased frequency of urination) 4. nerve problems (inability to walk on your toes or heels, numbness, loss of bowel or bladder control) 5. any other symptoms that concern you C. Please call the office at if you have any concerns or questions about your operation or recovery. D. No smoking! Smoking drastically decreases the chance of a solid fusion. E. Do not take any anti-inflammatory medications (Indocin, Advil, Motrin, Aspirin, Naprosyn, etc.) as these may inhibit the chance of a solid fusion. Tylenol is okay to take for pain. MANAGING PAIN AFTER SPINAL SURGERY 1. Narcotic medication is intended for short-term use and will be provided for surgical pain. Surgical pain usually lasts for a period of 4-6 weeks. Narcotic medication includes Percocet, Vicodin, Darvocet, Tylenol #3 or Lortab. 2. Longer-term pain is more appropriately treated with non-narcotic medication such as Tylenol ES. 3. Muscle spasm is not appropriately treated with narcotics. Muscle relaxers such as Soma, Flexeril or Skelaxin can be used along with Tylenol ES. 4. Remember that we all live with some "aches and pains". This is not unusual or uncommon after an injury or as we get older. a. Back pain is expected and may include muscle spasms for 4 to 6 weeks after surgery. The pain should gradually improve. If the pain worsens for no apparent reason, please contact the office. b. Intermittent leg pain may also be experienced and should not be concerned about unless it worsens for no apparent reason. If so, please contact the office. 5. We will provide appropriate medication within the normal guidelines of their prescribed use. We will also be very cautious and aware of potential abuse and extended duration of patients' medication needs. a. Pain medications are for your comfort and to assist with sleep and rest so that the tissue can heal. They are not provided in order to return to normal activity and should not be used through the day. To do so or worsening pain at night can result from ongoing tissue damage and development of tolerance to the prescribed medicine. 6. Please allow 2-3 days to process refills. Prescriptions will not be mailed but must be picked up at the office. FOLLOW UP VISIT: Keep your scheduled follow-up appointment. Any questions, please call the office at . Pending Studies at Discharge: No Stand-Alone Forms: My [facility] [employer] Smoking Cessation Medications and DC Order Prescriptions: Continued desloratadine [Clarinex] 5 mg tablet 5 mg PO DAILY 90 Days Qty: 90 1RF clindamycin HCl 300 mg capsule 600 mg PO UD PRN (Reason: dental procedures) Qty: 30 6RF albuterol sulfate 90 mcg/actuation HFA aerosol inhaler 2 puff inhalation Q6H PRN (Reason: sob) Qty: 25.5 3RF pindolol 5 mg tablet 5 mg PO BID Qty: 180 1RF famotidine 40 mg tablet 40 mg PO HS Qty: 90 3RF rabeprazole 20 mg tablet,delayed release (DR/EC) 20 mg PO QAM Qty: 90 3RF cyclobenzaprine 10 mg tablet 10 mg PO TID PRN (Reason: muscle spasm) Qty: 30 0RF estradiol acetate 0.1 mg/24 hr ring 1 vag ring vaginal Q3MO Qty: 1 3RF cholecalciferol (vitamin D3) 5,000 unit capsule 5,000 unit PO QPM loperamide 2 mg tablet 2 mg PO HS Qty: 90 glucosamine sulfate 2KCl [Glucosamine Relief] 1,000 mg tablet 1,000 mg PO AMPM multivitamin [Daily Multi-Vitamin] tablet 1 tab PO QPM Lo-C with Bioflavonoids 1,000-200 mg tablet 1 tab PO QAM fluticasone propionate 50 mcg/actuation spray,suspension 2 sprays intranasal QAM Qty: 48 3RF melatonin 5 mg capsule 10 mg PO QPM calcium carbonate [Calcium 600] 600 mg calcium (1,500 mg) Tablet 1,200 mg PO QPM Citrucel 500 mg Tablet 500 mg PO HS acetaminophen 325 mg Tablet 650 mg PO Q6HWA Qty: 30 0RF oxycodone 5 mg tablet 5 mg PO Q8 PRN (Reason: pain scale 4-6) lorazepam 0.5 mg tablet 0.5 mg PO Q12 PRN (Reason: Anxiety) verapamil 180 mg capsule,ext rel. pellets 24 hr 180 mg PO HS vitamin E 268 mg (400 unit) Capsule 268 mg PO BID fluticasone propion-salmeterol [Advair Diskus] 250-50 mcg/dose blister with device 1 inh inhalation BID PRN (Reason: Shortness Of Breath Or Wheezing) Rx Instructions: patient only takes prn now Changed daptomycin 500 mg recon soln 650 mg IV DAILY 42 Days Qty: 42 0RF Rx Instructions: administer over 30 mins 6 week course to date of last washout (01/27 - 03/09) Discharge Orders: Discharge Order (Routine); Ordered 02/02/23 Ordered By: Danny Salcido/Other Patient Handouts: Prediabetes, 5 Steps for Eating Healthier, PICC, Caring for Your PICC Dc, Flushing Your PICC Line at Home Admission Data Admit Date/Time: 01/24/23 03:19 Attending Provider: Danny Srivastava Admit Provider: Joaquim Perea Primary Care Provider: Lester Baldwin Other Providers: Joaquim Perea ; Sandeep Longo Sabina M. ; Tyson Desai ; Arabella Castillo ; Chiquita Higgins ; Gloria Montez ; Graciela Pabon ; Tamanna Keen ; Matt Green ; Jeanette Avalos Coding Level of Care Code 32641 INP/OBS DISCH >30 MIN Diagnoses H/O lumbosacral spine surgery Z98.890 Hypertension I10 Asthma J45.909 Esophageal reflux K21.9
== END 2023-02-02 14:50 | disposition home health service (06) | DRG 856 ==
LOC: ED 23:34 → 2N 01-24 03:19 → SUATTDRO 01-24 03:19 → 2N 01-24 04:12 → 3E 01-27 18:35

== ENCOUNTER 2023-05-14 13:55 | Observation (INO) ==
[2023-05-14] MEDS ORDERED: IOVERSOL 350 MG 125mL Prefilled Syringe IV ONE (14:13)
--- NOTE | 2023-05-14 14:42 | CT Scan Report ---
CT ANGIOGRAM OF THE NECK CLINICAL HISTORY: Strokelike symptoms. COMPARISON STUDY: CT of the neck dated 12/06/2019. TECHNIQUE: Following the IV administration of 118 of Optiray 350, CT angiogram of the neck was perfor med from the aortic arch to the skull base. Images are reviewed in the axial, sagittal, and coronal p lanes. 3-D MIPS images are created and assessed. IV contrast was administered without complication. A ll measurements were calculated based on NASCET criteria. A dose lowering technique was utilized adh ering to the principles of ALARA. FINDINGS: Thoracic aorta: There is mild atherosclerotic calcification of the thoracic aorta. Visualized portion s of the thoracic aorta are normal in caliber. The aortic arch demonstrates standard 3-vessel anatomy . Right carotid arterial system: The right common carotid artery is widely patent, as are the right int ernal and external carotid arteries. Left carotid arterial system: The left common carotid artery is widely patent, as are the left applications intern al and external carotid arteries. Vertebral arteries: The vertebral arteries are widely patent bilaterally noting left-sided dominance. Subclavian arteries: Widely patent bilaterally. Intracranial vasculature: The visualized intracranial vessels at the skull base are patent. Jugular veins: Widely patent bilaterally. Brain parenchyma: The visualized brain parenchyma the skull base is within normal limits. Lung apices: Partially visualized upper lobe lung parenchyma appears clear. Soft tissues: The visualized pharyngeal soft tissues are normal in appearance noting angiographic pha se technique. The oropharyngeal airway appears widely patent. The salivary and thyroid glands are nor mal in appearance. No cervical lymphadenopathy is seen. Skeletal structures: The skeletal structures are osteopenic. The visualized calvarium at the skull ba se appears intact. The imaged cervical spine is maintained. Advanced multilevel spondylosis. No lytic or blastic lesion is seen. Sinuses and mastoids: There is trace because of thickening within the maxillary antra. The mastoid ai r cells are well pneumatized IMPRESSION: Unremarkable CT angiogram of the neck. ACT 112: Negative or not required by law. Electronically signed by: Trevor Hayes M.D. 05/14/2023 2:41 PM
[2023-05-14 14:46] LABS: Hematocrit (blood only) 41.6 % (37.0-47.0); Hemoglobin 14.2 g/dl (12.0-16.0); Mean Corpuscular Hemoglobin 31.5 pg (25.0-34.0); Mean Corpuscular Hgb Conc 34.1 g/dL (32.0-36.0); Mean Corpuscular Volume 92.2 fL (80.0-100.0); Mean Platelet Volume 10.2 fL (9.4-12.4); Platelet Count 249 K/uL (130-400); RDW Coefficient of Variation 13.3 % (11.5-14.5); RDW Standard Deviation 45.2 fL (36.4-46.3); Red Blood Count 4.51 M/uL (4.20-5.40); White Blood Count 9.85 K/ul (4.8-10.8)
--- NOTE | 2023-05-14 14:56 | CT Scan Report ---
CTA ANGIOGRAPHY OF THE HEAD CLINICAL HISTORY: Stroke alert. Right arm numbness. COMPARISON STUDY: MRI of the brain November 06, 2020. TECHNIQUE: Helical axial images of the head were obtained following uneventful intravenous administr ation of cc of Optiray. Sagittal and coronal reconstructions were viewed as well as maximal intensity projections on an independent 3-D workstation. Automated exposure control was utilized for the stud y. A dose lowering technique was utilized adhering to the principles of ALARA. CT DOSE: 1103.96 mGy.cm FINDINGS: The bilateral M1, M2, A1 and A2 segment are patent. There is no intracranial aneurysm. Ther e is mild plaque within the bilateral cavernous carotids without stenosis. No central vessel occlusio n is identified. The left vertebral artery is dominant. Posterior circulation is intact. Ventricular system is unremarkable. Basal cisterns are patent. No acute hemorrhage is identified on this contrast enhanced exam. IMPRESSION: No central vessel occlusion. No intracranial aneurysm. ACT 112: Negative or not required by law. Electronically signed by: Wilfred Ruby M.D. 05/14/2023 2:55 PM
[2023-05-14 15:04] LABS: Albumin Globulin Ratio 1.4 (0.9-2); Albumin Level 3.4 gm/dl (3.4-5.0); Bilirubin,Total 0.5 mg/dl (0.2-1.0); Calcium 8.4 mg/dl (8.6-10.3); Creatinine Clr Calc Pharmacy 73.2 ml/min; Est GFR (African American) 102.1 ml/min; Est GFR (Non-African American) 88.1 ml/min; Globulin 2.4 gm/dl (2.5-4.0); Magnesium 1.6 mg/dl (1.7-2.4); Potassium 4.2 mmol/L (3.5-5.1); Total Protein 5.8 gm/dl (6.0-8.3)
--- NOTE | 2023-05-14 15:09 | Emergency Department Note ---
History of Present Illness General Chief complaint: TIA Symptoms Stated complaint: SLURRING WORDS,NUMBNESS IN FINGERS/ARMS/MOUTH Time Seen by Provider: 05/14/23 14:01 History of Present Illness 78-year-old female presents emergency department she states on last she had a headache for a period of time with some difficulty finding her speech that lasted less than 15 minutes. And she was doing well until approximately 1 hour prior to arrival today at around 2:15 PM which she states that she had tingling in her right arm that radiated up into her mouth and she had some reported slurred speech. Patient denies headache denies blurred vision denies vomiting denies head trauma denies being on blood thinners. Patient states that she was concerned due to the fact that she had tingling in the right upper extremity there is no tingling or numbness in the right lower extremity. Patient states that she has returned to baseline has no current numbness in the right upper extremity or any difficulty finding words. Patient denies chest pain shortness of breath nausea vomiting diarrhea. Patient denies any recent illnesses or infections. Home Medications Medication Instructions Recorded Confirmed Type cholecalciferol (vitamin D3) 125 5,000 unit PO QPM 02/25/19 05/14/23 History mcg (5,000 unit) capsule loperamide 2 mg tablet 2 mg PO HS #90 tabs 02/25/19 05/14/23 History glucosamine sulfate 2KCl 1,000 mg 1,000 mg PO AMPM 04/01/19 05/14/23 History tablet (Glucosamine Relief) multivitamin (Daily Multi-Vitamin 1 tab PO QPM 04/01/19 05/14/23 History tablet) calcium carbonate 600 mg calcium 1,200 mg PO QPM 05/04/19 05/14/23 History (1,500 mg) tablet (Calcium) ascorbate calcium-bioflavonoid 1 tab PO QAM 08/10/19 05/14/23 History 1,000 mg-200 mg tablet (Lo-C with Bioflavonoids) fluticasone propionate 50 2 sprays intranasal QAM #48 grams 12/02/19 05/14/23 Rx mcg/actuation nasal spray,suspension estradiol acetate 0.1 mg/24 hr 1 vag ring vaginal Q3MO #1 ea 08/28/22 05/14/23 Rx vaginal ring clindamycin HCl 300 mg capsule 600 mg PO UD PRN dental procedures 09/03/22 05/14/23 Rx #30 caps albuterol sulfate 90 mcg/actuation 2 puff inhalation Q6H PRN sob 09/19/22 05/14/23 Rx aerosol inhaler #25.5 grams pindolol 5 mg tablet 5 mg PO BID #180 tabs 12/11/22 05/14/23 Rx methylcellulose (laxative) 500 mg 500 mg PO HS 12/12/22 05/14/23 History tablet (Citrucel) acetaminophen 325 mg tablet 650 mg PO Q6HWA #30 tabs 01/02/23 05/14/23 Rx famotidine 40 mg tablet 40 mg PO HS #90 tabs 01/07/23 05/14/23 Rx rabeprazole 20 mg tablet,delayed 20 mg PO QAM #90 tabs 01/22/23 05/14/23 Rx release fluticasone 250 mcg-salmeterol 50 1 inh inhalation BID PRN Shortness 01/24/23 05/14/23 History mcg/dose blistr powdr for Of Breath Or Wheezing inhalation (Advair Diskus) verapamil 180 mg 24 hr 180 mg PO HS 01/24/23 05/14/23 History capsule,extended release vitamin E 268 mg (400 unit) capsule 268 mg PO BID 01/24/23 05/14/23 History Saccharomyces boulardii 250 mg 250 mg PO BID #20 caps 02/20/23 05/14/23 Rx capsule (Florastor) desloratadine 5 mg tablet 5 mg PO DAILY 90 days #90 tabs 03/17/23 05/14/23 Rx (Clarinex) mirtazapine 15 mg tablet (Remeron) 15 mg PO HS #90 tabs 03/20/23 05/14/23 Rx doxycycline hyclate 100 mg capsule 100 mg PO DAILY 04/09/23 05/14/23 History Allergies Allergy/AdvReac Type Severity Reaction Status Date / Time tramadol Allergy Severe "wheezing, Verified 05/14/23 15:41 shortness of breath" adhesive Allergy Intermediate WELTS Verified 05/14/23 15:41 heparin Allergy Intermediate RASH Verified 05/14/23 15:41 lidocaine Allergy Intermediate RASH Verified 05/14/23 15:41 Macrolide Antibiotics Allergy Intermediate SWELLING Verified 05/14/23 15:41 pork derived (porcine) Allergy Intermediate Rash Verified 05/14/23 15:41 Sulfa (Sulfonamide Allergy Intermediate RASH Verified 05/14/23 15:41 Antibiotics) Cephalosporins Allergy Mild RASH Verified 05/14/23 15:41 DIGESTIVE SYSTEM celecoxib Allergy Unknown Unknown Verified 05/14/23 15:41 erythromycin base Allergy Unknown UNKNOWN Verified 05/14/23 15:41 metoprolol Allergy Unknown Unknown Verified 05/14/23 15:41 capsaicin AdvReac Intermediate Burning up Verified 05/14/23 15:41 diclofenac [Diclopak] AdvReac Intermediate Burning up Verified 05/14/23 15:41 isopropyl alcohol AdvReac Intermediate Burning up Verified 05/14/23 15:41 levofloxacin AdvReac Intermediate MUSCLE PAIN Verified 05/14/23 15:41 moxifloxacin AdvReac Intermediate MUSCLE PAIN Verified 05/14/23 15:41 procaine AdvReac Intermediate RACING Verified 05/14/23 15:41 HEART BEAT propylene glycol AdvReac Intermediate Burning up Verified 05/14/23 15:41 rofecoxib AdvReac Intermediate INCREASED Verified 05/14/23 15:41 BP SWELLING cortisone AdvReac Mild HEADCAHE Verified 05/14/23 15:41 Past Med/Surg History Medical History Asthma uses prn INH 2-3 x monthly on avg Discitis of lumbosacral region Diverticular disease Encounter for removal of sutures Esophageal reflux Fatty liver Fibromyalgia Hepatic cyst being monitored Hiatal hernia History of diverticulitis of colon History of Helicobacter pylori infection History of migraine History of stomach ulcers Hyperlipidemia Hypertension Hypothyroidism Idiopathic polyneuropathy Irritable bowel syndrome Osteoarthritis Osteomyelitis of lumbar spine Osteopenia Postoperative abscess Tachycardia Vitamin D deficiency Surgical History History of appendectomy History of cardiac cath 2004 - [facility] - abn stress test - no stents/angioplasty - follows w/ Dr. Mcneill History of cholecystectomy History of colonoscopy History of cystoscopy History of D&C History of esophagogastroduodenoscopy (EGD) History of lumpectomy History of right knee joint replacement History of tonsillectomy and adenoidectomy History of tooth extraction HX: benign breast biopsy 2013, right fibroadenoma Status post complete hysterectomy Family History Father Pancreatic cancer Colorectal cancer Diabetes Gastric ulcer Grandmother (Maternal) Family history of diabetes mellitus Aunt Leukemia Mother Hypertension Osteoarthritis Stroke Mitral valve disorder History of nephrolithiasis Daughter Asthma Emphysema of lung Polycystic ovarian syndrome Son Myocardial infarction Hypertension Diabetes Arthritis Obesity Sister Arthritis Dyslipidemia Hypertension Brother Gastric ulcer Dyslipidemia Hypertension Denies family history of Ovarian cancer Prostate cancer Breast cancer Social History Smoking Status: Never smoker Tobacco Type: Cigarettes Second Hand Exposure: No; Do You Dip or Chew Tobacco: No; Hx Alcohol Use: Yes Alcohol type: wine Hx Substance Use: No Preferred Language: Lebanese Communication Ability: Effective Visual Impairment: No Limitations Hearing Ability: Normal Lining Setter Required: No Beliefs That Will Affect Care: Jewish marital status: Current Living Situation: Spouse current occupational status: retired Feels Safe at Home: Yes Physical Activity Frequency: 3-4 Times per Week Seatbelt Use: always Assistive Devices: Walker Review of Systems A total of 10 systems reviewed and were otherwise negative Cardiovascular: no chest pain Physical Exam Vital Signs Vital Signs - 24 hr 05/14/23 13:57 05/14/23 14:38 05/14/23 14:31 Temperature 36.8 C Temperature Source Temporal Artery Scan Pulse Rate 76 Pulse Rate [Apical] 84 Respiratory Rate 18 22 Respiratory Effort / Characteristics Non-Labored Spontaneous Respiratory Depth Normal Respiratory Pattern Regular Blood Pressure 127/71 Blood Pressure [Right Arm] 156/71 H Blood Pressure Mean 89 Blood Pressure Mean [Right Arm] 99 Pulse Oximetry 98 98 98 Oxygen Delivery Method Room Air Room Air Room Air Sepsis Recent Fever Within 48 Hours No Sepsis New/Unexplained Change in Mental Status No Sepsis Action Taken by Nursing No Action Required 05/14/23 14:08 05/14/23 15:22 Temperature Temperature Source Pulse Rate 84 Pulse Rate [Apical] Respiratory Rate Respiratory Effort / Characteristics Respiratory Depth Respiratory Pattern Blood Pressure Blood Pressure [Right Arm] Blood Pressure Mean Blood Pressure Mean [Right Arm] Pulse Oximetry 98 Oxygen Delivery Method Room Air Sepsis Recent Fever Within 48 Hours Sepsis New/Unexplained Change in Mental Status Sepsis Action Taken by Nursing GENERAL: Patient is awake alert in no acute distress patient is resting comfortably and showing no signs of anxiety EYES: The conjunctivae are clear. The pupils are round and reactive. EARS, NOSE, MOUTH AND THROAT: The nose is without any evidence of any deformity. Mucous membranes are moist. Tongue is midline. NECK: The neck is nontender and supple. RESPIRATORY: Normal respiratory effort is noted there is no evidence of wheezing rhonchi or rales CARDIOVASCULAR: Regular rate and rhythm noted there no murmurs rubs or gallops normal S1 normal S2. GASTROINTESTINAL: The abdomen is soft. Abdomen is nontender. BACK: No midline tenderness or or step-off noted range of motion in flexion extension as well as rotation no signs of muscle spasm noted MUSCULOSKELETAL/EXTREMITIES: There is no evidence of gross deformity full range of motion is noted in the hips and shoulders. SKIN: There is no obvious evidence of any rash. There are no petechiae, pallor or cyanosis noted. NEUROLOGIC: Patient is awake alert and oriented x3 strength is symmetric; GCS of 15, NIH of 0, nonfocal neurologic exam, full strength in all extremities, no dy sarthria Course Reevaluation(s) Reevaluation #1: Patient's resting in no distress on repeat examination. Time: 15:12 Administered Medications Discontinued Medications Ioversol (Ioversol 350 Mg 125ml Prefilled Syringe) 118 ml IV ONCE ONE Stop: 05/14/23 14:14 Last Admin: 05/14/23 14:14 Dose: 118 ml Documented By: RABIA Medical Decision Making Medical Records Attestation: I reviewed the patient's medical records. Home Medications Current Medication List: was personally reviewed by [place] Laboratory Data Attestation: I reviewed the patient's lab results. Labs interpreted by me patient has hyponatremia 05/14/23 14:22 05/14/23 14:22 Lab Results 05/14/23 05/14/23 05/14/23 Range/Units 14:22 14:22 14:22 WBC 9.85 (4.8-10.8) K/ul RBC 4.51 (4.20-5.40) M/uL Hgb 14.2 (12.0-16.0) g/dl Hct 41.6 (37.0-47.0) % MCV 92.2 (80.0-100.0) fL MCH 31.5 (25.0-34.0) pg MCHC 34.1 (32.0-36.0) g/dL RDW Std Deviation 45.2 (36.4-46.3) fL RDW Coeff of Mendez 13.3 (11.5-14.5) % Plt Count 249 (130-400) K/uL MPV 10.2 (9.4-12.4) fL PT Cancelled INR Cancelled APTT Cancelled PTT Ratio Cancelled Sodium 125 L (136-145) mmol/L Potassium 4.2 (3.5-5.1) mmol/L Chloride 95 L (98-107) mmol/L Carbon Dioxide 24 (21-32) mmol/L Anion Gap 6 (3-11) BUN 11 (6-23) mg/dl Creatinine 0.61 (0.6-1.2) mg/dl Est Cr Clr Drug Dosing 73.2 ml/min Est GFR ( Amer) 102.1 ml/min Est GFR (Non-Af Amer) 88.1 ml/min BUN/Creatinine Ratio 18.0 (10-20) Glucose 118 H (70-99(Fasting)) mg/dl Calcium 8.4 L (8.6-10.3) mg/dl Magnesium 1.6 L (1.7-2.4) mg/dl Total Bilirubin 0.5 (0.2-1.0) mg/dl AST 17 (13-39) U/L ALT 13 (7-52) U/L Alkaline Phosphatase 54 (34-104) U/L Total Protein 5.8 L (6.0-8.3) gm/dl Albumin 3.4 (3.4-5.0) gm/dl Globulin 2.4 L (2.5-4.0) gm/dl Albumin/Globulin Ratio 1.4 (0.9-2) Imaging Data Attestation: I personally reviewed and interpreted this imaging study as follows: My Impression: CT brain per my interpretation negative for intracranial hemorrhage Radiologist's Impression: Head CT 05/14/23 14:05 CT head/brain wo con CLINICAL HISTORY: 78 years-old Female with stroke alert. Acute stroke like symptoms TECHNIQUE: Multiple axial CT images of the head were obtained without contrast. A dose lowering technique was utilized adhering to the principles of ALARA. COMPARISON: CTA abdomen neck of same day, brain MRI 11/06/2020 FINDINGS: No acute intracranial hemorrhage, midline shift, intracranial mass, hydrocephalus, territorial ischemia or abnormal extra-axial collection. Involutional changes with chronic microvascular ischemic disease. The calvarium is intact. The paranasal sinuses, mastoid air cells, and middle ear cavities are clear. IMPRESSION: No acute intracranial abnormality. ACT 112: Negative or not required by law. The above report was generated using voice recognition software. It may contain grammatical, syntax or spelling errors. Electronically signed by: Bob Muir M.D. 05/14/2023 3:09 PM Head CTA 05/14/23 14:05 CTA ANGIOGRAPHY OF THE HEAD CLINICAL HISTORY: Stroke alert. Right arm numbness. COMPARISON STUDY: MRI of the brain November 06, 2020. TECHNIQUE: Helical axial images of the head were obtained following uneventful intravenous administration of cc of Optiray. Sagittal and coronal reconstru ctions were viewed as well as maximal intensity projections on an independent 3- D workstation. Automated exposure control was utilized for the study. A dose lowering technique was utilized adhering to the principles of ALARA. CT DOSE: 1103.96 mGy.cm FINDINGS: The bilateral M1, M2, A1 and A2 segment are patent. There is no intracranial aneurysm. There is mild plaque within the bilateral cavernous carotids without stenosis. No central vessel occlusion is identified. The left vertebral artery is dominant. Posterior circulation is intact. Ventricular system is unremarkable. Basal cisterns are patent. No acute hemorrhage is iden tified on this contrast enhanced exam. IMPRESSION: No central vessel occlusion. No intracranial aneurysm. ACT 112: Negative or not required by law. Electronically signed by: Wilfred Ruby M.D. 05/14/2023 2:55 PM Neck CTA 05/14/23 14:05 CT ANGIOGRAM OF THE NECK CLINICAL HISTORY: Strokelike symptoms. COMPARISON STUDY: CT of the neck dated 12/06/2019. TECHNIQUE: Following the IV administration of 118 of Optiray 350, CT angiogram of the neck was performed from the aortic arch to the skull base. Images are reviewed in the axial, sagittal, and coronal planes. 3-D MIPS images are created and assessed. IV contrast was administered without complication. All measurements were calculated based on NASCET criteria. A dose lowering tech nique was utilized adhering to the principles of ALARA. FINDINGS: Thoracic aorta: There is mild atherosclerotic calcification of the thoracic aorta. Visualized portions of the thoracic aorta are normal in caliber. The aortic arch demonstrates standard 3-vessel anatomy. Right carotid arterial system: The right common carotid artery is widely patent, as are the right internal and external carotid arteries. Left carotid arterial system: The left common carotid artery is widely patent, as are the left internal and external carotid arteries. Vertebral arteries: The vertebral arteries are widely patent bilaterally noting left-sided dominance. Subclavian arteries: Widely patent bilaterally. Intracranial vasculature: The visualized intracranial vessels at the skull base are patent. Jugular veins: Widely patent bilaterally. Brain parenchyma: The visualized brain parenchyma the skull base is within normal limits. Lung apices: Partially visualized upper lobe lung parenchyma appears clear. Soft tissues: The visualized pharyngeal soft tissues are normal in appearance noting angiographic phase technique. The oropharyngeal airway appears widely patent. The salivary and thyroid glands are normal in appearance. No cervical lymphadenopathy is seen. Skeletal structures: The skeletal structures are osteopenic. The visualized calvarium at the skull base appears intact. The imaged cervical spine is maintained. Advanced multilevel spondylosis. No lytic or blastic lesion is seen. Sinuses and mastoids: There is trace because of thickening within the maxillary antra. The mastoid air cells are well pneumatized IMPRESSION: Unremarkable CT angiogram of the neck. ACT 112: Negative or not required by law. Electronically signed by: Trevor Hayes M.D. 05/14/2023 2:41 PM Chest X-Ray 05/14/23 14:08 SINGLE VIEW CHEST CLINICAL HISTORY: Strokelike symptoms. FINDINGS: An AP, portable, upright chest radiograph is compared to study dated 02/20/2023. The cardiomediastinal silhouette is unremarkable. There is chronic elevation of the right hemidiaphragm with mild bibasilar atelectasis. The lungs and pleural spaces are otherwise clear. No pneumothorax is seen. The skeletal structures are osteopenic. The bony thorax is grossly intact. IMPRESSION: No active disease in the chest. ACT 112: Negative or not required by law. Electronically signed by: Trevor Hayes M.D. 05/14/2023 3:16 PM [facility] Narrative Medical decision making differential diagnosis includes CVA, TIA, intracranial hemorrhage, anxiety, neuropathy, electrolyte abnormality, cardiac dysrhythmia Plan is to check labs, stroke alert protocol Independent to me by the patient's at bedside External medical records were reviewed by me Patient has an NIH of 0, symptoms are completely resolved, the patient currently is not a tPA candidate at 1509 Impression & Plan TIA (transient ischemic attack), Acute hyponatremia Discharge Plan Visit Data Chief Complaint: TIA Symptoms Stated Complaint: SLURRING WORDS,NUMBNESS IN FINGERS/ARMS/MOUTH ED Provider: Jose Angel [place] Discharge Problem: TIA (transient ischemic attack), Acute hyponatremia Patient Disposition: Admitted As Inpatient Forms Stand Alone Forms: My [facility] Prescriptions Prescriptions: No Action clindamycin HCl 300 mg capsule 600 mg PO UD PRN (Reason: dental procedures) Qty: 30 6RF albuterol sulfate 90 mcg/actuation HFA aerosol inhaler 2 puff inhalation Q6H PRN (Reason: sob) Qty: 25.5 3RF pindolol 5 mg tablet 5 mg PO BID Qty: 180 1RF famotidine 40 mg tablet 40 mg PO HS Qty: 90 3RF rabeprazole 20 mg tablet,delayed release (DR/EC) 20 mg PO QAM Qty: 90 3RF desloratadine [Clarinex] 5 mg tablet 5 mg PO DAILY 90 Days Qty: 90 1RF mirtazapine [Remeron] 15 mg tablet 15 mg PO HS Qty: 90 1RF doxycycline hyclate 100 mg capsule 100 mg PO DAILY estradiol acetate 0.1 mg/24 hr ring 1 vag ring vaginal Q3MO Qty: 1 3RF cholecalciferol (vitamin D3) 5,000 unit capsule 5,000 unit PO QPM loperamide 2 mg tablet 2 mg PO HS Qty: 90 glucosamine sulfate 2KCl [Glucosamine Relief] 1,000 mg tablet 1,000 mg PO AMPM multivitamin [Daily Multi-Vitamin] tablet 1 tab PO QPM Lo-C with Bioflavonoids 1,000-200 mg tablet 1 tab PO QAM fluticasone propionate 50 mcg/actuation spray,suspension 2 sprays intranasal QAM Qty: 48 3RF calcium carbonate [Calcium 600] 600 mg calcium (1,500 mg) Tablet 1,200 mg PO QPM Saccharomyces boulardii [Florastor] 250 mg capsule 250 mg PO BID Qty: 20 0RF Rx Instructions: swallow whole Citrucel 500 mg Tablet 500 mg PO HS acetaminophen 325 mg Tablet 650 mg PO Q6HWA Qty: 30 0RF verapamil 180 mg capsule,ext rel. pellets 24 hr 180 mg PO HS vitamin E 268 mg (400 unit) Capsule 268 mg PO BID fluticasone propion-salmeterol [Advair Diskus] 250-50 mcg/dose blister with device 1 inh inhalation BID PRN (Reason: Shortness Of Breath Or Wheezing) Rx Instructions: patient only takes prn now Referrals Referrals: ProLester MD [Primary Care Provider] -
--- NOTE | 2023-05-14 15:11 | CT Scan Report ---
CT head/brain wo con CLINICAL HISTORY: 78 years-old Female with stroke alert. Acute stroke like symptoms TECHNIQUE: Multiple axial CT images of the head were obtained without contrast. A dose lowering tech nique was utilized adhering to the principles of ALARA. COMPARISON: CTA abdomen neck of same day, brain MRI 11/06/2020 FINDINGS: No acute intracranial hemorrhage, midline shift, intracranial mass, hydrocephalus, territorial ischem ia or abnormal extra-axial collection. Involutional changes with chronic microvascular ischemic disea se. The calvarium is intact. The paranasal sinuses, mastoid air cells, and middle ear cavities are clear . IMPRESSION: No acute intracranial abnormality. ACT 112: Negative or not required by law. The above report was generated using voice recognition software. It may contain grammatical, syntax o r spelling errors. Electronically signed by: Bob Muir M.D. 05/14/2023 3:09 PM
--- NOTE | 2023-05-14 15:18 | XRay Report ---
SINGLE VIEW CHEST CLINICAL HISTORY: Strokelike symptoms. FINDINGS: An AP, portable, upright chest radiograph is compared to study dated 02/20/2023. The cardiom ediastinal silhouette is unremarkable. There is chronic elevation of the right hemidiaphragm with mil d bibasilar atelectasis. The lungs and pleural spaces are otherwise clear. No pneumothorax is seen. T he skeletal structures are osteopenic. The bony thorax is grossly intact. IMPRESSION: No active disease in the chest. ACT 112: Negative or not required by law. Electronically signed by: Trevor Hayes M.D. 05/14/2023 3:16 PM
[2023-05-14 17:25] LABS: Partial Thromboplastin Time 27.8 Seconds (21.0-31.0)
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
[2023-05-14] MEDS ORDERED: PHARMACIST DISCHARGE MED REC CONSULT PRN (19:23)
[2023-05-14] MEDS ORDERED: ONDANSETRON INJ 2 MG/ML 2 ML VIAL IV PRN (19:23)
[2023-05-14] MEDS ORDERED: POLYETHYLENE (MIRALAX) 17 GM PACK PO PRN (19:23)
[2023-05-14] MEDS ORDERED: ALBUTEROL HFA 8 GM INHALER INH PRN (19:23)
[2023-05-14] MEDS: ACETAMINOPHEN 325 MG TAB PO SCH ×2 (19:37→23:36)
[2023-05-14] MEDS ORDERED: FLUTICASONE/VILANTEROL 200/25MCG 14 PUFFS/INHALER INH PRN (19:42)
[2023-05-14] MEDS ORDERED: LOPERAMIDE HCL 2 MG CAP PO SCH (21:00)
[2023-05-14] MEDS ORDERED: MIRTAZAPINE TAB 15 MG TAB PO SCH (21:00)
[2023-05-14] MEDS ORDERED: FAMOTIDINE 40 MG TABLET PO SCH (21:00)
[2023-05-14] MEDS ORDERED: CHOLECALCIFEROL 5,000 UNITS 125 MCG TAB PO SCH (21:00)
[2023-05-14] MEDS ORDERED: CALCIUM CARBONATE 1250MG TAB PO SCH (21:00)
[2023-05-14] MEDS ORDERED: VERAPAMIL HCL 180 MG TABCR PO SCH (21:00)
[2023-05-14] MEDS ORDERED: LORazepam 2 MG/1 ML VIAL IV PRN (21:36)
[2023-05-14] MEDS: SACCHAROMYCES BOULARDII 250 MG CAP PO SCH (21:39)
[2023-05-14] MEDS: GLUCOSAMINE SULFATE 500 MG CAP PO SCH (21:43)
--- NOTE | 2023-05-14 23:47 | Magnetic Resonance Report ---
Exam(s): MRI HEAD Without Contrast EXAM: MR Head Without Intravenous Contrast CLINICAL HISTORY: Reason for exam: CVA vs radiculopathy eval. TECHNIQUE: Magnetic resonance images of the head/brain without intravenous contrast in multiple planes. COMPARISON: None. FINDINGS: Brain: Areas of increased signal within the periventricular and deep white matter compatible with microangiopathic white matter disease. Mild generalized brain atrophy. No hemorrhage. No acute infarct. Ventricles: Unremarkable. No ventriculomegaly. Bones/joints: Unremarkable. Sinuses: Mild mucosal thickening of the left maxillary sinus, remainder of the paranasal sinuses are clear. No acute sinusitis. Mastoid air cells: Unremarkable as visualized. No mastoid effusion. Orbits: Unremarkable as visualized. IMPRESSION: 1. Involutional changes along with white matter changes most compatible with microangiopathic white matter disease. 2. No acute stroke or intracranial hemorrhage. No space-occupying lesion. Electronically signed by: Nancy Duque MD 05/14/23 23:45 PM
--- NOTE | 2023-05-14 23:57 | Magnetic Resonance Report ---
Exam(s): MRI C SPINE EXAM: MR Cervical Spine Without Intravenous Contrast CLINICAL HISTORY: Reason for exam: RUE weakness, hx cervical radiulopathy. TECHNIQUE: Magnetic resonance images of the cervical spine without intravenous contrast in multiple planes. COMPARISON: None. FINDINGS: Vertebrae: Multilevel endplate spondylosis, osteophytosis with narrowing of disc height consistent with disc degenerative disease. Diffuse multifocal disc desiccation. No acute fracture. Spinal cord: Unremarkable. Normal signal. Soft tissues: Unremarkable. DISCS/SPINAL CANAL/NEURAL FORAMINA: C2-C3: Unremarkable. No focal disc bulge or herniation. No spinal stenosis or neuroforaminal encroachment. C3-C4: Mild disc desiccation. No focal disc bulge or herniation. No central canal stenosis or neuroforaminal encroachment. C4-C5: Disc desiccation with diffuse posterior disc bulge and bilateral apophyseal hypertrophy. Mild to moderate bilateral neuroforaminal encroachment. Borderline central canal stenosis. C5-C6: Disc desiccation with diffuse posterior disc bulge and bilateral apophyseal hypertrophy. Moderate to severe bilateral neuroforaminal encroachment. Borderline central canal stenosis. C6-C7: Disc desiccation with diffuse posterior disc bulge and bilateral apophyseal hypertrophy. Moderate to severe bilateral neuroforaminal encroachment. Borderline central canal stenosis. C7-T1: Mild disc desiccation. No focal disc bulge or herniation. No central canal stenosis or neuroforaminal encroachment. IMPRESSION: 1. Multilevel disc desiccation with degenerative disease. Borderline central canal stenosis from C4-C7. 2. Variable degrees of neuroforaminal encroachment as described. 3. No spinal cord lesion seen. Electronically signed by: Nancy Duque MD 05/14/23 23:56 PM
[2023-05-15] MEDS: ACETAMINOPHEN 325 MG TAB PO SCH ×2 (07:12→11:19)
[2023-05-15 07:16] LABS: Basophils # (auto) 0.06 K/uL (0-0.2); Basophils % (auto) 0.8 %; Eosinophils # (auto) 0.23 K/uL (0-0.50); Eosinophils % (auto) 2.9 %; Hematocrit (blood only) 40.7 % (37.0-47.0); Hemoglobin 14.3 g/dl (12.0-16.0); Immature Granulocytes # (auto) 0.02 K/uL (0.01-0.20); Immature Granulocytes % (auto) 0.3 %; Lymphocytes # (auto) 3.55 K/uL (1.2-3.4); Lymphocytes % (auto) 44.5 %; Mean Corpuscular Hemoglobin 31.4 pg (25.0-34.0); Mean Corpuscular Hgb Conc 35.1 g/dL (32.0-36.0); Mean Corpuscular Volume 89.3 fL (80.0-100.0); Mean Platelet Volume 10.3 fL (9.4-12.4); Monocytes # (auto) 1.22 K/uL (0.11-0.59); Monocytes % (auto) 15.3 %; Neutrophils # (auto) 2.89 K/uL (1.40-6.50); Neutrophils % (auto) 36.2 %; Platelet Count 225 K/uL (130-400); RDW Coefficient of Variation 13.3 % (11.5-14.5); RDW Standard Deviation 43.9 fL (36.4-46.3); Red Blood Count 4.56 M/uL (4.20-5.40); White Blood Count 7.97 K/ul (4.8-10.8)
[2023-05-15 07:30] LABS: BUN Creatinine Ratio 16.9 (10-20); Calcium 8.9 mg/dl (8.6-10.3); Est GFR (African American) 103.2 ml/min; Potassium 3.7 mmol/L (3.5-5.1)
[2023-05-15 08:09] LABS: Estimated Average Glucose 151 mg/dl; Hemoglobin A1C 6.9 % (4.5-5.6)
[2023-05-15] MEDS: GLUCOSAMINE SULFATE 500 MG CAP PO SCH (08:22)
[2023-05-15] MEDS: SACCHAROMYCES BOULARDII 250 MG CAP PO SCH (08:23)
[2023-05-15] MEDS ORDERED: Nursing to Pharmacy Communication SCH (08:45)
[2023-05-15] MEDS ORDERED: CLOPIDOGREL BISULFATE 75 MG TAB PO SCH (09:00)
[2023-05-15] MEDS ORDERED: LORATADINE 10 MG TAB PO SCH (09:00)
[2023-05-15] MEDS ORDERED: DOXYCYCLINE HYCLATE 100 MG CAP PO SCH ×2 (09:00→12:00)
[2023-05-15] MEDS ORDERED: ENOXAPARIN INJ 40 MG/0.4 ML SYR SQ SCH (09:00)
[2023-05-15] MEDS ORDERED: NON-FORMULARY MEDICATION (Ascorbate Calcium-Bioflavonoid [Ester-C With Bioflavonoids] 1,00 PO SCH (09:00)
[2023-05-15] MEDS ORDERED: PANTOprazole 40 MG TAB PO SCH (09:00)
--- NOTE | 2023-05-15 10:12 | Neurology Consultation ---
Date of Consultation May 15, 2023 Assessment & Plan (1) TIA (transient ischemic attack): (2) Classic migraine with aura: (3) Chronic cerebral ischemia: (4) Cervical spinal stenosis: (5) H/O lumbosacral spine surgery: Plan this patient had 2 episodes ( May 08 and May 14) consisting of word- finding difficulties and slurred speech. the May 14 episode was accompanied by progressive numbness and tingling in the right upper extremity along with the speech issue followed by a headache. Patient has a history of migraines and the most recent episode is very migrainous in quality. Interestingly, her migraines had right upper extremity numbness and tingling prior to the headache ( as the aura). Currently the patient is doing well with no residual deficits or symptoms from the spell. She does have risk factors for stroke / TIA including hypertension and dyslipidemia. She has moderate chronic cerebral ischemia noted on MRI but no acute stroke. overall, I suspect vasospasms/migraine although TIAs cannot be entirely excluded. The patient has a history of multiple lumbar spine surgeries, polyneuropathy in her feet and a left footdrop. All this is old. She does have mild to perhaps moderate cervical spinal stenosis at multiple levels Recommendations: 1. continue 75 mg clopidogrel for now (She had bruising in the past on aspirin ). 2. Increase activity as able. 3. awaiting echocardiogram results. 4. please contact me if I can be of further assistance on this case. Overall, I spent a total of 75 minutes with this case including review of records, review of MRI films, direct evaluation the patient bedside, reports generation, and discussion of the case with the patient and RN at bedside and Dr. Jones including differential diagnosis and treatment options. History of Present Illness Reason for Consultation: patient is a 78-year-old, who I was asked to see at the request of Dr. Izaguirre, for neurologic consultation regarding TIA like episode. Requesting Physician: Dr. Izaguirre Attending Physician: Pacheco Jones MD History of Present Illness this patient has a 20 year history of hypertension and also has dyslipidemia asthma. She carries a diagnosis of generalized polyneuropathy, known since 2020 via EMG. She has had multiple low back surgeries (most recently in January of this year ), done by Dr. Longo including laminectomy at L5-S1 with debridement of lumbar spine abscess. Since the surgery she has had numbness in her feet . She also has a history of left footdrop and balance problems again, worse since her recent procedures of her lumbar spine. The patient tells me that she has a history of migraine headaches from her early 20s to late 40s occurring intermittently. She would start out with numbness and tingling in her right upper extremity that would travel up to her throat lasting 5-10 minutes then she would have a significant headache which included nausea, vomiting, photophobia, and phonophobia. She believe she has not had a migraine headache for at least 20 years. The patient had an episode May 08. In the afternoon she suddenly had a an issue where she could not get words out lasting 10-15 minutes. Her speech was somewhat slurred. She knew what she wanted to say and had recall the events. she had some lesser problems with recalling certain things lasting an additional our then was back to normal. During this episode she had some pain in her right eye. On May 14, she awoke feeling normal. She went shopping and around 10 11 she had the sudden onset of some numbness in her right hand. This traveled/progressed to include her whole hand and went up her arm to her mouth. The cheek had some dysesthesias. This progression to about 5-10 minutes and when it reached her mouth she noted that her speech was definitely slurred. The episode lasted about 10-15 minutes and then was gone although she had a bifrontal headache. There was nausea ( no vomiting) and photophobia. The headache lasted for an hour or so waxing and waning. She arrived emergency room at 1:57 p.m. on May 14 with a temperature 36.8, pulse 76 and regular, respiratory rate 18, blood pressure 127/71, and O2 saturation 98%. She was asymptomatic in the ER with no neurologic deficits or focal signs. She had normal speech and had good mentation. NIH stroke scale was 0. she remembers in the ER having an episode of not being able to get words out lasting about an hour with no other symptoms. None of her original symptoms returned. CBC and Chem profile were largely unremarkable. CT scan of the head was unremarkable. CT angiography of the head and neck showed no vascular stenoses or anomalies. Chest x-ray was unremarkable. MRI of the brain showed no acute stroke and [id number] old small vessel ischemic disease. MRI of the cervical spine showed degenerative changes and spinal stenosis between C4 and C7 a mild nature. I reviewed all of the MRI films. She has been doing well since admission with no new episodes or problems. She has been in normal sinus rhythm and currently has no pain except for a very mild bifrontal headache. blood pressure today is 136/81 and she remains afebrile. Allergies Allergy/AdvReac Type Severity Reaction Status Date / Time tramadol Allergy Severe "wheezing, Verified 05/14/23 15:41 shortness of breath" adhesive Allergy Intermediate WELTS Verified 05/14/23 15:41 heparin Allergy Intermediate RASH Verified 05/14/23 15:41 lidocaine Allergy Intermediate RASH Verified 05/14/23 15:41 Macrolide Antibiotics Allergy Intermediate SWELLING Verified 05/14/23 15:41 pork derived (porcine) Allergy Intermediate Rash Verified 05/14/23 15:41 Sulfa (Sulfonamide Allergy Intermediate RASH Verified 05/14/23 15:41 Antibiotics) Cephalosporins Allergy Mild RASH Verified 05/14/23 15:41 DIGESTIVE SYSTEM celecoxib Allergy Unknown Unknown Verified 05/14/23 15:41 erythromycin base Allergy Unknown UNKNOWN Verified 05/14/23 15:41 metoprolol Allergy Unknown Unknown Verified 05/14/23 15:41 capsaicin AdvReac Intermediate Burning up Verified 05/14/23 15:41 diclofenac [Diclopak] AdvReac Intermediate Burning up Verified 05/14/23 15:41 isopropyl alcohol AdvReac Intermediate Burning up Verified 05/14/23 15:41 levofloxacin AdvReac Intermediate MUSCLE PAIN Verified 05/14/23 15:41 moxifloxacin AdvReac Intermediate MUSCLE PAIN Verified 05/14/23 15:41 procaine AdvReac Intermediate RACING Verified 05/14/23 15:41 HEART BEAT propylene glycol AdvReac Intermediate Burning up Verified 05/14/23 15:41 rofecoxib AdvReac Intermediate INCREASED Verified 05/14/23 15:41 BP SWELLING cortisone AdvReac Mild HEADCAHE Verified 05/14/23 15:41 Home Medications Medication Instructions Recorded Confirmed Type cholecalciferol (vitamin D3) 125 5,000 unit PO QPM 02/25/19 05/14/23 History mcg (5,000 unit) capsule loperamide 2 mg tablet 2 mg PO HS #90 tabs 02/25/19 05/14/23 History glucosamine sulfate 2KCl 1,000 mg 1,000 mg PO AMPM 04/01/19 05/14/23 History tablet (Glucosamine Relief) multivitamin (Daily Multi-Vitamin 1 tab PO QPM 04/01/19 05/14/23 History tablet) calcium carbonate 600 mg calcium 1,200 mg PO QPM 05/04/19 05/14/23 History (1,500 mg) tablet (Calcium) ascorbate calcium-bioflavonoid 1 tab PO QAM 08/10/19 05/14/23 History 1,000 mg-200 mg tablet (Lo-C with Bioflavonoids) fluticasone propionate 50 2 sprays intranasal QAM #48 grams 12/02/19 05/14/23 Rx mcg/actuation nasal spray,suspension estradiol acetate 0.1 mg/24 hr 1 vag ring vaginal Q3MO #1 ea 08/28/22 05/14/23 Rx vaginal ring clindamycin HCl 300 mg capsule 600 mg PO UD PRN dental procedures 09/03/22 05/14/23 Rx #30 caps albuterol sulfate 90 mcg/actuation 2 puff inhalation Q6H PRN sob 09/19/22 05/14/23 Rx aerosol inhaler #25.5 grams pindolol 5 mg tablet 5 mg PO BID #180 tabs 12/11/22 05/14/23 Rx methylcellulose (laxative) 500 mg 500 mg PO HS 12/12/22 05/14/23 History tablet (Citrucel) acetaminophen 325 mg tablet 650 mg PO Q6HWA #30 tabs 01/02/23 05/14/23 Rx famotidine 40 mg tablet 40 mg PO HS #90 tabs 01/07/23 05/14/23 Rx rabeprazole 20 mg tablet,delayed 20 mg PO QAM #90 tabs 01/22/23 05/14/23 Rx release fluticasone 250 mcg-salmeterol 50 1 inh inhalation BID PRN Shortness 01/24/23 05/14/23 History mcg/dose blistr powdr for Of Breath Or Wheezing inhalation (Advair Diskus) verapamil 180 mg 24 hr 180 mg PO HS 01/24/23 05/14/23 History capsule,extended release vitamin E 268 mg (400 unit) capsule 268 mg PO BID 01/24/23 05/14/23 History Saccharomyces boulardii 250 mg 250 mg PO BID #20 caps 02/20/23 05/14/23 Rx capsule (Florastor) desloratadine 5 mg tablet 5 mg PO DAILY 90 days #90 tabs 03/17/23 05/14/23 Rx (Clarinex) mirtazapine 15 mg tablet (Remeron) 15 mg PO HS #90 tabs 03/20/23 05/14/23 Rx doxycycline hyclate 100 mg capsule 100 mg PO DAILY 04/09/23 05/14/23 History Patient History Medical History Asthma uses prn INH 2-3 x monthly on avg Discitis of lumbosacral region Diverticular disease Encounter for removal of sutures Esophageal reflux Fatty liver Fibromyalgia Hepatic cyst being monitored Hiatal hernia History of diverticulitis of colon History of Helicobacter pylori infection History of migraine History of stomach ulcers Hyperlipidemia Hypertension Hypothyroidism Idiopathic polyneuropathy Irritable bowel syndrome Osteoarthritis Osteomyelitis of lumbar spine Osteopenia Postoperative abscess Tachycardia Vitamin D deficiency Surgical History History of appendectomy History of cardiac cath 2003 - [facility] - abn stress test - no stents/angioplasty - follows w/ Dr. Mcneill History of cholecystectomy History of colonoscopy History of cystoscopy History of D&C History of esophagogastroduodenoscopy (EGD) History of lumpectomy History of right knee joint replacement History of tonsillectomy and adenoidectomy History of tooth extraction HX: benign breast biopsy 2012, right fibroadenoma Status post complete hysterectomy Family History (Updated 05/15/23 @ 10:01 by Kelvin López MD) Father , age 53 of pancreatic cancer Pancreatic cancer Colorectal cancer Diabetes Gastric ulcer Grandmother (Maternal) Family history of diabetes mellitus Aunt Leukemia Mother , age 84 Hypertension Osteoarthritis Stroke Mitral valve disorder History of nephrolithiasis Daughter Asthma Emphysema of lung Polycystic ovarian syndrome Son Myocardial infarction Hypertension Diabetes Arthritis Obesity Sister Arthritis Dyslipidemia Hypertension Brother Gastric ulcer Dyslipidemia Hypertension Denies family history of Ovarian cancer Prostate cancer Breast cancer Social History (Updated 05/15/23 @ 10:02 by Kelvin López MD) Smoking Status: Former smoker Tobacco Type: Cigarettes Age Started Using Tobacco: 21; Age Quit Using Tobacco: 33; Second Hand Exposure: No; Do You Dip or Chew Tobacco: No; Hx Alcohol Use: Yes Alcohol type: wine Alcohol Intake Frequency: Monthly or Less Hx Substance Use: No Preferred Language: Tajik Communication Ability: Effective Visual Impairment: No Limitations Hearing Ability: Normal 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 Smoker 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 Required: No Beliefs That Will Affect Care: None marital status: Current Living Situation: Alone Current Living Situation Comment: with current occupational status: retired 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 Feels Safe at Home: Yes Physical Activity Frequency: 3-4 Times per Week Seatbelt Use: always Assistive Devices: Cane and Walker Review of Systems Constitutional: no fever, no fatigue and no weakness Eyes: no diplopia, no eye pain and no worsening vision Ear, Nose, Mouth, Throat: no ear pain, no tinnitus, no hearing loss, no dizziness, no snoring, no hoarseness and no dysphagia Respiratory: no cough and no dyspnea Cardiovascular: no chest pain, no palpitations and no lightheadedness Gastrointestinal: no abdominal pain, no nausea and no vomiting Genitourinary: no dysuria, no urinary frequency and no urinary incontinence Musculoskeletal: + back pain; no neck pain, no radicular pain, no joint pain and no myalgia Integumentary: no rash and no lesions Neurologic: + localized weakness, + numbness and + headache(s); no gait abnormality, no generalized weakness, no tingling, no tremor(s), no abnormal movements, no abnormal speech, no confusion and no memory loss Psychiatric: no depression, no irritability, no anxiety, no difficulty concentrating, no confusion and no hallucinations Endocrine: no fatigue and no flushing Hematologic / Lymphatic: no easy bleeding and no easy bruising Allergy / Immunological: no urticaria and no problem reported Exam (Neuro) Physical Exam: The patient is right-handed. The patient is awake, alert, and attentive. Speech is normal without any aphasia or dysarthria. The patient can name objects, repeat phrases, and has normal spontaneous speech. Mentation and thought processes are intact, with orientation to person, place and time, and normal fund of knowledge. Attention and concentration are normal. Mood and affect are normal and appropriate. General appearance and grooming are normal. Short and long-term memory are intact. Pupils are 4 mm bilaterally and reactive to light. Extraocular eye muscles are intact without nystagmus. Visual acuity and visual aburto seem normal grossly to confrontation. There are no deficits to sensation in the face in all 3 distributions of the fifth cranial nerve bilaterally. Corneal reflexes are positive bilaterally. Facial strength and symmetry was normal bilaterally. Hearing seems normal bilaterally. Palate moves well without asymmetry. There is normal sternocleidomastoid and trapezius (shoulder shrug) strength bilaterally. Tongue is midline with good strength bilaterally. Neck has a full range of motion without discomfort. There are no cervical bruits bilaterally. There are no cranial or ocular bruits. Heart is without murmur. There is a regular rhythm and rate. Cervical, thoracic, and lumbar spine are nontender to palpation. Gait is narrow based but very tentative / cautious. She has some steppage gait with the left foot because of footdrop. She tends to use a walker for support and needs to hold on to something. Stance with feet together and eyes open was somewhat poor. With outstretched arms there is no drift. There are no resting, postural, or action tremors. There is no ataxia with finger to nose testing. There is good facility in the hands. No other abnormal involuntary movements are noted. Motor strength is 5/5 diffusely in the arms bilaterally including deltoids, biceps, triceps, brachioradialis, wrist flexors and extensors, special education instructor, and intrinsic hand muscles. Leg strength was 5/5 proximally but there was 4/5 strength in left tibialis anterior and toe extensors compare to the right which were normal. The limbs have good tone without rigidity or spasticity. There is no atrophy noted in the muscles. Muscle bulk is normal, there is no tenderness to palpation, no myotonia to percussion, and no fasciculations seen. Sensory examination Reveals some decreased sensation of the feet bilaterally. Reflexes are 2/4 in the biceps, triceps, brachioradialis, and quadriceps tendons bilaterally. Achilles tendon reflexes were absent bilaterally. There is no clonus bilaterally. Toes are downgoing with plantar stimulation bilaterally. Peripheral pulses are present and of normal quality distally in all 4 limbs. There is no peripheral edema noted in the limbs. Results & Data Vital Signs (Past 12 Hours) Vital Signs Temp Pulse Pulse Resp BP Pulse Ox O2 Del Method 05/15/23 07:26 36.5 C 82 21 136/81 95 Room Air 05/14/23 21:58 90 05/14/23 23:40 36.8 C 85 16 121/72 97 Room Air PG Care Time/CCT Total # of Minutes Spent Total Time Spent with Patient: Total time spent is greater than 50% in coordination of care (as documented) at patient's floor/unit and/or counseling patient: Coding Level of Care Code 80680 INT INP/OBS CARE 3/75MIN Diagnoses TIA (transient ischemic attack) G45.9 Classic migraine with aura G43.109 Chronic cerebral ischemia I67.82 Cervical spinal stenosis M48.02 H/O lumbosacral spine surgery Z98.890
[2023-05-15] MEDS ORDERED: PROPRANOLOL HCL 10 MG TAB PO SCH (10:30)
[2023-05-15] MEDS ORDERED: PINDOLOL 5 MG PO SCH (11:00)
--- NOTE | 2023-05-15 15:01 | Pharmacy Report ---
- Date of Service May 15, 2023 - Pharmacy CVA/TIA Medication Review Medications to Prevent Stroke handout has been added to the patients discharge packet. Antiplatelet(s) * Plavix 75 mg daily. * Aspirin therapy deferred due to history of bruises with Aspirin. Also has history of stomach ulcers. Cholesterol * High intensity statin deferred due to past trials with various statins caused side effects, age >75, history of fibromyalgia flares. DVT Prophylaxis * Enoxaparin SQ Therapeutic Anticoagulation * No history of Afib/Aflutter noted Type 2 Diabetes * Patient has mild/borderline T2DM, per A1c of 6.9% * "Medications to prevent stroke" handout has already been added to the patient's discharge packet, which instructs the patient to follow up with their outpatient provider to evaluate which diabetes medication with proven CVD benefit is best for them
[2023-05-15 15:54] LABS: Sodium 130 mmol/L (136-145)
--- NOTE | 2023-05-15 16:07 | XCELERA ---
[id number] \\[id number]
[2023-05-15] MEDS ORDERED: STROKE PATIENT DISCHARGE STA (16:37)
--- NOTE | 2023-05-15 16:48 | Discharge Summary ---
Date of Service date of admission - May 14, 2023 date of discharge - May 15, 2023 Admission HPI Per Admitting Provider Graciela is a 78-year-old female with a past medical history of GERD, osteomyelitis, hyperlipidemia, TIA, UTI, cervical radiculopathy, IBS, allergic rhinitis, fibromyalgia, IBS who presents to the emergency department for headache and word finding difficulty of approximately 15 minutes 1 hour prior to ER assessment. At that time she had tingling in her right arm which radiated into her mouth and had some slurred speech. No blurry vision, no headache at time of assessment. No trauma. Has been recommended for a stroke evaluation. She does not take an antiplatelet at baseline. R arm numbness/tingling up into the neck and floor of her mouth. No chest pain. MIld less severe sx previsouly with migraines, bu tno headache with this. Had some difficulty with speech. Could form other words, but couldn't find the words she wanted. (More expressive aphasia than dysarthia). Similar episode last week with R eye discomfort which was associated with a headache at the time. only lasted 15 minutes. No chest pain or chest pressure No shortness of breath Denies weakness/focal weakness. 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 No blood thinners. Has not been on these before. Took AM meds, reviewed. Taking 100mg once a day (could not tolerate twice daily)taper therapy from staph osteomyelitis. Is going to be on it chronically as suppressive therapy, is following with infectious disease Dr. Waite and Dr. Longo orthopedics. Feels her back is actually doing very well. No f diana/chills. No nuchal rigidity. No back pain at admit. Not sure if she can get an MRI. Is claustrophobic . Principal Diagnosis 1. right arm numbness, difficulty speaking - resolved; due to atypical migraine vs TIA 2. hyponatremia - acute/chronic - discharge Na level 130 3. history of osteomyelitis of the lumbar spine 4. cervical spine DJD Discharge Exam gen - obese, NAD, speech clear/fluent neck - no JVD heart - RRR, s1 s2, no murmur lungs - CTA b/l abd - soft NT ND BS+ ext - pulses 2+ b/l neuro - strength 5/5 x 4 exts; sensation intact to light touch b/l arms; no dysarthria or aphasia Discharge Data Allergies Allergy/AdvReac Type Severity Reaction Status Date / Time tramadol Allergy Severe "wheezing, Verified 05/20/23 10:56 shortness of breath" adhesive Allergy Intermediate WELTS Verified 05/20/23 10:56 heparin Allergy Intermediate RASH Verified 05/20/23 10:56 lidocaine Allergy Intermediate RASH Verified 05/20/23 10:56 Macrolide Antibiotics Allergy Intermediate SWELLING Verified 05/20/23 10:56 pork derived (porcine) Allergy Intermediate Rash Verified 05/20/23 10:56 Sulfa (Sulfonamide Allergy Intermediate RASH Verified 05/20/23 10:56 Antibiotics) Cephalosporins Allergy Mild RASH Verified 05/20/23 10:56 DIGESTIVE SYSTEM celecoxib Allergy Unknown Unknown Verified 05/20/23 10:56 erythromycin base Allergy Unknown UNKNOWN Verified 05/20/23 10:56 metoprolol Allergy Unknown Unknown Verified 05/20/23 10:56 capsaicin AdvReac Intermediate Burning up Verified 05/20/23 10:56 diclofenac [Diclopak] AdvReac Intermediate Burning up Verified 05/20/23 10:56 isopropyl alcohol AdvReac Intermediate Burning up Verified 05/20/23 10:56 levofloxacin AdvReac Intermediate MUSCLE PAIN Verified 05/20/23 10:56 moxifloxacin AdvReac Intermediate MUSCLE PAIN Verified 05/20/23 10:56 procaine AdvReac Intermediate RACING Verified 05/20/23 10:56 HEART BEAT propylene glycol AdvReac Intermediate Burning up Verified 05/20/23 10:56 rofecoxib AdvReac Intermediate INCREASED Verified 05/20/23 10:56 BP SWELLING cortisone AdvReac Mild HEADCAHE Verified 05/20/23 10:56 Consultations [facility] - Bernardo López MD PT, OT Speech therapy Procedures Performed Echocardiogram: Ordered Studies Head CT 05/14/23 14:05 CT head/brain wo con CLINICAL HISTORY: 78 years-old Female with stroke alert. Acute stroke like symptoms TECHNIQUE: Multiple axial CT images of the head were obtained without contrast. A dose lowering technique was utilized adhering to the principles of ALARA. COMPARISON: CTA abdomen neck of same day, brain MRI 11/06/2020 FINDINGS: No acute intracranial hemorrhage, midline shift, intracranial mass, hydrocephalus, territorial ischemia or abnormal extra-axial collection. Involutional changes with chronic microvascular ischemic disease. The calvarium is intact. The paranasal sinuses, mastoid air cells, and middle ear cavities are clear. IMPRESSION: No acute intracranial abnormality. ACT 112: Negative or not required by law. The above report was generated using voice recognition software. It may contain grammatical, syntax or spelling errors. Electronically signed by: Bob Muir M.D. 05/14/2023 3:09 PM Head CTA 05/14/23 14:05 CTA ANGIOGRAPHY OF THE HEAD CLINICAL HISTORY: Stroke alert. Right arm numbness. COMPARISON STUDY: MRI of the brain November 06, 2020. TECHNIQUE: Helical axial images of the head were obtained following uneventful intravenous administration of cc of Optiray. Sagittal and coronal reconstructions were viewed as well as maximal intensity projections on an independent 3-D workstation. Automated exposure control was utilized for the study. A dose lowering technique was utilized adhering to the principles of ALARA. CT DOSE: 1103.96 mGy.cm FINDINGS: The bilateral M1, M2, A1 and A2 segment are patent. There is no intracranial aneurysm. There is mild plaque within the bilateral cavernous carotids without stenosis. No central vessel occlusion is identified. The left vertebral artery is dominant. Posterior circulation is intact. Ventricular system is unremarkable. Basal cisterns are patent. No acute hemorrhage is identified on this contrast enhanced exam. IMPRESSION: No central vessel occlusion. No intracranial aneurysm. ACT 112: Negative or not required by law. Electronically signed by: Wilfred Ruby M.D. 05/14/2023 2:55 PM Neck CTA 05/14/23 14:05 CT ANGIOGRAM OF THE NECK CLINICAL HISTORY: Strokelike symptoms. COMPARISON STUDY: CT of the neck dated 12/06/2019. TECHNIQUE: Following the IV administration of 118 of Optiray 350, CT angiogram of the neck was performed from the aortic arch to the skull base. Images are reviewed in the axial, sagittal, and coronal planes. 3-D MIPS images are created and assessed. IV contrast was administered without complication. All measurem ents were calculated based on NASCET criteria. A dose lowering technique was utilized adhering to the principles of ALARA. FINDINGS: Thoracic aorta: There is mild atherosclerotic calcification of the thoracic aorta. Visualized portions of the thoracic aorta are normal in caliber. The aortic arch demonstrates standard 3-vessel anatomy. Right carotid arterial system: The right common carotid artery is widely patent, as are the right internal and external carotid arteries. Left carotid arterial system: The left common carotid artery is widely patent, as are the left internal and external carotid arteries. Vertebral arteries: The vertebral arteries are widely patent bilaterally noting left-sided dominance. Subclavian arteries: Widely patent bilaterally. Intracranial vasculature: The visualized intracranial vessels at the skull base are patent. Jugular veins: Widely patent bilaterally. Brain parenchyma: The visualized brain parenchyma the skull base is within normal limits. Lung apices: Partially visualized upper lobe lung parenchyma appears clear. Soft tissues: The visualized pharyngeal soft tissues are normal in appearance noting angiographic phase technique. The oropharyngeal airway appears widely patent. The salivary and thyroid glands are normal in appearance. No cervical lymphadenopathy is seen. Skeletal structures: The skeletal structures are osteopenic. The visualized calvarium at the skull base appears intact. The imaged cervical spine is maintained. Advanced multilevel spondylosis. No lytic or blastic lesion is seen. Sinuses and mastoids: There is trace because of thickening within the maxillary antra. The mastoid air cells are well pneumatized IMPRESSION: Unremarkable CT angiogram of the neck. ACT 112: Negative or not required by law. Electronically signed by: Trevor Hayes M.D. 05/14/2023 2:41 PM Chest X-Ray 05/14/23 14:08 SINGLE VIEW CHEST CLINICAL HISTORY: Strokelike symptoms. FINDINGS: An AP, portable, upright chest radiograph is compared to study dated 02/20/2023. The cardiomediastinal silhouette is unremarkable. There is chronic elevation of the right hemidiaphragm with mild bibasilar atelectasis. The lungs and pleural spaces are otherwise clear. No pneumothorax is seen. The skeletal structures are osteopenic. The bony thorax is grossly intact. IMPRESSION: No active disease in the chest. ACT 112: Negative or not required by law. Electronically signed by: Trevor Hayes M.D. 05/14/2023 3:16 PM Brain MRI 05/14/23 19:23 Exam(s): MRI HEAD Without Contrast EXAM: MR Head Without Intravenous Contrast CLINICAL HISTORY: Reason for exam: CVA vs radiculopathy eval. TECHNIQUE: Magnetic resonance images of the head/brain without intravenous contrast in multiple planes. COMPARISON: None. FINDINGS: Brain: Areas of increased signal within the periventricular and deep white matter compatible with microangiopathic white matter disease. Mild generalized brain atrophy. No hemorrhage. No acute infarct. Ventricles: Unremarkable. No ventriculomegaly. Bones/joints: Unremarkable. Sinuses: Mild mucosal thickening of the left maxillary sinus, remainder of the paranasal sinuses are clear. No acute sinusitis. Mastoid air cells: Unremarkable as visualized. No mastoid effusion. Orbits: Unremarkable as visualized. IMPRESSION: 1. Involutional changes along with white matter changes most compatible with microangiopathic white matter disease. 2. No acute stroke or intracranial hemorrhage. No space-occupying lesion. Electronically signed by: Nancy Duque MD 05/14/23 23:45 PM Cervical Spine MRI 05/14/23 19:23 Exam(s): MRI C SPINE EXAM: MR Cervical Spine Without Intravenous Contrast CLINICAL HISTORY: Reason for exam: RUE weakness, hx cervical radiulopathy. TECHNIQUE: Magnetic resonance images of the cervical spine without intravenous contrast in multiple planes. COMPARISON: None. FINDINGS: Vertebrae: Multilevel endplate spondylosis, osteophytosis with narrowing of disc height consistent with disc degenerative disease. Diffuse multifocal disc desiccation. No acute fracture. Spinal cord: Unremarkable. Normal signal. Soft tissues: Unremarkable. DISCS/SPINAL CANAL/NEURAL FORAMINA: C2-C3: Unremarkable. No focal disc bulge or herniation. No spinal stenosis or neuroforaminal encroachment. C3-C4: Mild disc desiccation. No focal disc bulge or herniation. No central canal stenosis or neuroforaminal encroachment. C4-C5: Disc desiccation with diffuse posterior disc bulge and bilateral apophyseal hypertrophy. Mild to moderate bilateral neuroforaminal encroachment. Borderline central canal stenosis. C5-C6: Disc desiccation with diffuse posterior disc bulge and bilateral apophyseal hypertrophy. Moderate to severe bilateral neuroforaminal encroachment. Borderline central canal stenosis. C6-C7: Disc desiccation with diffuse posterior disc bulge and bilateral apophyseal hypertrophy. Moderate to severe bilateral neuroforaminal encroachment. Borderline central canal stenosis. C7-T1: Mild disc desiccation. No focal disc bulge or herniation. No central canal stenosis or neuroforaminal encroachment. IMPRESSION: 1. Multilevel disc desiccation with degenerative disease. Borderline central canal stenosis from C4-C7. 2. Variable degrees of neuroforaminal encroachment as described. 3. No spinal cord lesion seen. Electronically signed by: Nancy Duque MD 05/14/23 23:56 PM Diabetes Follow up Diabetes Follow-up Needed for Newly Diagnosed Diabetes Hospital Course (1) Atypical migraine: The patient's presenting neurological symptoms (right arm numbness, word-finding difficulties, slurred speech, etc) were followed by the onset of a headache. She has a past history of migraines. Her neurological symptoms ultimately resolved as well as her headache. MRI brain was negative for acute stroke. She was seen in consult by Dr Bernardo López, [facility]. Dr López felt that her presentation was likely due to atypical migraine HOWEVER he also acknowledged that a TIA could not be fully ruled out. For that reason Dr Lóepz advised use of plavix for secondary prevention of TIA/stroke. Of note - CTA head/neck were both normal; echo did not show a source of thrombus; and telemetry was normal while here. Finally, due to the right arm numbness, she underwent MRI of the cervical spine. This showed considerable DJD of the cervical spine. It is possible but unlikely that her right arm symptoms could have been due to neuroforaminal stenosis with resulting right arm radiculopathy. (2) TIA (transient ischemic attack): See #1 above. Patient was initiated on clopidogrel 75mg once daily for secondary prevention. (3) Acute hyponatremia: The patient presented with a sodium level of 125. It improved to 131 then 130 prior to discharge. She appeared euvolemic during the stay. Urine osm, urine sodium, and serum osm were suggestive of SIADH. Suspect that her SIADH is related to her lumbar spine osteomyelitis as her sodium levels have been low since December 2022 which is when the osteomyelitis was initially detected. She was sent home with salt tablets 1gm daily and will need a repeat BMP within a few days of discharge to ensure stability. She may need the NaCl tablets ongoing. (4) Chronic hyponatremia: Dating back to 12/2022. This is when her osteomyelitis was first detected. Baseline low 130s. Serum & urine studies were suggestive of SIADH. Fluid restrict to 1500cc/day. NaCl tablets - 1 gm daily upon discharge. Will need repeat BMP within a few days of discharge to ensure stability. The outpatient Na level will dictate whether she will need to remain on salt supplementation. (5) Osteomyelitis of lumbar spine: Initial dx in 12/2022. Required multiple surgeries in DecemberJanuary 2023. Cultures from the spine showed coag neg staph. Follows with Dr Trupti Bentley, infectious diseases. Remains on doxycycline 100mg daily for suppressive therapy. (6) Hypertension: Controlled while here. Continue pindolol. Continue verapamil. Total Time Total Time Spent Total Time Spent (In Minutes): 45 Discharge Plan Discharge Items Patient Disposition: Home - Self-Care Reason For Visit: Right arm numbness, difficulty speaking Discharge Diagnosis: 1. right arm numbness, difficulty speaking - resolved; due to "atypical" migraine? Transient ischemic attack (TIA)? 2. hyponatremia (low sodium) - chronic, present since early 2022 3. history of osteomyelitis of the lumbar spine Activity: As commented below Activity Comment: for the next 4-5 days light activities then gradually increase activity Driving/Machine Use: Resume 3 days after discharge Non-emergency contact: Primary Care Provider Call non-emergency contact if: you have any medication questions and your symptoms worsen Follow-up/Referrals: ProLester MD [Primary Care Provider] - 05/20/23 11:00 am (PCP followup: 05/20/2023 @11:00am with Shannan Connolly) Diet: Heart Healthy Addtl Attending Provider Instructions: Mrs Jenkins, Fam were hospitalized due to a series of neurological symptoms including right arm numbness and difficulty with speaking. Upon arrival to [facility] we were heavily concerned about the possibility of stroke. Fortunately the MRI of the brain was negative/normal - no stroke was found. Your echocardiogram was normal. The CT scans of the blood vessels of the head and neck showed normal arteries. Dr Bernardo López from neurology saw you in consult and felt that your symptoms were either due to a "TIA" or atypical migraine. A TIA (transient ischemic attack) is a neurological symptom or set of symptoms that come on abruptly and typically resolve within 24 hours. TIA is not the same thing as a stroke. The MRI of the brain in people with TIA is typically negative for stroke. Atypical migraines can mimic strokes. Once the headache resolves often the neurological symptoms improve then resolve. Since we are not sure which etiology caused your symptoms we are going to err on the same of caution and recommend a medication called "clopidogrel" to prevent a future TIA or stroke. In addition, when you arrived here your sodium was low at 125. It Improved to 130/131 during your stay. Urine studies and additional blood work suggests that you may have something called "SIADH" (syndrome of inappropriate ADH secretion). ADH is a hormone that regulates water in the body and thereby also affects the sodium level. In SIADH the hormone is operating overtime causing the sodium level to drop. The sodium has been low since your back infection earlier this year and thus the SIADH may be due to such. Recommendations - 1. clopidogrel 75mg once daily, first dose tomorrow morning. 2. sodium chloride (salt) tablet - 1000mg once a day x 7 days; your blood work next week will determine if you will need the salt tablet longer. Start the salt tablet today. 3. restrict total fluid intake to no more than 1500cc in a 24 hour period. 4. have a blood draw this coming 05/19/23, at any [facility] lab. This is to recheck your sodium level. Follow-up - see separate section Return to [facility] if - * you have any recurrent symptoms of a TIA or stroke (see below) * you have shortness of breath or chest pain * you have severe headache * you have fever over 100 degrees * any other concerns It was our pleasure to care for you! -Dr Robert Santana Sleeping Car Conductor Provider Instructions: Risk Factors for Stroke: You can reduce your chances of stroke by working with your medical provider to adopt a healthy lifestyle. Some specific ways to lower your chance of stroke are: * If you are a smoker, now is the time to stop smoking cigarettes * If you are diabetic, improve the control of your blood sugars * Avoid excessive amounts of alcohol * Control high blood pressure * Lose weight if you are overweight * Be sure to lead an active lifestyle * Eat a healthy diet low in salt, cholesterol and fat You should know about other risk factors for stroke that you are unable to control. These include: * Age 55 years or older * Male gender * Certain racial groups: , or / * Family History of Stroke, Mini stroke or Heart Attack * Sickle Cell Disease Follow Up: It is important for you to keep your follow up appointments with your medical provider. Who to Call and When: Medical Emergencies: Call 911 immediately if you experience any of the follow ing warning signs and symptoms of Stroke: * Sudden numbness or weakness of the face, arm or leg, especially on one side of the body * Sudden confusion, trouble speaking or understanding * Sudden trouble seeing in one or both eyes * Sudden trouble walking, dizziness, loss of balance or coordination * Sudden severe headache with no cause Do not delay calling 911 if you experience any warning signs or symptoms of a stroke. Delay in seeking medical attention may affect what treatments can be given to you. . Pending Studies at Discharge: No Stand-Alone Forms: [facility], Smoking Cessation, Medications to Prevent Stroke Medications and DC Order Prescriptions: New clopidogrel 75 mg Tablet 75 mg PO QAM Qty: 30 5RF sodium chloride 1,000 mg tablet,soluble 1,000 mg PO DAILY Qty: 7 0RF Rx Instructions: start 05/15/23 Continued clindamycin HCl 300 mg capsule 600 mg PO UD PRN (Reason: dental procedures) Qty: 30 6RF albuterol sulfate 90 mcg/actuation HFA aerosol inhaler 2 puff inhalation Q6H PRN (Reason: sob) Qty: 25.5 3RF famotidine 40 mg tablet 40 mg PO HS Qty: 90 3RF rabeprazole 20 mg tablet,delayed release (DR/EC) 20 mg PO QAM Qty: 90 3RF desloratadine [Clarinex] 5 mg tablet 5 mg PO DAILY 90 Days Qty: 90 1RF doxycycline hyclate 100 mg capsule 100 mg PO DAILY estradiol acetate 0.1 mg/24 hr ring 1 vag ring vaginal Q3MO Qty: 1 3RF cholecalciferol (vitamin D3) 5,000 unit capsule 5,000 unit PO QPM loperamide 2 mg tablet 2 mg PO HS Qty: 90 glucosamine sulfate 2KCl [Glucosamine Relief] 1,000 mg tablet 1,000 mg PO AMPM multivitamin [Daily Multi-Vitamin] tablet 1 tab PO QPM Lo-C with Bioflavonoids 1,000-200 mg tablet 1 tab PO QAM fluticasone propionate 50 mcg/actuation spray,suspension 2 sprays intranasal QAM Qty: 48 3RF calcium carbonate [Calcium 600] 600 mg calcium (1,500 mg) Tablet 1,200 mg PO QPM Citrucel 500 mg Tablet 500 mg PO HS acetaminophen 325 mg Tablet 650 mg PO Q6HWA Qty: 30 0RF verapamil 180 mg capsule,ext rel. pellets 24 hr 180 mg PO HS vitamin E 268 mg (400 unit) Capsule 268 mg PO BID fluticasone propion-salmeterol [Advair Diskus] 250-50 mcg/dose blister with device 1 inh inhalation BID PRN (Reason: Shortness Of Breath Or Wheezing) Rx Instructions: patient only takes prn now Discontinued mirtazapine [Remeron] 15 mg tablet 15 mg PO HS Qty: 90 1RF No Action pindolol 5 mg tablet 5 mg PO BID Qty: 180 1RF Saccharomyces boulardii [Florastor] 250 mg capsule 250 mg PO BID Rx Instructions: swallow whole Discharge Orders: Discharge Order (Routine); Ordered 05/15/23 Ordered By: Pacheco Salcido/Other Patient Handouts: What Is a TIA?, Diabetes: Meal Planning, Type 2 Diabetes Admission Data Admit Date/Time: 05/14/23 17:57 Attending Provider: Pacheco Jones Admit Provider: Maldonado Izaguirre Primary Care Provider: Lester Baldwin Other Providers: Maldonado Izaguirre ; Kelvin López Other Interventions: Discharge Summary Assessment (RN) Last Done: 05/15/23 16:54 Coding Level of Care Code 65748 INP/OBS DISCH >30 MIN Diagnoses Atypical migraine G43.009 TIA (transient ischemic attack) G45.9 Acute hyponatremia E87.1 Chronic hyponatremia E87.1 Osteomyelitis of lumbar spine M46.26 Hypertension I10
[2023-05-15 16:59] LABS: C Reactive Protein < 0.50 mg/dl (0-0.5)
--- NOTE | 2023-05-16 19:45 | Electrocardiogram Report ---
Test Reason : Blood Pressure : / mmHG Vent. Rate : 084 BPM Atrial Rate : 084 BPM P-R Int : 190 ms QRS Dur : 082 ms QT Int : 392 ms P-R-T Axes : 048 011 029 degrees QTc Int : 463 ms Normal sinus rhythm Possible Left atrial enlargement Borderline ECG When compared with ECG of 20-FEB-2023 16:10, Criteria for Inferior infarct are no longer Present Nonspecific T wave abnormality, improved in Inferior leads Confirmed by Tung Byrne ([id number]) on 05/16/2023 7:45:47 PM Referred By: REFERRED SELF Confirmed By:Tung Byrne
== END 2023-05-15 18:47 | disposition home or self-care (01) ==
LOC: ED 13:55 → 2S 13:55 → SUATTDRO 17:57 → 2S 19:29